=== PATIENT | male | born 1980 | race Caucasian/White ===

== ENCOUNTER 2022-04-14 08:30 | Outpatient (RCR) | payer OTHER, SELFPAY ==
[2022-03-24 08:09] VITALS: BP 143/85; PULSE 95; RESP 16; TEMP 36.3; BMI 21.9
--- NOTE | 2022-03-24 09:02 | HP.PCM_ITS ---
History of Present Illness Date of Service: 03/24/22 Progress of Wound: 41-year-old male with history of chronic right foot wound in setting of type 2 diabetes with peripheral neuropathy and end-stage renal disease. Patient has peritoneal dialysis dialysis at home lives with his parents. Patient denies any constitutional symptoms. Patient was seen by parachute folder at [facility] who put him in a surgical shoe with an offloading pad. Patient denies any improvement with this. Patient recently evaluated by vascular surgeon, no intervention recommended at this time. Patient's A1c was 6.2. Patient denies any other treatments at this time. [facility] Home Medications amlodipine 5 mg tablet 5 mg PO DAILY 01/08/22 [History Last Taken Unknown] lisinopril 40 mg tablet 40 mg PO DAILY 01/08/22 [History Last Taken Unknown] omeprazole 40 mg capsule,delayed release 40 mg PO DAILY 01/08/22 [History Last Taken Unknown] sevelamer carbonate 800 mg tablet (Renvela) 800 mg PO TID 01/08/22 [History Last Taken Unknown] sucroferric oxyhydroxide 500 mg chewable tablet (Velphoro) 500 mg PO TID 01/08/22 [History Last Taken Unknown] vitamin B complex-vitamin C-folic acid 0.8 mg tablet (Ifrah-Al) 1 tab PO DAILY 01/08/22 [History Last Taken Unknown] calcium 100 mg capsule 200 mg PO BID 03/24/22 [History Last Taken Unknown] insulin glargine 100 unit/mL (3 mL) subcutaneous pen (Basaglar KwikPen U-100 Insulin) 15 unit subcut QHS 03/24/22 [History Last Taken Unknown] Allergy/AdvReac Type Severity Reaction Status Date / Time tramodol AdvReac Intermediate Vomiting Uncoded 03/03/22 14:34 Family History Mother Diabetes Hypertension Brother Diabetes Social History housing: house Smoking Status: Never smoker alcohol intake: never substance use type: does not use well-balanced diet: daily or most days caffeine: No eating out: 4 or more times/week during the past year weight has: remained stable what type of physical activity do you participate in: none ROS Constitutional Constitutional: Denies daytime sleepiness, increased appetite or weakness Eyes Eyes: Denies acute decrease in peripheral vision, change in vision or double vision ENT HEENT: Denies change in voice, facial pain or loss taste/smell Cardiovascular Cardiovascular: Denies abdominal pain, chest pain with activity or dyspnea at rest Respiratory/Chest Respiratory/Chest: Denies change in phlegm color, chest congestion or dyspnea on exertion Gastrointestinal Gastrointestinal: Denies belching, bloating or constipation Genitourinary Genitourinary: Denies anuria, burning urination or difficulty with ejaculations Musculoskeletal Musculoskeletal: Denies atrophy, back pain or limited range of motion Vital Signs Vital Signs Vital Signs: 03/24/22 08:09 Temperature 97.3 F L Temperature Source Temporal Pulse Rate 95 Respiratory Rate 16 Blood Pressure 143/85 H Blood Pressure Mean 104 Blood Pressure Source Monitor Blood Pressure Position Sitting Blood Pressure Location Left Arm Oxygen Delivery Method Room Air Weight Weight: 69.4 kg Body Mass Index (BMI) 21.9 Physical Exam Narrative Patient alert oriented to person place and time. Patient ambulating assisted with a cane in a surgical shoe with an offloading pad. Vascular: Dorsalis pedis posterior tibial pulse palpable 2 out of 4 capillary fill time brisk absent digital hair growth noted atrophic skin changes noted. Neurologic: Light touch protective sensation absent to bilateral feet. Dermatologic: Full-thickness wound noted to the plantar lateral right foot fifth metatarsal head this did probe into the dorsal foot as an extension of a singular wound upon debridement yielded a larger wound that had some focal increase in warmth edema and scant purulent drainage. No other signs of infection deep probing or undermining at this time. Musculoskeletal: Forefoot varus deformity noted to the right lower extremity. Muscular strength full. No other issues. Debridement Note Debridement Note Post-Debridement Measurements and Additional Note: Post-Debridement Measurements/Treatment - Nurse 1 - General Ulcer Assessment Start: 03/24/22 08:09 Freq: Status: Active Protocol: SISSY Activity Type Activity Date Activity User E-sign Co-sign Detail Recorded Client Recorded Date Recorded By Document 03/24/22 08:09 [id number] 03/24/22 08:31 03/24/22 08:09 - Today's Visit Information Type of service Initial Visit Arrival Mode Ambulatory Transfer Assistance None Accompanied by self Patient Identification Verified (Name & Yes ) Safety Precautions NA Finger Stick Blood Sugar(mg/dl) (if 168 indicated): Blood Sugar Stated by Patient Height and Weight Height 5 ft 10 in Weight 69.4 kg Weight in Pounds 153.0 lbs Weight Measurement Method Stated by Patient Body Mass Index (BMI) 21.9 BMI Classification Normal BSA - Charli 1.86 Vital Signs Temperature (97.8 F-99.1 F) 97.3 F L Temperature Source Temporal Pulse Rate (60-100) 95 Pulse Location Monitor Respiratory Rate (12-18) 16 Respiratory rate source Observation Oxygen Delivery Method Room Air Blood Pressure (90/60-120/80) 143/85 H Blood Pressure Mean 104 Source Monitor Position Sitting Blood Pressure Location Left Arm History Since Last Visit- (Skip if this is Patient's initial visit) Left Footwear Regular Shoe Right Footwear Surgical Shoe with pressure relief insole Pain Scale: 0-10 Numeric Is Patient Pain Free? Yes Neuropathy Assessment Feet - Top Side and Bottom <Entered> (a) Communication Assessment Preferred language Qatari Tentering Machine Off Bearer Required No Able to Read Yes Able to Write Yes Communication Tools None Caregiver Communication Skills No Impairment Impairment Right Hearing Abillity Normal Left Hearing Abillity Normal Visual Assistive Devices Glasses Teaching Assessment Preferences Verbal,Written, Audio/Visual, Demonstration Barriers to Learning None Readiness To Learn Excellent Willingness to Engage in Self Management High Activies Anxiety Level Calm Cooperation Cooperative Perception Coherent Interest in Health Problem Asks Questions Education Importance Acknowledges Need Does Patient Smoke tobacco or other No substances Smoking Status Never smoker Is Patient Diabetic Yes Functional Assessment Recent Decline in Ability to Perform Denies Any Declines Assistive Device With Patient Yes List Device(s) with Patient cane Culture/Worship/Oil Deliverer Cultural/Worship Needs that may affect No Treatment Plan Would you allow our hospital plastics sheet finishing press operator to No meet you for the purpose of spiritual/ emotional support? Oil Deliverer to contact place of restorationist No Teaching: Wound Center *Welcome to the Wound Center -Person Taught Patient -Teaching Method Discussion -Response to teaching Verbalize understanding (a) 1 - - WC - Nurse 1 - General Ulcer Measurement Start: 03/24/22 08:09 Freq: Status: Active Protocol: Activity Type Activity Date Activity User E-sign Co-sign Detail Recorded Client Recorded Date Recorded By Document 03/24/22 08:09 [id number] 03/24/22 08:31 MW 03/24/22 08:09 Wound Center Nurse 1 #2 right lateral plantar -Combined with other wound No -Current Size (cm) - Length 0.5 -Current Size (cm) - Width 0.3 -Current Size (cm) - Depth 0.1 -Total Square Cm 0.15 -Date of Last Picture (Recall this 03/24/22 field) -Photo Taken Yes -Epithelialization None Present -Tunneling No -Undermining/Tunneling No -Circular Undermining No -Exudate Amt Medium -Exudate Type Serosanguineous -Wound Margin Flat & Intact -Granulation Amt None Present (0 %) -Granulation Quality N/A -Slough/Fibrin Yes -Necrosis Amt Medium (34-66%) -Necrotic Tissue Type Adherent Slough -Structure Exposed N/A -Texture (Breanne-wound Skin Appearance) No Abnormality, Assessed -Color (Breanne-wound Skin Appearance) Assessed, Erythema -Temperature (Breanne-wound Skin No Abnormality Appearance) (Pt Warm) -Tenderness on Palpation (Breanne-wound No Skin Appearance) -Ulcer Cleansing Soap and Water -Foul Odor after Cleansing No -Anesthetic Used 4% Lidocaine Solution #1 right lateral foot -Combined with other wound No -Current Size (cm) - Length 1.4 -Current Size (cm) - Width 0.8 -Current Size (cm) - Depth 0.1 -Total Square Cm 1.12 -Date of Last Picture (Recall this 03/24/22 field) -Photo Taken Yes -Epithelialization None Present -Tunneling No -Undermining/Tunneling No -Circular Undermining No -Exudate Amt Medium -Exudate Type Serosanguineous -Wound Margin Flat & Intact -Granulation Amt None Present (0 %) -Granulation Quality N/A -Slough/Fibrin Yes -Necrosis Amt Large (67-100%) -Necrotic Tissue Type Adherent Slough -Structure Exposed N/A -Texture (Breanne-wound Skin Appearance) No Abnormality, Assessed -Moisture (Breanne-wound Skin Appearance) No Abnormality, Assessed -Color (Breanne-wound Skin Appearance) Assessed, Erythema -Temperature (Breanne-wound Skin No Abnormality Appearance) (Pt Warm) -Tenderness on Palpation (Breanne-wound No Skin Appearance) -Ulcer Cleansing Soap and Water -Foul Odor after Cleansing No -Anesthetic Used 4% Lidocaine Solution Lower Limb Edema Present No Right Calf (cm) 28.6 Right Ankle (cm) 19.8 Left Calf (cm) 29.0 Left Ankle (cm) 20.0 WC - Nurse 2 - General Ulcer CM Notes Start: 03/24/22 08:09 Freq: Status: Active Protocol: Activity Type Activity Date Activity User E-sign Co-sign Detail Recorded Client Recorded Date Recorded By Document 03/24/22 08:50 CURT [id number] 03/24/22 08:58 CURT 03/24/22 08:50 Wound Center Nurse 2 #2 right lateral plantar -Time 08:54 -Correct Patient Yes -Correct Side, Site, Position Yes -Correct Procedure Yes -Procedure Performed Yes -Type of Procedure Debridement -Clinical Debridement Subcutaneous -Tissue Removed Subcutaneous -Post Debridement (cm) - Length 2.2 -Post Debridement (cm) - Width 1.0 -Post Debridement (cm) - Depth 0.2 -Total Square (Post) (cm) 2.20 -Area of Debridement (cm) - Length 2.2 -Area of Debridement (cm) - Width 1.0 -Total Square (Area) (cm) 2.20 -Tunneling No -Undermining/Tunneling No -Circular Undermining No -Wound/Ulcer Outcome Not Healed -Ulcer Cleansing Rinsed/ Irrigated with Saline -Foul Odor after Cleansing No -Bioengineered Tissue No -Bleeding Controlled with Pressure -Treatment Response Procedure Tolerated Well -Offloading Yes -Type of Offloading Surgical Shoe -Debridement - Subq, 1st 20sq cm Yes #1 right lateral foot -Time 08:57 -Correct Patient Yes -Correct Side, Site, Position Yes -Correct Procedure Yes -Procedure Performed Yes -Type of Procedure Debridement -Clinical Debridement Subcutaneous -Tissue Removed Subcutaneous -Post Debridement (cm) - Length 2.2 -Post Debridement (cm) - Width 1.0 -Post Debridement (cm) - Depth 0.2 -Total Square (Post) (cm) 2.20 -Area of Debridement (cm) - Length 2.2 -Area of Debridement (cm) - Width 1.0 -Total Square (Area) (cm) 2.20 -Tunneling No -Undermining/Tunneling No -Circular Undermining No -Wound/Ulcer Outcome Not Healed -Ulcer Cleansing Rinsed/ Irrigated with Saline -Foul Odor after Cleansing No -Bioengineered Tissue No -Bleeding Controlled with Pressure -Treatment Response Procedure Tolerated Well -Offloading Yes -Type of Offloading Knee Walker -Debridement - Subq, 1st 20sq cm Yes Pain Scale: 0-10 Numeric Is Patient Pain Free? Yes Assessment/Plan Assessment/Plan (1) Diabetic foot ulcer: CODE(S): E11.621 - Type 2 diabetes mellitus with foot ulcer; L97.509 - Non-pressure chronic ulcer of other part of unspecified foot with unspecified severity PLAN: Exam performed. Wound demonstrates some malodor warmth and edema with scant purulent drainage. Wound was flushed and swabbed cultured. Rx for doxycycline and ciprofloxacin ordered. Right foot wound was excisionally debrided down to including level of subcutaneous tissue of all nonviable tissue using combination of tissue nippers and #15 blade without incident. Oral consent was obtained. Patient tolerated procedure well. Hemostasis obtained with light compression. No anesthesia due to neuropathy. Pre and postdebridement measurements document nursing notes. Patient's blood sugar is well controlled at this time with recent A1c of 6.2. Patient's offloading status has been inadequate as he has significant callus buildup to the periwound area with worsening of his wound. I have recommended complete nonweightbearing. Patient will get a knee scooter to completely offload the site. I have recommended patient takes baby aspirin daily for DVT prophylaxis. He will contact us if he notices any calf pain or swelling. Due to wound size we will consider advanced wound care grafting such as epi fix graft upon 4 weeks of failed conservative treatment. Patient was eval by vascular surgery no intervention indicated at this time. If there are continued delays in wound healing as mentioned previously we will consider advanced wound care products, nutritional supplementation, surgical intervention to float the fifth metatarsal head and offload the foot. 30 minutes spent with [id number] and [id number] encounters reviewing patient's chart. (2) Non-pressure chronic ulcer of other part of right foot with fat layer exposed: CODE(S): L97.512 - Non-pressure chronic ulcer of other part of right foot with fat layer exposed (3) Type 2 diabetes mellitus with diabetic polyneuropathy: CODE(S): E11.42 - Type 2 diabetes mellitus with diabetic polyneuropathy
--- NOTE | 2022-03-24 09:45 | RAD_ITS ---
STUDY: X-RAY - RIGHT FOOT CLINICAL: Male, 41 years old. Pain, swelling TECHNIQUE: 3 view(s) of the foot. COMPARISON: None. FINDINGS: Normal talus, calcaneus, and tarsal bones. Normal visualized subtalar, talonavicular, calcaneocuboid, tarsal and tarsometatarsal articulations. Normal metatarsi. Normal metatarsophalangeal joint of the great toe. Normal tibial and fibular sesamoid bones. Normal interphalangeal joint of the great toe. Normal phalanges of the great toe. Normal second through fifth metatarsophalangeal joints. Normal interphalangeal joints and phalanges of the lesser toes. Nonspecific soft tissue swelling noted. There is no plain film evidence of subcutaneous emphysema. There are extensive vascular calcifications suggesting underlying diabetes. RAD/Foot min 3 Views IMPRESSION: No demonstrated fracture or suspicious erosive lesion. Nonspecific soft tissue swelling but no evidence of foreign body or subcutaneous emphysema Diffuse vascular calcification suggests underlying diabetes Electronically Signed: Twin Umana MD at 11:13 EDT ,
[2022-03-24 10:16] LABS: Absolute Lymphocyte Count 1.27 X10^3/uL (0.83-4.51); Absolute Neutrophil Count 12.8 X10^3/uL (2.0-7.7); Basophil# 0.08 X10^3/uL; Basophil% 0.5 % (0-1); Eosinophil# 0.16 X10^3/uL; Hematocrit 33.8 % (40-54); Hemoglobin 11.2 g/dL (13.0-16.5); Lymphocyte # 1.27 X10^3/ul (0.83-4.51); Mean Corp Hgb Conc 33.1 g/dL (32-36); Mean Corpuscular Hgb 32.3 pg (27.0-32.0); Mean Corpuscular Volume 97.4 fL (80-94); Mean Platelet Vol. 10.8 fl (6.2-12.0); Monocyte# 1.47 X10^3/uL; Monocyte% 9.3 % (0-10); NRBC Flagged by Analyzer 0 % (0-5); Neutrophil # 12.84 X10^3/uL (2.7-7.7); Neutrophil % 80.9 % (47-70); Platelet Count 307 K/mm3 (150-450); RBC Distribution Width CV 13.4 % (11.6-14.6); RBC Distribution Width SD 48.2 fl (35.1-43.9); Red Blood Count 3.47 M/mm3 (4.6-6.2); White Blood Count 15.9 K/mm3 (4.4-11.0)
[2022-03-24 11:09] LABS: CRP 5.04 mg/L (0.0-3.0)
[2022-03-31 08:18] VITALS: RESP 16; TEMP 36.3; BMI 21.9
--- NOTE | 2022-03-31 08:42 | PCM.WC.PN ---
History of Present Illness Date of Service: 03/31/22 Progress of Wound: 41-year-old male with history of chronic right foot wound in setting of type 2 diabetes with peripheral neuropathy and end-stage renal disease. Patient has peritoneal dialysis dialysis at home lives with his parents. Patient denies any constitutional symptoms. Patient was seen by fresh work wrapper layer at [facility] who put him in a surgical shoe with an offloading pad. Patient denies any improvement with this. Patient recently evaluated by vascular surgeon, no intervention recommended at this time. Patient's A1c was 6.2. Patient denies any other treatments at this time. No changes today. Objective Data Objective Data Vital Signs: Vital Signs Temp Pulse Resp BP O2 Del Method 97.4 F L 95 16 143/85 H Room Air 03/31/22 08:18 03/24/22 08:09 03/31/22 08:18 03/24/22 08:09 03/31/22 08:18 Oxygen Delivery Method Room Air Weight: 69.4 kg Body Mass Index (BMI) 21.9 Lab / Micro Data Result Diagrams: 03/24/22 09:33 Micro: Microbiology 03/24/22 09:00 Wound Abcess - Right Foot Gram Stain - Final 03/24/22 09:00 Wound Abcess - Right Foot Wound Culture - Final Staphylococcus aureus Meth. resistant Staph. aureus Corynebacterium glutamicum 03/24/22 09:00 Wound Abcess - Right Foot Anaerobic Culture - Final Anaerobic cocci Physical Exam Narrative Patient alert oriented to person place and time. Patient ambulating assisted with a cane in a surgical shoe with an offloading pad. Vascular: Dorsalis pedis posterior tibial pulse palpable 2 out of 4 capillary fill time brisk absent digital hair growth noted atrophic skin changes noted. Neurologic: Light touch protective sensation absent to bilateral feet. Dermatologic: Full-thickness wound to plantar fifth metatarsal head on the right foot. No signs of infection, edema erythema warmth and purulent drainage has resolved. No deep probing or undermining. Leg mild hyperkeratosis to periwound area no other signs of infection deep probing or undermining at this time. Musculoskeletal: Forefoot varus deformity noted to the right lower extremity. Muscular strength full. No other issues. Debridement Note Debridement Note Post-Debridement Measurements and Additional Note: Post-Debridement Measurements/Treatment WC - Nurse 1 - General Ulcer Assessment Start: 03/24/22 08:09 Freq: Status: Active Protocol: WC.LOWEXT Activity Type Activity Date Activity User E-sign Co-sign Detail Recorded Client Recorded Date Recorded By Document 03/24/22 08:09 MW [id number] 03/24/22 08:31 MW Document 03/31/22 08:18 [facility] [id number] 03/31/22 08:21 BM 03/24/22 03/31/22 08:09 08:18 - Today's Visit Information Type of service Initial Visit Follow-up Visit (Physician/TRANSFER COORDINATOR ) Arrival Mode Ambulatory Ambulatory, Walker Arrival Mode (Other) knee walker Transfer Assistance None None Accompanied by self Patient Identification Verified (Name & Yes Yes ) Patient Requires Transmission-Based No Precautions Safety Precautions NA Finger Stick Blood Sugar(mg/dl) (if 168 159 indicated): Blood Sugar Stated by Stated by Patient Patient Height and Weight Height 5 ft 10 in Weight 69.4 kg Weight in Pounds 153.0 lbs Weight Measurement Method Stated by Patient Body Mass Index (BMI) 21.9 21.9 BMI Classification Normal Normal BSA - Charli 1.86 Vital Signs Temperature (97.8 F-99.1 F) 97.3 F L 97.4 F L Temperature Source Temporal Temporal Pulse Rate (60-100) 95 Pulse Location Monitor Monitor Respiratory Rate (12-18) 16 16 Respiratory rate source Observation Observation Oxygen Delivery Method Room Air Room Air Blood Pressure (90/60-120/80) 143/85 H Blood Pressure Mean (mm Hg) 104 Source Monitor Monitor Position Sitting Sitting Blood Pressure Location Left Arm Left Arm History Since Last Visit- (Skip if this is Patient's initial visit) Have you changed medications since your No last visit? Any new allergies or adverse reactions No Had a fall/change in ADL's that may No increase risk of falls Signs or symptoms of abuse and/or No neglect since last visit Have you been in the hospital since your No last visit? Has dressing in place as prescribed Yes Has compression in place as prescribed N/A Has offloadiing in place as prescribed Yes Experienced any changes in pain level or No management Left Footwear Regular Shoe Regular Shoe Right Footwear Surgical Shoe Surgical Shoe with pressure with pressure relief insole relief insole Pain Scale: 0-10 Numeric Is Patient Pain Free? Yes Yes Neuropathy Assessment Feet - Top Side and Bottom <Entered> (a) Communication Assessment Preferred language Kinyarwanda C[employer] Finisher Required No Able to Read Yes Able to Write Yes Communication Tools None Caregiver Communication Skills No Impairment Impairment Right Hearing Abillity Normal Left Hearing Abillity Normal Visual Assistive Devices Glasses Teaching Assessment Preferences Verbal,Written, Audio/Visual, Demonstration Barriers to Learning None Readiness To Learn Excellent Willingness to Engage in Self Management High Activies Anxiety Level Calm Cooperation Cooperative Perception Coherent Interest in Health Problem Asks Questions Education Importance Acknowledges Need Does Patient Smoke tobacco or other No substances Smoking Status Never smoker Is Patient Diabetic Yes Functional Assessment Recent Decline in Ability to Perform Denies Any Declines Assistive Device With Patient Yes List Device(s) with Patient cane Culture/Baptism/Director Engineering Cultural/Baptism Needs that may affect No Treatment Plan Would you allow our hospital electric power line examiner to No meet you for the purpose of spiritual/ emotional support? Director Engineering to contact place of hindu No Teaching: Wound Center *Welcome to the Wound Center -Person Taught Patient -Teaching Method Discussion -Response to teaching Verbalize understanding (a) 1 - - - Nurse 1 - General Ulcer Measurement Start: 03/24/22 08:09 Freq: Status: Active Protocol: Activity Type Activity Date Activity User E-sign Co-sign Detail Recorded Client Recorded Date Recorded By Document 03/24/22 08:09 [id number] 03/24/22 08:31 Document 03/31/22 08:18 [facility] [id number] 03/31/22 08:21 [facility] 03/24/22 03/31/22 08:09 08:18 Wound Center Nurse 1 #2 right lateral plantar -Combined with other wound No -Current Size (cm) - Length 0.5 -Current Size (cm) - Width 0.3 -Current Size (cm) - Depth 0.1 -Total Square Cm 0.15 -Date of Last Picture (Recall this 03/24/22 field) -Photo Taken Yes -Epithelialization None Present -Tunneling No -Undermining/Tunneling No -Circular Undermining No -Exudate Amt Medium -Exudate Type Serosanguineous -Wound Margin Flat & Intact -Granulation Amt None Present (0 %) -Granulation Quality N/A -Slough/Fibrin Yes -Necrosis Amt Medium (34-66%) -Necrotic Tissue Type Adherent Slough -Structure Exposed N/A -Texture (Breanne-wound Skin Appearance) No Abnormality, Assessed -Color (Breanne-wound Skin Appearance) Assessed, Erythema -Temperature (Breanne-wound Skin No Abnormality Appearance) (Pt Warm) -Tenderness on Palpation (Breanne-wound No Skin Appearance) -Ulcer Cleansing Soap and Water -Foul Odor after Cleansing No -Anesthetic Used 4% Lidocaine Solution #1 right lateral foot -Combined with other wound No No -Current Size (cm) - Length 1.4 0.4 -Current Size (cm) - Width 0.8 0.6 -Current Size (cm) - Depth 0.1 0.1 -Total Square Cm 1.12 0.24 -Date of Last Picture (Recall this 03/24/22 03/31/22 field) -Photo Taken Yes Yes -Epithelialization None Present None Present -Tunneling No No -Undermining/Tunneling No No -Circular Undermining No No -Exudate Amt Medium Small -Exudate Type Serosanguineous Serous -Wound Margin Flat & Intact Distinct, Outline Attached -Granulation Amt None Present (0 Small (1-33%) %) -Granulation Quality N/A Red -Slough/Fibrin Yes Yes -Necrosis Amt Large (67-100%) Large (67-100%) -Necrotic Tissue Type Adherent Slough Adherent Slough -Structure Exposed N/A -Texture (Breanne-wound Skin Appearance) No Abnormality, Assessed,Callus Assessed ,Scarring -Moisture (Breanne-wound Skin Appearance) No Abnormality, Assessed,Dry/ Assessed Scaly -Color (Breanne-wound Skin Appearance) Assessed, Assessed Erythema -Temperature (Breanne-wound Skin No Abnormality No Abnormality Appearance) (Pt Warm) (Pt Warm) -Tenderness on Palpation (Breanne-wound No No Skin Appearance) -Ulcer Cleansing Soap and Water Rinsed/ Irrigated with Saline -Foul Odor after Cleansing No No -Anesthetic Used 4% Lidocaine 5% Lidocaine Solution Gel Lower Limb Edema Present No Right Calf (cm) 28.6 Right Ankle (cm) 19.8 Left Calf (cm) 29.0 Left Ankle (cm) 20.0 WC - Nurse 2 - General Ulcer CM Notes Start: 03/24/22 08:09 Freq: Status: Active Protocol: Activity Type Activity Date Activity User E-sign Co-sign Detail Recorded Client Recorded Date Recorded By Document 03/24/22 08:50 [id number] 03/24/22 08:58 JF Edit Result 03/24/22 08:50 JF (1) [id number] 03/25/22 08:33 PL Document 03/31/22 08:36 JF [id number] 03/31/22 08:39 JF (1) #2 right lateral plantar - Debridement - Subq, 1st 20sq cm Yes => No 03/24/22 03/31/22 08:50 08:36 Wound Center Nurse 2 #2 right lateral plantar -Time 08:54 -Correct Patient Yes -Correct Side, Site, Position Yes -Correct Procedure Yes -Procedure Performed Yes -Type of Procedure Debridement -Clinical Debridement Subcutaneous -Tissue Removed Subcutaneous -Post Debridement (cm) - Length 2.2 -Post Debridement (cm) - Width 1.0 -Post Debridement (cm) - Depth 0.2 -Total Square (Post) (cm) 2.20 -Area of Debridement (cm) - Length 2.2 -Area of Debridement (cm) - Width 1.0 -Total Square (Area) (cm) 2.20 -Tunneling No -Undermining/Tunneling No -Circular Undermining No -Wound/Ulcer Outcome Not Healed -Ulcer Cleansing Rinsed/ Irrigated with Saline -Foul Odor after Cleansing No -Bioengineered Tissue No -Bleeding Controlled with Pressure -Treatment Response Procedure Tolerated Well -Offloading Yes -Type of Offloading Surgical Shoe -Debridement - Subq, 1st 20sq cm No #1 right lateral foot -Time 08:57 08:38 -Correct Patient Yes Yes -Correct Side, Site, Position Yes Yes -Correct Procedure Yes Yes -Procedure Performed Yes Yes -Type of Procedure Debridement Debridement -Clinical Debridement Subcutaneous Subcutaneous -Tissue Removed Subcutaneous Subcutaneous -Post Debridement (cm) - Length 2.2 2.7 -Post Debridement (cm) - Width 1.0 0.6 -Post Debridement (cm) - Depth 0.2 0.2 -Total Square (Post) (cm) 2.20 1.62 -Area of Debridement (cm) - Length 2.2 2.7 -Area of Debridement (cm) - Width 1.0 0.6 -Total Square (Area) (cm) 2.20 1.62 -Tunneling No No -Undermining/Tunneling No No -Circular Undermining No No -Wound/Ulcer Outcome Not Healed Not Healed -Ulcer Cleansing Rinsed/ Rinsed/ Irrigated with Irrigated with Saline Saline -Foul Odor after Cleansing No No -Bioengineered Tissue No No -Bleeding Controlled with Pressure Pressure -Treatment Response Procedure Procedure Tolerated Well Tolerated Well -Offloading Yes Yes -Type of Offloading Knee Walker Knee Walker -Debridement - Subq, 1st 20sq cm Yes Yes Pain Scale: 0-10 Numeric Is Patient Pain Free? Yes Yes - Nurse 3 - General Ulcer D/C NN Start: 03/24/22 08:09 Freq: Status: Active Protocol: Activity Type Activity Date Activity User E-sign Co-sign Detail Recorded Client Recorded Date Recorded By Document 03/24/22 09:06 MW [id number] 03/24/22 09:08 MW 03/24/22 09:06 Wound Care Nurse 3 #1 right lateral foot -Ulcer Cleansing Rinsed/ Irrigated with Saline -Foul Odor after Cleansing No -Negative Pressure Wound Therapy N/A -Primary Dressing Applied Promogran Debby Matter -Primary Dressing Covered/Secured with Dry Gauze, Secured with Tape -Promogran Debby Matter 1 Treatment Response Procedure Tolerated Well Pain Scale: 0-10 Numeric Is Patient Pain Free? Yes Teaching: Wound Center Dressing Your Wound -Person Taught Patient -Teaching Method Discussion, Demonstration -Response to teaching Verbalize understanding WC - Visit Discharge Discharge Condition Stable Ambulatory Status Ambulatory,Cane Transportation Private Auto Accompanied by self Medication Reconcilliation completed & No provided to patient/care provider Clinical Summary of Care Provided Yes Notes: dressing applied per Harris Alejandre RN. Assessment/Plan Assessment/Plan (1) Diabetic foot ulcer: CODE(S): E11.621 - Type 2 diabetes mellitus with foot ulcer; L97.509 - Non-pressure chronic ulcer of other part of unspecified foot with unspecified severity PLAN: Exam performed. Resolved signs of infection. Wound cultures grew MRSA. MRSA was sensitive to doxycycline we will continue doxycycline for additional week. Right foot wound was excisionally debrided down to including level of subcutaneous tissue of all nonviable tissue using combination of tissue nippers and #15 blade without incident. Oral consent was obtained. Patient tolerated procedure well. Hemostasis obtained with light compression. No anesthesia due to neuropathy. Pre and postdebridement measurements document nursing notes. Patient's blood sugar is well controlled at this time with recent A1c of 6.2. Patient maintaining nonweightbearing status using a knee scooter. Patient has been evaluated by vascular surgery, no intervention at this time. Due to wound size we will consider advanced wound care grafting such as epi fix graft upon 4 weeks of failed conservative treatment. We will consider total contact casting once infection is confirmed to be resolved. If there are continued delays in wound healing as mentioned previously we will consider advanced wound care products, nutritional supplementation, surgical intervention to float the fifth metatarsal head and offload the foot. (2) Non-pressure chronic ulcer of other part of right foot with fat layer exposed: CODE(S): L97.512 - Non-pressure chronic ulcer of other part of right foot with fat layer exposed (3) Type 2 diabetes mellitus with diabetic polyneuropathy: CODE(S): E11.42 - Type 2 diabetes mellitus with diabetic polyneuropathy
[2022-04-07 08:30] VITALS: BP 142/69; PULSE 66; TEMP 36.2; BMI 21.9
--- NOTE | 2022-04-07 08:59 | PN.PCM_ITS ---
History of Present Illness Date of Service: 04/07/22 Progress of Wound: 41-year-old male with history of chronic right foot wound in setting of type 2 diabetes with peripheral neuropathy and end-stage renal disease. Patient has peritoneal dialysis dialysis at home lives with his parents. Patient denies any constitutional symptoms. Patient was seen by lower school music teacher at [facility] who put him in a surgical shoe with an offloading pad. Patient denies any improvement with this. Patient recently evaluated by vascular surgeon, no intervention recommended at this time. Patient's A1c was 6.2. Patient denies any other treatments at this time. No changes today. Objective Data Objective Data Vital Signs: Vital Signs Temp Pulse Resp BP O2 Del Method 97.2 F L 66 16 142/69 H Room Air 04/07/22 08:30 04/07/22 08:30 03/31/22 08:18 04/07/22 08:30 03/31/22 08:18 Oxygen Delivery Method Room Air Weight: 69.4 kg Body Mass Index (BMI) 21.9 Lab / Micro Data Result Diagrams: 03/24/22 09:33 Micro: Microbiology 03/24/22 09:00 Wound Abcess - Right Foot Gram Stain - Final 03/24/22 09:00 Wound Abcess - Right Foot Wound Culture - Final Staphylococcus aureus Meth. resistant Staph. aureus Corynebacterium glutamicum 03/24/22 09:00 Wound Abcess - Right Foot Anaerobic Culture - Final Anaerobic cocci Physical Exam Narrative Patient alert oriented to person place and time. Patient ambulating assisted with a cane in a surgical shoe with an offloading pad. Vascular: Dorsalis pedis posterior tibial pulse palpable 2 out of 4 capillary fill time brisk absent digital hair growth noted atrophic skin changes noted. Neurologic: Light touch protective sensation absent to bilateral feet. Dermatologic: Full-thickness wound to plantar fifth metatarsal head on the right foot. No signs of infection, edema erythema warmth and purulent drainage has resolved. No deep probing or undermining. Leg mild hyperkeratosis to periwound area no other signs of infection deep probing or undermining at this time. Musculoskeletal: Forefoot varus deformity noted to the right lower extremity. Muscular strength full. No other issues. Debridement Note Debridement Note Post-Debridement Measurements and Additional Note: Post-Debridement Measurements/Treatment WC - Nurse 1 - General Ulcer Assessment Start: 03/24/22 08:09 Freq: Status: Active Protocol: WC.LOWEXT Activity Type Activity Date Activity User E-sign Co-sign Detail Recorded Client Recorded Date Recorded By Document 03/24/22 08:09 MW [id number] 03/24/22 08:31 MW Document 03/31/22 08:18 [facility] [id number] 03/31/22 08:21 BM Document 04/07/22 08:30 AK [id number] 04/07/22 08:33 AK 03/24/22 03/31/22 04/07/22 08:09 08:18 08:30 WC - Today's Visit Information Type of service Initial Visit Follow-up Visit Follow-up Visit (Physician/RESIDENCE LIFE DIRECTOR (Physician/RESIDENCE LIFE DIRECTOR ) ) Arrival Mode Ambulatory Ambulatory, Ambulatory Walker Arrival Mode (Other) knee walker Transfer Assistance None None Accompanied by self Patient Identification Verified (Name & Yes Yes Yes ) Patient Requires Transmission-Based No No Precautions Safety Precautions NA NA Finger Stick Blood Sugar(mg/dl) (if 168 159 indicated): Blood Sugar Stated by Stated by Patient Patient Height and Weight Height 5 ft 10 in Weight 69.4 kg Weight in Pounds 153.0 lbs Weight Measurement Method Stated by Patient Body Mass Index (BMI) 21.9 21.9 21.9 BMI Classification Normal Normal Normal BSA - Charli 1.86 Vital Signs Temperature (97.8 F-99.1 F) 97.3 F L 97.4 F L 97.2 F L Temperature Source Temporal Temporal Temporal Pulse Rate (60-100) 95 66 Pulse Location Monitor Monitor Monitor Respiratory Rate (12-18) 16 16 Respiratory rate source Observation Observation Oxygen Delivery Method Room Air Room Air Blood Pressure (90/60-120/80) 143/85 H 142/69 H Blood Pressure Mean (mm Hg) 104 93 Source Monitor Monitor Monitor Position Sitting Sitting Blood Pressure Location Left Arm Left Arm History Since Last Visit- (Skip if this is Patient's initial visit) Have you changed medications since your No No last visit? Any new allergies or adverse reactions No No Had a fall/change in ADL's that may No No increase risk of falls Signs or symptoms of abuse and/or No No neglect since last visit Have you been in the hospital since your No No last visit? Has dressing in place as prescribed Yes Yes Has compression in place as prescribed N/A N/A Has offloadiing in place as prescribed Yes N/A Experienced any changes in pain level or No No management Left Footwear Regular Shoe Regular Shoe Regular Shoe Right Footwear Surgical Shoe Surgical Shoe Surgical Shoe with pressure with pressure with pressure relief insole relief insole relief insole Pain Scale: 0-10 Numeric Is Patient Pain Free? Yes Yes Yes Neuropathy Assessment Feet - Top Side and Bottom <Entered> (a) Communication Assessment Preferred language Mal[place]ian Condenser Winder Required No Able to Read Yes Able to Write Yes Communication Tools None Caregiver Communication Skills No Impairment Impairment Right Hearing Abillity Normal Left Hearing Abillity Normal Visual Assistive Devices Glasses Teaching Assessment Preferences Verbal,Written, Audio/Visual, Demonstration Barriers to Learning None Readiness To Learn Excellent Willingness to Engage in Self Management High Activies Anxiety Level Calm Cooperation Cooperative Perception Coherent Interest in Health Problem Asks Questions Education Importance Acknowledges Need Does Patient Smoke tobacco or other No substances Smoking Status Never smoker Is Patient Diabetic Yes Functional Assessment Recent Decline in Ability to Perform Denies Any Declines Assistive Device With Patient Yes List Device(s) with Patient cane Culture/Cheondoism/Certified Caregiver Cultural/Cheondoism Needs that may affect No Treatment Plan Would you allow our hospital usability engineer to No meet you for the purpose of spiritual/ emotional support? Certified Caregiver to contact place of quaker No Teaching: Wound Center *Welcome to the Wound Center -Person Taught Patient -Teaching Method Discussion -Response to teaching Verbalize understanding (a) 1 - - WC - Nurse 1 - General Ulcer Measurement Start: 03/24/22 08:09 Freq: Status: Active Protocol: Activity Type Activity Date Activity User E-sign Co-sign Detail Recorded Client Recorded Date Recorded By Document 03/24/22 08:09 [id number] 03/24/22 08:31 Document 03/31/22 08:18 [facility] [id number] 03/31/22 08:21 [facility] Document 04/07/22 08:30 AK [id number] 04/07/22 08:33 AK 03/24/22 03/31/22 04/07/22 08:09 08:18 08:30 Wound Center Nurse 1 #2 right lateral plantar -Combined with other wound No -Current Size (cm) - Length 0.5 -Current Size (cm) - Width 0.3 -Current Size (cm) - Depth 0.1 -Total Square Cm 0.15 -Date of Last Picture (Recall this 03/24/22 field) -Photo Taken Yes -Epithelialization None Present -Tunneling No -Undermining/Tunneling No -Circular Undermining No -Exudate Amt Medium -Exudate Type Serosanguineous -Wound Margin Flat & Intact -Granulation Amt None Present (0 %) -Granulation Quality N/A -Slough/Fibrin Yes -Necrosis Amt Medium (34-66%) -Necrotic Tissue Type Adherent Slough -Structure Exposed N/A -Texture (Breanne-wound Skin Appearance) No Abnormality, Assessed -Color (Breanne-wound Skin Appearance) Assessed, Erythema -Temperature (Breanne-wound Skin No Abnormality Appearance) (Pt Warm) -Tenderness on Palpation (Breanne-wound No Skin Appearance) -Ulcer Cleansing Soap and Water -Foul Odor after Cleansing No -Anesthetic Used 4% Lidocaine Solution #1 right lateral foot -Combined with other wound No No No -Current Size (cm) - Length 1.4 0.4 0.1 -Current Size (cm) - Width 0.8 0.6 0.1 -Current Size (cm) - Depth 0.1 0.1 0.1 -Total Square Cm 1.12 0.24 0.01 -Date of Last Picture (Recall this 03/24/22 03/31/22 04/07/22 field) -Photo Taken Yes Yes Yes -Epithelialization None Present None Present -Tunneling No No No -Undermining/Tunneling No No No -Circular Undermining No No No -Change in Wound Grade/Stage No -Exudate Amt Medium Small None Present -Exudate Type Serosanguineous Serous -Wound Margin Flat & Intact Distinct, Distinct, Outline Outline Attached Attached -Granulation Amt None Present (0 Small (1-33%) None Present (0 %) %) -Granulation Quality N/A Red N/A -Slough/Fibrin Yes Yes No -Necrosis Amt Large (67-100%) Large (67-100%) None Present (0 %) -Necrotic Tissue Type Adherent Slough Adherent Slough -Structure Exposed N/A N/A -Texture (Breanne-wound Skin Appearance) No Abnormality, Assessed,Callus No Abnormality, Assessed ,Scarring Assessed -Moisture (Breanne-wound Skin Appearance) No Abnormality, Assessed,Dry/ No Abnormality, Assessed Scaly Assessed -Color (Breanne-wound Skin Appearance) Assessed, Assessed No Abnormality, Erythema Assessed -Temperature (Breanne-wound Skin No Abnormality No Abnormality No Abnormality Appearance) (Pt Warm) (Pt Warm) (Pt Warm) -Tenderness on Palpation (Breanne-wound No No No Skin Appearance) -Ulcer Cleansing Soap and Water Rinsed/ Rinsed/ Irrigated with Irrigated with Saline Saline -Foul Odor after Cleansing No No No -Anesthetic Used 4% Lidocaine 5% Lidocaine 5% Lidocaine Solution Gel Gel -Wound Comment(s) wound and dressing completely dried up.. I can't accurately measure. I soaked in lidocaine. Pt also reported flipping his knee scooter in the parking lot. He denies hitting his head and he denies any pain . Lower Limb Edema Present No Right Calf (cm) 28.6 Right Ankle (cm) 19.8 Left Calf (cm) 29.0 Left Ankle (cm) 20.0 WC - Nurse 2 - General Ulcer CM Notes Start: 03/24/22 08:09 Freq: Status: Active Protocol: Activity Type Activity Date Activity User E-sign Co-sign Detail Recorded Client Recorded Date Recorded By Document 03/24/22 08:50 [id number] 03/24/22 08:58 JF Edit Result 03/24/22 08:50 JF (1) [id number] 03/25/22 08:33 PL Document 03/31/22 08:36 [id number] 03/31/22 08:39 JF Document 04/07/22 08:51 [id number] 04/07/22 08:58 JF (1) #2 right lateral plantar - Debridement - Subq, 1st 20sq cm Yes => No 03/24/22 03/31/22 04/07/22 08:50 08:36 08:51 Wound Center Nurse 2 #2 right lateral plantar -Time 08:54 -Correct Patient Yes -Correct Side, Site, Position Yes -Correct Procedure Yes -Procedure Performed Yes -Type of Procedure Debridement -Clinical Debridement Subcutaneous -Tissue Removed Subcutaneous -Post Debridement (cm) - Length 2.2 -Post Debridement (cm) - Width 1.0 -Post Debridement (cm) - Depth 0.2 -Total Square (Post) (cm) 2.20 -Area of Debridement (cm) - Length 2.2 -Area of Debridement (cm) - Width 1.0 -Total Square (Area) (cm) 2.20 -Tunneling No -Undermining/Tunneling No -Circular Undermining No -Wound/Ulcer Outcome Not Healed -Ulcer Cleansing Rinsed/ Irrigated with Saline -Foul Odor after Cleansing No -Bioengineered Tissue No -Bleeding Controlled with Pressure -Treatment Response Procedure Tolerated Well -Offloading Yes -Type of Offloading Surgical Shoe -Debridement - Subq, 1st 20sq cm No #1 right lateral foot -Time 08:57 08:38 08:51 -Correct Patient Yes Yes Yes -Correct Side, Site, Position Yes Yes Yes -Correct Procedure Yes Yes Yes -Procedure Performed Yes Yes Yes -Type of Procedure Debridement Debridement Debridement -Clinical Debridement Subcutaneous Subcutaneous Subcutaneous -Tissue Removed Subcutaneous Subcutaneous Subcutaneous -Post Debridement (cm) - Length 2.2 2.7 0.5 -Post Debridement (cm) - Width 1.0 0.6 2 -Post Debridement (cm) - Depth 0.2 0.2 0.2 -Total Square (Post) (cm) 2.20 1.62 1.0 -Area of Debridement (cm) - Length 2.2 2.7 0.5 -Area of Debridement (cm) - Width 1.0 0.6 2.0 -Total Square (Area) (cm) 2.20 1.62 1.00 -Tunneling No No No -Undermining/Tunneling No No No -Circular Undermining No No No -Wound/Ulcer Outcome Not Healed Not Healed Not Healed -Ulcer Cleansing Rinsed/ Rinsed/ Rinsed/ Irrigated with Irrigated with Irrigated with Saline Saline Saline -Foul Odor after Cleansing No No No -Bioengineered Tissue No No Yes -Type of Bioengineered Tissue Epifix 18mm Disc -Expiration Date 12/19/26 -Product Lot Number [id number] -Percent Used 100 -Lot number of Saline Used [id number] -Bleeding Controlled with Pressure Pressure Pressure -Treatment Response Procedure Procedure Procedure Tolerated Well Tolerated Well Tolerated Well -Offloading Yes Yes Yes -Type of Offloading Knee Walker Knee Walker Knee Walker -Debridement - Subq, 1st 20sq cm Yes Yes No -Apply Skin Sub - 1st 25 sq cm - Feet 1 -Epifix 18mm Disc 3 Pain Scale: 0-10 Numeric Is Patient Pain Free? Yes Yes Yes WC - Nurse 3 - General Ulcer D/C NN Start: 03/24/22 08:09 Freq: Status: Active Protocol: Activity Type Activity Date Activity User E-sign Co-sign Detail Recorded Client Recorded Date Recorded By Document 03/24/22 09:06 [id number] 03/24/22 09:08 MW Document 03/31/22 08:47 [facility] [id number] 03/31/22 08:47 [facility] 03/24/22 03/31/22 09:06 08:47 Wound Care Nurse 3 #1 right lateral foot -Ulcer Cleansing Rinsed/ Rinsed/ Irrigated with Irrigated with Saline Saline -Foul Odor after Cleansing No No -Negative Pressure Wound Therapy N/A -Primary Dressing Applied Promogran Promogran Debby Matter Debby Matter -Primary Dressing Covered/Secured with Dry Gauze, Dry Gauze, Secured with Secured with Tape Tape -Promogran Debby Matter 1 1 Treatment Response Procedure Procedure Tolerated Well Tolerated Well Pain Scale: 0-10 Numeric Is Patient Pain Free? Yes Yes Teaching: Wound Center Dressing Your Wound -Person Taught Patient -Teaching Method Discussion, Demonstration -Response to teaching Verbalize understanding WC - Visit Discharge Discharge Condition Stable Stable Ambulatory Status Ambulatory,Cane Ambulatory, Walker Transportation Private Auto Private Auto Accompanied by self knee walker Medication Reconcilliation completed & No provided to patient/care provider Clinical Summary of Care Provided Yes Notes: dressing applied per Harris Alejandre RN. Assessment/Plan Assessment/Plan (1) Diabetic foot ulcer: CODE(S): E11.621 - Type 2 diabetes mellitus with foot ulcer; L97.509 - Non-pressure chronic ulcer of other part of unspecified foot with unspecified severity PLAN: Exam performed. Resolved signs of infection. Wound cultures grew MRSA. MRSA was sensitive to doxycycline we will continue doxycycline for additional week. Right foot wound was excisionally debrided down to including level of subcutaneous tissue of all nonviable tissue using combination of tissue nippers and #15 blade without incident. Oral consent was obtained. Patient tolerated procedure well. Hemostasis obtained with light compression. No anesthesia due to neuropathy. Pre and postdebridement measurements document nursing notes. Patient's blood sugar is well controlled at this time with recent A1c of 6.2. Today we applied a 18 mm epi fix graft for billing units. This was applied directly to the wound site the entire graft was used no waste. This was secured with overlying nonadherent dressing and Steri-Strips. An overlying dressing of 4 x 4's Kerlix and Primitivo bandage were applied. Patient will change his bandage every day or other day until follow-up in 1 week. Patient maintaining nonweightbearing status using a knee scooter. Patient has been evaluated by vascular surgery, no intervention at this time. If there are continued delays in wound healing as mentioned previously we will consider advanced wound care products, nutritional supplementation, surgical intervention to float the fifth metatarsal head and offload the foot. (2) Non-pressure chronic ulcer of other part of right foot with fat layer exposed: CODE(S): L97.512 - Non-pressure chronic ulcer of other part of right foot with fat layer exposed (3) Type 2 diabetes mellitus with diabetic polyneuropathy: CODE(S): E11.42 - Type 2 diabetes mellitus with diabetic polyneuropathy
[2022-04-14 08:20] VITALS: BP 130/75; PULSE 102; RESP 16; BMI 21.9
--- NOTE | 2022-04-14 09:08 | PCM.WC.PN ---
History of Present Illness Date of Service: 04/14/22 Progress of Wound: 41-year-old male with history of chronic right foot wound in setting of type 2 diabetes with peripheral neuropathy and end-stage renal disease. Patient has peritoneal dialysis dialysis at home lives with his parents. Patient denies any constitutional symptoms. Patient was seen by fitness floor attendant at [facility] who put him in a surgical shoe with an offloading pad. Patient denies any improvement with this. Patient recently evaluated by vascular surgeon, no intervention recommended at this time. Patient's A1c was 6.2. Patient denies any other treatments at this time. No changes today. Objective Data Objective Data Vital Signs: Vital Signs Temp Pulse Resp BP O2 Del Method 97.2 F L 102 H 16 130/75 H Room Air 04/07/22 08:30 04/14/22 08:20 04/14/22 08:20 04/14/22 08:20 04/14/22 08:20 Oxygen Delivery Method Room Air Weight: 69.4 kg Body Mass Index (BMI) 21.9 Lab / Micro Data Result Diagrams: 03/24/22 09:33 Micro: Microbiology 03/24/22 09:00 Wound Abcess - Right Foot Gram Stain - Final 03/24/22 09:00 Wound Abcess - Right Foot Wound Culture - Final Staphylococcus aureus Meth. resistant Staph. aureus Corynebacterium glutamicum 03/24/22 09:00 Wound Abcess - Right Foot Anaerobic Culture - Final Anaerobic cocci Physical Exam Narrative Patient alert oriented to person place and time. Patient ambulating assisted with a cane in a surgical shoe with an offloading pad. Vascular: Dorsalis pedis posterior tibial pulse palpable 2 out of 4 capillary fill time brisk absent digital hair growth noted atrophic skin changes noted. Neurologic: Light touch protective sensation absent to bilateral feet. Dermatologic: Full-thickness wound to plantar fifth metatarsal head on the right foot. No signs of infection, edema erythema warmth and purulent drainage has resolved. No deep probing or undermining. Leg mild hyperkeratosis to periwound area no other signs of infection deep probing or undermining at this time. Musculoskeletal: Forefoot varus deformity noted to the right lower extremity. Muscular strength full. No other issues. Debridement Note Debridement Note Post-Debridement Measurements and Additional Note: Post-Debridement Measurements/Treatment WC - Nurse 1 - General Ulcer Assessment Start: 03/24/22 08:09 Freq: Status: Active Protocol: WC.LOWEXT Activity Type Activity Date Activity User E-sign Co-sign Detail Recorded Client Recorded Date Recorded By Document 03/24/22 08:09 MW [id number] 03/24/22 08:31 MW Document 03/31/22 08:18 [facility] [id number] 03/31/22 08:21 BMF Document 04/07/22 08:30 AK [id number] 04/07/22 08:33 AK Document 04/14/22 08:20 [facility] [id number] 04/14/22 08:26 BMF 03/24/22 03/31/22 04/07/22 08:09 08:18 08:30 WC - Today's Visit Information Type of service Initial Visit Follow-up Visit Follow-up Visit (Physician/COPY CENTER SPECIALIST (Physician/COPY CENTER SPECIALIST ) ) Arrival Mode Ambulatory Ambulatory, Ambulatory Walker Arrival Mode (Other) knee walker Transfer Assistance None None Accompanied by self Patient Identification Verified (Name & Yes Yes Yes ) Patient Requires Transmission-Based No No Precautions Safety Precautions NA NA Finger Stick Blood Sugar(mg/dl) (if 168 159 indicated): Blood Sugar Stated by Stated by Patient Patient Height and Weight Height 5 ft 10 in Weight 69.4 kg Weight in Pounds 153.0 lbs Weight Measurement Method Stated by Patient Body Mass Index (BMI) 21.9 21.9 21.9 BMI Classification Normal Normal Normal BSA - Charli 1.86 Vital Signs Temperature (97.8 F-99.1 F) 97.3 F L 97.4 F L 97.2 F L Temperature Source Temporal Temporal Temporal Pulse Rate (60-100) 95 66 Pulse Location Monitor Monitor Monitor Respiratory Rate (12-18) 16 16 Respiratory rate source Observation Observation Oxygen Delivery Method Room Air Room Air Blood Pressure (90/60-120/80) 143/85 H 142/69 H Blood Pressure Mean (mm Hg) 104 93 Source Monitor Monitor Monitor Position Sitting Sitting Blood Pressure Location Left Arm Left Arm History Since Last Visit- (Skip if this is Patient's initial visit) Have you changed medications since your No No last visit? Any new allergies or adverse reactions No No Had a fall/change in ADL's that may No No increase risk of falls Signs or symptoms of abuse and/or No No neglect since last visit Have you been in the hospital since your No No last visit? Has dressing in place as prescribed Yes Yes Has compression in place as prescribed N/A N/A Has offloadiing in place as prescribed Yes N/A Experienced any changes in pain level or No No management Left Footwear Regular Shoe Regular Shoe Regular Shoe Right Footwear Surgical Shoe Surgical Shoe Surgical Shoe with pressure with pressure with pressure relief insole relief insole relief insole Pain Scale: 0-10 Numeric Is Patient Pain Free? Yes Yes Yes Neuropathy Assessment Feet - Top Side and Bottom <Entered> (a) Communication Assessment Preferred language Bel[place]ian Brigadier Required No Able to Read Yes Able to Write Yes Communication Tools None Caregiver Communication Skills No Impairment Impairment Right Hearing Abillity Normal Left Hearing Abillity Normal Visual Assistive Devices Glasses Teaching Assessment Preferences Verbal,Written, Audio/Visual, Demonstration Barriers to Learning None Readiness To Learn Excellent Willingness to Engage in Self Management High Activies Anxiety Level Calm Cooperation Cooperative Perception Coherent Interest in Health Problem Asks Questions Education Importance Acknowledges Need Does Patient Smoke tobacco or other No substances Smoking Status Never smoker Is Patient Diabetic Yes Functional Assessment Recent Decline in Ability to Perform Denies Any Declines Assistive Device With Patient Yes List Device(s) with Patient cane Culture/Roman Catholic/Support Dba Cultural/Roman Catholic Needs that may affect No Treatment Plan Would you allow our hospital first aid trainer to No meet you for the purpose of spiritual/ emotional support? Support Dba to contact place of yazidism No Teaching: Wound Center *Welcome to the Wound Center -Person Taught Patient -Teaching Method Discussion -Response to teaching Verbalize understanding 04/14/22 08:20 WC - Today's Visit Information Type of service Follow-up Visit (Physician/COPY CENTER SPECIALIST ) Arrival Mode Ambulatory Arrival Mode (Other) Transfer Assistance None Accompanied by Patient Identification Verified (Name & Yes ) Patient Requires Transmission-Based No Precautions Safety Precautions Finger Stick Blood Sugar(mg/dl) (if indicated): Blood Sugar Height and Weight Height Weight Weight in Pounds Weight Measurement Method Body Mass Index (BMI) 21.9 BMI Classification Normal BSA - Charli Vital Signs Temperature (97.8 F-99.1 F) Temperature Source Pulse Rate (60-100) 102 H Pulse Location Monitor Respiratory Rate (12-18) 16 Respiratory rate source Observation Oxygen Delivery Method Room Air Blood Pressure (90/60-120/80) 130/75 H Blood Pressure Mean (mm Hg) 93 Source Monitor Position Sitting Blood Pressure Location Right Arm History Since Last Visit- (Skip if this is Patient's initial visit) Have you changed medications since your No last visit? Any new allergies or adverse reactions No Had a fall/change in ADL's that may Yes increase risk of falls Signs or symptoms of abuse and/or No neglect since last visit Have you been in the hospital since your No last visit? Has dressing in place as prescribed Yes Has compression in place as prescribed N/A Has offloadiing in place as prescribed Yes Experienced any changes in pain level or No management Left Footwear Regular Shoe Right Footwear Surgical Shoe with pressure relief insole Pain Scale: 0-10 Numeric Is Patient Pain Free? Yes Neuropathy Assessment Feet - Top Side and Bottom Communication Assessment Preferred erp project manager Required Able to Read Able to Write Communication Tools Caregiver Communication Skills Impairment Right Hearing Abillity Left Hearing Abillity Visual Assistive Devices Teaching Assessment Preferences Barriers to Learning Readiness To Learn Willingness to Engage in Self Management Activies Anxiety Level Cooperation Perception Interest in Health Problem Education Importance Does Patient Smoke tobacco or other substances Smoking Status Is Patient Diabetic Functional Assessment Recent Decline in Ability to Perform Assistive Device With Patient List Device(s) with Patient Culture/Roman Catholic/Support Dba Cultural/Roman Catholic Needs that may affect Treatment Plan Would you allow our hospital first aid trainer to meet you for the purpose of spiritual/ emotional support? Support Dba to contact place of yazidism Teaching: Wound Center *Welcome to the Wound Center -Person Taught -Teaching Method -Response to teaching (a) 1 - - WC - Nurse 1 - General Ulcer Measurement Start: 03/24/22 08:09 Freq: Status: Active Protocol: Activity Type Activity Date Activity User E-sign Co-sign Detail Recorded Client Recorded Date Recorded By Document 03/24/22 08:09 [id number] 03/24/22 08:31 MW Document 03/31/22 08:18 [facility] [id number] 03/31/22 08:21 BM Document 04/07/22 08:30 AK [id number] 04/07/22 08:33 AK Document 04/14/22 08:20 [facility] [id number] 04/14/22 08:26 BMF 03/24/22 03/31/22 04/07/22 08:09 08:18 08:30 Wound Center Nurse 1 #2 right lateral plantar -Combined with other wound No -Current Size (cm) - Length 0.5 -Current Size (cm) - Width 0.3 -Current Size (cm) - Depth 0.1 -Total Square Cm 0.15 -Date of Last Picture (Recall this 03/24/22 field) -Photo Taken Yes -Epithelialization None Present -Tunneling No -Undermining/Tunneling No -Circular Undermining No -Exudate Amt Medium -Exudate Type Serosanguineous -Wound Margin Flat & Intact -Granulation Amt None Present (0 %) -Granulation Quality N/A -Slough/Fibrin Yes -Necrosis Amt Medium (34-66%) -Necrotic Tissue Type Adherent Slough -Structure Exposed N/A -Texture (Breanne-wound Skin Appearance) No Abnormality, Assessed -Color (Breanne-wound Skin Appearance) Assessed, Erythema -Temperature (Breanne-wound Skin No Abnormality Appearance) (Pt Warm) -Tenderness on Palpation (Breanne-wound No Skin Appearance) -Ulcer Cleansing Soap and Water -Foul Odor after Cleansing No -Anesthetic Used 4% Lidocaine Solution #1 right lateral foot -Combined with other wound No No No -Current Size (cm) - Length 1.4 0.4 0.1 -Current Size (cm) - Width 0.8 0.6 0.1 -Current Size (cm) - Depth 0.1 0.1 0.1 -Total Square Cm 1.12 0.24 0.01 -Date of Last Picture (Recall this 03/24/22 03/31/22 04/07/22 field) -Photo Taken Yes Yes Yes -Epithelialization None Present None Present -Tunneling No No No -Undermining/Tunneling No No No -Circular Undermining No No No -Change in Wound Grade/Stage No -Exudate Amt Medium Small None Present -Exudate Type Serosanguineous Serous -Wound Margin Flat & Intact Distinct, Distinct, Outline Outline Attached Attached -Granulation Amt None Present (0 Small (1-33%) None Present (0 %) %) -Granulation Quality N/A Red N/A -Slough/Fibrin Yes Yes No -Necrosis Amt Large (67-100%) Large (67-100%) None Present (0 %) -Necrotic Tissue Type Adherent Slough Adherent Slough -Structure Exposed N/A N/A -Texture (Breanne-wound Skin Appearance) No Abnormality, Assessed,Callus No Abnormality, Assessed ,Scarring Assessed -Moisture (Breanne-wound Skin Appearance) No Abnormality, Assessed,Dry/ No Abnormality, Assessed Scaly Assessed -Color (Breanne-wound Skin Appearance) Assessed, Assessed No Abnormality, Erythema Assessed -Temperature (Breanne-wound Skin No Abnormality No Abnormality No Abnormality Appearance) (Pt Warm) (Pt Warm) (Pt Warm) -Tenderness on Palpation (Breanne-wound No No No Skin Appearance) -Ulcer Cleansing Soap and Water Rinsed/ Rinsed/ Irrigated with Irrigated with Saline Saline -Foul Odor after Cleansing No No No -Anesthetic Used 4% Lidocaine 5% Lidocaine 5% Lidocaine Solution Gel Gel -Wound Comment(s) wound and dressing completely dried up.. I can't accurately measure. I soaked in lidocaine. Pt also reported flipping his knee scooter in the parking lot. He denies hitting his head and he denies any pain . Lower Limb Edema Present No Right Calf (cm) 28.6 Right Ankle (cm) 19.8 Left Calf (cm) 29.0 Left Ankle (cm) 20.0 04/14/22 08:20 Wound Center Nurse 1 #2 right lateral plantar -Combined with other wound -Current Size (cm) - Length -Current Size (cm) - Width -Current Size (cm) - Depth -Total Square Cm -Date of Last Picture (Recall this field) -Photo Taken -Epithelialization -Tunneling -Undermining/Tunneling -Circular Undermining -Exudate Amt -Exudate Type -Wound Margin -Granulation Amt -Granulation Quality -Slough/Fibrin -Necrosis Amt -Necrotic Tissue Type -Structure Exposed -Texture (Breanne-wound Skin Appearance) -Color (Breanne-wound Skin Appearance) -Temperature (Breanne-wound Skin Appearance) -Tenderness on Palpation (Breanne-wound Skin Appearance) -Ulcer Cleansing -Foul Odor after Cleansing -Anesthetic Used #1 right lateral foot -Combined with other wound No -Current Size (cm) - Length 0.1 -Current Size (cm) - Width 0.1 -Current Size (cm) - Depth 0.1 -Total Square Cm 0.01 -Date of Last Picture (Recall this 04/14/22 field) -Photo Taken Yes -Epithelialization None Present -Tunneling No -Undermining/Tunneling No -Circular Undermining No -Change in Wound Grade/Stage -Exudate Amt Medium -Exudate Type Serosanguineous -Wound Margin Flat & Intact -Granulation Amt None Present (0 %) -Granulation Quality -Slough/Fibrin Yes -Necrosis Amt Large (67-100%) -Necrotic Tissue Type Adherent Slough -Structure Exposed -Texture (Breanne-wound Skin Appearance) Assessed, Scarring -Moisture (Breanne-wound Skin Appearance) Assessed,Dry/ Scaly -Color (Breanne-wound Skin Appearance) Assessed -Temperature (Breanne-wound Skin No Abnormality Appearance) (Pt Warm) -Tenderness on Palpation (Breanne-wound No Skin Appearance) -Ulcer Cleansing Soap and Water -Foul Odor after Cleansing No -Anesthetic Used 5% Lidocaine Gel -Wound Comment(s) Lower Limb Edema Present Right Calf (cm) Right Ankle (cm) Left Calf (cm) Left Ankle (cm) WC - Nurse 2 - General Ulcer CM Notes Start: 03/24/22 08:09 Freq: Status: Active Protocol: Activity Type Activity Date Activity User E-sign Co-sign Detail Recorded Client Recorded Date Recorded By Document 03/24/22 08:50 [id number] 03/24/22 08:58 JF Edit Result 03/24/22 08:50 JF (1) [id number] 03/25/22 08:33 PL Document 03/31/22 08:36 [id number] 03/31/22 08:39 JF Document 04/07/22 08:51 [id number] 04/07/22 08:58 JF Document 04/14/22 08:47 [id number] 04/14/22 08:56 JF (1) #2 right lateral plantar - Debridement - Subq, 1st 20sq cm Yes => No 03/24/22 03/31/22 04/07/22 08:50 08:36 08:51 Wound Center Nurse 2 #2 right lateral plantar -Time 08:54 -Correct Patient Yes -Correct Side, Site, Position Yes -Correct Procedure Yes -Procedure Performed Yes -Type of Procedure Debridement -Clinical Debridement Subcutaneous -Tissue Removed Subcutaneous -Post Debridement (cm) - Length 2.2 -Post Debridement (cm) - Width 1.0 -Post Debridement (cm) - Depth 0.2 -Total Square (Post) (cm) 2.20 -Area of Debridement (cm) - Length 2.2 -Area of Debridement (cm) - Width 1.0 -Total Square (Area) (cm) 2.20 -Tunneling No -Undermining/Tunneling No -Circular Undermining No -Wound/Ulcer Outcome Not Healed -Ulcer Cleansing Rinsed/ Irrigated with Saline -Foul Odor after Cleansing No -Bioengineered Tissue No -Bleeding Controlled with Pressure -Treatment Response Procedure Tolerated Well -Offloading Yes -Type of Offloading Surgical Shoe -Debridement - Subq, 1st 20sq cm No #1 right lateral foot -Time 08:57 08:38 08:51 -Correct Patient Yes Yes Yes -Correct Side, Site, Position Yes Yes Yes -Correct Procedure Yes Yes Yes -Procedure Performed Yes Yes Yes -Type of Procedure Debridement Debridement Debridement -Clinical Debridement Subcutaneous Subcutaneous Subcutaneous -Tissue Removed Subcutaneous Subcutaneous Subcutaneous -Post Debridement (cm) - Length 2.2 2.7 0.5 -Post Debridement (cm) - Width 1.0 0.6 2 -Post Debridement (cm) - Depth 0.2 0.2 0.2 -Total Square (Post) (cm) 2.20 1.62 1.0 -Area of Debridement (cm) - Length 2.2 2.7 0.5 -Area of Debridement (cm) - Width 1.0 0.6 2.0 -Total Square (Area) (cm) 2.20 1.62 1.00 -Tunneling No No No -Undermining/Tunneling No No No -Circular Undermining No No No -Wound/Ulcer Outcome Not Healed Not Healed Not Healed -Ulcer Cleansing Rinsed/ Rinsed/ Rinsed/ Irrigated with Irrigated with Irrigated with Saline Saline Saline -Foul Odor after Cleansing No No No -Bioengineered Tissue No No Yes -Type of Bioengineered Tissue Epifix 18mm Disc -Expiration Date 12/19/26 -Product Lot Number [id number] -Percent Used 100 -Lot number of Saline Used [id number] -Bleeding Controlled with Pressure Pressure Pressure -Treatment Response Procedure Procedure Procedure Tolerated Well Tolerated Well Tolerated Well -Offloading Yes Yes Yes -Type of Offloading Knee Walker Knee Walker Knee Walker -Assistive Device(s) -Debridement - Subq, 1st 20sq cm Yes Yes No -Apply Skin Sub - 1st 25 sq cm - Feet 1 -Epifix 18mm Disc 3 Pain Scale: 0-10 Numeric Is Patient Pain Free? Yes Yes Yes 04/14/22 08:47 Wound Center Nurse 2 #2 right lateral plantar -Time -Correct Patient -Correct Side, Site, Position -Correct Procedure -Procedure Performed -Type of Procedure -Clinical Debridement -Tissue Removed -Post Debridement (cm) - Length -Post Debridement (cm) - Width -Post Debridement (cm) - Depth -Total Square (Post) (cm) -Area of Debridement (cm) - Length -Area of Debridement (cm) - Width -Total Square (Area) (cm) -Tunneling -Undermining/Tunneling -Circular Undermining -Wound/Ulcer Outcome -Ulcer Cleansing -Foul Odor after Cleansing -Bioengineered Tissue -Bleeding Controlled with -Treatment Response -Offloading -Type of Offloading -Debridement - Subq, 1st 20sq cm #1 right lateral foot -Time 08:47 -Correct Patient Yes -Correct Side, Site, Position Yes -Correct Procedure Yes -Procedure Performed Yes -Type of Procedure Debridement -Clinical Debridement Subcutaneous -Tissue Removed Subcutaneous -Post Debridement (cm) - Length 1.0 -Post Debridement (cm) - Width 2.5 -Post Debridement (cm) - Depth 0.1 -Total Square (Post) (cm) 2.50 -Area of Debridement (cm) - Length 1 -Area of Debridement (cm) - Width 2.5 -Total Square (Area) (cm) 2.5 -Tunneling No -Undermining/Tunneling No -Circular Undermining No -Wound/Ulcer Outcome Not Healed -Ulcer Cleansing Rinsed/ Irrigated with Saline -Foul Odor after Cleansing No -Bioengineered Tissue Yes -Type of Bioengineered Tissue Epifix 18mm Disc -Expiration Date 12/19/26 -Product Lot Number [id number] -Percent Used 100 -Lot number of Saline Used [id number] -Bleeding Controlled with Pressure -Treatment Response Procedure Tolerated Well -Offloading Yes -Type of Offloading Surgical Shoe -Assistive Device(s) Cane -Debridement - Subq, 1st 20sq cm No -Apply Skin Sub - 1st 25 sq cm - Feet 1 -Epifix 18mm Disc 3 Pain Scale: 0-10 Numeric Is Patient Pain Free? Yes WC - Nurse 3 - General Ulcer D/C NN Start: 03/24/22 08:09 Freq: Status: Active Protocol: Activity Type Activity Date Activity User E-sign Co-sign Detail Recorded Client Recorded Date Recorded By Document 03/24/22 09:06 [id number] 03/24/22 09:08 MW Document 03/31/22 08:47 [facility] [id number] 03/31/22 08:47 [facility] Document 04/07/22 09:06 [facility] [id number] 04/07/22 09:06 [facility] 03/24/22 03/31/22 04/07/22 09:06 08:47 09:06 Wound Care Nurse 3 #1 right lateral foot -Ulcer Cleansing Rinsed/ Rinsed/ Irrigated with Irrigated with Saline Saline -Foul Odor after Cleansing No No -Negative Pressure Wound Therapy N/A -Primary Dressing Applied Promogran Promogran Debby Matter Debby Matter -Other Dressing epifix -Primary Dressing Covered/Secured with Dry Gauze, Dry Gauze, Dry Gauze & Secured with Secured with Roll Gauze, Tape Tape Secured with Tape -Promogran Debby Matter 1 1 Right -Compression Wrap Primitivo Wrap Treatment Response Procedure Procedure Procedure Tolerated Well Tolerated Well Tolerated Well Pain Scale: 0-10 Numeric Is Patient Pain Free? Yes Yes Yes Teaching: Wound Center Dressing Your Wound -Person Taught Patient -Teaching Method Discussion, Demonstration -Response to teaching Verbalize understanding WC - Visit Discharge Discharge Condition Stable Stable Stable Ambulatory Status Ambulatory,Cane Ambulatory, Ambulatory,Cane Walker Transportation Private Auto Private Auto Private Auto Accompanied by self knee walker Medication Reconcilliation completed & No provided to patient/care provider Clinical Summary of Care Provided Yes Notes: dressing applied per Harris Alejandre RN. Assessment/Plan Assessment/Plan (1) Diabetic foot ulcer: CODE(S): E11.621 - Type 2 diabetes mellitus with foot ulcer; L97.509 - Non-pressure chronic ulcer of other part of unspecified foot with unspecified severity PLAN: Exam performed. Resolved signs of infection. No additional antibiotics at this time. Right foot wound was excisionally debrided down to including level of subcutaneous tissue of all nonviable tissue using combination of tissue nippers and #15 blade without incident. Oral consent was obtained. Patient tolerated procedure well. Hemostasis obtained with light compression. No anesthesia due to neuropathy. Pre and postdebridement measurements document nursing notes. Patient's blood sugar is well controlled at this time with recent A1c of 6.2. Today we applied a 18 mm epi fix graft for billing units. This was applied directly to the wound site the entire graft was used no waste. This was secured with overlying nonadherent dressing and Steri-Strips. An overlying dressing of 4 x 4's Kerlix and Primitivo bandage were applied. Patient will change his bandage every day or other day until follow-up in 1 week. Patient maintaining nonweightbearing status using a knee scooter. Patient has been evaluated by vascular surgery, no intervention at this time. If there are continued delays in wound healing as mentioned previously we will consider advanced wound care products, nutritional supplementation, surgical intervention to float the fifth metatarsal head and offload the foot. Modified surgical shoe to better offload fifth metatarsal head. Discussed sleeping positions to better offload metatarsal head as he sleeps on his right foot. (2) Non-pressure chronic ulcer of other part of right foot with fat layer exposed: CODE(S): L97.512 - Non-pressure chronic ulcer of other part of right foot with fat layer exposed (3) Type 2 diabetes mellitus with diabetic polyneuropathy: CODE(S): E11.42 - Type 2 diabetes mellitus with diabetic polyneuropathy
--- NOTE | 2022-04-17 12:04 | WC ---
Pt called in stating that Epifix came off with dressing change today, instructed to use his tate from previous dressings until he is seen on Wednesday by Dr. Pt voiced understanding. Checked with Epifix rep regarding use of silver product, stated tate will be ok to use.
== END 2022-04-20 23:59 | disposition home or self-care (01) ==
LOC: WC 08:30
PROVIDERS: Referring Provider Podiatrist; Visit Provider Podiatrist
DX: E11.621 Type 2 diabetes mellitus with foot ulcer (principal); L97.512 Non-pressure chronic ulcer of other part of right foot with fat layer exposed; Z99.2 Dependence on renal dialysis; E11.22 Type 2 diabetes mellitus with diabetic chronic kidney disease; E11.42 Type 2 diabetes mellitus with diabetic polyneuropathy; N18.6 End stage renal disease; Z79.4 Long term (current) use of insulin; Z79.899 Other long term (current) drug therapy; M21.10 Varus deformity, not elsewhere classified, unspecified site
CPT/HCPCS: 11042; 15275; 36415; 73630; 85025; 86140; 87070; 87075; 87077; 87186; 87205; 99213; Q4186; G0463

== ENCOUNTER 2022-04-15 08:18 | Emergency (ER) | payer OTHER, SELFPAY ==
[2022-04-15 08:19] VITALS: BP 156/80; PULSE 92; RESP 16; TEMP 36.4; O2SAT 100; BMI 21.9
[2022-04-15 08:20] VITALS: BP 156/80; PULSE 92; RESP 16; TEMP 36.4; O2SAT 100
--- NOTE | 2022-04-15 08:50 | EX.ED.DYSGE1 ---
HPI History of Present Illness Chief Complaint: Abd Pain Detail of Chief Complaint: Right side pain that started 2 days ago Informant: patient Narrative Narrative: Patient presents the emergency department complaint of pain in his right side that started 2 days ago. Patient denies nausea or vomiting. Patient denies fevers. Food does not seem to affect the pain. Sometimes taking a deep breath seems to make it worse. Patient is a peritoneal dialysis patient and did do dialysis last evening. He has not noticed any change in the color of the fluid. Patient denies shortness of breath or chest pain. Patient currently rates the pain a 4 out of 10. Prior similar symptoms: No PFSH PFS Medical History (Updated 04/15/22 @ 11:[address] Franco Pinto, ) Chronic kidney disease (CKD) Diabetes mellitus End stage renal disease Home Medications amlodipine 5 mg tablet 5 mg PO DAILY 01/08/22 [History Last Taken Unknown] lisinopril 40 mg tablet 40 mg PO DAILY 01/08/22 [History Last Taken Unknown] omeprazole 40 mg capsule,delayed release 40 mg PO DAILY 01/08/22 [History Last Taken Unknown] sevelamer carbonate 800 mg tablet (Renvela) 800 mg PO TID 01/08/22 [History Last Taken Unknown] sucroferric oxyhydroxide 500 mg chewable tablet (Velphoro) 500 mg PO TID 01/08/22 [History Last Taken Unknown] vitamin B complex-vitamin C-folic acid 0.8 mg tablet (Ifrah-Al) 1 tab PO DAILY 01/08/22 [History Last Taken Unknown] calcium 100 mg capsule 200 mg PO BID 03/24/22 [History Last Taken Unknown] ciprofloxacin HCl 750 mg tablet 750 mg PO BID #14 tabs 03/24/22 [Rx Last Taken Unknown] doxycycline hyclate 100 mg capsule 100 mg PO BID #14 caps 03/24/22 [Rx Last Taken Unknown] insulin glargine 100 unit/mL (3 mL) subcutaneous pen (Basaglar KwikPen U-100 Insulin) 15 unit subcut QHS 03/24/22 [History Last Taken Unknown] Allergy/AdvReac Type Severity Reaction Status Date / Time tramadol AdvReac Intermediate Vomiting Verified 04/15/22 08:53 Family History Mother Diabetes Hypertension Brother Diabetes Social History housing: house Smoking Status: Never smoker alcohol intake: never substance use type: does not use well-balanced diet: daily or most days caffeine: No eating out: 4 or more times/week during the past year weight has: remained stable what type of physical activity do you participate in: none ROS ROS ED Review of Systems ROS Unobtainable: other Constitutional Constitutional ED: Reports lethargy; Denies chills, fever(s), sweats or weight loss Eyes Eyes: Denies blurry vision, change in vision or diplopia ENT ENT ED: Denies rhinorrhea or sore throat Cardiovascular Cardiovascular: Denies chest pain, orthopnea or racing heartbeat Respiratory/Chest Respiratory/Chest: Denies cough, dyspnea, dyspnea on exertion, orthopnea or sputum Gastrointestinal Gastrointestinal: Reports abdominal pain; Denies diarrhea, nausea or vomiting Genitourinary Genitourinary ED: Denies dysuria, hematuria or urinary frequency Musculoskeletal Musculoskeletal: Denies arthralgias, back pain, myalgias or neck pain Integumentary Denies abscess, Abrasions or rash Neurologic Neurologic: Denies headache(s) or weakness Psychiatric Psychiatric: Denies anxiety, depression or suicidal thoughts Endocrine Endocrinology: Denies polydipsia, polyphagia or polyuria Hematologic/Lymphatic Hematologic/Lymphatic: Denies easy bleeding, easy bruising or lymphadenopathy Allergic/Immunologic Allergic/Immunologic ED: Denies mouth swelling, tongue swelling or urticaria EXAM Physical Exam Const Vital Signs: 04/15/22 08:19 04/15/22 08:20 Temperature 97.6 F L 97.6 F L Temperature Source Temporal Temporal Pulse Rate 92 92 Respiratory Rate 16 16 Blood Pressure 156/80 H 156/80 H Blood Pressure Mean 105 105 Pulse Ox 100 100 Oxygen Delivery Method Room Air Room Air Positive well nourished and well developed General Appearance ED: well developed and NAD HEENT Reports TM's clear and moist mucous membranes normocephalic and atraumatic; Negative for trauma or tenderness Tympanic Membrane ED: Yes TM's clear Eyes PERRL and EOMs intact bilaterally General Eye ED: Negative for pale conjunctiva or scleral icterus Neck no lymphadenopathy, supple and no JVD General: Negative for tenderness Chest Wall inspection of chest normal and palpation of chest normal Chest: Negative for tenderness Resp normal respiratory effort and clear to auscultation bilaterally Effort and Inspection: Negative for respiratory distress or pain with movement Auscultation: Negative for rhonchi, wheezes or diminished lung sounds Cardio regular rate, regular rhythm, S1 normal heart sound, S2 normal heart sound and no murmurs Peripheral Pulses: pulses 2+ throughout GI normal to inspection, nondistended, normoactive bowel sounds, soft to palpation, non-distended and no masses GI Narrative: Tenderness palpation to the right upper quadrant. There is no rebound, rigidity, or peritoneal signs. Negative Polk sign. Back/Spine no CVA tenderness and no thoracic nor lumbar tenderness Extremity normal to inspection General Extremety ED: Negative for edema General Extremity: Negative for edema Neuro oriented x3, CN's II-XII intact bilaterally, no sensory deficits noted and gait normal Sensorium / Orientation: awake, alert, oriented to person, oriented to place and oriented to time Motor Exam: strength 5/5 throughout and strength abnormal Psych mental status grossly normal Skin no rashes or lesions noted and no wounds MDM MDM MDM Narrative Medical decision making narrative: IV line established on arrival. Patient did not want a thing for pain. White count showed a slightly elevated white count of 11.7 which has been elevated in the past. BUN and creatinine were elevated which is consistent with his renal failure for which she does do dialysis. CTA of the chest was negative for PE. CT scan of the abdomen pelvis showed inflammatory changes around the kidneys and there was concern raised about possible pyelonephritis although his urine is normal. At this point I do not suspect spontaneous bacterial peritonitis as his exam is relatively benign. Discussed case with patient's detail supervisor and she did advise that he should follow-up with their office if the dialysis fluid should become cloudy or if he should run a fever. Patient also advised to return if worsening pain, fever, vomiting, or condition worsen anyway. Lab Data Attestation: I reviewed the patient's lab results. Labs: Laboratory Results - last 24 hr 04/15/22 04/15/22 04/15/22 08:54 08:54 08:54 WBC 11.7 H RBC 3.40 L Hgb 10.7 L Hct 33.5 L MCV 98.5 H MCH 31.5 MCHC 31.9 L RDW Std Deviation 47.6 H RDW Coeff of Rhys 13.1 Plt Count 343 MPV 10.7 Immature Gran % (Auto) 0.500 Neut % (Auto) 70.0 Lymph % (Auto) 11.3 L [place] % (Auto) 10.9 H Eos % (Auto) 6.3 H Baso % (Auto) 1.0 Absolute Neuts (auto) 8.2 H Absolute Lymphs (auto) 1.32 Nucleated RBC % 0 D-Dimer Quant (PE/DVT) 0.95 H* Sodium 139 Potassium 4.7 Chloride 102 Carbon Dioxide 29.0 Anion Gap 8 BUN 107 H* Creatinine 16.20 H* Estim Creat Clear Calc 5.77 Est GFR (MDRD) Af Amer 4 L Est GFR (MDRD) Non-Af 4 L BUN/Creatinine Ratio 6.6 L Glucose 115 H Lactic Acid Calcium 8.9 Total Bilirubin 0.40 AST 14 L ALT 27 Alkaline Phosphatase 57 Total Protein 7.1 Albumin 2.8 L Globulin 4.3 H Albumin/Globulin Ratio 0.7 L Urine Color Urine Clarity Urine pH Ur Specific [place] Urine Protein Urine Glucose (UA) Urine Ketones Urine Occult Blood Urine Nitrite Urine Bilirubin Urine Urobilinogen Ur Leukocyte Esterase Urine RBC Urine WBC Ur Squamous Epith Cells Urine Bacteria Urine Mucus 04/15/22 04/15/22 08:54 10:25 WBC RBC Hgb Hct MCV MCH MCHC RDW Std Deviation RDW Coeff of Rhys Plt Count MPV Immature Gran % (Auto) Neut % (Auto) Lymph % (Auto) [place] % (Auto) Eos % (Auto) Baso % (Auto) Absolute Neuts (auto) Absolute Lymphs (auto) Nucleated RBC % D-Dimer Quant (PE/DVT) Sodium Potassium Chloride Carbon Dioxide Anion Gap BUN Creatinine Estim Creat Clear Calc Est GFR (MDRD) Af Amer Est GFR (MDRD) Non-Af BUN/Creatinine Ratio Glucose Lactic Acid 0.6 Calcium Total Bilirubin AST ALT Alkaline Phosphatase Total Protein Albumin Globulin Albumin/Globulin Ratio Urine Color Yellow Urine Clarity Clear Urine pH 6.0 Ur Specific [place] 1.010 Urine Protein 100 H Urine Glucose (UA) 100 H Urine Ketones Negative Urine Occult Blood 25 H Urine Nitrite Negative Urine Bilirubin Negative Urine Urobilinogen Normal Ur Leukocyte Esterase 25 H Urine RBC 0-5 SEEN Urine WBC 0-5 SEEN Ur Squamous Epith Cells 0 SEEN Urine Bacteria 0 SEEN Urine Mucus 0 SEEN Radiography Diagnostic Testing: Clinical Impression(s) from Imaging Studies Abdomen/Pelvis CT 04/15/22 09:50 IMPRESSION: Moderate bilateral perinephric inflammatory change question pyonephrosis/pyelonephritis. O AND M SUPERVISOR shunt. Fecal stasis. Appendicolith within the tail of the appendix but no evidence of appendicitis. Electronically Signed: Blue Westfall MD, JD at 10:34 EDT , Chest CTA 04/15/22 09:50 IMPRESSION: Normal CTA chest examination, without a demonstrated pulmonary embolism or arterial dissection. Minimal biapical fibrosis. Electronically Signed: Blue Westfall MD, JD at 10:39 EDT , Discharge Plan Triage Chief Complaint: Abd Pain ED Provider: Franco Pinto Dx/Rx/DC Orders Clinical Impression: Abdominal pain Instructions: ED Abdominal Pain Unkn Cause Male... Prescriptions: No Action Velphoro 500 mg tablet,chewable 500 mg PO TID amlodipine 5 mg tablet 5 mg PO DAILY Ifrah-Al 0.8 mg tablet 1 tab PO DAILY sevelamer carbonate [Renvela] 800 mg tablet 800 mg PO TID Rx Instructions: must administer with a meal/food 3 times a day with meals omeprazole 40 mg capsule,delayed release(DR/EC) 40 mg PO DAILY lisinopril 40 mg tablet 40 mg PO DAILY calcium 100 mg Capsule 200 mg PO BID insulin glargine [Basaglar KwikPen U-100 Insulin] 100 unit/mL (3 mL) Insulin Pen 15 unit SUBCUT QHS doxycycline hyclate 100 mg capsule 100 mg PO BID Qty: 14 0RF ciprofloxacin HCl 750 mg tablet 750 mg PO BID Qty: 14 0RF Primary Care Provider: Liseth Perdue Referrals: Liseth Perdue [Other] Activity Restrictions/Additional Instructions: Follow-up with your primary care physician 3 to 5 days. Follow-up with nephrology office if dialysis fluid should become cloudy. Return to ER if worsening pain, fever, vomiting, or condition worsen anyway. Disposition Disposition: Home, Self Care
[2022-04-15 09:09] LABS: Absolute Lymphocyte Count 1.32 X10^3/uL (0.83-4.51); Absolute Neutrophil Count 8.2 X10^3/uL (2.0-7.7); Basophil# 0.12 X10^3/uL; Eosinophil# 0.74 X10^3/uL; Eosinophils% 6.3 % (0-5); Hematocrit 33.5 % (40-54); Hemoglobin 10.7 g/dL (13.0-16.5); Lymphocyte # 1.32 X10^3/ul (0.83-4.51); Lymphocyte % 11.3 % (19-41); Mean Corp Hgb Conc 31.9 g/dL (32-36); Mean Corpuscular Hgb 31.5 pg (27.0-32.0); Mean Corpuscular Volume 98.5 fL (80-94); Mean Platelet Vol. 10.7 fl (6.2-12.0); Monocyte# 1.27 X10^3/uL; Monocyte% 10.9 % (0-10); NRBC Flagged by Analyzer 0 % (0-5); Neutrophil # 8.17 X10^3/uL (2.7-7.7); Platelet Count 343 K/mm3 (150-450); RBC Distribution Width CV 13.1 % (11.6-14.6); RBC Distribution Width SD 47.6 fl (35.1-43.9); White Blood Count 11.7 K/mm3 (4.4-11.0)
[2022-04-15 09:36] LABS: Lactic Acid 0.6 mmol/L (0.4-1.9)
[2022-04-15 09:38] LABS: ALB/GLOB Ratio 0.7 RATIO (0.9-2.4); AST(SGOT) 14 U/L (15-37); Alanine Aminotransfer ALT/SGPT 27 U/L (16-61); Albumin, Serum 2.8 g/dL (3.2-5.0); Alkaline Phosphatase 57 U/L (45-117); Anion Gap 8 (5-15); BUN 107 mg/dL (7-18); BUN/Creat Ratio 6.6 RATIO (10-20); Calcium,Total 8.9 mg/dL (8.5-10.1); Chloride 102 mmol/L (98-107); EST Glomerular Filtration Rate 4 mL/min (>60); Est Glom Filt Rate - Afr Amer 4 mL/min (>60); Estimated Creatinine Clearance 5.77 ml/min; Globulin 4.3 g/dL (2.2-4.2); Glucose 115 mg/dL (74-106); Potassium 4.7 mmol/L (3.5-5.1); Protein, Total 7.1 g/dL (6.4-8.2); Sodium Level 139 mmol/L (136-145)
[2022-04-15 09:44] LABS: D-Dimer Quantitative (DVT/PE) 0.95 FEU/ug/m (0.27-0.49)
--- NOTE | 2022-04-15 09:50 | CT_ITS ---
STUDY: CTA CHEST REASON FOR EXAM: Male, 41 years old. pleuritic pain, elevated d-dimer RADIATION DOSAGE (If Supplied By Facility): CTDIvol = ( 8.41 ) mGy, DLP = ( 914.66 ) mGycm TECHNIQUE: The examination was performed with the intravenous administration of IV 75mL Isovue-370. Post-processing of the angiographic images was performed, with multiplanar reformation and 3D reconstruction. Individualized dose optimization techniques were used for this CT. COMPARISON: None. FINDINGS: Normal enhancement of the main pulmonary artery and right and left pulmonary arteries. Normal enhancement of the bilateral peripheral pulmonary arteries. There is no demonstrated pulmonary embolism. Normal thoracic aorta and visualized great vessels. There is no demonstrated aortic dissection. Normal heart and pericardium. Normal mediastinum. Normal hilar regions. Normal visualized trachea and bronchi. The lungs are well expanded. Minimal biapical fibrosis. Normal pleura. Normal chest wall structures. Normal osseous structures. Normal visualized upper abdomen. CT/CTA Chest W/WO Contrast IMPRESSION: Normal CTA chest examination, without a demonstrated pulmonary embolism or arterial dissection. Minimal biapical fibrosis. Electronically Signed: Blue Westfall MD, CLARISSA at 10:39 EDT ,
--- NOTE | 2022-04-15 09:50 | CT_ITS ---
STUDY: CT ABDOMEN AND PELVIS WITH CONTRAST REASON FOR EXAM: Male, 41 years old. abdominal pain RADIATION DOSAGE (If Supplied By Facility): CTDIvol = ( 8.41 ) mGy, DLP = ( 914.66 ) mGycm TECHNIQUE: Transaxial images were obtained from the dome of the diaphragm to the symphysis pubis without oral contrast. IV 75mL Isovue-370 was administered. Sagittal and coronal images were reconstructed. Individualized dose optimization techniques were used for this CT. COMPARISON: None. FINDINGS: The visualized lung bases are unremarkable. The visualized portions of the heart are within normal limits. Normal liver. Normal gallbladder and extrahepatic biliary system. Normal spleen. Normal pancreas. Normal bilateral adrenal glands. Bilateral perinephric inflammatory change. This could represent pyonephrosis/pyelonephritis. Prompt bilateral renal function. Normal visualized stomach. Normal small intestine. There is moderate stool throughout the colon consistent with fecal stasis. This is more pronounced in the cecum and ascending colon. The appendix is visualized. There is an appendicolith seen within the tail of the appendix but no evidence of periappendiceal inflammatory change. Normal abdominal aorta. Normal inferior vena cava. Normal retroperitoneum. Normal urinary bladder. Normal abdominal wall. Normal osseous structures. There is a ROLL MACHINE OPERATOR shunt entering the abdomen in the left paramedian location towards the upper pelvis. This ROLL MACHINE OPERATOR shunt is looped deep within the pelvis. CT/Abdomen/Pelvis W IV Cont ONLY IMPRESSION: Moderate bilateral perinephric inflammatory change question pyonephrosis/pyelonephritis. ROLL MACHINE OPERATOR shunt. Fecal stasis. Appendicolith within the tail of the appendix but no evidence of appendicitis. Electronically Signed: Blue Westfall MD, CLARISSA at 10:34 EDT ,
[2022-04-15 10:31] LABS: Bacteria 0 SEEN /hpf (None Seen); Mucous, Urine 0 SEEN /hpf (<or=2+); Squamous Epithelial Cells - UA 0 SEEN /hpf (0-5)
[2022-04-15 10:36] LABS: Color, Urine Yellow (Yellow); Glucose, Dipstick 100 mg/dl (Normal); Ketone-Dipstick Negative (Negative); Leukocyte Esterase-Dipstick 25 /ul (Negative); Nitrite-Dipstick Negative (Negative); Occult Blood-Urine 25 /ul (Negative); Protein-Dipstick 100 mg/dl (Negative); Urine Bilirubin Dipstick Negative (Negative); Urine Clarity Clear (Clear); Urine Urobilinogen Normal (Normal)
[2022-04-15 10:50] LABS: Red Blood Cells-Urine 0-5 SEEN /hpf (0-5); White Blood Cells 0-5 SEEN /hpf (0-5)
== END 2022-04-15 11:52 | disposition home or self-care (01) ==
PROVIDERS: Emergency Provider Emergency Medicine; Visit Provider Emergency Medicine
DX: R10.11 Right upper quadrant pain (principal); Z99.2 Dependence on renal dialysis; E11.22 Type 2 diabetes mellitus with diabetic chronic kidney disease; N18.6 End stage renal disease; Z79.4 Long term (current) use of insulin
CPT/HCPCS: 71275; 74177; 80053; 81001; 83605; 85025; 85379; 99283; J7030; Q9967; A4216

== ENCOUNTER 2022-05-19 08:30 | Outpatient (RCR) | payer OTHER, SELFPAY ==
[2022-04-21 00:09] VITALS: BP 130/75; PULSE 102; RESP 16; TEMP 36.2; BMI 21.9
[2022-04-21 08:21] VITALS: BP 147/92; PULSE 109; TEMP 36.2; BMI 21.9
--- NOTE | 2022-04-21 08:58 | PN.PCM_ITS ---
History of Present Illness Date of Service: 04/21/22 Progress of Wound: 41-year-old male with history of chronic right foot wound in setting of type 2 diabetes with peripheral neuropathy and end-stage renal disease. Patient has peritoneal dialysis dialysis at home lives with his parents. Patient denies any constitutional symptoms. Patient was seen by motor tune up specialist at [facility] who put him in a surgical shoe with an offloading pad. Patient denies any improvement with this. Patient recently evaluated by vascular surgeon, no intervention recommended at this time. Patient's A1c was 6.2. Patient denies any other treatments at this time. No changes today. Objective Data Objective Data Vital Signs: Vital Signs Temp Pulse Resp BP O2 Del Method 97.2 F L 109 H 16 147/92 H Room Air 04/21/22 08:21 04/21/22 08:21 04/21/22 00:09 04/21/22 08:21 04/21/22 08:21 Oxygen Delivery Method Room Air Weight: 69.4 kg Body Mass Index (BMI) 21.9 Physical Exam Narrative Patient alert oriented to person place and time. Patient ambulating assisted with a cane in a surgical shoe with an offloading pad. Vascular: Dorsalis pedis posterior tibial pulse palpable 2 out of 4 capillary fill time brisk absent digital hair growth noted atrophic skin changes noted. Neurologic: Light touch protective sensation absent to bilateral feet. Dermatologic: Full-thickness wound to plantar fifth metatarsal head on the right foot. No signs of infection, edema erythema warmth and purulent drainage has resolved. No deep probing or undermining. Leg mild hyperkeratosis to periwound area no other signs of infection deep probing or undermining at this time. Musculoskeletal: Forefoot varus deformity noted to the right lower extremity. Muscular strength full. No other issues. Debridement Note Debridement Note Post-Debridement Measurements and Additional Note: Post-Debridement Measurements/Treatment - Nurse 1 - General Ulcer Assessment Start: 04/21/22 08:21 Freq: Status: Active Protocol: LOWEXT Activity Type Activity Date Activity User E-sign Co-sign Detail Recorded Client Recorded Date Recorded By Document 04/21/22 08:21 [facility] [id number] 04/21/22 08:29 [facility] 04/21/22 08:21 - Today's Visit Information Type of service Follow-up Visit (Physician/WEB PRESS OPERATOR ASSISTANT ) Arrival Mode Ambulatory,Cane Transfer Assistance None Patient Identification Verified (Name & Yes ) Patient Requires Transmission-Based No Precautions Height and Weight Body Mass Index (BMI) 21.9 BMI Classification Normal Vital Signs Temperature (97.8 F-99.1 F) 97.2 F L Temperature Source Temporal Pulse Rate (60-100) 109 H Pulse Location Monitor Respiratory rate source Observation Oxygen Delivery Method Room Air Blood Pressure (90/60-120/80) 147/92 H Blood Pressure Mean (mm Hg) 110 Source Monitor Position Sitting Blood Pressure Location Right Arm History Since Last Visit- (Skip if this is Patient's initial visit) Have you changed medications since your Yes last visit? Any new allergies or adverse reactions No Had a fall/change in ADL's that may No increase risk of falls Signs or symptoms of abuse and/or No neglect since last visit Have you been in the hospital since your Yes last visit? Has dressing in place as prescribed No Has compression in place as prescribed N/A Has offloadiing in place as prescribed Yes Experienced any changes in pain level or No management Left Footwear Custom Shoe Right Footwear Surgical Shoe with pressure relief insole Pain Scale: 0-10 Numeric Is Patient Pain Free? Yes WC - Nurse 1 - General Ulcer Measurement Start: 04/21/22 08:21 Freq: Status: Active Protocol: Activity Type Activity Date Activity User E-sign Co-sign Detail Recorded Client Recorded Date Recorded By Document 04/21/22 08:21 [facility] [id number] 04/21/22 08:29 [facility] 04/21/22 08:21 Wound Center Nurse 1 #1 right lateral foot -Combined with other wound No -Current Size (cm) - Length 0.1 -Current Size (cm) - Width 0.1 -Current Size (cm) - Depth 0.1 -Total Square Cm 0.01 -Date of Last Picture (Recall this 04/21/22 field) -Photo Taken Yes -Epithelialization Large 67-100% -Tunneling No -Undermining/Tunneling No -Circular Undermining No -Exudate Amt Medium -Exudate Type Sanguineous -Wound Margin Distinct, Outline Attached -Granulation Amt None Present (0 %) -Slough/Fibrin Yes -Necrosis Amt Large (67-100%) -Necrotic Tissue Type Eschar -Texture (Breanne-wound Skin Appearance) Assessed, Scarring -Moisture (Breanne-wound Skin Appearance) Assessed,Dry/ Scaly -Color (Breanne-wound Skin Appearance) Assessed -Temperature (Breanne-wound Skin No Abnormality Appearance) (Pt Warm) -Tenderness on Palpation (Breanne-wound No Skin Appearance) -Ulcer Cleansing Soap and Water -Foul Odor after Cleansing No -Anesthetic Used 5% Lidocaine Gel WC - Nurse 2 - General Ulcer CM Notes Start: 04/21/22 08:21 Freq: Status: Active Protocol: Activity Type Activity Date Activity User E-sign Co-sign Detail Recorded Client Recorded Date Recorded By Document 04/21/22 08:38 [id number] 04/21/22 08:44 04/21/22 08:38 Wound Center Nurse 2 -Time 08:38 -Correct Patient Yes -Correct Side, Site, Position Yes -Correct Procedure Yes -Procedure Performed Yes -Type of Procedure Debridement -Clinical Debridement Subcutaneous -Tissue Removed Subcutaneous -Post Debridement (cm) - Length 0.3 -Post Debridement (cm) - Width 0.2 -Post Debridement (cm) - Depth 0.1 -Total Square (Post) (cm) 0.06 -Area of Debridement (cm) - Length 0.3 -Area of Debridement (cm) - Width 0.2 -Total Square (Area) (cm) 0.06 -Tunneling No -Undermining/Tunneling No -Circular Undermining No -Wound/Ulcer Outcome Not Healed -Ulcer Cleansing Rinsed/ Irrigated with Saline -Foul Odor after Cleansing No -Bioengineered Tissue Yes -Type of Bioengineered Tissue Epifix 18mm Disc -Expiration Date 12/19/26 -Product Lot Number [id number] -Percent Used 100 -Lot number of Saline Used [id number] -Bleeding Controlled with Pressure -Treatment Response Procedure Tolerated Well -Offloading Yes -Type of Offloading Surgical Shoe -Debridement - Subq, 1st 20sq cm No -Apply Skin Sub - 1st 25 sq cm - Feet 1 -Epifix 18mm Disc 3 Pain Scale: 0-10 Numeric Is Patient Pain Free? Yes Assessment/Plan Assessment/Plan (1) Diabetic foot ulcer: CODE(S): E11.621 - Type 2 diabetes mellitus with foot ulcer; L97.509 - Non-pressure chronic ulcer of other part of unspecified foot with unspecified severity PLAN: Exam performed. Resolved signs of infection. No additional antibiotics at this time. Right foot wound was excisionally debrided down to including level of subcutaneous tissue of all nonviable tissue using combination of tissue nippers and #15 blade without incident. Oral consent was obtained. Patient tolerated procedure well. Hemostasis obtained with light compression. No anesthesia due to neuropathy. Pre and postdebridement measurements document nursing notes. Patient's blood sugar is well controlled at this time with recent A1c of 6.2. Today we applied a 18 mm epi fix graft for billing units. This was applied directly to the wound site the entire graft was used no waste. This was secured with overlying nonadherent dressing and Steri-Strips. An overlying dressing of 4 x 4's Kerlix and Primitivo bandage were applied. Patient will change his bandage every day or other day until follow-up in 1 week. Patient maintaining nonweightbearing status using a knee scooter. Patient has been evaluated by vascular surgery, no intervention at this time. If there are continued delays in wound healing as mentioned previously we will consider advanced wound care products, nutritional supplementation, surgical intervention to float the fifth metatarsal head and offload the foot. Modified surgical shoe to better offload fifth metatarsal head. Discussed sleeping positions to better offload metatarsal head as he sleeps on his right foot. (2) Non-pressure chronic ulcer of other part of right foot with fat layer exposed: CODE(S): L97.512 - Non-pressure chronic ulcer of other part of right foot with fat layer exposed (3) Type 2 diabetes mellitus with diabetic polyneuropathy: CODE(S): E11.42 - Type 2 diabetes mellitus with diabetic polyneuropathy
[2022-04-28 08:25] VITALS: BP 136/80; PULSE 106; RESP 20; TEMP 36.4; BMI 21.9
--- NOTE | 2022-04-28 09:02 | PN.PCM_ITS ---
History of Present Illness Date of Service: 04/28/22 Progress of Wound: 41-year-old male with history of chronic right foot wound in setting of type 2 diabetes with peripheral neuropathy and end-stage renal disease. Patient has peritoneal dialysis dialysis at home lives with his parents. Patient denies any constitutional symptoms. Patient was seen by helper chicken farm at [facility] who put him in a surgical shoe with an offloading pad. Patient denies any improvement with this. Patient recently evaluated by vascular surgeon, no intervention recommended at this time. Patient's A1c was 6.2. Patient denies any other treatments at this time. No changes today. Objective Data Objective Data Vital Signs: Vital Signs Temp Pulse Resp BP O2 Del Method 97.5 F L 106 H 20 H 136/80 H Room Air 04/28/22 08:25 04/28/22 08:25 04/28/22 08:25 04/28/22 08:25 04/21/22 08:21 Oxygen Delivery Method Room Air Weight: 69.4 kg Body Mass Index (BMI) 21.9 Physical Exam Narrative Patient alert oriented to person place and time. Patient ambulating assisted with a cane in a surgical shoe with an offloading pad. Vascular: Dorsalis pedis posterior tibial pulse palpable 2 out of 4 capillary fill time brisk absent digital hair growth noted atrophic skin changes noted. Neurologic: Light touch protective sensation absent to bilateral feet. Dermatologic: Full-thickness wound to plantar fifth metatarsal head on the right foot. No signs of infection, edema erythema warmth and purulent drainage has resolved. No deep probing or undermining. Leg mild hyperkeratosis to periwound area no other signs of infection deep probing or undermining at this time. Musculoskeletal: Forefoot varus deformity noted to the right lower extremity. Muscular strength full. No other issues. Debridement Note Debridement Note Post-Debridement Measurements and Additional Note: Post-Debridement Measurements/Treatment WC - Nurse 1 - General Ulcer Assessment Start: 04/21/22 08:21 Freq: Status: Active Protocol: LOWEXT Activity Type Activity Date Activity User E-sign Co-sign Detail Recorded Client Recorded Date Recorded By Document 04/21/22 08:21 BMF [id number] 04/21/22 08:29 BMF Document 04/28/22 08:25 DL [id number] 04/28/22 08:33 DL 04/21/22 04/28/22 08:21 08:25 - Today's Visit Information Type of service Follow-up Visit Follow-up Visit (Physician/DONOR RECRUITMENT MANAGER (Physician/DONOR RECRUITMENT MANAGER ) ) Arrival Mode Ambulatory,Cane Ambulatory,Cane Transfer Assistance None None Patient Identification Verified (Name & Yes Yes ) Patient Requires Transmission-Based No No Precautions Height and Weight Body Mass Index (BMI) 21.9 21.9 BMI Classification Normal Normal Vital Signs Temperature (97.8 F-99.1 F) 97.2 F L 97.5 F L Temperature Source Temporal Temporal Pulse Rate (60-100) 109 H 106 H Pulse Location Monitor Monitor Respiratory Rate (12-18) 20 H Respiratory rate source Observation Observation Oxygen Delivery Method Room Air Blood Pressure (90/60-120/80) 147/92 H 136/80 H Blood Pressure Mean (mm Hg) 110 98 Source Monitor Monitor Position Sitting Blood Pressure Location Right Arm History Since Last Visit- (Skip if this is Patient's initial visit) Have you changed medications since your Yes No last visit? Any new allergies or adverse reactions No No Had a fall/change in ADL's that may No No increase risk of falls Signs or symptoms of abuse and/or No No neglect since last visit Have you been in the hospital since your Yes No last visit? Has dressing in place as prescribed No Yes Has compression in place as prescribed N/A N/A Has offloadiing in place as prescribed Yes Yes Experienced any changes in pain level or No No management Left Footwear Custom Shoe Right Footwear Surgical Shoe Surgical Shoe with pressure with pressure relief insole relief insole Pain Scale: 0-10 Numeric Is Patient Pain Free? Yes Yes - Nurse 1 - General Ulcer Measurement Start: 04/21/22 08:21 Freq: Status: Active Protocol: Activity Type Activity Date Activity User E-sign Co-sign Detail Recorded Client Recorded Date Recorded By Document 04/21/22 08:21 [facility] [id number] 04/21/22 08:29 [facility] Document 04/28/22 08:25 DL [id number] 04/28/22 08:33 DL 04/21/22 04/28/22 08:21 08:25 Wound Center Nurse 1 #1 right lateral foot -Combined with other wound No -Current Size (cm) - Length 0.1 0.1 -Current Size (cm) - Width 0.1 0.1 -Current Size (cm) - Depth 0.1 0.1 -Total Square Cm 0.01 0.01 -Date of Last Picture (Recall this 04/21/22 field) -Photo Taken Yes Yes -Epithelialization Large 67-100% -Tunneling No -Undermining/Tunneling No -Circular Undermining No -Exudate Amt Medium None Present -Exudate Type Sanguineous -Wound Margin Distinct, Thickened Outline Attached -Granulation Amt None Present (0 Small (1-33%) %) -Granulation Quality Pale -Slough/Fibrin Yes -Necrosis Amt Large (67-100%) Small (1-33%) -Necrotic Tissue Type Eschar Adherent Slough -Structure Exposed N/A -Texture (Breanne-wound Skin Appearance) Assessed, Scarring Scarring -Moisture (Breanne-wound Skin Appearance) Assessed,Dry/ Dry/Scaly Scaly -Color (Breanne-wound Skin Appearance) Assessed No Abnormality -Temperature (Breanne-wound Skin No Abnormality No Abnormality Appearance) (Pt Warm) (Pt Warm) -Tenderness on Palpation (Breanne-wound No No Skin Appearance) -Ulcer Cleansing Soap and Water Soap and Water -Foul Odor after Cleansing No No -Anesthetic Used 5% Lidocaine 5% Lidocaine Gel Gel Right Calf (cm) 27.5 Right Ankle (cm) 18.2 - Nurse 2 - General Ulcer CM Notes Start: 04/21/22 08:21 Freq: Status: Active Protocol: Activity Type Activity Date Activity User E-sign Co-sign Detail Recorded Client Recorded Date Recorded By Document 04/21/22 08:38 [id number] 04/21/22 08:44 Document 04/28/22 08:55 [id number] 04/28/22 08:57 04/21/22 04/28/22 08:38 08:55 Wound Center Nurse 2 #1 right lateral foot -Time 08:38 08:57 -Correct Patient Yes Yes -Correct Side, Site, Position Yes Yes -Correct Procedure Yes Yes -Procedure Performed Yes Yes -Type of Procedure Debridement Debridement -Clinical Debridement Subcutaneous Subcutaneous -Tissue Removed Subcutaneous Subcutaneous -Post Debridement (cm) - Length 0.3 0.1 -Post Debridement (cm) - Width 0.2 0.1 -Post Debridement (cm) - Depth 0.1 0.1 -Total Square (Post) (cm) 0.06 0.01 -Area of Debridement (cm) - Length 0.3 0.1 -Area of Debridement (cm) - Width 0.2 0.1 -Total Square (Area) (cm) 0.06 0.01 -Tunneling No No -Undermining/Tunneling No No -Circular Undermining No No -Wound/Ulcer Outcome Not Healed Not Healed -Ulcer Cleansing Rinsed/ Rinsed/ Irrigated with Irrigated with Saline Saline -Foul Odor after Cleansing No No -Bioengineered Tissue Yes No -Type of Bioengineered Tissue Epifix 18mm Disc -Expiration Date 12/19/26 -Product Lot Number [id number] -Percent Used 100 -Lot number of Saline Used [id number] -Bleeding Controlled with Pressure Pressure,Silver Nitrate -Treatment Response Procedure Procedure Tolerated Well Tolerated Well -Offloading Yes Yes -Type of Offloading Surgical Shoe Surgical Shoe -Debridement - Subq, 1st 20sq cm No Yes -Apply Skin Sub - 1st 25 sq cm - Feet 1 -Epifix 18mm Disc 3 Pain Scale: 0-10 Numeric Is Patient Pain Free? Yes Yes - Nurse 3 - General Ulcer D/C NN Start: 04/21/22 08:21 Freq: Status: Active Protocol: Activity Type Activity Date Activity User E-sign Co-sign Detail Recorded Client Recorded Date Recorded By Document 04/21/22 09:02 MARELY [id number] 04/21/22 09:02 IA 04/21/22 09:02 Wound Care Nurse 3 #1 right lateral foot -Ulcer Cleansing Not Cleansed -Foul Odor after Cleansing No -Negative Pressure Wound Therapy N/A -Primary Dressing Covered/Secured with Dry Gauze & Roll Gauze, Secured with Tape Right -Tubular Bandage Single Layer -Size of Tubigrip Used Size D -Size D ($) 1 Pain Scale: 0-10 Numeric Is Patient Pain Free? Yes - Visit Discharge Discharge Condition Stable Ambulatory Status Ambulatory,Cane Transportation Private Auto Medication Reconcilliation completed & Yes provided to patient/care provider Clinical Summary of Care Provided Yes Assessment/Plan Assessment/Plan (1) Diabetic foot ulcer: CODE(S): E11.621 - Type 2 diabetes mellitus with foot ulcer; L97.509 - Non-pressure chronic ulcer of other part of unspecified foot with unspecified severity PLAN: Exam performed. Resolved signs of infection. No additional antibiotics at this time. Right foot wound was excisionally debrided down to including level of subcutaneous tissue of all nonviable tissue using combination of tissue nippers and #15 blade without incident. Oral consent was obtained. Patient tolerated procedure well. Hemostasis obtained with light compression. No anesthesia due to neuropathy. Pre and postdebridement measurements document nursing notes. Patient's blood sugar is well controlled at this time with recent A1c of 6.2. Hydrogel, DSD applied to foot. Patient maintaining nonweightbearing status using a knee scooter. Patient has been evaluated by vascular surgery, no intervention at this time. If there are continued delays in wound healing as mentioned previously we will consider advanced wound care products, nutritional supplementation, surgical intervention to float the fifth metatarsal head and offload the foot. Patient is to be foot fitted for custom diabetic shoes today to offload the fifth metatarsal and prevent future wound ulceration. If this continues to ulcerate at the site will consider elective floating metatarsal osteotomy. Modified surgical shoe to better offload fifth metatarsal head. Discussed sleeping positions to better offload metatarsal head as he sleeps on his right foot. (2) Non-pressure chronic ulcer of other part of right foot with fat layer exposed: CODE(S): L97.512 - Non-pressure chronic ulcer of other part of right foot with fat layer exposed (3) Type 2 diabetes mellitus with diabetic polyneuropathy: CODE(S): E11.42 - Type 2 diabetes mellitus with diabetic polyneuropathy
[2022-05-05 08:14] VITALS: BP 166/79; PULSE 101; RESP 16; TEMP 36.4; BMI 21.9
--- NOTE | 2022-05-05 09:00 | PCM.PROGNOTE ---
Subjective Subjective 41-year-old type 2 diabetes end-stage renal disease presents for follow-up on right plantar foot ulceration offloaded with a surgical shoe and offloading pad. Patient denies any pain or constitutional symptoms has been compliant with treatment thus far. Objective Data Objective Data Vital Signs: Vital Signs Temp Pulse Resp BP O2 Del Method 97.5 F L 101 H 16 166/79 H Room Air 05/05/22 08:14 05/05/22 08:14 05/05/22 08:14 05/05/22 08:14 05/05/22 08:14 Oxygen Delivery Method Room Air Weight: 69.4 kg Body Mass Index (BMI) 21.9 Physical Exam Narrative Patient alert oriented to person place and time. Patient ambulating assisted with a cane in a surgical shoe with an offloading pad. Vascular: Dorsalis pedis posterior tibial pulse palpable 2 out of 4 capillary fill time brisk absent digital hair growth noted atrophic skin changes noted. Neurologic: Light touch protective sensation absent to bilateral feet. Dermatologic: Full-thickness wound to plantar fifth metatarsal head on the right foot. No signs of infection, edema erythema warmth and purulent drainage has resolved. No deep probing or undermining. Leg mild hyperkeratosis to periwound area no other signs of infection deep probing or undermining at this time. Musculoskeletal: Forefoot varus deformity noted to the right lower extremity. Muscular strength full. No other issues. Assessment & Plan Assessment/Plan (1) Diabetic foot ulcer: PLAN: Exam performed. Resolved signs of infection. No additional antibiotics at this time. Right foot wound was excisionally debrided down to including level of subcutaneous tissue of all nonviable tissue using combination of tissue nippers and #15 blade without incident. Oral consent was obtained. Patient tolerated procedure well. Hemostasis obtained with light compression. No anesthesia due to neuropathy. Pre and postdebridement measurements document nursing notes. Patient's blood sugar is well controlled at this time with recent A1c of 6.2. Hydrogel, DSD applied to foot. Patient maintaining nonweightbearing status using a knee scooter. Patient has been evaluated by vascular surgery, no intervention at this time. If there are continued delays in wound healing as mentioned previously we will consider advanced wound care products, nutritional supplementation, surgical intervention to float the fifth metatarsal head and offload the foot. Patient is to be foot fitted for custom diabetic shoes today to offload the fifth metatarsal and prevent future wound ulceration. If this continues to ulcerate at the site will consider elective floating metatarsal osteotomy. Modified surgical shoe to better offload fifth metatarsal head. Discussed sleeping positions to better offload metatarsal head as he sleeps on his right foot. (2) Non-pressure chronic ulcer of other part of right foot with fat layer exposed: (3) Type 2 diabetes mellitus with diabetic polyneuropathy:
[2022-05-12 08:53] VITALS: BP 130/75; PULSE 98; RESP 16; TEMP 36.3; BMI 21.9
--- NOTE | 2022-05-12 09:19 | PN.PCM_ITS ---
History of Present Illness Date of Service: 05/12/22 Progress of Wound: 41-year-old male with history of chronic right foot wound in setting of type 2 diabetes with peripheral neuropathy and end-stage renal disease. Patient has peritoneal dialysis dialysis at home lives with his parents. Patient denies any constitutional symptoms. Patient was seen by counter server at [facility] who put him in a surgical shoe with an offloading pad. Patient denies any improvement with this. Patient recently evaluated by vascular surgeon, no intervention recommended at this time. Patient's A1c was 6.2. Patient denies any other treatments at this time. No changes today. Objective Data Objective Data Vital Signs: Vital Signs Temp Pulse Resp BP O2 Del Method 97.4 F L 98 16 130/75 H Room Air 05/12/22 08:53 05/12/22 08:53 05/12/22 08:53 05/12/22 08:53 05/12/22 08:53 Oxygen Delivery Method Room Air Weight: 69.4 kg Body Mass Index (BMI) 21.9 Debridement Note Debridement Note Post-Debridement Measurements and Additional Note: Post-Debridement Measurements/Treatment - Nurse 1 - General Ulcer Assessment Start: 04/21/22 08:21 Freq: Status: Active Protocol: SISSY Activity Type Activity Date Activity User E-sign Co-sign Detail Recorded Client Recorded Date Recorded By Document 04/21/22 08:21 [facility] [id number] 04/21/22 08:29 [facility] Document 04/28/22 08:25 DL [id number] 04/28/22 08:33 DL Document 05/05/22 08:14 [facility] [id number] 05/05/22 08:20 [facility] Document 05/12/22 08:53 [facility] [id number] 05/12/22 08:55 [facility] 04/21/22 04/28/22 05/05/22 08:21 08:25 08:14 - Today's Visit Information Type of service Follow-up Visit Follow-up Visit Follow-up Visit (Physician/KNUCKLE BENDER (Physician/KNUCKLE BENDER (Physician/KNUCKLE BENDER ) ) ) Arrival Mode Ambulatory,Cane Ambulatory,Cane Ambulatory Transfer Assistance None None None Patient Identification Verified (Name & Yes Yes Yes ) Patient Requires Transmission-Based No No No Precautions Finger Stick Blood Sugar(mg/dl) (if indicated): Blood Sugar Height and Weight Body Mass Index (BMI) 21.9 21.9 21.9 BMI Classification Normal Normal Normal Vital Signs Temperature (97.8 F-99.1 F) 97.2 F L 97.5 F L 97.5 F L Temperature Source Temporal Temporal Temporal Pulse Rate (60-100) 109 H 106 H 101 H Pulse Location Monitor Monitor Monitor Respiratory Rate (12-18) 20 H 16 Respiratory rate source Observation Observation Observation Oxygen Delivery Method Room Air Room Air Blood Pressure (90/60-120/80) 147/92 H 136/80 H 166/79 H Blood Pressure Mean (mm Hg) 110 98 108 Source Monitor Monitor Monitor Position Sitting Sitting Blood Pressure Location Right Arm Right Arm History Since Last Visit- (Skip if this is Patient's initial visit) Have you changed medications since your Yes No No last visit? Any new allergies or adverse reactions No No No Had a fall/change in ADL's that may No No No increase risk of falls Signs or symptoms of abuse and/or No No No neglect since last visit Have you been in the hospital since your Yes No No last visit? Has dressing in place as prescribed No Yes Yes Has compression in place as prescribed N/A N/A N/A Has offloadiing in place as prescribed Yes Yes Yes Experienced any changes in pain level or No No No management Left Footwear Custom Shoe Diabetic Shoe Right Footwear Surgical Shoe Surgical Shoe Surgical Shoe with pressure with pressure with pressure relief insole relief insole relief insole Pain Scale: 0-10 Numeric Is Patient Pain Free? Yes Yes Yes 05/12/22 08:53 WC - Today's Visit Information Type of service Follow-up Visit (Physician/KNUCKLE BENDER ) Arrival Mode Ambulatory,Cane Transfer Assistance None Patient Identification Verified (Name & Yes ) Patient Requires Transmission-Based No Precautions Finger Stick Blood Sugar(mg/dl) (if 177 indicated): Blood Sugar Stated by Patient Height and Weight Body Mass Index (BMI) 21.9 BMI Classification Normal Vital Signs Temperature (97.8 F-99.1 F) 97.4 F L Temperature Source Temporal Pulse Rate (60-100) 98 Pulse Location Monitor Respiratory Rate (12-18) 16 Respiratory rate source Observation Oxygen Delivery Method Room Air Blood Pressure (90/60-120/80) 130/75 H Blood Pressure Mean (mm Hg) 93 Source Monitor Position Sitting Blood Pressure Location Left Arm History Since Last Visit- (Skip if this is Patient's initial visit) Have you changed medications since your No last visit? Any new allergies or adverse reactions No Had a fall/change in ADL's that may No increase risk of falls Signs or symptoms of abuse and/or No neglect since last visit Have you been in the hospital since your No last visit? Has dressing in place as prescribed Yes Has compression in place as prescribed N/A Has offloadiing in place as prescribed Yes Experienced any changes in pain level or No management Left Footwear Diabetic Shoe Right Footwear Surgical Shoe with pressure relief insole Pain Scale: 0-10 Numeric Is Patient Pain Free? Yes WC - Nurse 1 - General Ulcer Measurement Start: 04/21/22 08:21 Freq: Status: Active Protocol: Activity Type Activity Date Activity User E-sign Co-sign Detail Recorded Client Recorded Date Recorded By Document 04/21/22 08:21 [facility] [id number] 04/21/22 08:29 [facility] Document 04/28/22 08:25 DL [id number] 04/28/22 08:33 DL Document 05/05/22 08:14 [facility] [id number] 05/05/22 08:20 BM Document 05/12/22 08:53 [facility] [id number] 05/12/22 08:55 [facility] 04/21/22 04/28/22 05/05/22 08:21 08:25 08:14 Wound Center Nurse 1 #1 right lateral foot -Combined with other wound No No -Current Size (cm) - Length 0.1 0.1 0.1 -Current Size (cm) - Width 0.1 0.1 0.1 -Current Size (cm) - Depth 0.1 0.1 0.1 -Total Square Cm 0.01 0.01 0.01 -Date of Last Picture (Recall this 04/21/22 05/05/22 field) -Photo Taken Yes Yes Yes -Epithelialization Large 67-100% Large 67-100% -Tunneling No No -Undermining/Tunneling No No -Circular Undermining No No -Exudate Amt Medium None Present Small -Exudate Type Sanguineous Sanguineous -Wound Margin Distinct, Thickened Distinct, Outline Outline Attached Attached -Granulation Amt None Present (0 Small (1-33%) None Present (0 %) %) -Granulation Quality Pale -Slough/Fibrin Yes Yes -Necrosis Amt Large (67-100%) Small (1-33%) Large (67-100%) -Necrotic Tissue Type Eschar Adherent Slough Eschar -Structure Exposed N/A -Texture (Breanne-wound Skin Appearance) Assessed, Scarring Assessed, Scarring Scarring -Moisture (Breanne-wound Skin Appearance) Assessed,Dry/ Dry/Scaly Assessed,Dry/ Scaly Scaly -Color (Breanne-wound Skin Appearance) Assessed No Abnormality Assessed -Temperature (Breanne-wound Skin No Abnormality No Abnormality No Abnormality Appearance) (Pt Warm) (Pt Warm) (Pt Warm) -Tenderness on Palpation (Breanne-wound No No No Skin Appearance) -Ulcer Cleansing Soap and Water Soap and Water Rinsed/ Irrigated with Saline -Foul Odor after Cleansing No No No -Anesthetic Used 5% Lidocaine 5% Lidocaine 5% Lidocaine Gel Gel Gel Right Calf (cm) 27.5 Right Ankle (cm) 18.2 05/12/22 08:53 Wound Center Nurse 1 #1 right lateral foot -Combined with other wound No -Current Size (cm) - Length 0.1 -Current Size (cm) - Width 0.1 -Current Size (cm) - Depth 0.1 -Total Square Cm 0.01 -Date of Last Picture (Recall this 05/12/22 field) -Photo Taken Yes -Epithelialization Large 67-100% -Tunneling No -Undermining/Tunneling No -Circular Undermining No -Exudate Amt None Present -Exudate Type -Wound Margin Distinct, Outline Attached -Granulation Amt -Granulation Quality -Slough/Fibrin -Necrosis Amt -Necrotic Tissue Type -Structure Exposed -Texture (Breanne-wound Skin Appearance) Assessed,Callus ,Scarring -Moisture (Breanne-wound Skin Appearance) Assessed -Color (Breanne-wound Skin Appearance) Assessed -Temperature (Breanne-wound Skin No Abnormality Appearance) (Pt Warm) -Tenderness on Palpation (Breanne-wound No Skin Appearance) -Ulcer Cleansing Soap and Water -Foul Odor after Cleansing No -Anesthetic Used 5% Lidocaine Gel Right Calf (cm) Right Ankle (cm) WC - Nurse 2 - General Ulcer CM Notes Start: 04/21/22 08:21 Freq: Status: Active Protocol: Activity Type Activity Date Activity User E-sign Co-sign Detail Recorded Client Recorded Date Recorded By Document 04/21/22 08:38 [id number] 04/21/22 08:44 Document 04/28/22 08:55 [id number] 04/28/22 08:57 Document 05/05/22 08:39 [id number] 05/05/22 08:45 Document 05/12/22 09:11 [id number] 05/12/22 09:11 04/21/22 04/28/22 05/05/22 08:38 08:55 08:39 Wound Center Nurse 2 #1 right lateral foot -Time 08:38 08:57 08:39 -Correct Patient Yes Yes Yes -Correct Side, Site, Position Yes Yes Yes -Correct Procedure Yes Yes Yes -Procedure Performed Yes Yes Yes -Type of Procedure Debridement Debridement Debridement -Clinical Debridement Subcutaneous Subcutaneous Subcutaneous -Tissue Removed Subcutaneous Subcutaneous Subcutaneous -Post Debridement (cm) - Length 0.3 0.1 0.3 -Post Debridement (cm) - Width 0.2 0.1 0.3 -Post Debridement (cm) - Depth 0.1 0.1 0.1 -Total Square (Post) (cm) 0.06 0.01 0.09 -Area of Debridement (cm) - Length 0.3 0.1 0.3 -Area of Debridement (cm) - Width 0.2 0.1 0.3 -Total Square (Area) (cm) 0.06 0.01 0.09 -Tunneling No No No -Undermining/Tunneling No No No -Circular Undermining No No No -Wound/Ulcer Outcome Not Healed Not Healed Not Healed -Ulcer Cleansing Rinsed/ Rinsed/ Rinsed/ Irrigated with Irrigated with Irrigated with Saline Saline Saline -Foul Odor after Cleansing No No No -Bioengineered Tissue Yes No No -Type of Bioengineered Tissue Epifix 18mm Disc -Expiration Date 12/19/26 -Product Lot Number [id number] -Percent Used 100 -Lot number of Saline Used [id number] -Bleeding Controlled with Pressure Pressure,Silver Pressure Nitrate -Treatment Response Procedure Procedure Procedure Tolerated Well Tolerated Well Tolerated Well -Offloading Yes Yes Yes -Type of Offloading Surgical Shoe Surgical Shoe Surgical Shoe -Debridement - Subq, 1st 20sq cm No Yes Yes -Apply Skin Sub - 1st 25 sq cm - Feet 1 -Epifix 18mm Disc 3 Pain Scale: 0-10 Numeric Is Patient Pain Free? Yes Yes Yes 05/12/22 09:11 Wound Center Nurse 2 #1 right lateral foot -Time -Correct Patient No -Correct Side, Site, Position No -Correct Procedure No -Procedure Performed No -Type of Procedure -Clinical Debridement -Tissue Removed -Post Debridement (cm) - Length 0.1 -Post Debridement (cm) - Width 0.1 -Post Debridement (cm) - Depth 0.1 -Total Square (Post) (cm) 0.01 -Area of Debridement (cm) - Length 0.1 -Area of Debridement (cm) - Width 0.1 -Total Square (Area) (cm) 0.01 -Tunneling -Undermining/Tunneling -Circular Undermining -Wound/Ulcer Outcome Not Healed -Ulcer Cleansing -Foul Odor after Cleansing -Bioengineered Tissue -Type of Bioengineered Tissue -Expiration Date -Product Lot Number -Percent Used -Lot number of Saline Used -Bleeding Controlled with -Treatment Response -Offloading -Type of Offloading -Debridement - Subq, 1st 20sq cm -Apply Skin Sub - 1st 25 sq cm - Feet -Epifix 18mm Disc Pain Scale: 0-10 Numeric Is Patient Pain Free? Yes WC - Nurse 3 - General Ulcer D/C NN Start: 04/21/22 08:21 Freq: Status: Active Protocol: Activity Type Activity Date Activity User E-sign Co-sign Detail Recorded Client Recorded Date Recorded By Document 04/21/22 09:02 AK [id number] 04/21/22 09:02 [place] Document 04/28/22 09:02 MT [id number] 04/28/22 09:03 MT Document 05/05/22 08:50 BMF [id number] 05/05/22 08:50 BMF 04/21/22 04/28/22 05/05/22 09:02 09:02 08:50 Wound Care Nurse 3 #1 right lateral foot -Ulcer Cleansing Not Cleansed Rinsed/ Rinsed/ Irrigated with Irrigated with Saline Saline -Foul Odor after Cleansing No No -Negative Pressure Wound Therapy N/A -Primary Dressing Applied C Hydrogel ($) -Other Dressing hydrogel -Primary Dressing Covered/Secured with Dry Gauze & Dry Gauze, Dry Gauze, Roll Gauze, Secured with Secured with Secured with Tape Tape Tape -Other Covering drsg per dl detail maker and fitter Right -Tubular Bandage Single Layer -Size of Tubigrip Used Size D -Size D ($) 1 Treatment Response Procedure Tolerated Well Pain Scale: 0-10 Numeric Is Patient Pain Free? Yes Yes Yes WC - Visit Discharge Discharge Condition Stable Stable Stable Ambulatory Status Ambulatory,Cane Ambulatory Ambulatory,Cane Transportation Private Auto Private Auto Private Auto Medication Reconcilliation completed & Yes No provided to patient/care provider Clinical Summary of Care Provided Yes Yes Assessment/Plan Assessment/Plan (1) Diabetic foot ulcer: CODE(S): E11.621 - Type 2 diabetes mellitus with foot ulcer; L97.509 - Non-pressure chronic ulcer of other part of unspecified foot with unspecified severity PLAN: Exam performed. wound signiicantly improved, nearly healed patient will hydrate site daily with topical emollient patient will offload with surgical shoe patient will follow up in 1 week no graft. (2) Non-pressure chronic ulcer of other part of right foot with fat layer exposed: CODE(S): L97.512 - Non-pressure chronic ulcer of other part of right foot with fat layer exposed (3) Type 2 diabetes mellitus with diabetic polyneuropathy: CODE(S): E11.42 - Type 2 diabetes mellitus with diabetic polyneuropathy
[2022-05-19 08:28] VITALS: BP 138/87; PULSE 98; RESP 16; TEMP 36; BMI 21.9
--- NOTE | 2022-05-19 09:30 | PN.PCM_ITS ---
History of Present Illness Date of Service: 05/19/22 Progress of Wound: 41-year-old male with history of chronic right foot wound in setting of type 2 diabetes with peripheral neuropathy and end-stage renal disease. Patient has peritoneal dialysis dialysis at home lives with his parents. Patient denies any constitutional symptoms. Patient was seen by capability lead at [facility] who put him in a surgical shoe with an offloading pad. Patient denies any improvement with this. Patient recently evaluated by vascular surgeon, no intervention recommended at this time. Patient's A1c was 6.2. Patient denies any other treatments at this time. No changes today. Objective Data Objective Data Vital Signs: Vital Signs Temp Pulse Resp BP O2 Del Method 96.8 F L 98 16 138/87 H Room Air 05/19/22 08:28 05/19/22 08:28 05/19/22 08:28 05/19/22 08:28 05/19/22 08:28 Oxygen Delivery Method Room Air Weight: 69.4 kg Body Mass Index (BMI) 21.9 Physical Exam Narrative Patient alert oriented to person place and time. Patient ambulating assisted with a cane in a surgical shoe with an offloading pad. Vascular: Dorsalis pedis posterior tibial pulse palpable 2 out of 4 capillary fill time brisk absent digital hair growth noted atrophic skin changes noted. Neurologic: Light touch protective sensation absent to bilateral feet. Dermatologic: Full-thickness wound to plantar fifth metatarsal head on the right foot - healed.No signs of infection, edema erythema warmth and purulent drainage has resolved. No deep probing or undermining. Leg mild hyperkeratosis to periwound area no other signs of infection deep probing or undermining at this time. Musculoskeletal: Forefoot varus deformity noted to the right lower extremity. Muscular strength full. No other issues. Debridement Note Debridement Note Post-Debridement Measurements and Additional Note: Post-Debridement Measurements/Treatment WC - Nurse 1 - General Ulcer Assessment Start: 04/21/22 08:21 Freq: Status: Active Protocol: LOWEXT Activity Type Activity Date Activity User E-sign Co-sign Detail Recorded Client Recorded Date Recorded By Document 04/21/22 08:21 BMF [id number] 04/21/22 08:29 BMF Document 04/28/22 08:25 DL [id number] 04/28/22 08:33 DL Document 05/05/22 08:[address] [facility] [id number] 05/05/22 08:20 BMF Document 05/12/22 08:[address] [facility] [id number] 05/12/22 08:55 BMF Document 05/19/22 08:[address] [facility] [id number] 05/19/22 08:31 BM 04/21/22 04/28/22 05/05/22 08:21 08:25 08:14 WC - Today's Visit Information Type of service Follow-up Visit Follow-up Visit Follow-up Visit (Physician/LOW HEEL BUILDER (Physician/LOW HEEL BUILDER (Physician/LOW HEEL BUILDER ) ) ) Arrival Mode Ambulatory,Cane Ambulatory,Cane Ambulatory Transfer Assistance None None None Patient Identification Verified (Name & Yes Yes Yes ) Patient Requires Transmission-Based No No No Precautions Finger Stick Blood Sugar(mg/dl) (if indicated): Blood Sugar Height and Weight Body Mass Index (BMI) 21.9 21.9 21.9 BMI Classification Normal Normal Normal Vital Signs Temperature (97.8 F-99.1 F) 97.2 F L 97.5 F L 97.5 F L Temperature Source Temporal Temporal Temporal Pulse Rate (60-100) 109 H 106 H 101 H Pulse Location Monitor Monitor Monitor Respiratory Rate (12-18) 20 H 16 Respiratory rate source Observation Observation Observation Oxygen Delivery Method Room Air Room Air Blood Pressure (90/60-120/80) 147/92 H 136/80 H 166/79 H Blood Pressure Mean (mm Hg) 110 98 108 Source Monitor Monitor Monitor Position Sitting Sitting Blood Pressure Location Right Arm Right Arm History Since Last Visit- (Skip if this is Patient's initial visit) Have you changed medications since your Yes No No last visit? Any new allergies or adverse reactions No No No Had a fall/change in ADL's that may No No No increase risk of falls Signs or symptoms of abuse and/or No No No neglect since last visit Have you been in the hospital since your Yes No No last visit? Has dressing in place as prescribed No Yes Yes Has compression in place as prescribed N/A N/A N/A Has offloadiing in place as prescribed Yes Yes Yes Experienced any changes in pain level or No No No management Left Footwear Custom Shoe Diabetic Shoe Right Footwear Surgical Shoe Surgical Shoe Surgical Shoe with pressure with pressure with pressure relief insole relief insole relief insole Pain Scale: 0-10 Numeric Is Patient Pain Free? Yes Yes Yes 05/12/22 05/19/22 08:53 08:28 - Today's Visit Information Type of service Follow-up Visit Follow-up Visit (Physician/LOW HEEL BUILDER (Physician/LOW HEEL BUILDER ) ) Arrival Mode Ambulatory,Cane Ambulatory,Cane Transfer Assistance None None Patient Identification Verified (Name & Yes No ) Patient Requires Transmission-Based No No Precautions Finger Stick Blood Sugar(mg/dl) (if 177 indicated): Blood Sugar Stated by Patient Height and Weight Body Mass Index (BMI) 21.9 21.9 BMI Classification Normal Normal Vital Signs Temperature (97.8 F-99.1 F) 97.4 F L 96.8 F L Temperature Source Temporal Temporal Pulse Rate (60-100) 98 98 Pulse Location Monitor Monitor Respiratory Rate (12-18) 16 16 Respiratory rate source Observation Observation Oxygen Delivery Method Room Air Room Air Blood Pressure (90/60-120/80) 130/75 H 138/87 H Blood Pressure Mean (mm Hg) 93 104 Source Monitor Monitor Position Sitting Sitting Blood Pressure Location Left Arm Right Arm History Since Last Visit- (Skip if this is Patient's initial visit) Have you changed medications since your No No last visit? Any new allergies or adverse reactions No No Had a fall/change in ADL's that may No increase risk of falls Signs or symptoms of abuse and/or No No neglect since last visit Have you been in the hospital since your No No last visit? Has dressing in place as prescribed Yes Has compression in place as prescribed N/A N/A Has offloadiing in place as prescribed Yes No Experienced any changes in pain level or No No management Left Footwear Diabetic Shoe Regular Shoe Right Footwear Surgical Shoe Regular Shoe with pressure relief insole Pain Scale: 0-10 Numeric Is Patient Pain Free? Yes Yes - Nurse 1 - General Ulcer Measurement Start: 04/21/22 08:21 Freq: Status: Active Protocol: Activity Type Activity Date Activity User E-sign Co-sign Detail Recorded Client Recorded Date Recorded By Document 04/21/22 08:[address] [facility] [id number] 04/21/22 08:[address] [facility] Document 04/28/22 08:25 DL [id number] 04/28/22 08:33 DL Document 05/05/22 08:[address] [facility] [id number] 05/05/22 08:20 BMF Document 05/12/22 08:[address] [facility] [id number] 05/12/22 08:[address] [facility] 04/21/22 04/28/22 05/05/22 08:21 08:25 08:14 Wound Center Nurse 1 #1 right lateral foot -Combined with other wound No No -Current Size (cm) - Length 0.1 0.1 0.1 -Current Size (cm) - Width 0.1 0.1 0.1 -Current Size (cm) - Depth 0.1 0.1 0.1 -Total Square Cm 0.01 0.01 0.01 -Date of Last Picture (Recall this 04/21/22 05/05/22 field) -Photo Taken Yes Yes Yes -Epithelialization Large 67-100% Large 67-100% -Tunneling No No -Undermining/Tunneling No No -Circular Undermining No No -Exudate Amt Medium None Present Small -Exudate Type Sanguineous Sanguineous -Wound Margin Distinct, Thickened Distinct, Outline Outline Attached Attached -Granulation Amt None Present (0 Small (1-33%) None Present (0 %) %) -Granulation Quality Pale -Slough/Fibrin Yes Yes -Necrosis Amt Large (67-100%) Small (1-33%) Large (67-100%) -Necrotic Tissue Type Eschar Adherent Slough Eschar -Structure Exposed N/A -Texture (Breanne-wound Skin Appearance) Assessed, Scarring Assessed, Scarring Scarring -Moisture (Breanne-wound Skin Appearance) Assessed,Dry/ Dry/Scaly Assessed,Dry/ Scaly Scaly -Color (Breanne-wound Skin Appearance) Assessed No Abnormality Assessed -Temperature (Breanne-wound Skin No Abnormality No Abnormality No Abnormality Appearance) (Pt Warm) (Pt Warm) (Pt Warm) -Tenderness on Palpation (Breanne-wound No No No Skin Appearance) -Ulcer Cleansing Soap and Water Soap and Water Rinsed/ Irrigated with Saline -Foul Odor after Cleansing No No No -Anesthetic Used 5% Lidocaine 5% Lidocaine 5% Lidocaine Gel Gel Gel Right Calf (cm) 27.5 Right Ankle (cm) 18.2 05/12/22 08:53 Wound Center Nurse 1 #1 right lateral foot -Combined with other wound No -Current Size (cm) - Length 0.1 -Current Size (cm) - Width 0.1 -Current Size (cm) - Depth 0.1 -Total Square Cm 0.01 -Date of Last Picture (Recall this 05/12/22 field) -Photo Taken Yes -Epithelialization Large 67-100% -Tunneling No -Undermining/Tunneling No -Circular Undermining No -Exudate Amt None Present -Exudate Type -Wound Margin Distinct, Outline Attached -Granulation Amt -Granulation Quality -Slough/Fibrin -Necrosis Amt -Necrotic Tissue Type -Structure Exposed -Texture (Breanne-wound Skin Appearance) Assessed,Callus ,Scarring -Moisture (Breanne-wound Skin Appearance) Assessed -Color (Breanne-wound Skin Appearance) Assessed -Temperature (Breanne-wound Skin No Abnormality Appearance) (Pt Warm) -Tenderness on Palpation (Breanne-wound No Skin Appearance) -Ulcer Cleansing Soap and Water -Foul Odor after Cleansing No -Anesthetic Used 5% Lidocaine Gel Right Calf (cm) Right Ankle (cm) WC - Nurse 2 - General Ulcer CM Notes Start: 04/21/22 08:21 Freq: Status: Active Protocol: Activity Type Activity Date Activity User E-sign Co-sign Detail Recorded Client Recorded Date Recorded By Document 04/21/22 08:38 [id number] 04/21/22 08:44 Document 04/28/22 08:55 [id number] 04/28/22 08:57 Document 05/05/22 08:39 [id number] 05/05/22 08:45 Document 05/12/22 09:11 [id number] 05/12/22 09:11 Document 05/19/22 08:55 [id number] 05/19/22 08:55 04/21/22 04/28/22 05/05/22 08:38 08:55 08:39 Wound Center Nurse 2 #1 right lateral foot -Time 08:38 08:57 08:39 -Correct Patient Yes Yes Yes -Correct Side, Site, Position Yes Yes Yes -Correct Procedure Yes Yes Yes -Procedure Performed Yes Yes Yes -Type of Procedure Debridement Debridement Debridement -Clinical Debridement Subcutaneous Subcutaneous Subcutaneous -Tissue Removed Subcutaneous Subcutaneous Subcutaneous -Post Debridement (cm) - Length 0.3 0.1 0.3 -Post Debridement (cm) - Width 0.2 0.1 0.3 -Post Debridement (cm) - Depth 0.1 0.1 0.1 -Total Square (Post) (cm) 0.06 0.01 0.09 -Area of Debridement (cm) - Length 0.3 0.1 0.3 -Area of Debridement (cm) - Width 0.2 0.1 0.3 -Total Square (Area) (cm) 0.06 0.01 0.09 -Tunneling No No No -Undermining/Tunneling No No No -Circular Undermining No No No -Wound/Ulcer Outcome Not Healed Not Healed Not Healed -Ulcer Cleansing Rinsed/ Rinsed/ Rinsed/ Irrigated with Irrigated with Irrigated with Saline Saline Saline -Foul Odor after Cleansing No No No -Bioengineered Tissue Yes No No -Type of Bioengineered Tissue Epifix 18mm Disc -Expiration Date 12/19/26 -Product Lot Number [id number] -Percent Used 100 -Lot number of Saline Used [id number] -Bleeding Controlled with Pressure Pressure,Silver Pressure Nitrate -Treatment Response Procedure Procedure Procedure Tolerated Well Tolerated Well Tolerated Well -Offloading Yes Yes Yes -Type of Offloading Surgical Shoe Surgical Shoe Surgical Shoe -Debridement - Subq, 1st 20sq cm No Yes Yes -Apply Skin Sub - 1st 25 sq cm - Feet 1 -Epifix 18mm Disc 3 Pain Scale: 0-10 Numeric Is Patient Pain Free? Yes Yes Yes 05/12/22 05/19/22 09:11 08:55 Wound Center Nurse 2 #1 right lateral foot -Time -Correct Patient No -Correct Side, Site, Position No -Correct Procedure No -Procedure Performed No -Type of Procedure -Clinical Debridement -Tissue Removed -Post Debridement (cm) - Length 0.1 -Post Debridement (cm) - Width 0.1 -Post Debridement (cm) - Depth 0.1 -Total Square (Post) (cm) 0.01 -Area of Debridement (cm) - Length 0.1 -Area of Debridement (cm) - Width 0.1 -Total Square (Area) (cm) 0.01 -Tunneling -Undermining/Tunneling -Circular Undermining -Wound/Ulcer Outcome Not Healed -Ulcer Cleansing -Foul Odor after Cleansing -Bioengineered Tissue -Type of Bioengineered Tissue -Expiration Date -Product Lot Number -Percent Used -Lot number of Saline Used -Bleeding Controlled with -Treatment Response -Offloading -Type of Offloading -Debridement - Subq, 1st 20sq cm -Apply Skin Sub - 1st 25 sq cm - Feet -Epifix 18mm Disc Pain Scale: 0-10 Numeric Is Patient Pain Free? Yes Yes - Nurse 3 - General Ulcer D/C NN Start: 04/21/22 08:21 Freq: Status: Active Protocol: Activity Type Activity Date Activity User E-sign Co-sign Detail Recorded Client Recorded Date Recorded By Document 04/21/22 09:02 AK [id number] 04/21/22 09:02 AK Document 04/28/22 09:02 MS [id number] 04/28/22 09:03 MS Document 05/05/22 08:[address] [facility] [id number] 05/05/22 08:[address] [facility] Document 05/12/22 09:[address] [facility] [id number] 05/12/22 09:[address] [facility] Document 05/19/22 08:55 [id number] 05/19/22 08:56 04/21/22 04/28/22 05/05/22 09:02 09:02 08:50 Wound Care Nurse 3 #1 right lateral foot -Ulcer Cleansing Not Cleansed Rinsed/ Rinsed/ Irrigated with Irrigated with Saline Saline -Foul Odor after Cleansing No No -Negative Pressure Wound Therapy N/A -Primary Dressing Applied C Hydrogel ($) -Other Dressing hydrogel -Primary Dressing Covered/Secured with Dry Gauze & Dry Gauze, Dry Gauze, Roll Gauze, Secured with Secured with Secured with Tape Tape Tape -Other Covering drsg per dl grants director Right -Tubular Bandage Single Layer -Size of Tubigrip Used Size D -Size D ($) 1 Treatment Response Procedure Tolerated Well Pain Scale: 0-10 Numeric Is Patient Pain Free? Yes Yes Yes - Visit Discharge Discharge Condition Stable Stable Stable Ambulatory Status Ambulatory,Cane Ambulatory Ambulatory,Cane Transportation Private Auto Private Auto Private Auto Medication Reconcilliation completed & Yes No provided to patient/care provider Clinical Summary of Care Provided Yes Yes Notes: 05/12/22 05/19/22 09:20 08:55 Wound Care Nurse 3 #1 right lateral foot -Ulcer Cleansing -Foul Odor after Cleansing -Negative Pressure Wound Therapy -Primary Dressing Applied -Other Dressing -Primary Dressing Covered/Secured with -Other Covering Right -Tubular Bandage -Size of Tubigrip Used -Size D ($) Treatment Response Pain Scale: 0-10 Numeric Is Patient Pain Free? Yes Yes WC - Visit Discharge Discharge Condition Stable Stable Ambulatory Status Ambulatory,Cane Ambulatory,Cane Transportation Private Auto Medication Reconcilliation completed & Yes provided to patient/care provider Clinical Summary of Care Provided Yes Notes: healed. anamaria Patient healed shoe applied and discharged! Assessment/Plan Assessment/Plan (1) Diabetic foot ulcer: CODE(S): E11.621 - Type 2 diabetes mellitus with foot ulcer; L97.509 - Non-pressure chronic ulcer of other part of unspecified foot with unspecified severity PLAN: Exam performed. wound healed today patient will hydrate site daily with topical emollient patient will offload with surgical shoe patient will follow up in 1 week no graft. (2) Non-pressure chronic ulcer of other part of right foot with fat layer exposed: CODE(S): L97.512 - Non-pressure chronic ulcer of other part of right foot with fat layer exposed (3) Type 2 diabetes mellitus with diabetic polyneuropathy: CODE(S): E11.42 - Type 2 diabetes mellitus with diabetic polyneuropathy
== END 2022-05-20 14:40 | disposition home or self-care (01) ==
LOC: WC 08:30
PROVIDERS: Referring Provider Podiatrist; Visit Provider Podiatrist
DX: E11.621 Type 2 diabetes mellitus with foot ulcer (principal); L97.512 Non-pressure chronic ulcer of other part of right foot with fat layer exposed; E11.42 Type 2 diabetes mellitus with diabetic polyneuropathy; E11.22 Type 2 diabetes mellitus with diabetic chronic kidney disease; N18.6 End stage renal disease; Z79.4 Long term (current) use of insulin; Z79.899 Other long term (current) drug therapy
CPT/HCPCS: 11042; 15275; 99213; Q4186; G0463

== ENCOUNTER → 2022-07-21 | Outpatient (CLI) | payer OTHER, SELFPAY | END | disposition home or self-care (01) | PROVIDERS: Referring Provider Podiatrist; Visit Provider Podiatrist | DX: L97.512 Non-pressure chronic ulcer of other part of right foot with fat layer exposed (principal) | CPT/HCPCS: 87070; 87075; 87077; 87186; 87205 ==

== ENCOUNTER 2022-10-04 16:44 | Emergency (ER) | payer OTHER, SELFPAY ==
[2022-10-04 16:45] VITALS: BP 170/97; PULSE 92; RESP 22; TEMP 37.2; O2SAT 99
[2022-10-04 16:55] VITALS: BMI 22.8
--- NOTE | 2022-10-04 17:01 | EDS_ITS ---
HPI HPI - GI History of Present Illness Chief Complaint: Abd Pain Informant: patient Abdominal Pain/Flank Pain Onset: Weeks (1) Context: Gradual Onset Timing: Continuous Quality: Aching Location: Diffuse Current Severity: Severe Maximum Severity: Severe Worsened by: - (Vomiting) Relieved by: Nothing Nausea/Vomiting/Emesis GI Symptom: Positive for Nausea and Vomiting Quality: Negative for Blood streaks, Coffee ground or Hematemesis Diarrhea/Melena/Hematochezia GI Symptom: Negative for Diarrhea, Melena or Hematochezia Associated Symptoms Associated Symptoms: Negative for Dysuria, Frequency or Hematuria Narrative Narrative: Patient presents with abdominal pain that has been getting worse over the last week. Patient states it is gradually getting worse. Patient states it has been constant. Patient states she has been unable to keep anything down for the last week. Patient denies any hematemesis or coffee-ground emesis. Patient states his emesis is water and bile. Patient admits to some decreased urine output but is on peritoneal dialysis. Patient states he does peritoneal dialysis daily at home. Patient admits to some subjective chills but denies any fevers. Patient denies any diarrhea, melena, or hematochezia. [facility] Medical History Chronic kidney disease (CKD) Diabetes mellitus End stage renal disease Home Medications amlodipine 5 mg tablet 5 mg PO DAILY 01/08/22 [History Last Taken Unknown] lisinopril 40 mg tablet 40 mg PO DAILY 01/08/22 [History Last Taken Unknown] omeprazole 40 mg capsule,delayed release 40 mg PO DAILY 01/08/22 [History Last Taken Unknown] sevelamer carbonate 800 mg tablet (Renvela) 800 mg PO TID 01/08/22 [History Last Taken Unknown] sucroferric oxyhydroxide 500 mg chewable tablet (Velphoro) 500 mg PO TID 01/08/22 [History Last Taken Unknown] vitamin B complex-vitamin C-folic acid 0.8 mg tablet (Ifrah-Al) 1 tab PO DAILY 01/08/22 [History Last Taken Unknown] calcium 100 mg capsule 200 mg PO BID 03/24/22 [History Last Taken Unknown] insulin glargine 100 unit/mL (3 mL) subcutaneous pen (Basaglar KwikPen U-100 Insulin) 15 unit subcut QHS 03/24/22 [History Last Taken Unknown] ondansetron 4 mg disintegrating tablet 4 mg PO Q8H PRN PRN Nausea #10 tabs 10/04/22 [Rx Last Taken Unknown] Allergy/AdvReac Type Severity Reaction Status Date / Time tramadol AdvReac Intermediate Vomiting Verified 10/04/22 16:45 Family History Mother Diabetes Hypertension Brother Diabetes Surgical History no surgical history no surgical history Social History housing: house Smoking Status: Never smoker alcohol intake: never substance use type: does not use well-balanced diet: daily or most days caffeine: No eating out: 4 or more times/week during the past year weight has: remained stable what type of physical activity do you participate in: none ROS ROS ED Constitutional Constitutional ED: Reports chills and subjective; Denies fever(s) Eyes Eyes: Denies blurry vision or change in vision ENT ENT ED: Reports rhinorrhea; Denies sore throat Cardiovascular Cardiovascular: Denies chest pain or palpitations Respiratory/Chest Respiratory/Chest: Denies cough or dyspnea Gastrointestinal Gastrointestinal: Reports abdominal pain, nausea and vomiting Genitourinary Genitourinary ED: Denies dysuria or hematuria Musculoskeletal Musculoskeletal: Reports back pain; Denies neck pain Integumentary Denies abscess or rash Neurologic Neurologic: Denies headache(s) or weakness Allergic/Immunologic Allergic/Immunologic ED: Denies mouth swelling or urticaria EXAM Physical Exam Const Vital Signs: 10/04/22 16:45 Temperature 99 F Temperature Source Temporal Pulse Rate 92 Respiratory Rate 22 H Blood Pressure 170/97 H Blood Pressure Mean 121 Pulse Ox 99 Oxygen Delivery Method Room Air Positive well nourished and well developed General Appearance ED: well developed and NAD HEENT Reports dry mucous membranes Mouth ED: Yes dry mucous membranes Mouth: dry mucous membranes Neck supple and no JVD Resp normal respiratory effort and clear to auscultation bilaterally Cardio regular rate and regular rhythm GI normal to inspection, nondistended, normoactive bowel sounds Palpation: soft and tender epigastric, LLQ, RLQ, LUQ, RUQ, periumbilical and suprapubic; Negative for guarding or rebound tenderness present Extremity normal to inspection General Extremety ED: Negative for edema or tenderness General Extremity: Negative for edema Neuro oriented x3, CN's II-XII intact bilaterally and no sensory deficits noted Sensorium / Orientation: alert Motor Exam: strength 5/5 throughout Psych mental status grossly normal Skin no rashes or lesions noted MDM MDM MDM Narrative Medical decision making narrative: Differential diagnosis includes bowel obstruction, perforation, bacterial peritonitis, gastroenteritis, gastritis, and pancreatitis. CBC will be obtained to assess for leukocytosis and anemia. Comprehensive metabolic profile will be obtained to assess for hepatic function, renal function, and electrolyte abnormality. Lipase will be obtained to assess for pancreatitis. CT scan of the abdomen pelvis will be obtained to assess for bowel obstruction and perforation. Lab Data Attestation: I reviewed the patient's lab results. Lab results narrative: CBC was reviewed. There is a mild leukocytosis of 17.5. This is only slightly increased from previous results. Hemoglobin was stable at 12.0 hematocrit was 36.3. Comprehensive metabolic profile was reviewed. BUN was 73 and creatinine was 16.7. These are consistent with prior results. Glucose was 230. The remainder was within normal limits. Lipase was reviewed and was normal at 33. Labs: Laboratory Results - last 24 hr 10/04/22 10/04/22 17:25 17:25 WBC 17.5 H RBC 3.80 L Hgb 12.0 L Hct 36.3 L MCV 95.5 H MCH 31.6 MCHC 33.1 RDW Std Deviation 44.9 H RDW Coeff of Rhys 12.9 Plt Count 274 MPV 11.4 Immature Gran % (Auto) 0.700 Neut % (Auto) 79.8 H Lymph % (Auto) 11.2 L [place] % (Auto) 7.1 Eos % (Auto) 0.9 Baso % (Auto) 0.3 Absolute Neuts (auto) 14.0 H Absolute Lymphs (auto) 1.96 Nucleated RBC % 0 Sodium 138 Potassium 3.7 Chloride 99 Carbon Dioxide 29.0 Anion Gap 10 BUN 73 H Creatinine 16.70 H* Estim Creat Clear Calc 5.76 Est GFR (MDRD) Af Amer 4 L Est GFR (MDRD) Non-Af 3 L BUN/Creatinine Ratio 4.4 L Glucose 230 H Calcium 13.0 H* Total Bilirubin 0.60 AST 8 L ALT 18 Alkaline Phosphatase 80 Total Protein 7.3 Albumin 3.3 Globulin 4.0 Albumin/Globulin Ratio 0.8 L Lipase 33 Radiography Diagnostic Testing: Clinical Impression(s) from Imaging Studies Abdomen/Pelvis CT 10/04/22 17:12 IMPRESSION: No acute abnormality. Peritoneal dialysis catheter with a small amount of pneumoperitoneum. Electronically Signed: Odilon Weiss MD at 18:31 EDT Reading Location ID and State: [facility] / [place] Tel , Service support , CT scan of the abdomen pelvis was obtained. There is no free air or free fluid noted. There is no evidence of obstruction or perforation. There is peritoneal dialysis catheter in place with a small amount of pneumoperitoneum. This was interpreted by the radiologist and was also independently reviewed by myself. Treatment and Re-Evaluation :: Patient was given IV fluids and Zofran here. Patient is resting comfortably on reevaluation. Patient feels better. Patient was given a prescription for Zofran. Patient was instructed to start with a bland diet and advance as tolerated. Patient was instructed to follow-up with his primary care physician in 5 to 7 days. Patient understood and was agreeable with the plan. All questions were answered. Discharge Plan Triage Chief Complaint: Abd Pain ED Provider: Wayne Guillen Dx/Rx/DC Orders Clinical Impression: Nausea and vomiting, CKD (chronic kidney disease) stage 5, GFR less than 15 ml/min Instructions: ED Vomiting (Adult) Prescriptions: New ondansetron [ondansetron] 4 mg tablet,disintegrating 4 mg PO Q8H PRN PRN (Reason: Nausea) Qty: 10 0RF No Action Velphoro 500 mg tablet,chewable 500 mg PO TID amlodipine 5 mg tablet 5 mg PO DAILY Ifrah-Al 0.8 mg tablet 1 tab PO DAILY sevelamer carbonate [Renvela] 800 mg tablet 800 mg PO TID Rx Instructions: must administer with a meal/food 3 times a day with meals omeprazole 40 mg capsule,delayed release(DR/EC) 40 mg PO DAILY lisinopril 40 mg tablet 40 mg PO DAILY calcium 100 mg Capsule 200 mg PO BID insulin glargine [Basaglar KwikPen U-100 Insulin] 100 unit/mL (3 mL) Insulin Pen 15 unit SUBCUT QHS Primary Care Provider: Liseth Perdue Referrals: Liseth Perdue [Other] - 3-5 Days Disposition Disposition: Home, Self Care
--- NOTE | 2022-10-04 17:12 | CT_ITS ---
STUDY: CT ABDOMEN AND PELVIS WITHOUT CONTRAST REASON FOR EXAM: Male, 42 years old. Pain, nausea/vomiting x 6 days RADIATION DOSAGE (If Supplied By Facility): CTDIvol = ( 6.44 ) mGy, DLP = ( 348.90 ) mGycm TECHNIQUE: Transaxial images were obtained from the dome of the diaphragm to the symphysis pubis without oral contrast, and without intravenous contrast. Sagittal and coronal images were reconstructed. Individualized dose optimization techniques were used for this CT. COMPARISON: 04/15/2022 FINDINGS: The visualized lung bases are unremarkable. The visualized portions of the heart are within normal limits. Left lower quadrant peritoneal dialysis catheter coiled in the pelvis with a small amount of pneumoperitoneum but no loculated fluid collection to suggest pseudocyst. Normal liver. Normal gallbladder and extrahepatic biliary system. Normal spleen. Normal pancreas. Normal bilateral adrenal glands. Normal right kidney. Normal left kidney. Normal visualized stomach. Normal small intestine. Normal colon. The appendix is visualized and appears normal. Normal abdominal aorta. Normal inferior vena cava. Normal retroperitoneum. Normal urinary bladder. There are prostatic calcifications. Normal abdominal wall. Normal osseous structures. CT/Abdomen/Pelvis without Cont IMPRESSION: No acute abnormality. Peritoneal dialysis catheter with a small amount of pneumoperitoneum. Electronically Signed: Odilon Weiss MD at 18:31 EDT ,
[2022-10-04] MEDS: Ondansetron 4 MG/2 ML Vial IV (17:29)
[2022-10-04 17:30] LABS: Absolute Lymphocyte Count 1.96 X10^3/uL (0.83-4.51); Basophil# 0.05 X10^3/uL; Basophil% 0.3 % (0-1); Eosinophil# 0.16 X10^3/uL; Eosinophils% 0.9 % (0-5); Hematocrit 36.3 % (40-54); Lymphocyte # 1.96 X10^3/ul (0.83-4.51); Lymphocyte % 11.2 % (19-41); Mean Corp Hgb Conc 33.1 g/dL (32-36); Mean Corpuscular Hgb 31.6 pg (27.0-32.0); Mean Corpuscular Volume 95.5 fL (80-94); Mean Platelet Vol. 11.4 fl (6.2-12.0); Monocyte# 1.25 X10^3/uL; Monocyte% 7.1 % (0-10); NRBC Flagged by Analyzer 0 % (0-5); Neutrophil # 13.98 X10^3/uL (2.7-7.7); Neutrophil % 79.8 % (47-70); Platelet Count 274 K/mm3 (150-450); RBC Distribution Width CV 12.9 % (11.6-14.6); RBC Distribution Width SD 44.9 fl (35.1-43.9); White Blood Count 17.5 K/mm3 (4.4-11.0)
[2022-10-04 17:49] LABS: ALB/GLOB Ratio 0.8 RATIO (0.9-2.4); AST(SGOT) 8 U/L (15-37); Alanine Aminotransfer ALT/SGPT 18 U/L (16-61); Albumin, Serum 3.3 g/dL (3.2-5.0); Alkaline Phosphatase 80 U/L (45-117); Anion Gap 10 (5-15); BUN 73 mg/dL (7-18); BUN/Creat Ratio 4.4 RATIO (10-20); Chloride 99 mmol/L (98-107); EST Glomerular Filtration Rate 3 mL/min (>60); Est Glom Filt Rate - Afr Amer 4 mL/min (>60); Estimated Creatinine Clearance 5.76 ml/min; Glucose 230 mg/dL (74-106); Lipase 33 U/L (13-75); Potassium 3.7 mmol/L (3.5-5.1); Protein, Total 7.3 g/dL (6.4-8.2); Sodium Level 138 mmol/L (136-145)
[2022-10-04 20:19] VITALS: BP 156/60; PULSE 92; RESP 16
== END 2022-10-04 20:19 | disposition home or self-care (01) ==
PROVIDERS: Emergency Provider Emergency Medicine; Visit Provider Emergency Medicine
DX: R10.9 Unspecified abdominal pain (principal); Z99.2 Dependence on renal dialysis; E11.22 Type 2 diabetes mellitus with diabetic chronic kidney disease; N18.5 Chronic kidney disease, stage 5; R11.2 Nausea with vomiting, unspecified; Z79.899 Other long term (current) drug therapy
CPT/HCPCS: 74176; 80053; 83690; 85025; 96361; 96374; 99282; J7030; J2405

== ENCOUNTER 2022-10-05 17:09 | Inpatient (IN) | payer OTHER, SELFPAY ==
[2022-10-05 17:10] VITALS: BP 182/111; PULSE 99; RESP 17; TEMP 35.5; O2SAT 92
[2022-10-05 17:21] VITALS: BMI 22.7
--- NOTE | 2022-10-05 17:37 | EX.ED.DYSGE1 ---
HPI History of Present Illness Chief Complaint: Nausea/Vomiting Informant: patient Narrative Narrative: Presenting 1 week history worsening abdominal pain nausea and vomiting. Nonbloody. History of diabetes on peritoneal dialysis for the past year followed by Dr. Patel. He was seen yesterday for symptoms with a work-up. He sent home. He states symptoms went home started vomiting again and having hiccups now. Still has abdominal pain. Denies fevers. Denies any history of other abdominal surgeries. Patient is oligoanuric urinates once a day. Return for reevaluation. Patient reports to the vomiting only removed 58 mL of fluid yesterday. Patient reporting hiccups. Work-up from yesterday noted white [address] scan stable small area of pneumoperitoneum with no abscess, peritoneal dialysis cath noted. Prior similar symptoms: Yes PFSH [facility] Medical History End stage renal disease ESRD on peritoneal dialysis Glaucoma Hypertension IBS (irritable bowel syndrome) Type 2 diabetes mellitus with diabetic polyneuropathy Home Medications amlodipine 5 mg tablet 5 mg PO DAILY 01/08/22 [History Last Taken Unknown] lisinopril 40 mg tablet 40 mg PO DAILY 01/08/22 [History Last Taken Unknown] omeprazole 40 mg capsule,delayed release 40 mg PO DAILY 01/08/22 [History Last Taken Unknown] sevelamer carbonate 800 mg tablet (Renvela) 800 mg PO TID 01/08/22 [History Last Taken Unknown] sucroferric oxyhydroxide 500 mg chewable tablet (Velphoro) 500 mg PO TID 01/08/22 [History Last Taken Unknown] vitamin B complex-vitamin C-folic acid 0.8 mg tablet (Ifrah-Al) 1 tab PO DAILY 01/08/22 [History Last Taken Unknown] calcium 100 mg capsule 200 mg PO BID 03/24/22 [History Last Taken Unknown] insulin glargine 100 unit/mL (3 mL) subcutaneous pen (Basaglar KwikPen U-100 Insulin) 15 unit subcut QHS 03/24/22 [History Last Taken Unknown] ondansetron 4 mg disintegrating tablet 4 mg PO Q8H PRN PRN Nausea #10 tabs 10/04/22 [Rx Last Taken Unknown] Allergy/AdvReac Type Severity Reaction Status Date / Time tramadol AdvReac Intermediate Vomiting Verified 10/04/22 16:45 Family History Mother Diabetes Hypertension Brother Diabetes Social History housing: house Smoking Status: Never smoker alcohol intake: never substance use type: does not use well-balanced diet: daily or most days caffeine: No eating out: 4 or more times/week during the past year weight has: remained stable what type of physical activity do you participate in: none ROS ROS ED Constitutional Constitutional ED: Denies chills, fever(s) or sweats Eyes Eyes: Denies change in vision ENT ENT ED: Denies dysphagia or sore throat Cardiovascular Cardiovascular: Denies chest pain, leg edema, palpitations or racing heartbeat Respiratory/Chest Respiratory/Chest: Denies cough, dyspnea or dyspnea on exertion Gastrointestinal Gastrointestinal: Reports abdominal pain, nausea and vomiting; Denies diarrhea Genitourinary Genitourinary ED: Denies dysuria, hematuria or urinary frequency Musculoskeletal Musculoskeletal: Denies back pain, extremity pain or neck pain Integumentary Denies rash or wounds Neurologic Neurologic: Denies headache(s), paresthesias or weakness EXAM Physical Exam Const Vital Signs: 10/05/22 17:10 10/05/22 19:09 Temperature 95.9 F L Temperature Source Temporal Pulse Rate 99 84 Respiratory Rate 17 16 Blood Pressure 182/111 H 165/84 H Blood Pressure Mean 134 111 Pulse Ox 92 97 Oxygen Delivery Method Room Air Room Air Positive well nourished and well developed General Appearance ED: well developed and NAD HEENT Reports moist mucous membranes normocephalic and atraumatic Eyes PERRL, EOMs intact bilaterally and conjunctivae normal General Eye ED: Yes normal appearance of both eyes Neck no lymphadenopathy and supple General: Negative for tenderness Chest Wall Chest: Negative for tenderness Resp normal respiratory effort and normal air movement Effort and Inspection: symmetric chest movement; Negative for respiratory distress Cardio regular rate, regular rhythm and no murmurs Peripheral Pulses: pulses 2+ throughout GI normal to inspection, nondistended, normoactive bowel sounds GI Narrative: soft mild generalized tenderness there is no guarding or rebound. Left lower quadrant peritoneal dialysis tubing. Palpation: Negative for guarding or rebound tenderness present Back/Spine no CVA tenderness and no thoracic nor lumbar tenderness Extremity normal to inspection General Extremety ED: Negative for edema or tenderness General Extremity: Negative for edema Neuro oriented x3 and no sensory deficits noted Sensorium / Orientation: awake and alert Skin no rashes or lesions noted and no wounds MDM MDM MDM Narrative Medical decision making narrative: Interventions / MDM: Differential diagnosis: Spontaneous bacterial peritonitis, abdominal pain, nausea and vomiting Diagnosis considered but do not suspect: N/A My EKG interpretation: N/A Imaging independently reviewed and interpreted by myself: N/A External documents reviewed: N/A Test considered but not ordered:N/A ED course: Patient leukocytosis 17 yesterday return for continued abdominal pain nausea and. Heart rate 99, sepsis labs were ordered. White count worsening at 19.4. Sterile collection of peritoneal fluid was obtained. Lactic acid normal. UA creatinine normal passing with his hemodialysis.. Peritoneal fluid negative for any infection. History of morphine, Zofran, Thorazine was added due to his hiccups with improvement of symptoms. Review of his images yesterday reported small amount of pneumoperitoneum, he had CT scan back in March did not report this however review had similar findings. I spoke with on-call surgeon Dr. Sanchez due to the read yesterday, he states this can be normal with the peritoneal dialysis. With patient's leukocytosis, persistent symptoms, will speak with hospitalist service for admission. I spoke with Dr. Stone updated patient's findings and laboratory work-up and recent evaluation. Patient be started on Zosyn and vancomycin for broad coverage pending culture results. Patient admitted to the medical floor for further management. Procedure note: Verbal consent. Removal of peritoneal fluid for analysis from peritoneal dialysis port. Sterile conditions. Port was uncapped, ChloraPrep swabs were used to clean the port, sterile gloves were used, clamp was released, 20 cc syringe used to pull 10 cc slight yellow fluid. Reclamped and recapped. Patient tolerated well. Re-evaluation: stable Disposition discussed with patient/family/significant other: Patient and family Case discussed with consulting clinician: N/A Lab Data Attestation: I reviewed the patient's lab results. Labs: Laboratory Results - last 24 hr 10/05/22 10/05/22 10/05/22 17:30 17:40 17:40 WBC 19.4 H RBC 4.14 L Hgb 13.2 Hct 39.3 L MCV 94.9 H MCH 31.9 MCHC 33.6 RDW Std Deviation 43.7 RDW Coeff of Rhys 12.7 Plt Count 273 MPV 11.8 Immature Gran % (Auto) 0.900 Neut % (Auto) 88.0 H Lymph % (Auto) 5.6 L [place] % (Auto) 5.2 Eos % (Auto) 0.1 Baso % (Auto) 0.2 Absolute Neuts (auto) 17.1 H Absolute Lymphs (auto) 1.08 Nucleated RBC % 0 ESR Sodium Cancelled Potassium Cancelled Chloride Cancelled Carbon Dioxide Cancelled Anion Gap Cancelled BUN Cancelled Creatinine Cancelled Estim Creat Clear Calc Cancelled Est GFR (MDRD) Af Amer Cancelled Est GFR (MDRD) Non-Af Cancelled BUN/Creatinine Ratio Cancelled Glucose Cancelled Lactic Acid Calcium Cancelled Total Bilirubin Cancelled AST Cancelled ALT Cancelled Alkaline Phosphatase Cancelled C-React Prot Ext Range Total Protein Cancelled Albumin Cancelled Globulin Cancelled Albumin/Globulin Ratio Cancelled Lipase Cancelled Fluid Source PERITONEAL FLUID Fluid Color LT YEL Fluid Appearance CLEAR Fluid WBC 0.067 Fluid RBC 7 Fluid Tot Cell Count 0.072 Fld Polynuclear WBCs # 0.012 Fld Polynuclear WBCs % 18.0 Fluid Mononuclear WBCs 0.055 Fld Mononuclear WBCs % 82.0 Fluid Neutrophils 8 Fluid Lymphocytes 16 Fluid Monocytes 76 Fl Pathologist Comment May follow Fluid Comment 2 SEE COMMENT 10/05/22 10/05/22 10/05/22 17:40 17:40 18:10 WBC RBC Hgb Hct MCV MCH MCHC RDW Std Deviation RDW Coeff of Rhys Plt Count MPV Immature Gran % (Auto) Neut % (Auto) Lymph % (Auto) [place] % (Auto) Eos % (Auto) Baso % (Auto) Absolute Neuts (auto) Absolute Lymphs (auto) Nucleated RBC % ESR 50 H Sodium 137 Potassium 3.5 Chloride 98 Carbon Dioxide 31.0 Anion Gap 8 BUN 74 H Creatinine 16.10 H* Estim Creat Clear Calc 5.95 Est GFR (MDRD) Af Amer 4 L Est GFR (MDRD) Non-Af 4 L BUN/Creatinine Ratio 4.6 L Glucose 319 H Lactic Acid 0.9 Calcium 12.6 H* Total Bilirubin 0.60 AST 7 L ALT 19 Alkaline Phosphatase 80 C-React Prot Ext Range Total Protein 7.2 Albumin 3.3 Globulin 3.9 Albumin/Globulin Ratio 0.8 L Lipase 30 Fluid Source Fluid Color Fluid Appearance Fluid WBC Fluid RBC Fluid Tot Cell Count Fld Polynuclear WBCs # Fld Polynuclear WBCs % Fluid Mononuclear WBCs Fld Mononuclear WBCs % Fluid Neutrophils Fluid Lymphocytes Fluid Monocytes Fl Pathologist Comment Fluid Comment 2 10/05/22 18:10 WBC RBC Hgb Hct MCV MCH MCHC RDW Std Deviation RDW Coeff of Rhys Plt Count MPV Immature Gran % (Auto) Neut % (Auto) Lymph % (Auto) [place] % (Auto) Eos % (Auto) Baso % (Auto) Absolute Neuts (auto) Absolute Lymphs (auto) Nucleated RBC % ESR Sodium Potassium Chloride Carbon Dioxide Anion Gap BUN Creatinine Estim Creat Clear Calc Est GFR (MDRD) Af Amer Est GFR (MDRD) Non-Af BUN/Creatinine Ratio Glucose Lactic Acid Calcium Total Bilirubin AST ALT Alkaline Phosphatase C-React Prot Ext Range < 2.90 Total Protein Albumin Globulin Albumin/Globulin Ratio Lipase Fluid Source Fluid Color Fluid Appearance Fluid WBC Fluid RBC Fluid Tot Cell Count Fld Polynuclear WBCs # Fld Polynuclear WBCs % Fluid Mononuclear WBCs Fld Mononuclear WBCs % Fluid Neutrophils Fluid Lymphocytes Fluid Monocytes Fl Pathologist Comment Fluid Comment 2 Discharge Plan Triage Chief Complaint: Nausea/Vomiting ED Provider: Raphael Schneider Dx/Rx/DC Orders Clinical Impression: Abdominal pain, Nausea & vomiting, Leukocytosis, ESRD on peritoneal dialysis, Diabetes Primary Care Provider: Care Physician,No Primary Disposition Disposition: Acute Care Hospital [facility]
[2022-10-05] MEDS: 0.9% Normal Saline 1,000 ML 125 ML IV (17:45)
[2022-10-05] MEDS: Ondansetron 4 MG/2 ML Vial IV (17:46)
[2022-10-05] MEDS: Morphine 4 MG/ML Syringe IV ×2 (17:46→21:09)
[2022-10-05 17:57] LABS: Absolute Lymphocyte Count 1.08 X10^3/uL (0.83-4.51); Absolute Neutrophil Count 17.1 X10^3/uL (2.0-7.7); Basophil# 0.04 X10^3/uL; Basophil% 0.2 % (0-1); Eosinophil# 0.02 X10^3/uL; Eosinophils% 0.1 % (0-5); Hematocrit 39.3 % (40-54); Hemoglobin 13.2 g/dL (13.0-16.5); Lymphocyte # 1.08 X10^3/ul (0.83-4.51); Lymphocyte % 5.6 % (19-41); Mean Corp Hgb Conc 33.6 g/dL (32-36); Mean Corpuscular Hgb 31.9 pg (27.0-32.0); Mean Corpuscular Volume 94.9 fL (80-94); Mean Platelet Vol. 11.8 fl (6.2-12.0); Monocyte% 5.2 % (0-10); NRBC Flagged by Analyzer 0 % (0-5); Neutrophil # 17.05 X10^3/uL (2.7-7.7); Platelet Count 273 K/mm3 (150-450); RBC Distribution Width CV 12.7 % (11.6-14.6); RBC Distribution Width SD 43.7 fl (35.1-43.9); Red Blood Count 4.14 M/mm3 (4.6-6.2); White Blood Count 19.4 K/mm3 (4.4-11.0)
--- NOTE | 2022-10-05 18:07 | NURSING ---
PER HUMBERTO ADEN, NEEDS A NEW GREEN TOP. THEY WILL PRINT A LABEL
[2022-10-05 18:24] LABS: Lactic Acid 0.9 mmol/L (0.4-1.9)
[2022-10-05 18:35] LABS: ALB/GLOB Ratio 0.8 RATIO (0.9-2.4); AST(SGOT) 7 U/L (15-37); Alanine Aminotransfer ALT/SGPT 19 U/L (16-61); Albumin, Serum 3.3 g/dL (3.2-5.0); Alkaline Phosphatase 80 U/L (45-117); Anion Gap 8 (5-15); BUN 74 mg/dL (7-18); BUN/Creat Ratio 4.6 RATIO (10-20); Calcium,Total 12.6 mg/dL (8.5-10.1); Chloride 98 mmol/L (98-107); EST Glomerular Filtration Rate 4 mL/min (>60); Est Glom Filt Rate - Afr Amer 4 mL/min (>60); Estimated Creatinine Clearance 5.95 ml/min; Globulin 3.9 g/dL (2.2-4.2); Glucose 319 mg/dL (74-106); Lipase 30 U/L (13-75); Potassium 3.5 mmol/L (3.5-5.1); Protein, Total 7.2 g/dL (6.4-8.2); Sodium Level 137 mmol/L (136-145)
[2022-10-05 18:53] LABS: Appearance/Body Fluid CLEAR; Auto B Fluid Analyzer BKGD Ct COUNTS W/IN LIMITS (W/IN LIMITS); Body Fluid Total Cells Counted 0.072 10^3/ul; Color/Body Fluid LT YEL; Source- Body Fluid PERITONEAL FLUID
[2022-10-05 18:54] LABS: Body Fluid Mononuclear WBC # 0.055 10^3/uL; White Blood Count/Body Fluid 0.067 10^3/uL
[2022-10-05 18:55] LABS: Body Fluid Polynuclear WBC # 0.012 10^3/uL
[2022-10-05] MEDS: ChlorproMAZINE 50 MG/2 ML Ampul 25 MG IM ×2 (19:05→21:19)
[2022-10-05 19:09] VITALS: BP 165/84; PULSE 84; RESP 16; O2SAT 97
[2022-10-05 19:22] LABS: Red Cell Count/Body Fluid 7 /mm3
[2022-10-05 19:36] LABS: Lymphocytes 16 %; Monocytes 76 %; Neutrophil (Segs) 8 %
[2022-10-05 19:37] LABS: Body Fluid QC Type(s) BF4Q
--- NOTE | 2022-10-05 20:18 | HP.PCM_ITS ---
HPI - General General Date of Admission: 10/05/22 Date of Service: 10/05/22 Chief Complaint: Abdominal pain, N/V, hiccups. HPI Narrative The patient is a 42 y/o M w/ PMHx: ESRD on daily peritoneal dialysis following with Dr. Patel (04/2022 HD initially transitioned to daily peritoneal dialysis 08/2022), HTN, HLD, Diabetes mellitus type II, IBS, Hx diabetic foot following prior at [facility] w/ Dr. Saleem, presentation initially to the [facility] on 10/04/22 with history of diffuse aching continuous abdominal discomfort with associated nausea and emesis worsening times approximately 1 week with inability to keep anything down with emesis reported as bile and potentially water with decreased urine output although on chronic peritoneal dialysis which is daily with subjective chills but no fevers with CT of the abdomen with a peritoneal dialysis catheter in place coiled in the pelvis with a small amount of pneumoperitoneum with no loculated fluid collection to suggest pseudocyst with WBC at that time 17.5 with left shift discharged with antiemetic regimen who now represents to the [facility] ED on 10/05/22 with persistent ongoing symptoms with persistent nausea, emesis and now onset of hiccups with continued abdominal pain with no fever now oliguric over the last 24 hours since ED previous evaluation with reported removal of only 58 mL of peritoneal fluid the day prior secondary to his current status prompting ED reevaluation. Work-up in the ED included T95.9 Temporally, heart rate 99 initially with most recent repeat 84, BP initially 182/111 with most recent repeat 165/84, respiratory rate 17, 97% oxygenation, CBC with WBC 19.4, hemoglobin 13.2, platelet 273 with left shift, CMP with BUN/creatinine 74/16.10, glucose 319, lactic acid 0.9, calcium 12.6, hepatic profile not marked appearing, lipase 30, peritoneal fluid pending upon evaluation including culture, blood culture x2 pending per ED. In the ED patient administered IV vancomycin and Zosyn following discussion with hospitalist team. Patient also administered Thorazine 25 mg IM x1 given intractable hiccups which improved. Patient also administered morphine 4 mg IV x1 and Zofran 4 mg IV x1. ED did review imaging with general surgery Dr. Sanchez given concerns about pneumop eritoneum around the catheter site and he did review these images and noted this was a normal finding. [facility] Medical History End stage renal disease ESRD on peritoneal dialysis Glaucoma Hypertension IBS (irritable bowel syndrome) Type 2 diabetes mellitus with diabetic polyneuropathy Home Medications amlodipine 5 mg tablet 5 mg PO DAILY 01/08/22 [History Last Taken Unknown] lisinopril 40 mg tablet 40 mg PO DAILY 01/08/22 [History Last Taken Unknown] omeprazole 40 mg capsule,delayed release 40 mg PO DAILY 01/08/22 [History Last Taken Unknown] sevelamer carbonate 800 mg tablet (Renvela) 800 mg PO TID 01/08/22 [History Last Taken Unknown] sucroferric oxyhydroxide 500 mg chewable tablet (Velphoro) 500 mg PO TID 01/08/22 [History Last Taken Unknown] vitamin B complex-vitamin C-folic acid 0.8 mg tablet (Ifrah-Al) 1 tab PO DAILY 01/08/22 [History Last Taken Unknown] calcium 100 mg capsule 200 mg PO BID 03/24/22 [History Last Taken Unknown] insulin glargine 100 unit/mL (3 mL) subcutaneous pen (Basaglar KwikPen U-100 Insulin) 15 unit subcut QHS 03/24/22 [History Last Taken Unknown] ondansetron 4 mg disintegrating tablet 4 mg PO Q8H PRN PRN Nausea #10 tabs 10/04/22 [Rx Last Taken Unknown] Allergy/AdvReac Type Severity Reaction Status Date / Time tramadol AdvReac Intermediate Vomiting Verified 10/04/22 16:45 Family History Mother Diabetes Hypertension Brother Diabetes other (Patient reports his father is healthy on no medications, no DM, HTN, HD, CA.) Surgical History (Updated 10/05/22 @ 21:[address] Skye Stone MD) H/O vascular surgery Social History housing: house Smoking Status: Never smoker alcohol intake: never substance use type: does not use well-balanced diet: daily or most days caffeine: No eating out: 4 or more times/week during the past year weight has: remained stable what type of physical activity do you participate in: none ROS ROS Narrative Admission Review of Systems: CONSTITUTIONAL: No weight loss, fever, chills, + weakness or fatigue. HEENT: + Intractable hiccups. Eyes: No visual loss, blurred vision, double vision or yellow sclerae. Ears, Nose, Throat: No hearing loss, sneezing, congestion, runny nose or sore throat. SKIN: No rash or itching, lesions, wounds. CARDIOVASCULAR: No chest pain, chest pressure or chest discomfort, palpitations, edema, orthopnea, syncopal events. RESPIRATORY: No shortness of breath, cough or sputum, wheezing, hemoptysis. GASTROINTESTINAL: + anorexia, nausea, vomiting, abdominal pain, No diarrhea, melena, BRBPR. GENITOURINARY: No dysuria, frequency, urgency or retention. NEUROLOGICAL: No headache, dizziness, syncope, paralysis, ataxia, numbness or tingling in the extremities, focal weakness, change in bowel or bladder control, seizure. MUSCULOSKELETAL: + muscle, back pain, joint pain or stiffness. HEMATOLOGIC: + anemia, bleeding or bruising. LYMPHATICS: No enlarged nodes. No history of splenectomy. PSYCHIATRIC: No history of depression or anxiety. ENDOCRINOLOGIC: No reports of sweating, cold or heat intolerance. No polyuria or polydipsia. ALLERGIES: No history of asthma, hives, eczema or rhinitis. Vital Signs Vital Signs Vital Signs: 10/05/22 17:10 10/05/22 19:09 Temperature 95.9 F L Temperature Source Temporal Pulse Rate 99 84 Respiratory Rate 17 16 Blood Pressure 182/111 H 165/84 H Blood Pressure Mean 134 111 Pulse Ox 92 97 Oxygen Delivery Method Room Air Room Air Weight Weight: 158 lb 4.67 oz Body Mass Index (BMI) 22.7 Physical Exam Narrative Physical Examination: General: Awake, alert, oriented x 3 and cooperative, seated upright in the ED bed, fatigued and ill-appearing, hiccups recurrent and holding emesis bag. Skin: Normal color, normal turgor, no icterus, no cyanosis including no obvious or concerning findings around peritoneal catheter insertion. HEENT: AT/NC, EOMI, PERRLA, dry MM, no carotid bruits or JVD noted. Lungs: Mildly diminished, greater bases, proper effort, no rales, ronchi or wheezing. Heart: Mildly tachycardic with regular rhythm; no gallop, rub audible. Abdomen: Soft, with some distraction able to palpate abdomen with no rebound or guarding, notes generalized discomfort but no concerning exam findings, no obvious distention, mildly hyperactive bowel sounds, no obvious HSM, PD access in place. Extremities: No cyanosis, clubbing, or edema. Neurological: Patient awake, alert, oriented as noted, cognitive function intact; pupils equally reactive to light and accommodation, cranial nerves II- XII grossly normal, moving all 4 extremities, no focal deficits, strength moderately to severely global decrease secondary to acute presentation. Psychiatric: Affect appears fatigued, ill-appearing, no acute evidence of depressive or anxiety feelings. Results Lab / Micro Data Result Diagrams: 10/05/22 17:40 10/05/22 18:10 Labs: Laboratory Results - last 24 hr 10/05/22 17:30: Fluid Source PERITONEAL FLUID, Fluid Color LT YEL, Fluid Appearance CLEAR, Fluid WBC 0.067, Fluid RBC 7, Fluid Tot Cell Count 0.072, Fld Polynuclear WBCs # 0.012, Fld Polynuclear WBCs % 18.0, Fluid Mononuclear WBCs 0.055, Fld Mononuclear WBCs % 82.0, Fluid Neutrophils 8, Fluid Lymphocytes 16, Fluid Monocytes 76, Fl Pathologist Comment May follow, Fluid Comment 2 SEE COMMENT 10/05/22 17:40: WBC 19.4 H, RBC 4.14 L, Hgb 13.2, Hct 39.3 L, MCV 94.9 H, MCH 31.9, MCHC 33.6, RDW Std Deviation 43.7, RDW Coeff of Rhys 12.7, Plt Count 273, MPV 11.8, Immature Gran % (Auto) 0.900, Neut % (Auto) 88.0 H, Lymph % (Auto) 5.6 L, [place] % (Auto) 5.2, Eos % (Auto) 0.1, Baso % (Auto) 0.2, Absolute Neuts (auto) 17.1 H, Absolute Lymphs (auto) 1.08, Nucleated RBC % 0 10/05/22 17:40: Sodium Cancelled, Potassium Cancelled, Chloride Cancelled, Carbon Dioxide Cancelled, Anion Gap Cancelled, BUN Cancelled, Creatinine Cancelled, Estim Creat Clear Calc Cancelled, Est GFR (MDRD) Af Amer Cancelled, Est GFR (MDRD) Non-Af Cancelled, BUN/Creatinine Ratio Cancelled, Glucose Cancelled, Calcium Cancelled, Total Bilirubin Cancelled, AST Cancelled, ALT Cancelled, Alkaline Phosphatase Cancelled, Total Protein Cancelled, Albumin Cancelled, Globulin Cancelled, Albumin/Globulin Ratio Cancelled, Lipase Cancelled 10/05/22 17:40: Lactic Acid 0.9 10/05/22 18:10: Sodium 137, Potassium 3.5, Chloride 98, Carbon Dioxide 31.0, Anion Gap 8, BUN 74 H, Creatinine 16.10 H*, Estim Creat Clear Calc 5.95, Est GFR (MDRD) Af Amer 4 L, Est GFR (MDRD) Non-Af 4 L, BUN/Creatinine Ratio 4.6 L, Glucose 319 H, Calcium 12.6 H*, Total Bilirubin 0.60, AST 7 L, ALT 19, Alkaline Phosphatase 80, Total Protein 7.2, Albumin 3.3, Globulin 3.9, Albumin/Globulin Ratio 0.8 L, Lipase 30 Assessment & Plan Assessment/Plan (1) Abdominal pain: PLAN: Plan The patient is a 42 y/o M w/ PMHx: ESRD on daily peritoneal dialysis following with Dr. Patel (04/2022 HD initially transitioned to daily peritoneal dialysis 08/2022), HTN, HLD, Diabetes mellitus type II, IBS, Hx diabetic foot wound, initially to the [facility] on 10/04/22 with history of diffuse aching continuous abdominal discomfort with associated nausea and emesis worsening times approximately [address] at that time with leukocytosis discharged home with nausea meds however he returns now 10/05/2022 with continued symptoms. #1. Persistent abdominal pain with nausea and emesis and concurrent intractable hiccups concerning for possible SBP with peritoneal dialysis access in place: We will admit to medical surgical floor, will await peritoneal fluid cultures although currently prelim not marked, will continue with IV vancomycin and Zosyn IV although certainly if cultures result with more definitive SBP etiology with PD could certainly transition to PD catheter administration, requested Infectious disease and Nephrology consultation, will maintain n.p.o. status until patient's symptoms clinically improving with transition at that time to clears, will maintain on IV PPI, as needed oral and IV pain regimen, as needed antiemetic regimen. Low threshold to repeat imaging and involve general surgery if necessary but at this time will not place formal consult. Procalcitonin, ESR, CRP requested also. We will continue low-dose scheduled Thorazine and can alter as needed given intractable hiccups. #2. ESRD: Patient on chronic daily peritoneal dialysis, we will continue patient home Renvela and Velphoro home regimen, mag and Phos levels requested, nephrology consulted, pending. #3. Diabetes mellitus type II: Hold oral home regimen, continue home insulin regimen, n.p.o. given presentation until clinically improved, will maintain on every 6 hour accu checks w/ ISS. #4. Hypertension: Continue home regimen including amlodipine, lisinopril, PRN hydralazine. #5. GERD: Given N/V will transition to IV PPI in the interim. #6. DVT prophylaxis: Heparin. #7. CODE STATUS: Full code. Patient does not have healthcare power of electronic publisher nor living will in place but is interested in setting these items up thus encouraged him to review these items with case management/social work for recommendations and assistance. Admission Evaluation Time spent evaluating chart, patient history, patient hank luation, care planning and discussion with specialists: 75 minutes. Charges/Coding Visit Charges Inpatient E&M: 46343 Init Hosp L3
[2022-10-05 21:12] LABS: CRP < 2.90 mg/L (0.0-3.0)
[2022-10-05 21:14] LABS: Erythrocyte Sedimentation Rate 50 mm/hr (0-20)
[2022-10-05 21:15] VITALS: BP 146/79; PULSE 89; RESP 16; TEMP 36.7; O2SAT 99
[2022-10-05 21:30] VITALS: BP 167/85; PULSE 98; RESP 18; O2SAT 92
[2022-10-05 22:16] LABS: Procalcitonin 0.48 ng/mL (0.00-0.09)
[2022-10-05 22:57] VITALS: BP 158/94; PULSE 103; RESP 18; TEMP 36.9; O2SAT 96
[2022-10-05 22:58] VITALS: BMI 22.7
--- NOTE | 2022-10-05 23:02 | ED.RN ---
THIS RN TOOK PT TO THE FLOOR. IV PUMP CHECKED WITH KRYSTYNA BEJARANO. VANCOMYCIN RUNNING AT 250 ML/HR TO LEFT HAND. IV SITE P/W/D. PATENT. NO S/S OF INFILTRATION AT 2300.
[2022-10-05] MEDS: Insulin Glargine-YFGN 100 UNIT/ML Pen 15 UNIT SC (23:34)
[2022-10-05] MEDS: 0.9% Normal Saline 1,000 ML 100 ML IV (23:34)
[2022-10-05] MEDS: ChlorproMAZINE 25 MG Tablet PO (23:36)
[2022-10-05] MEDS: Calcium Carbonate 500 MG Tablet PO (23:36)
[2022-10-06 00:01] LABS: Bedside Glucose 258 mg/dL (74-106)
--- NOTE | 2022-10-06 00:07 | PCM.RX.CS ---
Consult Pharmacy has been consulted to manage selected antiobiotic: Vancomycin Type of Consult: New start Prior Doses of Antibiotics Received/Current Regimen: Medications Discontinued Medications Vancomycin HCl 1,750 mg/ (Sodium Chloride) 535 mls @ 250 mls/hr IV X1 ONE Stop: 10/05/22 22:24 Last Admin: 10/05/22 23:20 Dose: Infused Labs: Sodium 137 mmol/L (136-145) 10/05/22 18:10 Potassium 3.5 mmol/L (3.5-5.1) 10/05/22 18:10 Chloride 98 mmol/L (98-107) 10/05/22 18:10 Carbon Dioxide 31.0 mmol/L (21.0-32.0) 10/05/22 18:10 Anion Gap 8 (5-15) 10/05/22 18:10 BUN 74 mg/dL (7-18) H 10/05/22 18:10 Creatinine 16.10 mg/dL (0.70-1.30) H* 10/05/22 18:10 Est GFR (MDRD) Af Amer 4 mL/min (>60) L 10/05/22 18:10 Est GFR (MDRD) Non-Af 4 mL/min (>60) L 10/05/22 18:10 BUN/Creatinine Ratio 4.6 RATIO (10-20) L 10/05/22 18:10 Glucose 319 mg/dL (74-106) H 10/05/22 18:10 Weight used for dosin.8 kg Estimated Creatinine Clearance: 5.95 Goal Trough: 15-20 mcg/mL Pharmacy Plan for Drug Dosing: Initial vancomycin dose of 1750mg was given in ED 10/05/22. A second dose will be scheduled for after the next dialysis session. Pharmacy will coordinate with nursing for timing. Pharmacy Service will continue to monitor and adjust dosing as required.
[2022-10-06 06:00] VITALS: BMI 23.0
[2022-10-06 06:20] LABS: Absolute Lymphocyte Count 1.85 X10^3/uL (0.83-4.51); Absolute Neutrophil Count 15.8 X10^3/uL (2.0-7.7); Basophil# 0.04 X10^3/uL; Basophil% 0.2 % (0-1); Eosinophil# 0.12 X10^3/uL; Eosinophils% 0.6 % (0-5); Hematocrit 32.2 % (40-54); Hemoglobin 10.3 g/dL (13.0-16.5); Lymphocyte # 1.85 X10^3/ul (0.83-4.51); Lymphocyte % 9.5 % (19-41); Mean Corpuscular Hgb 31.7 pg (27.0-32.0); Mean Corpuscular Volume 99.1 fL (80-94); Monocyte# 1.48 X10^3/uL; Monocyte% 7.6 % (0-10); NRBC Flagged by Analyzer 0 % (0-5); Neutrophil # 15.75 X10^3/uL (2.7-7.7); Neutrophil % 81.2 % (47-70); Platelet Count 223 K/mm3 (150-450); RBC Distribution Width SD 46.4 fl (35.1-43.9); Red Blood Count 3.25 M/mm3 (4.6-6.2); White Blood Count 19.4 K/mm3 (4.4-11.0)
[2022-10-06 07:08] LABS: ALB/GLOB Ratio 0.8 RATIO (0.9-2.4); AST(SGOT) 10 U/L (15-37); Alanine Aminotransfer ALT/SGPT 16 U/L (16-61); Albumin, Serum 2.6 g/dL (3.2-5.0); Alkaline Phosphatase 65 U/L (45-117); Anion Gap 5 (5-15); BUN 74 mg/dL (7-18); BUN/Creat Ratio 4.6 RATIO (10-20); Calcium,Total 10.3 mg/dL (8.5-10.1); Chloride 107 mmol/L (98-107); EST Glomerular Filtration Rate 4 mL/min (>60); Est Glom Filt Rate - Afr Amer 4 mL/min (>60); Globulin 3.3 g/dL (2.2-4.2); Glucose 153 mg/dL (74-106); Potassium 3.7 mmol/L (3.5-5.1); Protein, Total 5.9 g/dL (6.4-8.2); Sodium Level 142 mmol/L (136-145)
[2022-10-06 07:10] LABS: Bedside Glucose 138 mg/dL (74-106)
--- NOTE | 2022-10-06 07:27 | PN.HOSP_ITS ---
Reason for Visit Reason for Visit: Diagnoses Unspecified abdominal pain (10/05/22) Subjective Subjective Has been experiencing abdominal pain for the past week. Associated with N/V. Abdomen was distended. Currently feeling better. Objective Data Objective Data Vital Signs: Vital Signs Temp Pulse Resp BP Pulse Ox O2 Del Method 36.9 C 103 H 18 158/94 H 96 Room Air 10/05/22 22:57 10/05/22 22:57 10/05/22 22:57 10/05/22 22:57 10/05/22 22:57 10/05/22 22:57 Oxygen Delivery Method Room Air Weight: 72.9 kg Body Mass Index (BMI) 23.0 Intake & Output: Intake and Output for Last 24 Hours 10/04/22 10/05/22 10/06/22 23:59 23:59 23:59 Intake Total 745 / 745 1025 / 1025 Balance 745 / 745 1025 / 1025 Lab / Micro Data Result Diagrams: 10/06/22 05:44 10/06/22 05:44 Labs: Laboratory Results - last 24 hr 10/05/22 17:30: Fluid Source PERITONEAL FLUID, Fluid Color LT YEL, Fluid Appearance CLEAR, Fluid WBC 0.067, Fluid RBC 7, Fluid Tot Cell Count 0.072, Fld Polynuclear WBCs # 0.012, Fld Polynuclear WBCs % 18.0, Fluid Mononuclear WBCs 0.055, Fld Mononuclear WBCs % 82.0, Fluid Neutrophils 8, Fluid Lymphocytes 16, Fluid Monocytes 76, Fl Pathologist Comment May follow, Fluid Comment 2 SEE COMMENT 10/05/22 17:40: WBC 19.4 H, RBC 4.14 L, Hgb 13.2, Hct 39.3 L, MCV 94.9 H, MCH 31.9, MCHC 33.6, RDW Std Deviation 43.7, RDW Coeff of Rhys 12.7, Plt Count 273, MPV 11.8, Immature Gran % (Auto) 0.900, Neut % (Auto) 88.0 H, Lymph % (Auto) 5.6 L, [place] % (Auto) 5.2, Eos % (Auto) 0.1, Baso % (Auto) 0.2, Absolute Neuts (auto) 17.1 H, Absolute Lymphs (auto) 1.08, Nucleated RBC % 0 10/05/22 17:40: Sodium Cancelled, Potassium Cancelled, Chloride Cancelled, Carbon Dioxide Cancelled, Anion Gap Cancelled, BUN Cancelled, Creatinine Cancelled, Estim Creat Clear Calc Cancelled, Est GFR (MDRD) Af Amer Cancelled, Est GFR (MDRD) Non-Af Cancelled, BUN/Creatinine Ratio Cancelled, Glucose Cancelled, Calcium Cancelled, Total Bilirubin Cancelled, AST Cancelled, ALT Cancelled, Alkaline Phosphatase Cancelled, Total Protein Cancelled, Albumin Cancelled, Globulin Cancelled, Albumin/Globulin Ratio Cancelled, Lipase Cancelled 10/05/22 17:40: Lactic Acid 0.9 10/05/22 17:40: ESR 50 H 10/05/22 18:10: Sodium 137, Potassium 3.5, Chloride 98, Carbon Dioxide 31.0, Anion Gap 8, BUN 74 H, Creatinine 16.10 H*, Estim Creat Clear Calc 5.95, Est GFR (MDRD) Af Amer 4 L, Est GFR (MDRD) Non-Af 4 L, BUN/Creatinine Ratio 4.6 L, Glucose 319 H, Calcium 12.6 H*, Total Bilirubin 0.60, AST 7 L, ALT 19, Alkaline Phosphatase 80, Total Protein 7.2, Albumin 3.3, Globulin 3.9, Albumin/Globulin Ratio 0.8 L, Lipase 30 10/05/22 18:10: C-React Prot Ext Range < 2.90 10/05/22 20:45: Procalcitonin 0.48 H 10/05/22 23:29: POC Glucose 258 H 10/05/22 23:32: COVID-19 (JOSR) Not Detected 10/06/22 05:38: POC Glucose 138 H 10/06/22 05:44: WBC 19.4 H, RBC 3.25 L, Hgb 10.3 L, Hct 32.2 L, MCV 99.1 H, MCH 31.7, MCHC 32.0, RDW Std Deviation 46.4 H, RDW Coeff of Rhys 13.0, Plt Count 223, MPV 12.0, Immature Gran % (Auto) 0.900, Neut % (Auto) 81.2 H, Lymph % (Auto) 9.5 L, [place] % (Auto) 7.6, Eos % (Auto) 0.6, Baso % (Auto) 0.2, Absolute Neuts (auto) 15.8 H, Absolute Lymphs (auto) 1.85, Nucleated RBC % 0 10/06/22 05:44: Sodium 142, Potassium 3.7, Chloride 107, Carbon Dioxide 30.0, Anion Gap 5, BUN 74 H, Creatinine 16.20 H*, Estim Creat Clear Calc 6.00, Est GFR (MDRD) Af Amer 4 L, Est GFR (MDRD) Non-Af 4 L, BUN/Creatinine Ratio 4.6 L, Glucose 153 H, Calcium 10.3 H, Total Bilirubin 0.60, AST 10 L, ALT 16, Alkaline Phosphatase 65, Total Protein 5.9 L, Albumin 2.6 L, Globulin 3.3, Albumin/Globulin Ratio 0.8 L Physical Exam Const alert and no apparent distress Resp normal respiratory effort, no retractions, no use of accessory muscles and clear to auscultation bilaterally Cardio regular rate, regular rhythm, S1 normal heart sound and S2 normal heart sound GI normal to inspection, nondistended, normoactive bowel sounds, soft to palpation, non-tender and non-distended Extremity normal to inspection and full ROM Assessment & Plan Assessment/Plan (1) Abdominal pain: PLAN: WBC in ascites was 67/mm3 await peritoneal fluid cultures although currently prelim not marked, Abd CT unremarkable continue with IV vancomycin and Zosyn IV although certainly if cultures result with more definitive SBP etiology with PD could certainly transition to PD catheter administration, Infectious disease and Nephrology consultation, Improved, advance diet to clears. SBP v diabetic gastroparesis, complicated by PD PLAN: Plan The patient is a 42 y/o M w/ PMHx: ESRD on daily peritoneal dialysis following with Dr. Patel (04/2022 HD initially transitioned to daily peritoneal dialysis 08/2022), HTN, HLD, Diabetes mellitus type II, IBS, Hx diabetic foot wound, initially to the [facility] on 10/04/22 with history of diffuse aching continuous abdom inal discomfort with associated nausea and emesis worsening times approximately [address] at that time with leukocytosis discharged home with nausea meds however he returns now 10/05/2022 with continued symptoms. Chronic conditions: * ESRD: Patient on chronic daily peritoneal dialysis, we will continue patient home Renvela and Velphoro home regimen, mag and Phos levels requested, nephrology consulted, pending. * Diabetes mellitus type II: Hold oral home regimen, continue home insulin regimen, n.p.o. given presentation until clinically improved, will maintain on every 6 hour accu checks w/ ISS. * Hypertension: Continue home regimen including amlodipine, lisinopril, PRN hydralazine. * GERD: Given N/V will transition to IV PPI in the interim. DVT prophylaxis: Heparin. CODE STATUS: Full code. Charges/Coding Visit Charges Inpatient E&M: 61996 Subs Hosp L2
[2022-10-06 07:50] VITALS: O2SAT 95
[2022-10-06 07:54] VITALS: BP 155/88; PULSE 89; RESP 16; TEMP 36.6; O2SAT 97
[2022-10-06] MEDS: 0.9% Normal Saline 1,000 ML 100 ML IV ×2 (08:57→22:01)
--- NOTE | 2022-10-06 09:17 | CON.PCM.RE_ITS ---
Assessment & Plan Assessment/Plan (1) ESRD on peritoneal dialysis: PLAN: Arrange CCPD tonight with all 1.5% solution 2 L fill volume 5 exchanges over 10 hours. Patient on transplant list at [facility] [place]. (2) Nausea & vomiting: PLAN: Continue with IV hydration. Avoid magnesium based products due to ESRD, hypermagnesemia. (3) Abdominal pain: PLAN: CT abdomen unremarkable except for pneumoperitoneum due to PD catheter (4) Leukocytosis: PLAN: Cultures pending. Send PD effluent in a.m. for cell count culture and sensitivity. Denied cloudy fluid at home (5) Diabetes mellitus type 2 with complications: (6) Diabetic foot ulcer: PLAN: On right foot. Managed by podiatry as outpatient that had healed (7) Hypercalcemia: PLAN: Likely due to dehydration. Stop calcitriol and calcium supplement (8) Dehydration: (9) Hypertension: PLAN: Patient on blood pressure medications (10) Anemia: PLAN: stop iron due to elevated iron levels at outpt dialysis clinic HPI Consult Data Date of Consult: 10/06/22 HPI Narrative Reason for Consultation: ESRD on CCPD HPI Narrative: ABDIEL SY, is a 42 M with ESRD due to diabetes on CCPD admitted for intractable nausea vomiting for the past 8 days. Patient was unable to keep fluids down. He was seen in the emergency room over the weekend and was discharged home. He returned back to the ER for persistent nausea and vomiting. He had abdominal pain without diarrhea. Complaint of constipation. He denied any cloudy fluid with his last dialysis 2 days ago. He was lightheaded and dizzy near syncopal. He has not been taking his medications due to insurance issues, not able to refill his medications that were running low. His calcium was elevated at 13 improved to 10.3 with IV hydration. He has been on calcitriol at home but was advised to discontinue this. Patient ran out of his calcitriol anyway. His white count remains elevated at 19.4 K. Denies any fever or chills. He admits to a nonproductive cough. [facility] Medical History (Updated 10/06/22 @ 09:[address] Fabby Patel DO) End stage renal disease ESRD on peritoneal dialysis Glaucoma Hypertension IBS (irritable bowel syndrome) Type 2 diabetes mellitus with diabetic polyneuropathy Home Medications amlodipine 5 mg tablet 5 mg PO DAILY blood pressure 01/08/22 [History Last Taken Unknown] lisinopril 40 mg tablet 40 mg PO DAILY blood pressure 01/08/22 [History Last Taken Unknown] omeprazole 40 mg capsule,delayed release 40 mg PO DAILY GERD 01/08/22 [History Last Taken Unknown] sucroferric oxyhydroxide 500 mg chewable tablet (Velphoro) 500 mg PO TIDCM renal disease 01/08/22 [History Last Taken Unknown] vitamin B complex-vitamin C-folic acid 0.8 mg tablet (Ifrah-Al) 1 tab PO DAILY supplement 01/08/22 [History Last Taken Unknown] calcium 100 mg capsule 200 mg PO BID supplement 03/24/22 [History Last Taken Unknown] insulin glargine 100 unit/mL (3 mL) subcutaneous pen (Basaglar KwikPen U-100 Insulin) 15 unit subcut QHS diabetes 03/24/22 [History Last Taken Unknown] ondansetron 4 mg disintegrating tablet 4 mg PO Q8H PRN PRN Nausea #10 tabs 10/04/22 [Rx Last Taken Unknown] Allergy/AdvReac Type Severity Reaction Status Date / Time tramadol AdvReac Intermediate Vomiting Verified 10/04/22 16:45 Family History Mother Diabetes Hypertension Brother Diabetes Surgical History H/O vascular surgery Social History housing: house Smoking Status: Never smoker alcohol intake: never substance use type: does not use well-balanced diet: daily or most days caffeine: No eating out: 4 or more times/week during the past year weight has: remained stable what type of physical activity do you participate in: none ROS Constitutional Constitutional: Reports weakness; Denies chills or fever(s) Eyes Eyes: Denies loss of vision ENT HEENT: Denies nasal congestion Cardiovascular Cardiovascular: Denies chest pain or edema Respiratory/Chest Respiratory/Chest: Reports dry cough Gastrointestinal Gastrointestinal: Reports abdominal pain, anorexia, nausea and vomiting; Denies diarrhea Genitourinary Genitourinary: Reports other Details: Oligoanuric Musculoskeletal Musculoskeletal: Reports other Details: Generalized weakness Integumentary Integumentary: Reports dry skin Psychiatric Psychiatric: Denies anxiety, confusion or depression Endocrine Endocrinology: Reports fatigue Hematologic/Lymphatic Hematologic/Lymphatic: Reports anemia Physical Exam Const alert and oriented x3 Constitutional Narrative: Generalized weakness HEENT normocephalic HEENT Narrative: Dry mucous membrane Eyes no scleral icterus Neck no JVD Resp clear to auscultation bilaterally Cardio regular rate GI non-tender and non-distended Auscultation: normoactive bowel sounds Extremity no clubbing, cyanosis or edema Neuro CN's II-XII intact bilaterally Sensorium / Orientation: awake and alert Psych cooperative Lab / Micro Data Result Diagrams: 10/06/22 05:44 10/06/22 05:44 Labs: Laboratory Results - last 24 hr 10/05/22 17:30: Fluid Source PERITONEAL FLUID, Fluid Color LT YEL, Fluid Appearance CLEAR, Fluid WBC 0.067, Fluid RBC 7, Fluid Tot Cell Count 0.072, Fld Polynuclear WBCs # 0.012, Fld Polynuclear WBCs % 18.0, Fluid Mononuclear WBCs 0.055, Fld Mononuclear WBCs % 82.0, Fluid Neutrophils 8, Fluid Lymphocytes 16, Fluid Monocytes 76, Fl Pathologist Comment May follow, Fluid Comment 2 SEE COMMENT 10/05/22 17:40: WBC 19.4 H, RBC 4.14 L, Hgb 13.2, Hct 39.3 L, MCV 94.9 H, MCH 31.9, MCHC 33.6, RDW Std Deviation 43.7, RDW Coeff of Rhys 12.7, Plt Count 273, MPV 11.8, Immature Gran % (Auto) 0.900, Neut % (Auto) 88.0 H, Lymph % (Auto) 5.6 L, [place] % (Auto) 5.2, Eos % (Auto) 0.1, Baso % (Auto) 0.2, Absolute Neuts (auto) 17.1 H, Absolute Lymphs (auto) 1.08, Nucleated RBC % 0 10/05/22 17:40: Sodium Cancelled, Potassium Cancelled, Chloride Cancelled, Carbon Dioxide Cancelled, Anion Gap Cancelled, BUN Cancelled, Creatinine Cancelled, Estim Creat Clear Calc Cancelled, Est GFR (MDRD) Af Amer Cancelled, Est GFR (MDRD) Non-Af Cancelled, BUN/Creatinine Ratio Cancelled, Glucose Cancelled, Calcium Cancelled, Total Bilirubin Cancelled, AST Cancelled, ALT Cancelled, Alkaline Phosphatase Cancelled, Total Protein Cancelled, Albumin Cancelled, Globulin Cancelled, Albumin/Globulin Ratio Cancelled, Lipase Cancel led 10/05/22 17:40: Lactic Acid 0.9 10/05/22 17:40: ESR 50 H 10/05/22 18:10: Sodium 137, Potassium 3.5, Chloride 98, Carbon Dioxide 31.0, Anion Gap 8, BUN 74 H, Creatinine 16.10 H*, Estim Creat Clear Calc 5.95, Est GFR (MDRD) Af Amer 4 L, Est GFR (MDRD) Non-Af 4 L, BUN/Creatinine Ratio 4.6 L, Glucose 319 H, Calcium 12.6 H*, Total Bilirubin 0.60, AST 7 L, ALT 19, Alkaline Phosphatase 80, Total Protein 7.2, Albumin 3.3, Globulin 3.9, Albumin/Globulin Ratio 0.8 L, Lipase 30 10/05/22 18:10: C-React Prot Ext Range < 2.90 10/05/22 20:45: Procalcitonin 0.48 H 10/05/22 23:29: POC Glucose 258 H 10/05/22 23:32: COVID-19 (JOSR) Not Detected 10/06/22 05:38: POC Glucose 138 H 10/06/22 05:44: WBC 19.4 H, RBC 3.25 L, Hgb 10.3 L, Hct 32.2 L, MCV 99.1 H, MCH 31.7, MCHC 32.0, RDW Std Deviation 46.4 H, RDW Coeff of Rhys 13.0, Plt Count 223, MPV 12.0, Immature Gran % (Auto) 0.900, Neut % (Auto) 81.2 H, Lymph % (Auto) 9.5 L, [place] % (Auto) 7.6, Eos % (Auto) 0.6, Baso % (Auto) 0.2, Absolute Neuts (auto) 15.8 H, Absolute Lymphs (auto) 1.85, Nucleated RBC % 0 10/06/22 05:44: Sodium 142, Potassium 3.7, Chloride 107, Carbon Dioxide 30.0, Anion Gap 5, BUN 74 H, Creatinine 16.20 H*, Estim Creat Clear Calc 6.00, Est GFR (MDRD) Af Amer 4 L, Est GFR (MDRD) Non-Af 4 L, BUN/Creatinine Ratio 4.6 L, Glucose 153 H, Calcium 10.3 H, Total Bilirubin 0.60, AST 10 L, ALT 16, Alkaline Phosphatase 65, Total Protein 5.9 L, Albumin 2.6 L, Globulin 3.3, Albumin/Globulin Ratio 0.8 L
--- NOTE | 2022-10-06 10:28 | CASEMGMT ---
KRYSTYNA RODRIGUEZ Assessment: Face to Face with pt for initial transition planning/care coordination assessment. KRYSTYNA RODRIGUEZ introduced self and role at [facility], pt voices understanding and consents to assessment. Pt is A/O x4 and answers all questions appropriately at this time. Pt lying in bed with eyes closed throughout assessment. Care providers, pharmacy, and demographics verified/updated. Admitting Dx: ?SBP PCP:Nette Specialists:rosio Patel; reena Saleem Preferred Pharmacy: [facility] Insurance: [employer] Prescription Benefit: yes LNOK: Swapnil Snyder, father; Natalie Snyder, Living Arrangements: Pt lives with parents in a two story home with no steps to enter. Pt reports he is I in ADL's and denies concerns at home. Transportation: Pt drives self and denies concerns with transportation. DME/HHC/SNF: Pt has a PD machine. States he does dialysis 10 hours nightly. Pt has a BGM with sufficient supplies and has insulin and supplies. Pt has had HHC in the past but does not know which agency provided it. Pt denies SNF stays. Pt states no concerns with going home at time of dc. Pt reports a wound to his foot and states he is I in dressing changes. He sees the [facility] once a month. Pt states he is having issues with some of his medications because they were billed improperly. Pt states it will be corrected and did not want to state which meds it is for. Pt states no further concerns/needs. CM to follow. Advised pt to ask CM if any further question/concerns/needs arise, voices understanding. Pt Goal: Home Plan: Home
[2022-10-06] MEDS: Ondansetron 4 MG/2 ML Vial IV (10:36)
[2022-10-06] MEDS: ChlorproMAZINE 25 MG Tablet PO ×3 (10:38→22:02)
[2022-10-06] MEDS: Folic Acid/Vitamin B Comp W-C 1 Capsule 1 CAP PO (10:39)
[2022-10-06] MEDS: amLODIPine 5 MG Tablet PO (10:39)
[2022-10-06] MEDS: Lisinopril 40 MG Tablet PO (10:39)
[2022-10-06] MEDS: Heparin Injection (Vial) 5,000 UNIT/ML VIAL 5000 UNIT SC ×2 (10:39→22:01)
--- NOTE | 2022-10-06 11:20 | CASEMGMT ---
Social Work SW notified by RN MICHAEL that pt requesting to complete Advanced Directives. SW in to pt room and pt confirmed would like to complete. SW assisted pt with completing these documents. Made copies and placed on pt chart. ANDRZEJ Zuñiga
[2022-10-06 14:12] VITALS: BP 126/78; PULSE 92; RESP 18; TEMP 36.8; O2SAT 94
--- NOTE | 2022-10-06 15:38 | PCM.CONS.GEN ---
Assessment & Plan Assessment/Plan (1) Abdominal pain: (2) Nausea & vomiting: (3) ESRD on peritoneal dialysis: (4) Leukocytosis: PLAN: Unclear cause. Feeling better this AM. PD fluid with normal wbc, cx pending. Not clear if infection is present. Cont vanc/zosyn for now. Will follow, thank you HPI Consult Data Date of Consult: 10/06/22 HPI Narrative Reason for Consultation: leukocytosis HPI Narrative: ABDIEL SY, is a 42 M with ESRD on PD for past year, presented with one week intractable n/v, diffuse intermittent abd pain. No unusual foods, no travel. Lives with parents who are asymptomatic. No fever. Some mild chills. Limited po intake for past week. No issues with PD cath. Abd pain rated at 8/10. Came to ED, admitted on vanc/zosyn, feeling better this AM. Full ROS performed and neg except as noted above. [facility] Medical History End stage renal disease ESRD on peritoneal dialysis Glaucoma Hypertension IBS (irritable bowel syndrome) Type 2 diabetes mellitus with diabetic polyneuropathy Home Medications amlodipine 5 mg tablet 5 mg PO DAILY blood pressure 01/08/22 [History Last Taken Unknown] lisinopril 40 mg tablet 40 mg PO DAILY blood pressure 01/08/22 [History Last Taken Unknown] omeprazole 40 mg capsule,delayed release 40 mg PO DAILY GERD 01/08/22 [History Last Taken Unknown] sucroferric oxyhydroxide 500 mg chewable tablet (Velphoro) 500 mg PO TIDCM renal disease 01/08/22 [History Last Taken Unknown] vitamin B complex-vitamin C-folic acid 0.8 mg tablet (Ifrah-Al) 1 tab PO DAILY supplement 01/08/22 [History Last Taken Unknown] calcium 100 mg capsule 200 mg PO BID supplement 03/24/22 [History Last Taken Unknown] insulin glargine 100 unit/mL (3 mL) subcutaneous pen (Basaglar KwikPen U-100 Insulin) 15 unit subcut QHS diabetes 03/24/22 [History Last Taken Unknown] ondansetron 4 mg disintegrating tablet 4 mg PO Q8H PRN PRN Nausea #10 tabs 10/04/22 [Rx Last Taken Unknown] Allergy/AdvReac Type Severity Reaction Status Date / Time tramadol AdvReac Intermediate Vomiting Verified 10/04/22 16:45 Family History Mother Diabetes Hypertension Brother Diabetes Surgical History H/O vascular surgery Social History housing: house Smoking Status: Never smoker alcohol intake: never substance use type: does not use well-balanced diet: daily or most days caffeine: No eating out: 4 or more times/week during the past year weight has: remained stable what type of physical activity do you participate in: none Physical Exam Const alert, oriented x3 and no apparent distress General Appearance: cooperative HEENT normocephalic and head/scalp atraumatic Eyes PERRL and EOMs intact bilaterally Neck supple and No nodes Resp normal air movement and clear to auscultation bilaterally Cardio regular rate and regular rhythm GI soft to palpation and non-distended GI Narrative: mild soreness, PD cath in place, no redness Extremity General Extremity: Negative for edema Skin no rashes or lesions noted Neuro CN's II-XII intact bilaterally Lab / Micro Data Attestation: I reviewed the patient's lab results. Result Diagrams: 10/06/22 05:44 10/06/22 05:44 Labs: Laboratory Results - last 24 hr 10/05/22 17:30: Fluid Source PERITONEAL FLUID, Fluid Color LT YEL, Fluid Appearance CLEAR, Fluid WBC 0.067, Fluid RBC 7, Fluid Tot Cell Count 0.072, Fld Polynuclear WBCs # 0.012, Fld Polynuclear WBCs % 18.0, Fluid Mononuclear WBCs 0.055, Fld Mononuclear WBCs % 82.0, Fluid Neutrophils 8, Fluid Lymphocytes 16, Fluid Monocytes 76, Fl Pathologist Comment May follow, Fluid Comment 2 SEE COMMENT 10/05/22 17:40: WBC 19.4 H, RBC 4.14 L, Hgb 13.2, Hct 39.3 L, MCV 94.9 H, MCH 31.9, MCHC 33.6, RDW Std Deviation 43.7, RDW Coeff of Rhys 12.7, Plt Count 273, MPV 11.8, Immature Gran % (Auto) 0.900, Neut % (Auto) 88.0 H, Lymph % (Auto) 5.6 L, [place] % (Auto) 5.2, Eos % (Auto) 0.1, Baso % (Auto) 0.2, Absolute Neuts (auto) 17.1 H, Absolute Lymphs (auto) 1.08, Nucleated RBC % 0 10/05/22 17:40: Sodium Cancelled, Potassium Cancelled, Chloride Cancelled, Carbon Dioxide Cancelled, Anion Gap Cancelled, BUN Cancelled, Creatinine Cancelled, Estim Creat Clear Calc Cancelled, Est GFR (MDRD) Af Amer Cancelled, Est GFR (MDRD) Non-Af Cancelled, BUN/Creatinine Ratio Cancelled, Glucose Cancelled, Calcium Cancelled, Total Bilirubin Cancelled, AST Cancelled, ALT Cancelled, Alkaline Phosphatase Cancelled, Total Protein Cancelled, Albumin Cancelled, Globulin Cancelled, Albumin/Globulin Ratio Cancelled, Lipase Cancelled 10/05/22 17:40: Lactic Acid 0.9 10/05/22 17:40: ESR 50 H 10/05/22 18:10: Sodium 137, Potassium 3.5, Chloride 98, Carbon Dioxide 31.0, Anion Gap 8, BUN 74 H, Creatinine 16.10 H*, Estim Creat Clear Calc 5.95, Est GFR (MDRD) Af Amer 4 L, Est GFR (MDRD) Non-Af 4 L, BUN/Creatinine Ratio 4.6 L, Glucose 319 H, Calcium 12.6 H*, Total Bilirubin 0.60, AST 7 L, ALT 19, Alkaline Phosphatase 80, Total Protein 7.2, Albumin 3.3, Globulin 3.9, Albumin/Globulin Ratio 0.8 L, Lipase 30 10/05/22 18:10: C-React Prot Ext Range < 2.90 10/05/22 20:45: Procalcitonin 0.48 H 10/05/22 23:29: POC Glucose 258 H 10/05/22 23:32: COVID-19 (JOSR) Not Detected 10/06/22 05:38: POC Glucose 138 H 10/06/22 05:44: WBC 19.4 H, RBC 3.25 L, Hgb 10.3 L, Hct 32.2 L, MCV 99.1 H, MCH 31.7, MCHC 32.0, RDW Std Deviation 46.4 H, RDW Coeff of Rhys 13.0, Plt Count 223, MPV 12.0, Immature Gran % (Auto) 0.900, Neut % (Auto) 81.2 H, Lymph % (Auto) 9.5 L, [place] % (Auto) 7.6, Eos % (Auto) 0.6, Baso % (Auto) 0.2, Absolute Neuts (auto) 15.8 H, Absolute Lymphs (auto) 1.85, Nucleated RBC % 0 10/06/22 05:44: Sodium 142, Potassium 3.7, Chloride 107, Carbon Dioxide 30.0, Anion Gap 5, BUN 74 H, Creatinine 16.20 H*, Estim Creat Clear Calc 6.00, Est GFR (MDRD) Af Amer 4 L, Est GFR (MDRD) Non-Af 4 L, BUN/Creatinine Ratio 4.6 L, Glucose 153 H, Calcium 10.3 H, Total Bilirubin 0.60, AST 10 L, ALT 16, Alkaline Phosphatase 65, Total Protein 5.9 L, Albumin 2.6 L, Globulin 3.3, Albumin/Globulin Ratio 0.8 L Micro: Microbiology 10/05/22 17:30 Fluid - Peritoneal Gram Stain - Final 10/05/22 17:30 Fluid - Peritoneal Body Fluid Culture - Preliminary No growth-Final to follow
[2022-10-06 16:31] LABS: Bedside Glucose 94 mg/dL (74-106)
[2022-10-06 16:56] LABS: Bedside Glucose 153 mg/dL (74-106)
[2022-10-06 18:20] VITALS: BP 116/73; PULSE 90; RESP 18; TEMP 36.7; O2SAT 97
[2022-10-06 20:20] VITALS: BP 113/66; PULSE 88; RESP 18; TEMP 36.6; O2SAT 95
[2022-10-06] MEDS: Insulin Lispro 100 UNIT/ML INSULN.PEN SC (22:02)
[2022-10-06] MEDS: Insulin Glargine-YFGN 100 UNIT/ML Pen 15 UNIT SC (22:03)
[2022-10-06 22:31] LABS: Bedside Glucose 161 mg/dL (74-106)
[2022-10-07 02:40] VITALS: BMI 23.0
[2022-10-07 02:58] VITALS: BP 138/72; PULSE 94; RESP 18; TEMP 36.8; O2SAT 94
[2022-10-07] MEDS: 0.9% Normal Saline 1,000 ML 100 ML IV ×2 (06:29→17:15)
[2022-10-07 06:36] LABS: Absolute Lymphocyte Count 3.21 X10^3/uL (0.83-4.51); Absolute Neutrophil Count 10.4 X10^3/uL (2.0-7.7); Basophil# 0.08 X10^3/uL; Basophil% 0.5 % (0-1); Eosinophil# 0.26 X10^3/uL; Eosinophils% 1.7 % (0-5); Hemoglobin 9.4 g/dL (13.0-16.5); Lymphocyte # 3.21 X10^3/ul (0.83-4.51); Lymphocyte % 21.2 % (19-41); Mean Corp Hgb Conc 31.3 g/dL (32-36); Mean Corpuscular Hgb 31.2 pg (27.0-32.0); Mean Corpuscular Volume 99.7 fL (80-94); Mean Platelet Vol. 11.7 fl (6.2-12.0); Monocyte# 1.07 X10^3/uL; Monocyte% 7.1 % (0-10); NRBC Flagged by Analyzer 0 % (0-5); Neutrophil # 10.38 X10^3/uL (2.7-7.7); Neutrophil % 68.5 % (47-70); Platelet Count 193 K/mm3 (150-450); RBC Distribution Width CV 13.1 % (11.6-14.6); RBC Distribution Width SD 47.3 fl (35.1-43.9); Red Blood Count 3.01 M/mm3 (4.6-6.2); White Blood Count 15.2 K/mm3 (4.4-11.0)
[2022-10-07 07:05] LABS: Bedside Glucose 52 mg/dL (74-106)
[2022-10-07 07:07] LABS: Vancomycin, Random Level 27.5 ug/mL (0.0-15.0)
[2022-10-07 07:20] VITALS: BP 150/66; PULSE 86; RESP 16; TEMP 37; O2SAT 96
[2022-10-07 07:33] LABS: Anion Gap 8 (5-15); BUN 64 mg/dL (7-18); BUN/Creat Ratio 4.2 RATIO (10-20); Chloride 107 mmol/L (98-107); EST Glomerular Filtration Rate 4 mL/min (>60); Est Glom Filt Rate - Afr Amer 5 mL/min (>60); Estimated Creatinine Clearance 6.44 ml/min; Glucose 56 mg/dL (74-106); Potassium 3.2 mmol/L (3.5-5.1); Sodium Level 142 mmol/L (136-145)
[2022-10-07 07:40] LABS: Bedside Glucose 99 mg/dL (74-106)
--- NOTE | 2022-10-07 07:45 | PN.HOSP_ITS ---
Reason for Visit Reason for Visit: Diagnoses Elevated white blood cell count, unspecified (10/05/22) End stage renal disease (10/05/22) Unspecified abdominal pain (10/05/22) Nausea with vomiting, unspecified (10/05/22) Dependence on renal dialysis (10/05/22) Subjective Subjective Feels better. Tolerating clears. Objective Data Objective Data Vital Signs: Vital Signs Temp Pulse Resp BP Pulse Ox O2 Del Method 36.8 C 94 18 138/72 H 94 Room Air 10/07/22 02:58 10/07/22 02:58 10/07/22 02:58 10/07/22 02:58 10/07/22 02:58 10/07/22 03:09 Oxygen Delivery Method Room Air Weight: 72.9 kg Body Mass Index (BMI) 23.0 Intake & Output: Intake and Output for Last 24 Hours 10/05/22 10/06/22 10/07/22 23:59 23:59 23:59 Intake Total 745 / 745 4033.33 / 4033.33 1296.67 / 1296.67 Output Total 0 / 0 Balance 745 / 745 4033.33 / 4033.33 1296.67 / 1296.67 Lab / Micro Data Result Diagrams: 10/07/22 05:50 10/07/22 05:50 Labs: Laboratory Results - last 24 hr 10/06/22 11:33: POC Glucose 94 10/06/22 16:20: POC Glucose 153 H 10/06/22 22:00: POC Glucose 161 H 10/07/22 05:50: WBC 15.2 H, RBC 3.01 L, Hgb 9.4 L, Hct 30.0 L, MCV 99.7 H, MCH 31.2, MCHC 31.3 L, RDW Std Deviation 47.3 H, RDW Coeff of Rhys 13.1, Plt Count 193, MPV 11.7, Immature Gran % (Auto) 1.000 H, Neut % (Auto) 68.5, Lymph % (Auto) 21.2, [place] % (Auto) 7.1, Eos % (Auto) 1.7, Baso % (Auto) 0.5, Absolute Neuts (auto) 10.4 H, Absolute Lymphs (auto) 3.21, Nucleated RBC % 0 10/07/22 05:50: Sodium 142, Potassium 3.2 L, Chloride 107, Carbon Dioxide 27.0, Anion Gap 8, BUN 64 H, Creatinine 15.10 H*, Estim Creat Clear Calc 6.44, Est GFR (MDRD) Af Amer 5 L, Est GFR (MDRD) Non-Af 4 L, BUN/Creatinine Ratio 4.2 L, Glucose 56 L, Calcium 9.0 10/07/22 05:50: Random Vancomycin 27.5 H 10/07/22 06:28: POC Glucose 52 L 10/07/22 07:18: POC Glucose 99 Micro: Microbiology 10/05/22 17:30 Fluid - Peritoneal Gram Stain - Final 10/05/22 17:30 Fluid - Peritoneal Body Fluid Culture - Preliminary No growth-Final to follow Physical Exam Const alert and no apparent distress HEENT head/scalp atraumatic and moist oral mucous membranes Neck no lymphadenopathy Resp normal respiratory effort, no retractions, no use of accessory muscles and clear to auscultation bilaterally Cardio regular rate, regular rhythm, S1 normal heart sound and S2 normal heart sound GI normal to inspection, nondistended, normoactive bowel sounds, soft to palpation, non-tender and non-distended Extremity normal to inspection Assessment & Plan Assessment/Plan (1) Abdominal pain: PLAN: WBC in ascites was 67/mm3 await peritoneal fluid cultures although currently prelim not marked, Abd CT unremarkable continue with IV vancomycin and Zosyn IV although certainly if cultures result with more definitive SBP etiology with PD could certainly transition to PD catheter administration, Infectious disease and Nephrology consultation, Improved, advance diet to clears. SBP v diabetic gastroparesis, complicated by PD PLAN: Plan The patient is a 42 y/o M w/ PMHx: ESRD on daily peritoneal dialysis following with Dr. Patel (04/2022 HD initially transitioned to daily peritoneal dialysis ), HTN, HLD, Diabetes mellitus type II, IBS, Hx diabetic foot wound, initially to the [facility] on 10/04/22 with history of diffuse aching continuous abdominal discomfort with associated nausea and emesis worsening times approximately [address] at that time with leukocytosis discharged home with nausea meds however he returns now 10/05/2022 with continued symptoms. Chronic conditions: * ESRD: Patient on chronic daily peritoneal dialysis, we will continue patient home Renvela and Velphoro home regimen, mag and Phos levels requested, nephrology consulted, pending. * Diabetes mellitus type II: Hold oral home regimen, continue home insulin regimen, n.p.o. given presentation until clinically improved, will maintain on every 6 hour accu checks w/ ISS. * Hypertension: Continue home regimen including amlodipine, lisinopril, PRN hydralazine. * GERD: Given N/V will transition to IV PPI in the interim. DVT prophylaxis: Heparin. CODE STATUS: Full code.
--- NOTE | 2022-10-07 08:01 | PCM.RX.CS ---
Consult Pharmacy has been consulted to manage selected antiobiotic: Vancomycin Type of Consult: Follow-up Prior Doses of Antibiotics Received/Current Regimen: last received vanc 1750mg IV x1 on 10/05/22 at 21:09 Labs: Sodium 142 mmol/L (136-145) 10/07/22 05:50 Potassium 3.2 mmol/L (3.5-5.1) L 10/07/22 05:50 Chloride 107 mmol/L (98-107) 10/07/22 05:50 Carbon Dioxide 27.0 mmol/L (21.0-32.0) 10/07/22 05:50 Anion Gap 8 (5-15) 10/07/22 05:50 BUN 64 mg/dL (7-18) H 10/07/22 05:50 Creatinine 15.10 mg/dL (0.70-1.30) H* 10/07/22 05:50 Est GFR (MDRD) Af Amer 5 mL/min (>60) L 10/07/22 05:50 Est GFR (MDRD) Non-Af 4 mL/min (>60) L 10/07/22 05:50 BUN/Creatinine Ratio 4.2 RATIO (10-20) L 10/07/22 05:50 Glucose 56 mg/dL (74-106) L 10/07/22 05:50 Random Vancomycin 27.5 ug/mL (0.0-15.0) H 10/07/22 05:50 Microbiology: Microbiology 10/05/22 17:30 Fluid - Peritoneal Gram Stain - Final 10/05/22 17:30 Fluid - Peritoneal Body Fluid Culture - Preliminary No growth-Final to follow Weight used for dosin.9 kg Estimated Creatinine Clearance: on PD Goal Trough: 15-20 mcg/mL Pharmacy Plan for Drug Dosing: The vanc random level drawn at 05:50 today was 27.5. This is above goal range so will not dose today. Repeat a random level tomorrow morning. The patient is on peritoneal dialysis daily so will continue to check random levels. Pharmacy Service will continue to monitor and adjust dosing as required. Follow-Up Labs: Trough Vancomycin - random Labs to be done on [date and time ordered]: 10/08/22 06:00
--- NOTE | 2022-10-07 08:24 | DIALYSIS ---
CCPD completed using 2 bags of 1.5% solution. Only 161 ml removed with dialysis. Effluent was clear and yellow in color, no fibrin, no cloudiness. Patient denies pain this am. States he hasn't eaten in 8 days so he hasn't had any recent BM's. He stated that overall he is feeling much better.
[2022-10-07] MEDS: ChlorproMAZINE 25 MG Tablet PO ×3 (08:54→22:19)
[2022-10-07] MEDS: amLODIPine 5 MG Tablet PO (08:54)
[2022-10-07] MEDS: Lisinopril 40 MG Tablet PO (08:54)
[2022-10-07] MEDS: Folic Acid/Vitamin B Comp W-C 1 Capsule 1 CAP PO (08:55)
[2022-10-07] MEDS: Heparin Injection (Vial) 5,000 UNIT/ML VIAL 5000 UNIT SC ×2 (08:55→22:18)
[2022-10-07 09:00] VITALS: BP 171/73; PULSE 88; RESP 18; TEMP 36.6; O2SAT 97
--- NOTE | 2022-10-07 09:07 | PN.RENAL_ITS ---
Subjective Subjective tolerating clear liquid diet. Still weak, tired. Abdominal pain better. Sugar low this monring. Effluent from PD clear this morning. UF 161. Objective Data Objective Data Vital Signs: Vital Signs Temp Pulse Resp BP Pulse Ox O2 Del Method 98.6 F 86 16 150/66 H 96 Room Air 10/07/22 07:20 10/07/22 07:20 10/07/22 07:20 10/07/22 07:20 10/07/22 07:20 10/07/22 09:04 Oxygen Delivery Method Room Air Weight: 72.9 kg Body Mass Index (BMI) 23.0 Intake & Output: Intake and Output for Last 24 Hours 10/05/22 10/06/22 10/07/22 23:59 23:59 23:59 Intake Total 745 / 745 4033.33 / 4033.33 1296.67 / 1296.67 Output Total 161 / 161 Balance 745 / 745 4033.33 / 4033.33 1135.67 / 1135.67 Lab / Micro Data Result Diagrams: 10/07/22 05:50 10/07/22 05:50 Labs: Laboratory Results - last 24 hr 10/06/22 11:33: POC Glucose 94 10/06/22 16:20: POC Glucose 153 H 10/06/22 22:00: POC Glucose 161 H 10/07/22 05:50: WBC 15.2 H, RBC 3.01 L, Hgb 9.4 L, Hct 30.0 L, MCV 99.7 H, MCH 31.2, MCHC 31.3 L, RDW Std Deviation 47.3 H, RDW Coeff of Rhys 13.1, Plt Count 193, MPV 11.7, Immature Gran % (Auto) 1.000 H, Neut % (Auto) 68.5, Lymph % (Auto ) 21.2, [place] % (Auto) 7.1, Eos % (Auto) 1.7, Baso % (Auto) 0.5, Absolute Neuts (auto) 10.4 H, Absolute Lymphs (auto) 3.21, Nucleated RBC % 0 10/07/22 05:50: Sodium 142, Potassium 3.2 L, Chloride 107, Carbon Dioxide 27.0, Anion Gap 8, BUN 64 H, Creatinine 15.10 H*, Estim Creat Clear Calc 6.44, Est GFR (MDRD) Af Amer 5 L, Est GFR (MDRD) Non-Af 4 L, BUN/Creatinine Ratio 4.2 L, Glucose 56 L, Calcium 9.0 10/07/22 05:50: Random Vancomycin 27.5 H 10/07/22 06:28: POC Glucose 52 L 10/07/22 07:18: POC Glucose 99 Micro: Microbiology 10/05/22 17:30 Fluid - Peritoneal Gram Stain - Final 10/05/22 17:30 Fluid - Peritoneal Body Fluid Culture - Final Culture exhibits no growth. Physical Exam Const alert and oriented x3 Resp clear to auscultation bilaterally Cardio regular rate GI non-tender and non-distended Auscultation: normoactive bowel sounds Palpation: soft Extremity no clubbing, cyanosis or edema Neuro Motor Exam: no tremor Psych cooperative Assessment & Plan Assessment/Plan (1) ESRD on peritoneal dialysis: PLAN: CCPD tonight with all 1.5% solution 2 L fill volume 5 exchanges over 10 hours. (2) Nausea & vomiting: PLAN: Continue with IV hydration. Avoid magnesium based products due to ESRD, hypermagnesemia. (3) Abdominal pain: PLAN: CT abdomen unremarkable except for pneumoperitoneum due to PD catheter. PD fluid clear. Check amylase, lipase (4) Leukocytosis: PLAN: Cultures pending. WBC down on iv antibx. Source unclear. ID consulted. Send PD effluent for cell count culture and sensitivity. Clear fluid on visual exam. (5) Diabetes mellitus type 2 with complications: PLAN: low sugar this am, advance diet as tolerated (6) Diabetic foot ulcer: PLAN: On right foot. Managed by podiatry as outpatient that had healed (7) Hypercalcemia: PLAN: resolved. Likely due to dehydration calcium supplement, calcitriol. Stop calcitriol and calcium supplement (8) Dehydration: PLAN: tolerating clear liquid (9) Hypertension: PLAN: Patient on blood pressure medications (10) Anemia: PLAN: stop iron due to elevated iron levels at outpt dialysis clinic
[2022-10-07 09:21] LABS: Amylase 34 U/L (25-115); Lipase 32 U/L (13-75)
[2022-10-07] MEDS: Potassium Chloride Oral Tablet 20 MEQ PO (09:47)
[2022-10-07 10:49] LABS: Phosphorus 4.5 mg/dL (2.5-4.9)
[2022-10-07 11:56] LABS: Bedside Glucose 101 mg/dL (74-106)
[2022-10-07 15:00] VITALS: BP 136/61; PULSE 85; RESP 18; TEMP 36.6; O2SAT 98
--- NOTE | 2022-10-07 15:13 | PCM.PN.ID ---
Physical Exam Narrative N/v a little better, ate small amount solid food at lunch. No fever, no abd pain Const alert and no apparent distress Resp normal air movement and clear to auscultation bilaterally Cardio regular rate and regular rhythm GI soft to palpation, non-tender and non-distended Skin no rashes or lesions noted ID ID: Route of nutrition/ use of supplements: [] Nutritional Intake: [] IV Site: [] Hay Catheter: [] Assessment & Plan Assessment/Plan (1) Abdominal pain: (2) Nausea & vomiting: (3) ESRD on peritoneal dialysis: (4) Leukocytosis: PLAN: Unclear cause. Feeling better today. PD fluid with normal wbc, cx neg so far. Not clear if infection is present. Cont zosyn for now. Will stop vanc. Will follow
[2022-10-07 17:15] LABS: Bedside Glucose 79 mg/dL (74-106)
--- NOTE | 2022-10-07 18:34 | DIALYSIS ---
CCPD initiated in usual aseptic fashion. 31 ml initial draiin. Effluent is clear, no fibrin noted. Exit site is negative, dressing changed.
[2022-10-07 22:24] VITALS: BP 178/85; PULSE 96; RESP 18; TEMP 36.6; O2SAT 96
[2022-10-07 22:32] VITALS: BP 178/85; PULSE 96
[2022-10-07] MEDS: hydrALAZINE 20 MG/ML Vial 10 MG IV (22:32)
[2022-10-08 00:55] LABS: Bedside Glucose 159 mg/dL (74-106)
[2022-10-08 02:18] VITALS: BP 172/77; PULSE 100; RESP 18; TEMP 36.6; O2SAT 96
[2022-10-08] MEDS: 0.9% Normal Saline 1,000 ML 100 ML IV (02:23)
[2022-10-08] MEDS: 0.9% Saline Lock 10 ML Syringe IV ×2 (02:26→02:32)
[2022-10-08 04:26] VITALS: BP 159/81; PULSE 102; RESP 18; TEMP 36.8; O2SAT 97
[2022-10-08 05:25] VITALS: BMI 23.1
[2022-10-08 06:21] LABS: Absolute Lymphocyte Count 1.75 X10^3/uL (0.83-4.51); Absolute Neutrophil Count 8.8 X10^3/uL (2.0-7.7); Basophil# 0.06 X10^3/uL; Basophil% 0.5 % (0-1); Eosinophil# 0.36 X10^3/uL; Hemoglobin 9.6 g/dL (13.0-16.5); Lymphocyte # 1.75 X10^3/ul (0.83-4.51); Lymphocyte % 14.6 % (19-41); Mean Corp Hgb Conc 33.1 g/dL (32-36); Mean Corpuscular Hgb 31.9 pg (27.0-32.0); Mean Corpuscular Volume 96.3 fL (80-94); Mean Platelet Vol. 11.8 fl (6.2-12.0); Monocyte# 0.87 X10^3/uL; Monocyte% 7.3 % (0-10); NRBC Flagged by Analyzer 0 % (0-5); Neutrophil # 8.83 X10^3/uL (2.7-7.7); Neutrophil % 73.8 % (47-70); Platelet Count 189 K/mm3 (150-450); RBC Distribution Width CV 12.8 % (11.6-14.6); RBC Distribution Width SD 44.8 fl (35.1-43.9); Red Blood Count 3.01 M/mm3 (4.6-6.2)
[2022-10-08 07:10] LABS: Anion Gap 7 (5-15); BUN 60 mg/dL (7-18); BUN/Creat Ratio 4.2 RATIO (10-20); Calcium,Total 8.5 mg/dL (8.5-10.1); Chloride 107 mmol/L (98-107); EST Glomerular Filtration Rate 4 mL/min (>60); Est Glom Filt Rate - Afr Amer 5 mL/min (>60); Estimated Creatinine Clearance 6.85 ml/min; Glucose 130 mg/dL (74-106); Potassium 3.1 mmol/L (3.5-5.1); Sodium Level 139 mmol/L (136-145)
[2022-10-08 07:10] LABS: Bedside Glucose 106 mg/dL (74-106)
--- NOTE | 2022-10-08 07:16 | DIALYSIS ---
CCPD complete, patient disconnected self at end of treatment. UF 550 ml. Effluent drainage clear pale yellow. catheter secured to abdomen, patient states no problems with treatment. report to Rn, see dialysis record
--- NOTE | 2022-10-08 07:21 | PN.HOSP_ITS ---
Reason for Visit Reason for Visit: Diagnoses Anemia, unspecified (10/05/22) Elevated white blood cell count, unspecified (10/05/22) Type 2 diabetes mellitus with foot ulcer (10/05/22) Type 2 diabetes mellitus with unspecified complications (10/05/22) Hypercalcemia (10/05/22) Dehydration (10/05/22) Essential (primary) hypertension (10/05/22) Non-pressure chronic ulcer of other part of unspecified foot with unspecified severity (10/05/22) End stage renal disease (10/05/22) Unspecified abdominal pain (10/05/22) Nausea with vomiting, unspecified (10/05/22) Dependence on renal dialysis (10/05/22) Subjective Subjective Feels better. Tolerating diet. No further abdominal pain. Objective Data Objective Data Vital Signs: Vital Signs Temp Pulse Resp BP Pulse Ox O2 Del Method 36.8 C 102 H 18 159/81 H 97 Room Air 10/08/22 04:26 10/08/22 04:26 10/08/22 04:26 10/08/22 04:26 10/08/22 04:26 10/08/22 04:26 Oxygen Delivery Method Room Air Weight: 73.2 kg Body Mass Index (BMI) 23.1 Intake & Output: Intake and Output for Last 24 Hours 10/06/22 10/07/22 10/08/22 23:59 23:59 23:59 Intake Total 4033.33 / 4033.33 3496.67 / 3496.67 1013.33 / 1013.33 Output Total 161 / 161 0 / 0 Balance 4033.33 / 4033.33 3335.67 / 3335.67 1013.33 / 1013.33 Lab / Micro Data Result Diagrams: 10/08/22 05:25 10/08/22 05:25 Labs: Laboratory Results - last 24 hr 10/07/22 05:50: Sodium 142, Potassium 3.2 L, Chloride 107, Carbon Dioxide 27.0, Anion Gap 8, BUN 64 H, Creatinine 15.10 H*, Estim Creat Clear Calc 6.44, Est GFR (MDRD) Af Amer 5 L, Est GFR (MDRD) Non-Af 4 L, BUN/Creatinine Ratio 4.2 L, Glucose 56 L, Calcium 9.0 10/07/22 05:50: Amylase 34, Lipase 32 10/07/22 05:50: Phosphorus 4.5 10/07/22 07:18: POC Glucose 99 10/07/22 11:31: POC Glucose 101 10/07/22 16:54: POC Glucose 79 10/07/22 22:12: POC Glucose 159 H 10/08/22 05:25: WBC 12.0 H, RBC 3.01 L, Hgb 9.6 L, Hct 29.0 L, MCV 96.3 H, MCH 31.9, MCHC 33.1 D, RDW Std Deviation 44.8 H, RDW Coeff of Rhys 12.8, Plt Count 189, MPV 11.8, Immature Gran % (Auto) 0.800, Neut % (Auto) 73.8 H, Lymph % (Auto) 14.6 L, [place] % (Auto) 7.3, Eos % (Auto) 3.0, Baso % (Auto) 0.5, Absolute Neuts (auto) 8.8 H, Absolute Lymphs (auto) 1.75, Nucleated RBC % 0 10/08/22 05:25: Sodium 139, Potassium 3.1 L, Chloride 107, Carbon Dioxide 25.0, Anion Gap 7, BUN 60 H, Creatinine 14.20 H*, Estim Creat Clear Calc 6.85, Est GFR (MDRD) Af Amer 5 L, Est GFR (MDRD) Non-Af 4 L, BUN/Creatinine Ratio 4.2 L, Glucose 130 H, Calcium 8.5 10/08/22 06:40: POC Glucose 106 Micro: Microbiology 10/05/22 17:30 Fluid - Peritoneal Gram Stain - Final 10/05/22 17:30 Fluid - Peritoneal Body Fluid Culture - Final Culture exhibits no growth. Physical Exam Const alert and no apparent distress HEENT head/scalp atraumatic and moist oral mucous membranes Neck no lymphadenopathy Cardio regular rate, regular rhythm, S1 normal heart sound and S2 normal heart sound GI normal to inspection, nondistended, normoactive bowel sounds, soft to palpation, non-tender and non-distended Assessment & Plan Assessment/Plan (1) Abdominal pain: PLAN: WBC in ascites was 67/mm3 await peritoneal fluid cultures although currently prelim not marked, Abd CT unremarkable pip/tazo discontinued. Ascites culture negative. tolerating advanced diet diabetic gastroparesis, complicated by PD Will discharge with PRN metoclopramide PLAN: Plan The patient is a 42 y/o M w/ PMHx: ESRD on daily peritoneal dialysis following with Dr. Patel (04/2022 HD initially transitioned to daily peritoneal dialysis 08/2022), HTN, HLD, Diabetes mellitus type II, IBS, Hx diabetic foot wound, initially to the [facility] on 10/04/22 with history of diffuse aching continuous abdominal discomfort with associated nausea and emesis worsening times approximately [address] at that time with leukocytosis discharged home with nausea meds however he returns now 10/05/2022 with continued symptoms. Chronic conditions: * ESRD: Patient on chronic daily peritoneal dialysis, we will continue patient home Renvela and Velphoro home regimen, mag and Phos levels requested, nephrology consulted, pending. * Diabetes mellitus type II: Hold oral home regimen, continue home insulin regimen, n.p.o. given presentation until clinically improved, will maintain on every 6 hour accu checks w/ ISS. * Hypertension: Continue home regimen including amlodipine, lisinopril, PRN hydralazine. * GERD: Given N/V will transition to IV PPI in the interim. DVT prophylaxis: Heparin. CODE STATUS: Full code. DC home.
[2022-10-08] MEDS: ChlorproMAZINE 25 MG Tablet PO (09:07)
[2022-10-08] MEDS: amLODIPine 5 MG Tablet PO (09:07)
[2022-10-08] MEDS: Lisinopril 40 MG Tablet PO (09:07)
[2022-10-08] MEDS: Heparin Injection (Vial) 5,000 UNIT/ML VIAL 5000 UNIT SC (09:07)
[2022-10-08] MEDS: Folic Acid/Vitamin B Comp W-C 1 Capsule 1 CAP PO (09:07)
[2022-10-08 09:36] LABS: Pathologist Comment/Body Fluid Reviewed
[2022-10-08 09:50] LABS: Vancomycin, Random Level 22.6 ug/mL (0.0-15.0)
--- NOTE | 2022-10-08 09:59 | PCM.PN.ID ---
Physical Exam Narrative Feeling better, no abd pain, nausea much improved Const alert and no apparent distress Resp normal air movement and clear to auscultation bilaterally Cardio regular rate and regular rhythm GI soft to palpation, non-tender and non-distended Skin no rashes or lesions noted ID ID: Route of nutrition/ use of supplements: [] Nutritional Intake: [] IV Site: [] Hay Catheter: [] Assessment & Plan Assessment/Plan (1) Abdominal pain: (2) Nausea & vomiting: (3) ESRD on peritoneal dialysis: (4) Leukocytosis: PLAN: Unclear cause. Feeling better today. PD fluid with normal wbc, cx neg so far. Wbc improved. Will stop zosyn. Will follow as needed
--- NOTE | 2022-10-08 10:16 | DCINST_ITS ---
Discharge Instructions Diet Discharge Diet: 2000 Calorie Control Diet Dressing / Incision Call your doctor if you observe: - (worsening abdominal pain. intractable nausea and vomiting. ) Follow Up Care Test Results: Test results from this visit will be discussed in further detail at your follow- up appointment, if applicable. Discharge Plan Admission Admit Date/Time: 10/05/22 20:22 Primary Reason for Your Visit: gastroparesis Attending Provider: Wayne España Primary Care Provider: Care Physician,No Primary Consulting Providers: Jonathan Herring ; Skye Stone ; Samuel Grant Instructions Additional Instructions / Restrictions: Continue peritoneal dialysis per your normal routine. Discharge Orders/Prescriptions Prescriptions: New metoclopramide HCl [Reglan] 5 mg tablet 5 mg PO Q6H PRN (Reason: nausea and vomiting) Qty: 16 0RF Continued Velphoro 500 mg tablet,chewable 500 mg PO TIDCM amlodipine 5 mg tablet 5 mg PO DAILY Ifrah-Al 0.8 mg tablet 1 tab PO DAILY omeprazole 40 mg capsule,delayed release(DR/EC) 40 mg PO DAILY lisinopril 40 mg tablet 40 mg PO DAILY calcium 100 mg Capsule 200 mg PO BID insulin glargine [Basaglar KwikPen U-100 Insulin] 100 unit/mL (3 mL) Insulin Pen 15 unit SUBCUT QHS ondansetron 4 mg tablet,disintegrating 4 mg PO Q8H PRN PRN (Reason: Nausea) Qty: 10 0RF Referrals / Follow Up: Care Physician,No Primary [Primary Care Provider] - [facility] Doctor,Out of [Non-Staff] - Disposition Disposition (needs filled in before D/C Order can be placed): Home, Self Care
--- NOTE | 2022-10-08 10:21 | DS.PCM_ITS ---
Providers Date of Admission: 10/05/22 Primary Care Physician: Manuela Primary Care Phys Consultations 10/05/22 22:50 Consult: Infectious Disease Routine Consulting Provider: Jonathan Herring Reason for Consult: Leukocytosis, ? SBP with PD access, initial fluid not marked appearing. EMERGENT Consult: No Notified: Yes Date Notified: 10/06/22 Time Notified: 04:41 Method of Notification: Answering Service Consult: Nephrology Routine Consulting Provider: Samuel Grant Reason for Consult: ESRD on PD, ? SBP admission EMERGENT Consult: No Notified: Yes Date Notified: 10/05/22 Time Notified: 20:23 Method of Notification: Text Comments:: (covering for Dr. Patel at this time) Reason For Visit: ? SBP Diagnosis Discharge Diagnosis (1) Abdominal pain: Status: Acute Code(s): R10.9 - Unspecified abdominal pain Plan: WBC in ascites was 67/mm3 await peritoneal fluid cultures although currently prelim not marked, Abd CT unremarkable pip/tazo discontinued. Ascites culture negative. tolerating advanced diet diabetic gastroparesis, complicated by PD Will discharge with PRN metoclopramide Plan The patient is a 42 y/o M w/ PMHx: ESRD on daily peritoneal dialysis following with Dr. Patel (04/2022 HD initially transitioned to daily peritoneal dialysis 08/2022), HTN, HLD, Diabetes mellitus type II, IBS, Hx diabetic foot wound, initially to the [facility] on 10/04/22 with history of diffuse aching continuous ab dominal discomfort with associated nausea and emesis worsening times approximately [address] at that time with leukocytosis discharged home with nausea meds however he returns now 10/05/2022 with continued symptoms. Chronic conditions: * ESRD: Patient on chronic daily peritoneal dialysis, we will continue patient home Renvela and Velphoro home regimen, mag and Phos levels requested, nephrology consulted, pending. * Diabetes mellitus type II: Hold oral home regimen, continue home insulin regimen, n.p.o. given presentation until clinically improved, will maintain on every 6 hour accu checks w/ ISS. * Hypertension: Continue home regimen including amlodipine, lisinopril, PRN hyd ralazine. * GERD: Given N/V will transition to IV PPI in the interim. DVT prophylaxis: Heparin. CODE STATUS: Full code. DC home. Medications at Discharge Home Medications amlodipine 5 mg tablet 5 mg PO DAILY blood pressure 01/08/22 lisinopril 40 mg tablet 40 mg PO DAILY blood pressure 01/08/22 omeprazole 40 mg capsule,delayed release 40 mg PO DAILY GERD 01/08/22 sucroferric oxyhydroxide 500 mg chewable tablet (Velphoro) 500 mg PO TIDCM renal disease 01/08/22 vitamin B complex-vitamin C-folic acid 0.8 mg tablet (Ifrah-Al) 1 tab PO DAILY supplement 01/08/22 calcium 100 mg capsule 200 mg PO BID supplement 03/24/22 insulin glargine 100 unit/mL (3 mL) subcutaneous pen (Basaglar KwikPen U-100 Insulin) 15 unit subcut QHS diabetes 03/24/22 ondansetron 4 mg disintegrating tablet 4 mg PO Q8H PRN PRN Nausea #10 tabs 09/19 12/11 metoclopramide HCl 5 mg tablet (Reglan) 5 mg PO Q6H PRN nausea and vomiting #16 tabs 10/08/22 Hospital Course Operations None Procedures Dialysis (peritoneal) Summary of Care Provided Minutes Spent on Discharge: 32 Hospital Course: This is a 42-year-old male presents with abdominal pain and nausea and vomiting. Concern initially was for spontaneous bacterial peritonitis, however, the patient's white cells are not aspiration of his ascitic fluid was unremarkable. Cultures came back negative and his white count steadily improved. Patient improved rather quickly. It is my suspicion the patient had diabetic gastroparesis. Clear the patient that this could be recurrence. Patient will be prescribed as needed Reglan upon discharge. Weight / BMI Weight Weight: 73.2 kg Body Mass Index (BMI) 23.1 ABG / Lab / Microbiology Data Result Diagrams: 10/08/22 05:25 10/08/22 05:25 Laboratory: Laboratory Results - last 24 hr 10/05/22 17:30: Fl Pathologist Comment Reviewed 10/07/22 05:50: Phosphorus 4.5 10/07/22 11:31: POC Glucose 101 10/07/22 16:54: POC Glucose 79 10/07/22 22:12: POC Glucose 159 H 10/08/22 05:25: WBC 12.0 H, RBC 3.01 L, Hgb 9.6 L, Hct 29.0 L, MCV 96.3 H, MCH 31.9, MCHC 33.1 D, RDW Std Deviation 44.8 H, RDW Coeff of Rhys 12.8, Plt Count 189, MPV 11.8, Immature Gran % (Auto) 0.800, Neut % (Auto) 73.8 H, Lymph % (Auto) 14.6 L, [place] % (Auto) 7.3, Eos % (Auto) 3.0, Baso % (Auto) 0.5, Absolute Neuts (auto) 8.8 H, Absolute Lymphs (auto) 1.75, Nucleated RBC % 0 10/08/22 05:25: Sodium 139, Potassium 3.1 L, Chloride 107, Carbon Dioxide 25.0, Anion Gap 7, BUN 60 H, Creatinine 14.20 H*, Estim Creat Clear Calc 6.85, Est GFR (MDRD) Af Amer 5 L, Est GFR (MDRD) Non-Af 4 L, BUN/Creatinine Ratio 4.2 L, Glucose 130 H, Calcium 8.5 10/08/22 06:40: POC Glucose 106 10/08/22 08:55: Random Vancomycin 22.6 H Microbiology: Microbiology 10/05/22 17:30 Fluid - Peritoneal Gram Stain - Final 10/05/22 17:30 Fluid - Peritoneal Body Fluid Culture - Final Culture exhibits no growth. 10/05/22 17:30 Fluid - Peritoneal Anaerobic Culture - Preliminary No growth in 48 hours. 10/05/22 17:40 Blood Culture (Wb) - Left Wrist Blood Culture - Preliminary No growth in 48 hours. D/C Instructions Discharge Diet: 2000 Calorie Control Diet Call your doctor if you observe: - (worsening abdominal pain. intractable nausea and vomiting. ) Meaningful Use Info Meaningful Use Diagnoses (Choose all that apply): None applicable Discharge Plan Admission Admit Date/Time: 10/05/22 20:22 Primary Reason for Your Visit: gastroparesis Attending Provider: Wayne España Primary Care Provider: Care Physician,No Primary Consulting Providers: Jonathan Herring ; Skye Stone ; Samuel Grant Instructions Additional Instructions / Restrictions: Continue peritoneal dialysis per your normal routine. Discharge Orders/Prescriptions Prescriptions: New metoclopramide HCl [Reglan] 5 mg tablet 5 mg PO Q6H PRN (Reason: nausea and vomiting) Qty: 16 0RF Continued Velphoro 500 mg tablet,chewable 500 mg PO TIDCM amlodipine 5 mg tablet 5 mg PO DAILY Ifrah-Al 0.8 mg tablet 1 tab PO DAILY omeprazole 40 mg capsule,delayed release(DR/EC) 40 mg PO DAILY lisinopril 40 mg tablet 40 mg PO DAILY calcium 100 mg Capsule 200 mg PO BID insulin glargine [Basaglar KwikPen U-100 Insulin] 100 unit/mL (3 mL) Insulin Pen 15 unit SUBCUT QHS ondansetron 4 mg tablet,disintegrating 4 mg PO Q8H PRN PRN (Reason: Nausea) Qty: 10 0RF Referrals / Follow Up: Care Physician,No Primary [Primary Care Provider] - [facility] Doctor,Out of [Non-Staff] - Disposition Disposition (needs filled in before D/C Order can be placed): Home, Self Care Charges/Coding Visit Charges Inpatient E&M: 84184 Disch Hosp >30min
[2022-10-08 10:26] VITALS: BP 170/90; PULSE 101; RESP 18; TEMP 36.9; O2SAT 97
--- NOTE | 2022-10-08 10:35 | CASEMGMT ---
KRYSTYNA CM into pt room, pt denies any homegoing needs. When asked further regarding his wound, he states he just uses a dry gauze pad on it. He states it isn't very big. No further needs at this time.
--- NOTE | 2022-10-09 11:23 | NURSING ---
KRYSTYNA CM Discharge follow-up phone call LACE:13 Strata:3 Date of call:10/09/22 Time of Call:1120 Admitting diagnosis: Spontaneous Bacterial Peritonitis Summary of call: Spoke with patient regarding recent hospitalization. Pt denies questions or concerns regarding recent care. Pt instructed to contact PCP with any questions or concerns should they arise.
== END 2022-10-08 11:22 | disposition home or self-care (01) | DRG 73 ==
LOC: ED 17:57 → MS3 20:57
PROVIDERS: Internal Medicine Nephrology; Admitting Provider Family Medicine; Emergency Provider Emergency Medicine
DX: E11.43 Type 2 diabetes mellitus with diabetic autonomic (poly)neuropathy (principal); N18.6 End stage renal disease; I12.0 Hypertensive chronic kidney disease with stage 5 chronic kidney disease or end stage renal disease; R18.8 Other ascites; L97.509 Non-pressure chronic ulcer of other part of unspecified foot with unspecified severity; E11.22 Type 2 diabetes mellitus with diabetic chronic kidney disease; D72.829 Elevated white blood cell count, unspecified; E11.42 Type 2 diabetes mellitus with diabetic polyneuropathy; Z99.2 Dependence on renal dialysis; E11.621 Type 2 diabetes mellitus with foot ulcer; K31.84 Gastroparesis; K21.9 Gastro-esophageal reflux disease without esophagitis; E78.5 Hyperlipidemia, unspecified; E83.52 Hypercalcemia; K58.9 Irritable bowel syndrome, unspecified
CPT/HCPCS: 36415; 80048; 80053; 80202; 82150; 82962; 83605; 83690; 84100; 84145; 85025; 85652; 86140; 87040; 87070; 87075; 87205; 87635; 89050; 90937; 90947; 94668; 99252; 99284; J7030; J7040; J7050; A4216; G0257; G0463; J2405; U0003; U0005

== ENCOUNTER 2022-11-10 21:50 | Inpatient (IN) | payer OTHER, SELFPAY ==
[2022-11-10 21:51] VITALS: BP 164/107; PULSE 103; RESP 15; TEMP 36.2; O2SAT 94
[2022-11-10 23:03] VITALS: BMI 23.4
--- NOTE | 2022-11-10 23:03 | CT_ITS ---
EXAM: CT ABDOMEN AND PELVIS WITH INTRAVENOUS CONTRAST CLINICAL INDICATION: abd pain TECHNIQUE: Helically acquired images were obtained of the abdomen and pelvis with intravenous contrast. This CT exam was performed using one or more of the following dose reduction techniques: automated exposure control, adjustment of the mA and/or kV according to patient size, and/or use of iterative reconstruction technique. CONTRAST: IV 100mL Isovue-300 RADIATION DOSE: Total DLP: 938.17 mGy-cm. COMPARISON: Previous CT of 10/04/2022. FINDINGS: LOWER THORAX: Mild circumferential thickening of the distal esophageal wall due to hiatal hernia and/or mild reflux esophagitis. Visualized lung bases are clear. Moderate coronary artery calcification is present. There is a trace of pericardial fluid. ABDOMEN: LIVER: Unremarkable. Homogeneous. No focal mass. GALLBLADDER AND BILE DUCTS: Gallbladder is normal in size. A phrygian cap is noted, with a punctate calcified stone within the phrygian cap. No findings of acute cholecystitis or biliary ductal dilatation. PANCREAS: Unremarkable. No focal cystic or solid mass. SPLEEN: Unremarkable. Normal size without focal cystic or solid mass. ADRENALS: Unremarkable. No nodules. KIDNEYS AND URETERS: Both kidneys demonstrate stable nonspecific perirenal stranding. Extensive renal vascular calcification. No hydronephrosis or obstructing ureteral stone. Symmetric nephrograms. STOMACH AND BOWEL: No gastric mural thickening, periduodenal inflammatory changes or distended small bowel loops. Minimal colonic diverticulosis is noted without evidence for acute diverticulitis. PELVIS: APPENDIX: Normal. No evidence of acute appendicitis. BLADDER: Unremarkable. REPRODUCTIVE: Normal sized prostate gland. Vas deferens calcifications can be seen with diabetes. ABDOMEN and PELVIS: INTRAPERITONEAL SPACE: See below. BONES/JOINTS: Unremarkable. No suspicious lytic or blastic abnormality. SOFT TISSUES: Unremarkable. No discrete abdominal or pelvic wall hernia. VASCULATURE: Calcific abdominal aorta and its branches. Extensive atherosclerotic vascular calcification again demonstrated. LYMPH NODES: Unremarkable. No enlarged lymph nodes. TUBES, LINES AND DEVICES: Peritoneal dialysis catheter in place. The previously noted pneumoperitoneum has resolved. No free fluid is noted. No intra-abdominal abscess. CT/Abdomen/Pelvis W IV Cont ONLY IMPRESSION: 1. Cholelithiasis. No findings of acute cholecystitis. 2. Mild circumferential thickening of the distal esophageal wall due to hiatal hernia and/or mild reflux esophagitis. 3. Minimal colonic diverticulosis without evidence for acute diverticulitis. 4. Peritoneal dialysis catheter in place within the pelvis. Electronically Signed: Olivier Rooney MD at 1:11 EDT ,
--- NOTE | 2022-11-10 23:04 | ED.VIS.GI ---
HPI HPI - GI History of Present Illness Chief Complaint: Abd Pain Detail of Chief Complaint: Nausea and vomiting. Informant: patient Abdominal Pain/Flank Pain Onset: Today, Yesterday and Days Context: Gradual Onset Timing: Continuous Quality: Cramping Location: Diffuse Current Severity: Mild Maximum Severity: Mild Worsened by: Nothing Relieved by: Nothing Nausea/Vomiting/Emesis GI Symptom: Positive for Nausea and Vomiting Onset: Today and Yesterday Severity: Moderate Diarrhea/Melena/Hematochezia GI Symptom: Negative for Diarrhea, Melena or Hematochezia Associated Symptoms Associated Symptoms: Negative for Dysuria, Frequency, Hematuria or Urgency Narrative Narrative: 42-year-old male history of end-stage renal disease gets peritoneal dialysis, diabetes, anemia, hypertension, irritable bowel. States that he started with nausea and vomiting on Wednesday night is progressively worsened. Decreased p.o. intake. No diarrhea. No dysuria still makes urine. Had similar episode in September for which he had to be admitted. He states it was not from spontaneous bacterial peritonitis. Today started having diffuse abdominal cramping. No fever. No prior abdominal surgeries Prior similar symptoms: Yes Recent Illness/Hospitalization: Yes PFSH PFS Medical History Anemia Diabetes Diabetes mellitus type 2 with complications End stage renal disease ESRD on peritoneal dialysis ESRD on peritoneal dialysis Glaucoma Hypertension Hypertension IBS (irritable bowel syndrome) Type 2 diabetes mellitus with diabetic polyneuropathy Home Medications amlodipine 5 mg tablet 5 mg PO DAILY blood pressure 01/08/22 [History Last Taken Unknown] lisinopril 40 mg tablet 40 mg PO DAILY blood pressure 01/08/22 [History Last Taken Unknown] omeprazole 40 mg capsule,delayed release 40 mg PO DAILY GERD 01/08/22 [History Last Taken Unknown] sucroferric oxyhydroxide 500 mg chewable tablet (Velphoro) 500 mg PO TIDCM renal disease 01/08/22 [History Last Taken Unknown] vitamin B complex-vitamin C-folic acid 0.8 mg tablet (Ifrah-Al) 1 tab PO DAILY supplement 01/08/22 [History Last Taken Unknown] calcium 100 mg capsule 200 mg PO BID supplement 03/24/22 [History Last Taken Unknown] insulin glargine 100 unit/mL (3 mL) subcutaneous pen (Basaglar KwikPen U-100 Insulin) 15 unit subcut QHS diabetes 10/04/22 [History Last Taken Unknown] ondansetron 4 mg disintegrating tablet 4 mg PO Q8H PRN PRN Nausea #10 tabs 10/04/22 [Rx Last Taken Unknown] metoclopramide HCl 5 mg tablet (Reglan) 5 mg PO Q6H PRN nausea and vomiting #16 tabs 10/08/22 [Rx Last Taken Unknown] Allergy/AdvReac Type Severity Reaction Status Date / Time tramadol AdvReac Intermediate Vomiting Verified 11/10/22 21:56 Family History Mother Diabetes Hypertension Brother Diabetes Surgical History H/O vascular surgery Social History housing: house Smoking Status: Never smoker alcohol intake: never substance use type: does not use well-balanced diet: daily or most days caffeine: No eating out: 4 or more times/week during the past year weight has: remained stable what type of physical activity do you participate in: none ROS ROS ED ROS Narrative Nausea, vomiting and abdominal cramping. Review of Systems ROS Unobtainable: Denies due to encephalopathy Constitutional Constitutional ED: Denies chills or fever(s) ENT ENT ED: Denies ear pain Cardiovascular Cardiovascular: Denies chest pain Respiratory/Chest Respiratory/Chest: Denies cough or dyspnea Gastrointestinal Gastrointestinal: Reports abdominal pain, nausea and vomiting; Denies constipation, diarrhea or melena Genitourinary Genitourinary ED: Denies dysuria or hematuria Musculoskeletal Musculoskeletal: Denies arthralgias Integumentary Denies abscess Neurologic Neurologic: Denies headache(s) Psychiatric Psychiatric: Denies anxiety Endocrine Endocrinology: Denies polydipsia Hematologic/Lymphatic Hematologic/Lymphatic: Denies easy bleeding Allergic/Immunologic Allergic/Immunologic ED: Denies mouth swelling EXAM Physical Exam Narrative Exam Narrative: 42-year-old male actively vomiting room in the room. Vital signs are stable. He is afebrile. He does not look septic or toxic. He does look dehydrated. H EENT exam dry mucous membranes. No trauma. No facial droop. Neck nontender. Lungs clear to auscultation. Heart tachycardic rate about 102 no murmur. Chest were nontender. Abdomen soft, nondistended normal bowel sounds. Diffusely but only mildly tender. No peritoneal signs. He is a left-sided peritoneal dialysis site. Moving all 4 extremities. Nontender no edema. Back nontender. Neurologically is awake and alert. Const Vital Signs: 11/10/22 21:51 11/10/22 23:34 11/11/22 00:36 Temperature 97.1 F L 98.4 F Temperature Source Temporal Oral Pulse Rate 103 H 78 Respiratory Rate 15 16 Blood Pressure 164/107 H 171/83 H Blood Pressure Mean 126 112 Pulse Ox 94 97 Oxygen Delivery Method Room Air Nasal Cannula Positive well nourished and well developed; Negative for obese, cachectic, contractures or unkempt General Appearance ED: well developed and NAD; Negative for unkempt, cachectic or contractures Nutritional Appearance: Negative for cachectic or obese HEENT Reports dry mucous membranes; Denies moist mucous membranes normocephalic and atraumatic; Negative for trauma or tenderness Mouth ED: Yes dry mucous membranes Mouth: dry mucous membranes Eyes EOMs intact bilaterally General Eye ED: Negative for pale conjunctiva or scleral icterus Neck no lymphadenopathy, supple and no JVD General: Negative for tenderness Carotids: Negative for other Lymph Lymphatic: Negative for other Resp normal respiratory effort and clear to auscultation bilaterally Effort and Inspection: Negative for respiratory distress Auscultation: Negative for rales, rhonchi or wheezes Cardio regular rhythm, S1 normal heart sound, S2 normal heart sound and no murmurs; Negative for regular rate Rate: tachycardic GI non-distended and no masses; Negative for non-tender Inspection: Negative for abdominal distention Auscultation: normoactive bowel sounds Palpation: soft and tender; Negative for guarding, rigid, hepatomegaly, splenomegaly, hernia, mass, pulsatile mass or rebound tenderness present Back/Spine no CVA tenderness General Back: Negative for CVA tenderness Cervical Spine: Negative for cervical spine tenderness Thoracic Spine / Upper Back: Negative for thoracic spinal tenderness Lumbar Spine / Lower Back: Negative for lumbar spinal tenderness Coccyx: Negative for other Extremity General Extremety ED: Negative for edema or tenderness General Extremity: Negative for edema Neuro CN's II-XII intact bilaterally and moves all extremities Sensorium / Orientation: alert, oriented to person, oriented to place and oriented to time; Negative for orientation impaired, confused, lethargic or stuporous Motor Exam: strength 5/5 throughout Psych Appearance: Negative for unkempt Attitude: No agitated Mood & Affect: Negative for depressed, anxious or tearful Skin no wounds General Skin Exam: Negative for jaundice Lesions: no lesions Rashes: no rashes Trauma: Negative for abrasion Nails: Negative for discolored MDM MDM MDM Narrative Medical decision making narrative: 42-year-old male actively nausea and vomiting. Clinically looks dehydrated. This could be a viral illness. Possibly spontaneous bacterial peritonitis but I do not think so. He does not have an acute abdomen. I do not think it is an obstruction. I am getting imaging due to his abdominal pain. To be treated with a liter normal saline due to nausea vomiting and dehydration. Zofran for nausea. Morphine for pain. Labs and CAT scan. Repeat exam at 1:30 AM patient doing better. Feels much better after his liter normal saline. Will be given a second liter. Patient does not anything else for pain. This is nausea currently is doing much better. We discussed treatment options. He requested admission. I will speak to the hospitalist about that. Abdomen is benign. History & Record Review Discussion w/independent historian: Patient Lab Data Attestation: I reviewed the patient's lab results. Lab results narrative: CBC shows a white count of 15.4. H&H 12.3 and 38. Platelets 350. Electrolytes show a gap of 12. BUN is 65 creatinine 14.5. He has a history of end-stage renal disease. He gets peritoneal dialysis. Glucose 215. Liver enzymes unremarkable. Lipase 65. Compared to prior labs these are the patient's baseline. CAT scan shows incidental finding of cholelithiasis but no signs of acute Cholecystitis. Normal appendix. Chronic changes no acute abnormality. Read by the radiologist and reviewed by me. Labs: Laboratory Results - last 24 hr 11/10/22 11/10/22 23:23 23:23 WBC 15.4 H RBC 3.85 L Hgb 12.3 L Hct 38.4 L MCV 99.7 H MCH 31.9 MCHC 32.0 RDW Std Deviation 46.3 H RDW Coeff of Rhys 12.6 Plt Count 350 MPV 10.8 Immature Gran % (Auto) 0.500 Neut % (Auto) 82.8 H Lymph % (Auto) 9.2 L [place] % (Auto) 6.6 Eos % (Auto) 0.4 Baso % (Auto) 0.5 Absolute Neuts (auto) 12.7 H Absolute Lymphs (auto) 1.42 Nucleated RBC % 0 Sodium 145 Potassium 4.2 Chloride 103 Carbon Dioxide 30.0 Anion Gap 12 BUN 65 H Creatinine 14.50 H* Estim Creat Clear Calc 6.71 Est GFR (MDRD) Af Amer 5 L Est GFR (MDRD) Non-Af 4 L BUN/Creatinine Ratio 4.5 L Glucose 215 H Calcium 10.6 H Total Bilirubin 0.50 AST 10 L ALT 21 Alkaline Phosphatase 75 Total Protein 7.6 Albumin 3.4 Globulin 4.2 Albumin/Globulin Ratio 0.8 L Lipase 65 Radiography Diagnostic Testing: Clinical Impression(s) from Imaging Studies Abdomen/Pelvis CT 11/10/22 23:03 IMPRESSION: 1. Cholelithiasis. No findings of acute cholecystitis. 2. Mild circumferential thickening of the distal esophageal wall due to hiatal hernia and/or mild reflux esophagitis. 3. Minimal colonic diverticulosis without evidence for acute diverticulitis. 4. Peritoneal dialysis catheter in place within the pelvis. Electronically Signed: Olivier Rooney MD at 1:11 EDT , Discharge Plan Dx/Rx/DC Orders Clinical Impression: Intractable vomiting, End stage chronic kidney disease, History of diabetes mellitus, Acute dehydration Disposition Disposition: Acute Care [facility]
[2022-11-10] MEDS: 0.9% Normal Saline 1,000 ML 999 ML IV (23:29)
[2022-11-10] MEDS: Morphine 4 MG/ML Syringe IV (23:29)
[2022-11-10] MEDS: Ondansetron 4 MG/2 ML Vial IV (23:29)
[2022-11-10 23:34] VITALS: TEMP 36.9
[2022-11-10 23:39] LABS: Absolute Lymphocyte Count 1.42 X10^3/uL (0.83-4.51); Absolute Neutrophil Count 12.7 X10^3/uL (2.0-7.7); Basophil# 0.07 X10^3/uL; Basophil% 0.5 % (0-1); Eosinophil# 0.06 X10^3/uL; Eosinophils% 0.4 % (0-5); Hematocrit 38.4 % (40-54); Hemoglobin 12.3 g/dL (13.0-16.5); Lymphocyte # 1.42 X10^3/ul (0.83-4.51); Lymphocyte % 9.2 % (19-41); Mean Corpuscular Hgb 31.9 pg (27.0-32.0); Mean Corpuscular Volume 99.7 fL (80-94); Mean Platelet Vol. 10.8 fl (6.2-12.0); Monocyte# 1.01 X10^3/uL; Monocyte% 6.6 % (0-10); NRBC Flagged by Analyzer 0 % (0-5); Neutrophil # 12.74 X10^3/uL (2.7-7.7); Neutrophil % 82.8 % (47-70); Platelet Count 350 K/mm3 (150-450); RBC Distribution Width CV 12.6 % (11.6-14.6); RBC Distribution Width SD 46.3 fl (35.1-43.9); Red Blood Count 3.85 M/mm3 (4.6-6.2); White Blood Count 15.4 K/mm3 (4.4-11.0)
[2022-11-10 23:54] LABS: ALB/GLOB Ratio 0.8 RATIO (0.9-2.4); AST(SGOT) 10 U/L (15-37); Alanine Aminotransfer ALT/SGPT 21 U/L (16-61); Albumin, Serum 3.4 g/dL (3.2-5.0); Alkaline Phosphatase 75 U/L (45-117); Anion Gap 12 (5-15); BUN 65 mg/dL (7-18); BUN/Creat Ratio 4.5 RATIO (10-20); Calcium,Total 10.6 mg/dL (8.5-10.1); Chloride 103 mmol/L (98-107); EST Glomerular Filtration Rate 4 mL/min (>60); Est Glom Filt Rate - Afr Amer 5 mL/min (>60); Estimated Creatinine Clearance 6.71 ml/min; Globulin 4.2 g/dL (2.2-4.2); Glucose 215 mg/dL (74-106); Lipase 65 U/L (13-75); Potassium 4.2 mmol/L (3.5-5.1); Protein, Total 7.6 g/dL (6.4-8.2); Sodium Level 145 mmol/L (136-145)
[2022-11-11] VITALS (11 sets, daily range): BP systolic 134–199; BP diastolic 65–112; PULSE 78–87; RESP 16; TEMP 36.6–37.1; O2SAT 95–99; BMI 23.5
--- NOTE | 2022-11-11 00:30 | PCM.HP.STD ---
HPI - General General Date of Admission: 11/11/22 Date of Service: 11/11/22 Chief Complaint: nausea and vomiting HPI Narrative ABDIEL SY, is a 42 M with a significant history of ESRD on peritoneal dialysis who presents to the emergency department with 3-day history of persistent nausea and vomiting. Initially patient was not going to come to the hospital but later developed excruciating pain in his lower abdomen that prompted him to come to the emergency department. He denies any subjective fever. He reports chills and diaphoresis. He reports that the day before his symptoms started he went to eat at [place] [employer]. He denies any diarrhea. Of note patient was admitted of similar symptoms in September 2022. At that time work-up for peritonitis came back negative. [facility] Medical History (Updated 11/11/22 @ 04:[address] Antolin Monge MD) Anemia Anxiety CPAP (continuous positive airway pressure) dependence Depression Diabetes Diabetes mellitus type 2 with complications Dialysis patient End stage renal disease ESRD on peritoneal dialysis ESRD on peritoneal dialysis Glaucoma Hypertension Hypertension IBS (irritable bowel syndrome) Kidney disease Sleep apnea Type 2 diabetes mellitus with diabetic polyneuropathy Home Medications amlodipine 5 mg tablet 5 mg PO DAILY blood pressure 01/08/22 [History Last Taken Unknown] lisinopril 40 mg tablet 40 mg PO DAILY blood pressure 01/08/22 [History Last Taken Unknown] omeprazole 40 mg capsule,delayed release 40 mg PO DAILY GERD 01/08/22 [History Last Taken Unknown] sucroferric oxyhydroxide 500 mg chewable tablet (Velphoro) 500 mg PO TIDCM renal disease 01/08/22 [History Last Taken Unknown] vitamin B complex-vitamin C-folic acid 0.8 mg tablet (Ifrah-Al) 1 tab PO DAILY supplement 01/08/22 [History Last Taken Unknown] calcium 100 mg capsule 200 mg PO BID supplement 03/24/22 [History Last Taken Unknown] insulin glargine 100 unit/mL (3 mL) subcutaneous pen (Basaglar KwikPen U-100 Insulin) 15 unit subcut QHS diabetes 03/24/22 [History Last Taken Unknown] ondansetron 4 mg disintegrating tablet 4 mg PO Q8H PRN PRN Nausea #10 tabs 10/04/22 [Rx Last Taken Unknown] metoclopramide HCl 5 mg tablet (Reglan) 5 mg PO Q6H PRN nausea and vomiting #16 tabs 10/08/22 [Rx Last Taken Unknown] Allergy/AdvReac Type Severity Reaction Status Date / Time tramadol AdvReac Intermediate Vomiting Verified 11/10/22 21:56 Family History Mother Diabetes Hypertension Brother Diabetes Surgical History H/O vascular surgery Social History housing: house Smoking Status: Never smoker alcohol intake: never substance use type: does not use well-balanced diet: daily or most days caffeine: No eating out: 4 or more times/week during the past year weight has: remained stable what type of physical activity do you participate in: none ROS ROS Narrative Pertinent positives and pertinent negatives as noted in HPI. All other systems were reviewed and are negative Vital Signs Vital Signs Vital Signs: 11/10/22 21:51 11/10/22 23:34 Temperature 97.1 F L 98.4 F Temperature Source Temporal Oral Pulse Rate 103 H Respiratory Rate 15 Blood Pressure 164/107 H Blood Pressure Mean 126 Pulse Ox 94 Oxygen Delivery Method Room Air Weight Weight: 74.1 kg Body Mass Index (BMI) 23.4 Physical Exam Narrative Physical exam: General: Well-nourished, well-developed. Head: Normocephalic, atraumatic, no tenderness Eyes: Vision is grossly intact. EOMI ENT, no trauma, moist mucous membranes, no rhinorrhea Neck: Nontender, No thyromegaly. CVS: Regular rate and rhythm. S1-S2 present. No murmur, gallop or rub. Respiratory : clear to auscultation bilaterally, chest wall nontender Abdomen: Soft, nontender, nondistended, normal bowel sounds, no masses : Deferred Back: Nontender, no CVA tenderness, no midline spinal tenderness, deformities, step-offs Extremities: Nontender full range of motion, no trauma Skin: Normal color, no trauma, abrasions Neuro: Alert, oriented, cranial nerves II through XII grossly intact. Psychiatry: Normal mood. Normal affect. Not depressed. Not anxious. Results Lab / Micro Data Attestation: I reviewed the patient's lab results. Result Diagrams: 11/10/22 23:23 11/10/22 23:23 Labs: Laboratory Results - last 24 hr 11/10/22 23:23: WBC 15.4 H, RBC 3.85 L, Hgb 12.3 L, Hct 38.4 L, MCV 99.7 H, MCH 31.9, MCHC 32.0, RDW Std Deviation 46.3 H, RDW Coeff of Rhys 12.6, Plt Count 350, MPV 10.8, Immature Gran % (Auto) 0.500, Neut % (Auto) 82.8 H, Lymph % (Auto) 9.2 L, [place] % (Auto) 6.6, Eos % (Auto) 0.4, Baso % (Auto) 0.5, Absolute Neuts (auto) 12.7 H, Absolute Lymphs (auto) 1.42, Nucleated RBC % 0 11/10/22 23:23: Sodium 145, Potassium 4.2, Chloride 103, Carbon Dioxide 30.0, Anion Gap 12, BUN 65 H, Creatinine 14.50 H*, Estim Creat Clear Calc 6.71, Est GFR (MDRD) Af Amer 5 L, Est GFR (MDRD) Non-Af 4 L, BUN/Creatinine Ratio 4.5 L, Glucose 215 H, Calcium 10.6 H, Total Bilirubin 0.50, AST 10 L, ALT 21, Alkaline Phosphatase 75, Total Protein 7.6, Albumin 3.4, Globulin 4.2, Albumin/Globulin Ratio 0.8 L, Lipase 65 Assessment & Plan Assessment/Plan (1) CKD (chronic kidney disease) stage 5, GFR less than 15 ml/min: (2) Diabetic foot ulcer: (3) Intractable nausea and vomiting: (4) Hypertension: PLAN: Plan Intractable nausea and vomiting Likely secondary to gastritis from food poisoning. Impression of abdomen and pelvis CT by radiologist: 1.? Cholelithiasis. No findings of acute cholecystitis. ? 2.? Mild circumferential thickening of the distal esophageal wall due to hiatal hernia and/or mild reflux esophagitis. ? 3.? Minimal colonic diverticulosis without evidence for acute diverticulitis. ? 4.? Peritoneal dialysis catheter in place within the pelvis. Abdomen and pelvis CT was visualized and independently interpreted by hospitalist: Agrees with radiology interpretation Conservative treatment with lactated Ringer's, as needed IV morphine; and as needed IV Zofran. White count of 15,400, trend. The patient will be n.p.o. because of nausea and vomiting. If patient is not getting better consider a paracentesis with peritoneal fluid culture. Review of records show the patient was admitted on 10/05/2022 and discharged on 10/08/22 with a similar presentation. Initially the thought at that time was spontaneous bacterial peritonitis. However white counts was not impressive and peritoneal culture came back negative. The later suspicion was that patient had diabetic gastroparesis and was discharged home on Reglan. End-stage renal disease on peritoneal dialysis Creatinine of 14.5; and GFR of 4 consistent with HD renal disease. Trend BMP. ESRD secondary to diabetes type 2. Nephrology consult. Hypertension Blood pressure is not within goal Home blood pressure medication continued. As needed hydralazine ordered. Trend blood pressure and adjust blood pressure medications. Diabetes mellitus Patient with hyperglycemia on presentation Hold basal insulin. Monitor Accu-Cheks Correction scale insulin ordered. DVT prophylaxis: Subcutaneous heparin ordered Charges/Coding Visit Charges Inpatient E&M: 42927 Init Hosp L3
[2022-11-11] MEDS: Ondansetron 4 MG/2 ML Vial IV ×3 (02:04→21:19)
[2022-11-11] MEDS: Lactated Ringers 1,000 ML 60 ML IV (04:56)
[2022-11-11] MEDS: Morphine 2 MG/ML Syringe IV ×3 (04:56→21:19)
[2022-11-11] MEDS: hydrALAZINE 20 MG/ML Vial 5 MG IV (05:23)
[2022-11-11 06:18] LABS: Absolute Lymphocyte Count 1.65 X10^3/uL (0.83-4.51); Absolute Neutrophil Count 9.7 X10^3/uL (2.0-7.7); Basophil# 0.06 X10^3/uL; Basophil% 0.5 % (0-1); Eosinophil# 0.08 X10^3/uL; Eosinophils% 0.6 % (0-5); Hematocrit 31.2 % (40-54); Hemoglobin 9.7 g/dL (13.0-16.5); Lymphocyte # 1.65 X10^3/ul (0.83-4.51); Lymphocyte % 13.1 % (19-41); Mean Corp Hgb Conc 31.1 g/dL (32-36); Mean Corpuscular Hgb 31.5 pg (27.0-32.0); Mean Corpuscular Volume 101.3 fL (80-94); Mean Platelet Vol. 10.6 fl (6.2-12.0); Monocyte# 0.98 X10^3/uL; Monocyte% 7.8 % (0-10); NRBC Flagged by Analyzer 0 % (0-5); Neutrophil # 9.73 X10^3/uL (2.7-7.7); Neutrophil % 77.5 % (47-70); Platelet Count 286 K/mm3 (150-450); RBC Distribution Width CV 12.7 % (11.6-14.6); RBC Distribution Width SD 46.9 fl (35.1-43.9); Red Blood Count 3.08 M/mm3 (4.6-6.2); White Blood Count 12.6 K/mm3 (4.4-11.0)
[2022-11-11] MEDS: Heparin Injection (Vial) 5,000 UNIT/ML VIAL 5000 UNIT SC ×3 (06:45→23:07)
[2022-11-11 07:15] LABS: Anion Gap 9 (5-15); BUN 68 mg/dL (7-18); BUN/Creat Ratio 4.8 RATIO (10-20); Chloride 108 mmol/L (98-107); EST Glomerular Filtration Rate 4 mL/min (>60); Est Glom Filt Rate - Afr Amer 5 mL/min (>60); Glucose 130 mg/dL (74-106); Potassium 4.3 mmol/L (3.5-5.1); Sodium Level 146 mmol/L (136-145)
[2022-11-11 07:20] LABS: Bedside Glucose 119 mg/dL (74-106)
--- NOTE | 2022-11-11 09:38 | CON.PCM.RE_ITS ---
Assessment & Plan Assessment/Plan (1) ESRD (end stage renal disease) on dialysis: PLAN: arrange CCPD tonight all 1.5% 2.5L fill volume 5 exchanges over 10 hrs (2) Intractable nausea and vomiting: PLAN: improved. (3) Dehydration: PLAN: likely from using all 2.5% with PD due to supply issues. Instructed pt to use all 1.5% solution on discharge to home (4) Hypertension: PLAN: stable (5) Type 2 diabetes mellitus with unspecified complications: PLAN: stable (6) Hypercalcemia: PLAN: due to dehydration resolved HPI Consult Data Date of Consult: 11/11/22 HPI Narrative Reason for Consultation: ESRD on CCPD HPI Narrative: ABDIEL SY, is a 42 M with ESRD due to diabetes on CCPD. He presents with intractable nausea, vomiting since Wednesday night with abdominal pain. Chills no fever, no cloudy fluid wit PD. He has been using all 2.5% solution because he ran out of the 1.5% solution. He just received new shipment of dianeal solution. He was hypercalcemic from dehydration upon presentation. He is able to keep down water, less abdominal pain. [facility] Medical History (Updated 11/11/22 @ 09:[address] Fabby Patel, DO) Anemia Anxiety CPAP (continuous positive airway pressure) dependence Depression Diabetes Diabetes mellitus type 2 with complications Dialysis patient End stage renal disease ESRD on peritoneal dialysis ESRD on peritoneal dialysis Glaucoma Hypertension Hypertension IBS (irritable bowel syndrome) Kidney disease Sleep apnea Type 2 diabetes mellitus with diabetic polyneuropathy Home Medications amlodipine 5 mg tablet 5 mg PO DAILY blood pressure 01/08/22 [History Last Taken Unknown] lisinopril 40 mg tablet 40 mg PO DAILY blood pressure 01/08/22 [History Last Taken Unknown] omeprazole 40 mg capsule,delayed release 40 mg PO DAILY GERD 01/08/22 [History Last Taken Unknown] sucroferric oxyhydroxide 500 mg chewable tablet (Velphoro) 500 mg PO TIDCM renal disease 01/08/22 [History Last Taken Unknown] vitamin B complex-vitamin C-folic acid 0.8 mg tablet (Ifrah-Al) 1 tab PO DAILY supplement 01/08/22 [History Last Taken Unknown] insulin glargine 100 unit/mL (3 mL) subcutaneous pen (Basaglar KwikPen U-100 In sulin) 15 unit subcut QHS diabetes 03/24/22 [History Last Taken Unknown] ondansetron 4 mg disintegrating tablet 4 mg PO Q8H PRN PRN Nausea #10 tabs 10/04/22 [Rx Last Taken Unknown] metoclopramide HCl 5 mg tablet (Reglan) 5 mg PO Q6H PRN nausea and vomiting #16 tabs 10/08/22 [Rx Last Taken Unknown] Allergy/AdvReac Type Severity Reaction Status Date / Time tramadol AdvReac Intermediate Vomiting Verified 11/10/22 21:56 Family History Mother Diabetes Hypertension Brother Diabetes Surgical History H/O vascular surgery Social History housing: house Smoking Status: Never smoker alcohol intake: never substance use type: does not use well-balanced diet: daily or most days caffeine: No eating out: 4 or more times/week during the past year weight has: remained stable what type of physical activity do you participate in: none Physical Exam Const alert and oriented x3 General Appearance: well developed Resp clear to auscultation bilaterally Cardio regular rate GI non-tender and non-distended Auscultation: normoactive bowel sounds Palpation: soft Extremity no clubbing, cyanosis or edema Psych cooperative Lab / Micro Data Result Diagrams: 11/11/22 06:00 11/11/22 06:00 Labs: Laboratory Results - last 24 hr 11/10/22 23:23: WBC 15.4 H, RBC 3.85 L, Hgb 12.3 L, Hct 38.4 L, MCV 99.7 H, MCH 31.9, MCHC 32.0, RDW Std Deviation 46.3 H, RDW Coeff of Rhys 12.6, Plt Count 350, MPV 10.8, Immature Gran % (Auto) 0.500, Neut % (Auto) 82.8 H, Lymph % (Auto) 9.2 L, [place] % (Auto) 6.6, Eos % (Auto) 0.4, Baso % (Auto) 0.5, Absolute Neuts (auto) 12.7 H, Absolute Lymphs (auto) 1.42, Nucleated RBC % 0 11/10/22 23:23: Sodium 145, Potassium 4.2, Chloride 103, Carbon Dioxide 30.0, Anion Gap 12, BUN 65 H, Creatinine 14.50 H*, Estim Creat Clear Calc 6.71, Est GFR (MDRD) Af Amer 5 L, Est GFR (MDRD) Non-Af 4 L, BUN/Creatinine Ratio 4.5 L, Glucose 215 H, Calcium 10.6 H, Total Bilirubin 0.50, AST 10 L, ALT 21, Alkaline Phosphatase 75, Total Protein 7.6, Albumin 3.4, Globulin 4.2, Albumin/Globulin Ratio 0.8 L, Lipase 65 11/11/22 06:00: Sodium 146 H, Potassium 4.3, Chloride 108 H, Carbon Dioxide 29.0, Anion Gap 9, BUN 68 H, Creatinine 14.10 H*, Estim Creat Clear Calc 6.90, Est GFR (MDRD) Af Amer 5 L, Est GFR (MDRD) Non-Af 4 L, BUN/Creatinine Ratio 4.8 L, Glucose 130 H, Calcium 9.0 11/11/22 06:00: WBC 12.6 H, RBC 3.08 L, Hgb 9.7 L, Hct 31.2 L, MCV 101.3 H, MCH 31.5, MCHC 31.1 L, RDW Std Deviation 46.9 H, RDW Coeff of Rhys 12.7, Plt Count 286, MPV 10.6, Immature Gran % (Auto) 0.500, Neut % (Auto) 77.5 H, Lymph % (Auto) 13.1 L, [place] % (Auto) 7.8, Eos % (Auto) 0.6, Baso % (Auto) 0.5, Absolute Neuts (auto) 9.7 H, Absolute Lymphs (auto) 1.65, Nucleated RBC % 0 11/11/22 06:48: POC Glucose 119 H Radiology Impression Abdomen/Pelvis CT 11/10/22 23:03 IMPRESSION: 1. Cholelithiasis. No findings of acute cholecystitis. 2. Mild circumferential thickening of the distal esophageal wall due to hiatal hernia and/or mild reflux esophagitis. 3. Minimal colonic diverticulosis without evidence for acute diverticulitis. 4. Peritoneal dialysis catheter in place within the pelvis. Electronically Signed: Olivier Rooney MD at 1:11 EDT ,
--- NOTE | 2022-11-11 15:29 | PCM.HOSP.N ---
Hospitalist Note Patient admitted with abdominal pain, nausea, and vomiting. Its been intractable. He states he is feeling better since IV hydration however his belly pain is worse than it was the last time he was here. Work-up for SBP was unremarkable at that time. I will go ahead and start Zosyn obtain peritoneal fluid again now with his worsening abdominal pain and unremarkable CAT scan of his abdomen and pelvis. He has been trying to drink some fluids but oral intake has been poor because of his nausea vomiting. We will continue antiemetics and pain medication. Start Protonix IV push twice daily with thickening of esophagus noted on CT of the abdomen pelvis suggested of possible esophagitis. Start enalaprilat 1.25 every 6 hours for elevated blood pressure. PD as ordered. Labs are overall unremarkable. If no improvement next 24 hours we will have GI evaluate the patient.
--- NOTE | 2022-11-11 15:51 | DIALYSIS ---
Peritoneal dialysis initiated without issue. PD catheter site is negative. Patient is alert and sttable.
[2022-11-11] MEDS: Enalaprilat 1.25 MG/ML Vial IV ×2 (17:45→23:15)
[2022-11-11 20:49] LABS: Bacteria 0 SEEN /hpf (None Seen); Mucous, Urine 0 SEEN /hpf (<or=2+); Red Blood Cells-Urine 0 SEEN /hpf (0-5); Squamous Epithelial Cells - UA 0 SEEN /hpf (0-5); White Blood Cells 0 SEEN /hpf (0-5)
[2022-11-11 20:55] LABS: Color, Urine Yellow (Yellow); Glucose, Dipstick 250 mg/dl (Normal); Ketone-Dipstick Negative (Negative); Leukocyte Esterase-Dipstick Negative /ul (Negative); Nitrite-Dipstick Negative (Negative); Occult Blood-Urine 10 /ul (Negative); Protein-Dipstick 100 mg/dl (Negative); Specific Gravity, Urine 1.015 (1.002-1.030); Urine Bilirubin Dipstick Negative (Negative); Urine Clarity Clear (Clear); Urine Urobilinogen Normal (Normal)
--- NOTE | 2022-11-11 21:30 | NURSING ---
PT REPORTS ONGOING NAUSEA AND ABD PAIN. STILL UNABLE TO TAKE PILLS AT THIS TIME. ONLY TOLERATING SMALL AMOUNTS OF CRANBERRY JUICE AND WATER.
[2022-11-11] MEDS: Insulin Lispro 100 UNIT/ML INSULN.PEN SC (23:15)
[2022-11-11] MEDS: 0.9% Saline Lock 10 ML Syringe IV (23:18)
[2022-11-12] VITALS (7 sets, daily range): BP systolic 155–216; BP diastolic 76–100; PULSE 76–92; RESP 16–18; TEMP 36.7–36.9; O2SAT 93–100
[2022-11-12] LABS: Bedside Glucose 165 mg/dL (74-106)
[2022-11-12] MEDS: Enalaprilat 1.25 MG/ML Vial IV ×2 (06:24→13:37)
[2022-11-12] MEDS: Heparin Injection (Vial) 5,000 UNIT/ML VIAL 5000 UNIT SC ×3 (06:24→21:30)
[2022-11-12 06:55] LABS: Bedside Glucose 136 mg/dL (74-106)
[2022-11-12 07:15] LABS: Absolute Lymphocyte Count 2.37 X10^3/uL (0.83-4.51); Absolute Neutrophil Count 6.3 X10^3/uL (2.0-7.7); Basophil# 0.08 X10^3/uL; Basophil% 0.8 % (0-1); Eosinophil# 0.36 X10^3/uL; Eosinophils% 3.6 % (0-5); Hematocrit 31.1 % (40-54); Hemoglobin 9.9 g/dL (13.0-16.5); Lymphocyte # 2.37 X10^3/ul (0.83-4.51); Lymphocyte % 23.6 % (19-41); Mean Corp Hgb Conc 31.8 g/dL (32-36); Mean Corpuscular Hgb 32.1 pg (27.0-32.0); Mean Platelet Vol. 10.1 fl (6.2-12.0); Monocyte# 0.93 X10^3/uL; Monocyte% 9.3 % (0-10); NRBC Flagged by Analyzer 0 % (0-5); Neutrophil # 6.26 X10^3/uL (2.7-7.7); Neutrophil % 62.4 % (47-70); Platelet Count 255 K/mm3 (150-450); RBC Distribution Width CV 12.7 % (11.6-14.6); RBC Distribution Width SD 46.5 fl (35.1-43.9); Red Blood Count 3.08 M/mm3 (4.6-6.2)
[2022-11-12 07:52] LABS: ALB/GLOB Ratio 0.8 RATIO (0.9-2.4); AST(SGOT) 10 U/L (15-37); Alanine Aminotransfer ALT/SGPT 14 U/L (16-61); Albumin, Serum 2.6 g/dL (3.2-5.0); Alkaline Phosphatase 54 U/L (45-117); Anion Gap 6 (5-15); BUN 59 mg/dL (7-18); BUN/Creat Ratio 4.5 RATIO (10-20); Calcium,Total 8.9 mg/dL (8.5-10.1); Chloride 104 mmol/L (98-107); EST Glomerular Filtration Rate 5 mL/min (>60); Est Glom Filt Rate - Afr Amer 5 mL/min (>60); Estimated Creatinine Clearance 7.49 ml/min; Globulin 3.2 g/dL (2.2-4.2); Glucose 126 mg/dL (74-106); Potassium 3.9 mmol/L (3.5-5.1); Protein, Total 5.8 g/dL (6.4-8.2); Sodium Level 141 mmol/L (136-145)
[2022-11-12] MEDS: amLODIPine 5 MG Tablet PO (08:42)
[2022-11-12] MEDS: Ondansetron 4 MG/2 ML Vial IV (09:07)
[2022-11-12] MEDS: Morphine 2 MG/ML Syringe IV (09:07)
--- NOTE | 2022-11-12 09:22 | DIALYSIS ---
This RN arrived to unhook pt from PD cycler. Pt found sitting at edge of bed with active emesis and complains of severe abd pain that started shortly after taking a po pill and sip of water. Rates abd pain at 8. BSP x 4 with slightly firmer abd to palp, denies tenderness on palp. Pt was already unhooked from PD Cycler reporting he unhooked himself after tx was completed. VS elevated - requesting pain/nausea meds. Reported findings to hospital staff pharmacistKRYSTYNA Ma at 0905. hospital staff pharmacist reports she already collected PD solution and sent to lab. Spoke with lab before effluent emptied and levar from lab reports they have received the fluid needed to fulfill pd lab orders. Effluent clear with no fibrin noted.
--- NOTE | 2022-11-12 14:40 | CASEMGMT ---
RN CM Face to Face with patient for initial transition planning/care coordination assessment. RN CM introduced self and role at [facility]. Patient lying in bed, alert and oriented. Patient willing to participate in assessment and is able to answer all questions appropriately. Care providers, pharmacy, and demographics verified. Patient wishes to discharge home, denies need for home health at this time. Patient states he has no further needs or concerns at this time. CM to follow for discharge planning needs that may arise. PCP: [facility] Specialists: Jorge customer field representative Preferred Pharmacy: [facility] Insurance: [employer] Prescription Benefit: yes Living Will/HPOA: yes, father Swapnil Snyder LNOK: , parents Living Arrangements: Patient lives with father in a 2 story home. Patient is independent and able to ambulate stairs. Transportation: self, father DME/HHC: Patient PD equipment and supplies. No previous HHC or SNF Disposition Plan: Patient to discharge home with family support and follow-up plans in place. Rosalinda BLACKN, RN, CM
--- NOTE | 2022-11-12 16:17 | PN.HOSP_ITS ---
Reason for Visit Reason for Visit: Intractable abdominal pain, nausea, vomiting Subjective Subjective Mr. Snyder is a 42-year-old white male who presented to the emergency department with a 3-day history of persistent nausea, vomiting, and abdominal pain. He had a recent admission here in mid September with similar symptoms however he is indicating that his pain is worse at this time. He was initially not going to come to the hospital but when he developed excruciating pain in his lower abdomen he came to the ED. He denied any fevers but was having chills and intermittent diaphoresis. He reported that on the day prior to his admission he went to eat at the [place] festival. He denied any diarrhea. Since admission he has had persistent nausea and vomiting. He really does not feel much improved. CT of the abdomen and pelvis was unremarkable for any real acute findings. He did have some mild esophageal thickening suggestive of gastritis and I suspect this is related to his nausea and vomiting. I have asked GI to take a look at him at this time as he continues not to tolerate any p.o. Patient reports no stool and indicate he does not having much flatus that he remembers. Objective Data Objective Data Vital Signs: Vital Signs Temp Pulse Resp BP Pulse Ox O2 Del Method O2 Flow Rate 98.0 F 83 16 164/78 H 97 Room Air 2 11/12/22 13:34 11/12/22 13:34 11/12/22 13:34 11/12/22 13:34 11/12/22 13:34 11/12/22 13:34 11/11/22 21:42 Oxygen Flow Rate (L/min) 2 Oxygen Delivery Method Room Air Weight: 74.389 kg Body Mass Index (BMI) 23.5 Intake & Output: Intake and Output for Last 24 Hours 11/10/22 11/11/22 11/12/22 23:59 23:59 23:59 Intake Total 2390 / 2510 450 / 450 Output Total 456 / 456 Balance 2390 / 0 -6 / -6 Medical Nutrition Assessment Dietitian: Malnutrition Criteria Met Start: 11/12/22 15 :22 Freq: Status: Active Protocol: Document 11/12/22 15:22 AG (Rec: 11/12/22 15:22 AG [id number]) Nutrition Malnutrition Evidence of Malnutrition Exists Yes Malnutrition (severe): Acute Illness/Injury Evidenced By Suboptimal Energy Intake ( Severe),Weight Loss (Severe) Clinical Problem Acute Disease or Injury Related Malnutrition Etiology severe, acute malnutrition related to inadequate energy intake Signs/Symptoms as evidenced by unintentional wt loss of 6#/3.5% < 1 week; estimated PO intake meeting < 50% of estimated energy needs x 5 days Status Active Problem Recommendation Dietitian Recommendations/Changes recommend advance diet as tolerated to carbohydrate controlled, cardiac given evidence of acute malnutrition ; will await PO diet advancement as assess ONS need /acceptance Lab / Micro Data Result Diagrams: 11/12/22 07:07 11/12/22 07:07 Labs: Laboratory Results - last 24 hr 11/11/22 20:43: Urine Color Yellow, Urine Clarity Clear, Urine pH 8.0, Ur Specific [place] 1.015, Urine Protein 100 H, Urine Glucose (UA) 250 H, Urine Ketones Negative, Urine Occult Blood 10 H, Urine Nitrite Negative, Urine Bilirubin Negative, Urine Urobilinogen Normal, Ur Leukocyte Esterase Negative, Urine RBC 0 SEEN, Urine WBC 0 SEEN, Ur Squamous Epith Cells 0 SEEN, Urine Bacteria 0 SEEN, Urine Mucus 0 SEEN 11/11/22 23:11: POC Glucose 165 H 11/12/22 06:20: POC Glucose 136 H 11/12/22 07:07: WBC 10.0, RBC 3.08 L, Hgb 9.9 L, Hct 31.1 L, MCV 101.0 H, MCH 32.1 H, MCHC 31.8 L, RDW Std Deviation 46.5 H, RDW Coeff of Rhys 12.7, Plt Count 255, MPV 10.1, Immature Gran % (Auto) 0.300, Neut % (Auto) 62.4, Lymph % (Auto) 23.6, [place] % (Auto) 9.3, Eos % (Auto) 3.6, Baso % (Auto) 0.8, Absolute Neuts (auto) 6.3, Absolute Lymphs (auto) 2.37, Nucleated RBC % 0 11/12/22 07:07: Sodium 141, Potassium 3.9, Chloride 104, Carbon Dioxide 31.0, Anion Gap 6, BUN 59 H, Creatinine 13.00 H*, Estim Creat Clear Calc 7.49, Est GFR (MDRD) Af Amer 5 L, Est GFR (MDRD) Non-Af 5 L, BUN/Creatinine Ratio 4.5 L, Glucose 126 H, Calcium 8.9, Total Bilirubin 0.60, AST 10 L, ALT 14 L, Alkaline Phosphatase 54, Total Protein 5.8 L, Albumin 2.6 L, Globulin 3.2, Albumin/Globulin Ratio 0.8 L Physical Exam Const alert, oriented x3 and average body habitus; Negative for no apparent distress Constitutional Narrative: Middle-aged white male, appears older than stated age, lying in bed and appears uncomfortable but not toxic HEENT head/scalp atraumatic and moist oral mucous membranes Head and Scalp: normocephalic Resp normal respiratory effort, no retractions, no use of accessory muscles and clear to auscultation bilaterally Auscultation: Negative for rales, rhonchi or wheezes Cardio regular rate, regular rhythm, S1 normal heart sound, S2 normal heart sound, no murmurs, no rub, no gallops and no clicks GI GI Narrative: Diffuse abdominal tenderness, soft, no distention, bowel sounds are mildly hypoactive but present Extremity no clubbing, cyanosis or edema Extremity Narrative: 2+ pedal pulses Neuro oriented x3, moves all extremities and no focal motor deficits Sensorium / Orientation: awake, alert, oriented to person, oriented to place and oriented to time Speech: speech normal Psych Psych Narrative: Affect is flat and mood is depressed Mood & Affect: depressed Assessment & Plan Assessment/Plan (1) Intractable nausea and vomiting: (2) Abdominal pain: (3) Acute dehydration: (4) Severe malnutrition: PLAN: Plan Abdominal pain/nausea/vomiting -Was feeling a little bit better however when he tried to take his pills with water he had recurrent nausea and vomiting with worsening abdominal pain -Etiology is unclear -CT of the abdomen pelvis with IV contrast is unremarkable--> I would like to do 1 with oral contrast however he will not tolerate this by mouth -May need to consider NG tube with contrast given that way obtaining a CT of the abdomen pelvis -Continue antiemetics -IV fluids per nephrology -Continue as needed pain medication -Fluid obtained this morning from peritoneal fluid for SBP -Continue antibiotics for now -Lipase is normal -Continue Protonix IV 40 mg p.o. twice daily -We will check amylase to help rule in or out mesenteric ischemia -GI consultation Acute dehydration -Resolved Hypertension -Pressure remains elevated -Unable to tolerate amlodipine -Continue enalaprilat but increase to 2.5 mg every 6 -Continue to trend Severe malnutrition -Patient currently n.p.o. given abdominal issues -We will start supplements and diabetic carb controlled diet once able End-stage renal disease -Did have HD previously but was transition to PD in August 2022 -PD dependent -Continue oral iron supplementation once p.o. intake can be established -Dialysate changed by a client business manager to help avoid dehydration -Nephrology following-appreciate input DM-2 -Continue insulin with sliding scale alone now -Patient on 15 units of Basaglar at baseline -Check hemoglobin A1c Peripheral vascular disease -Small vessel disease documented on previous notes from vascular surgery -Would consider addition of aspirin once p.o. is able to be tolerated Diabetic foot wound -Wound care following DVT prophylaxis -Continue subcu heparin CODE STATUS -DNR CCA with no intubation Charges/Coding Visit Charges Inpatient E&M: 05502 Subs Hosp L2
--- NOTE | 2022-11-12 17:27 | CON.PCM.GI_ITS ---
HPI Consult Data Date of Consult: 11/12/22 HPI Narrative Reason for Consultation: Intractable nausea vomiting HPI Narrative: ABDIEL SY, is a 42 M who presents intractable nausea vomiting. He has a past medical history of ESRD secondary to hypertension and diabetes on peritoneal? dialysis. He? presents to the emergency department with 3-day history of persistent nausea and vomiting.? Initially patient was not going to come to the hospital but later developed excruciating pain in his lower abdomen that prompted him to come to the emergency department.? He denies any subjective fever.? He reports chills and diaphoresis.? He reports that the day before his symptoms started he went to eat at [employer]. ? He denies any diarrhea. Of note patient was admitted of similar symptoms in September 2022.? At that time work-up for peritonitis came back negative. After talking to the hospitalist Dr. Patel it was determined that he does have a history of gastroparesis. He denies any marijuana usage and I am assuming that it was diagnosed secondary to diabetes. He cannot recall having a gastric emptying study. [facility] Medical History (Updated 11/12/22 @ 16:[address] Katelyn Patel, DO) Anemia Anxiety CPAP (continuous positive airway pressure) dependence Depression Diabetes Diabetes mellitus type 2 with complications Dialysis patient End stage renal disease ESRD on peritoneal dialysis ESRD on peritoneal dialysis Glaucoma Hypertension Hypertension IBS (irritable bowel syndrome) Kidney disease Sleep apnea Type 2 diabetes mellitus with diabetic polyneuropathy Home Medications amlodipine 5 mg tablet 5 mg PO DAILY blood pressure 01/08/22 [History Last Taken Unknown] lisinopril 40 mg tablet 40 mg PO DAILY blood pressure 01/08/22 [History Last Taken Unknown] omeprazole 40 mg capsule,delayed release 40 mg PO DAILY GERD 01/08/22 [History Last Taken Unknown] sucroferric oxyhydroxide 500 mg chewable tablet (Velphoro) 500 mg PO TIDCM renal disease 01/08/22 [History Last Taken Unknown] vitamin B complex-vitamin C-folic acid 0.8 mg tablet (Ifrah-Al) 1 tab PO DAILY supplement 01/08/22 [History Last Taken Unknown] insulin glargine 100 unit/mL (3 mL) subcutaneous pen (Basaglar KwikPen U-100 Insulin) 15 unit subcut QHS diabetes 03/24/22 [History Last Taken Unknown] ondansetron 4 mg disintegrating tablet 4 mg PO Q8H PRN PRN Nausea #10 tabs 10/04/22 [Rx Last Taken Unknown] metoclopramide HCl 5 mg tablet (Reglan) 5 mg PO Q6H PRN nausea and vomiting #16 tabs 10/08/22 [Rx Last Taken Unknown] Allergy/AdvReac Type Severity Reaction Status Date / Time tramadol AdvReac Intermediate Vomiting Verified 11/10/22 21:56 Family History Mother Diabetes Hypertension Brother Diabetes Surgical History H/O vascular surgery Social History housing: house Smoking Status: Never smoker alcohol intake: never substance use type: does not use well-balanced diet: daily or most days caffeine: No eating out: 4 or more times/week during the past year weight has: remained stable what type of physical activity do you participate in: none ROS ROS Narrative Pertinent positives and pertinent negatives as noted in HPI. All other systems were reviewed and are negative Physical Exam Const alert, oriented x3 and average body habitus; Negative for no apparent distress HEENT head/scalp atraumatic and moist oral mucous membranes Head and Scalp: normocephalic Resp normal respiratory effort, no retractions, no use of accessory muscles and clear to auscultation bilaterally Auscultation: Negative for rales, rhonchi or wheezes Cardio regular rate, regular rhythm, S1 normal heart sound, S2 normal heart sound, no murmurs, no rub, no gallops and no clicks GI GI Narrative: Diffuse abdominal tenderness, soft, no distention, bowel sounds are mildly hy poactive but present Extremity no clubbing, cyanosis or edema Extremity Narrative: 2+ pedal pulses Neuro oriented x3, moves all extremities and no focal motor deficits Sensorium / Orientation: awake, alert, oriented to person, oriented to place and oriented to time Speech: speech normal Psych Psych Narrative: Affect is flat and mood is depressed Mood & Affect: depressed Medical Records Data Medical Nutrition Assessment Dietitian: Malnutrition Criteria Met Start: 11/12/22 15:22 Freq: Status: Active Protocol: Document 11/12/22 15:22 AG (Rec: 11/12/22 15:22 [id number]) Nutrition Malnutrition Evidence of Malnutrition Exists Yes Malnutrition (severe): Acute Illness/Injury Evidenced By Suboptimal Energy Intake ( Severe),Weight Loss (Severe) Clinical Problem Acute Disease or Injury Related Malnutrition Etiology severe, acute malnutrition related to inadequate energy intake Signs/Symptoms as evidenced by unintentional wt loss of 6#/3.5% < 1 week; estimated PO intake meeting < 50% of estimated energy needs x 5 days Status Active Problem Recommendation Dietitian Recommendations/Changes recommend advance diet as tolerated to carbohydrate controlled, cardiac given evidence of acute malnutrition ; will await PO diet advancement as assess ONS need /acceptance Lab / Micro Data Result Diagrams: 11/12/22 07:07 11/12/22 07:07 Labs: Laboratory Results - last 24 hr 11/11/22 20:43: Urine Color Yellow, Urine Clarity Clear, Urine pH 8.0, Ur Specific [place] 1.015, Urine Protein 100 H, Urine Glucose (UA) 250 H, Urine Ketones Negative, Urine Occult Blood 10 H, Urine Nitrite Negative, Urine Bilirubin Negative, Urine Urobilinogen Normal, Ur Leukocyte Esterase Negative, Urine RBC 0 SEEN, Urine WBC 0 SEEN, Ur Squamous Epith Cells 0 SEEN, Urine Bacteria 0 SEEN, Urine Mucus 0 SEEN 11/11/22 23:11: POC Glucose 165 H 11/12/22 06:20: POC Glucose 136 H 11/12/22 07:07: WBC 10.0, RBC 3.08 L, Hgb 9.9 L, Hct 31.1 L, MCV 101.0 H, MCH 32.1 H, MCHC 31.8 L, RDW Std Deviation 46.5 H, RDW Coeff of Rhys 12.7, Plt Count 255, MPV 10.1, Immature Gran % (Auto) 0.300, Neut % (Auto) 62.4, Lymph % (Auto) 23.6, [place] % (Auto) 9.3, Eos % (Auto) 3.6, Baso % (Auto) 0.8, Absolute Neuts (auto) 6.3, Absolute Lymphs (auto) 2.37, Nucleated RBC % 0 11/12/22 07:07: Sodium 141, Potassium 3.9, Chloride 104, Carbon Dioxide 31.0, Anion Gap 6, BUN 59 H, Creatinine 13.00 H*, Estim Creat Clear Calc 7.49, Est GFR (MDRD) Af Amer 5 L, Est GFR (MDRD) Non-Af 5 L, BUN/Creatinine Ratio 4.5 L, Glucose 126 H, Calcium 8.9, Total Bilirubin 0.60, AST 10 L, ALT 14 L, Alkaline Phosphatase 54, Total Protein 5.8 L, Albumin 2.6 L, Globulin 3.2, Albumin/Globulin Ratio 0.8 L Assessment & Plan Assessment/Plan (1) Abdominal pain: (2) Intractable nausea and vomiting: PLAN: Plan Gastrointestinal symptoms are common in patients with chronic renal failure .Especially, in patients having continuous ambulatory peritoneal dialysis . A variety of GI symptoms in CAPD patients have been reported, of which, gastroesophageal reflux symptoms, dyspepsia and eating dysfunction seem to be the most common one. Peritoneal dialysis (PD) patients frequently suffer from dyspeptic complaints such as nausea, vomiting, abdominal distension, early satiety, and anorexia. Gastroparesis might be, at least partially, a source of dyspeptic complaints in PD patients. Influence of dialysate on gastric emptying time in peritoneal dialysis patients Results:?Gastric emptying was impaired in PD patients, regardless of the composition of dialysate and even if tested with an empty peritoneal cavity. Gastric emptying was significantly slower when glucose-containing dialysate was compared to an empty peritoneal cavity, or when glucose-containing dialysate was compared to icodextrin dialysate. No difference in gastric emptying could be demonstrated between glucose-containing dialysate and dialysate containing a mixture of glycerol and amino acids as osmotic agent. Conclusions:?These findings suggest that the delay in gastric emptying demonstrated in the presence of peritoneal dialysate is not the consequence of a mere volume or pressure effect, but of the absorption of substrate substances with caloric and/or metabolic activity, such as glucose or glycerol and amino acids. Recommend gastric emptying study. He will need to be on scheduled erythromycin or azithromycin, PPI, metoclopramide at baseline. He will also likely need domperidone as he should not. Await gastric emptying study. Charges/Coding Visit Charges Inpatient E&M: 22478 Init Hosp L3
[2022-11-12] MEDS: Metoclopramide 10 MG/2 ML Vial 5 MG IV (18:16)
[2022-11-12] MEDS: Enalaprilat 1.25 MG/ML Vial 2.5 MG IV ×2 (18:23→23:55)
[2022-11-12 19:17] LABS: Amylase 32 U/L (25-115)
[2022-11-12 19:30] LABS: Bedside Glucose 149 mg/dL (74-106)
--- NOTE | 2022-11-12 19:37 | PCM.PN.BLA ---
Progress Note Labs reviewed. Cell count unremarkable for peritonitis. WBC improved. vitals reviewed. Afebrile. BP elevated at time of nausea, vomiting this morning. GI consulted for gastroparesis. Continue with [facility] all 1.5% 2.5L fill volume x5 exchanges.
--- NOTE | 2022-11-12 20:33 | NURSING ---
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
[2022-11-12] MEDS: 0.9% Saline Lock 10 ML Syringe IV ×2 (21:26→23:57)
--- NOTE | 2022-11-12 23:44 | DIALYSIS ---
[facility] tx initiated using aseptic technique at 2315, all 1.5% dextrose bags, 2.5L fills x5 exchanges, 10 hr tx time, initial effluent pre-drained 1060mL, clear and yellow, no fibrin noted, looking at machine records from this AM & after speaking with pt, appears pt ended tx & disconnected after the 5th fill & did not drain (accounting for large pre-drain this evening), LUQ PD catheter dressing changed, site clean dry intact except for very small reddened area at insertion site, now in dwell 1 of 5
[2022-11-13] VITALS (9 sets, daily range): BP systolic 143–189; BP diastolic 67–83; PULSE 77–90; RESP 16–18; TEMP 36.4–36.9; O2SAT 95–100; BMI 23.8
[2022-11-13 00:17] LABS: Bedside Glucose 138 mg/dL (74-106)
[2022-11-13] MEDS: Heparin Injection (Vial) 5,000 UNIT/ML VIAL 5000 UNIT SC ×3 (05:51→22:10)
[2022-11-13] MEDS: Enalaprilat 1.25 MG/ML Vial 2.5 MG IV (05:51)
[2022-11-13] MEDS: 0.9% Saline Lock 10 ML Syringe IV ×2 (05:55→07:31)
[2022-11-13 06:22] LABS: Bedside Glucose 131 mg/dL (74-106)
[2022-11-13 06:49] LABS: Cholesterol 160 mg/dL (200); High Density Lipoprotein 32 mg/dL; Triglycerides 195 mg/dL; Very Low Density Lipoprotein 39 mg/dL (5-40)
[2022-11-13 07:31] LABS: Absolute Lymphocyte Count 2.61 X10^3/uL (0.83-4.51); Absolute Neutrophil Count 4.9 X10^3/uL (2.0-7.7); Basophil# 0.12 X10^3/uL; Basophil% 1.3 % (0-1); Eosinophil# 0.38 X10^3/uL; Eosinophils% 4.3 % (0-5); Hematocrit 30.2 % (40-54); Hemoglobin 9.5 g/dL (13.0-16.5); Lymphocyte # 2.61 X10^3/ul (0.83-4.51); Lymphocyte % 29.2 % (19-41); Mean Corp Hgb Conc 31.5 g/dL (32-36); Mean Corpuscular Hgb 31.6 pg (27.0-32.0); Mean Corpuscular Volume 100.3 fL (80-94); Mean Platelet Vol. 11.4 fl (6.2-12.0); Monocyte# 0.91 X10^3/uL; Monocyte% 10.2 % (0-10); NRBC Flagged by Analyzer 0 % (0-5); Neutrophil # 4.86 X10^3/uL (2.7-7.7); Neutrophil % 54.3 % (47-70); Platelet Count 256 K/mm3 (150-450); RBC Distribution Width CV 12.5 % (11.6-14.6); RBC Distribution Width SD 45.2 fl (35.1-43.9); Red Blood Count 3.01 M/mm3 (4.6-6.2); White Blood Count 8.9 K/mm3 (4.4-11.0)
[2022-11-13 07:44] LABS: Anion Gap 9 (5-15); BUN 57 mg/dL (7-18); BUN/Creat Ratio 4.4 RATIO (10-20); Calcium,Total 8.4 mg/dL (8.5-10.1); Chloride 104 mmol/L (98-107); EST Glomerular Filtration Rate 4 mL/min (>60); Est Glom Filt Rate - Afr Amer 5 mL/min (>60); Estimated Creatinine Clearance 7.43 ml/min; Glucose 142 mg/dL (74-106); Potassium 3.7 mmol/L (3.5-5.1); Sodium Level 142 mmol/L (136-145)
--- NOTE | 2022-11-13 08:00 | NM_ITS ---
CLINICAL: 42-year-old female with history of chronic nausea. SEMI-SOLID PHASE 99m Tc SULFUR COLLOID GASTRIC EMPTYING STUDY COMPARISON: CT of the abdomen-pelvis report 11/10/2022 FINDINGS: The patient was administered 1.2 mCi of 99m Tc sulfur colloid mixed with oatmeal and consumed per os. Image acquisitions in the anterior-posterior projections were obtained for 60 minutes. There is prompt visualization of the stomach. There is no gastroesophageal reflux identified. The T ? raw data emptying was calculated to be 26.11 minutes, (Normal: 12-56 minutes). NM/Gastric Emptying Study IMPRESSION: 1. NORMAL 99m Tc sulfur colloid semi-solid phase (oatmeal) gastric emptying imaging examination. A. There is normal and preserved semi-solid phase gastric emptying compared to normal. (Adan et al, J Nucl Med Tech 38: 186, 2010). Electronically Signed: Odilon Cazares, at 11:10 EDT ,
--- NOTE | 2022-11-13 08:14 | DIALYSIS ---
patient taken off treatment for testing after 4 exchanges. UF 210ml. Effluent drainage clear yellow. catheter secured to abdomen. report to RN.
[2022-11-13] MEDS: amLODIPine 5 MG Tablet PO (10:48)
[2022-11-13] MEDS: Lisinopril 40 MG Tablet PO ×2 (10:48→18:14)
[2022-11-13 14:06] LABS: Bedside Glucose 146 mg/dL (74-106)
[2022-11-13] MEDS: Metoprolol(XL)Succ 100 MG Tablet PO (14:25)
--- NOTE | 2022-11-13 14:36 | NURSING ---
Taking over care of pt at this time.
--- NOTE | 2022-11-13 15:12 | PN.HOSP_ITS ---
Reason for Visit Reason for Visit: Abdominal pain/intractable nausea and vomiting Subjective Subjective Patient states he is feeling much better today would like to try regular diet if possible. I told him we will advance him to full liquids and if he does well with that we will try regular food with a cardiac/carb controlled diet. Gastric emptying study was performed and was unremarkable. I did tell him we would wait to see what further recommendations from gastroenterology were. If he tolerates this well we did discuss possible discharge tomorrow. Objective Data Objective Data Vital Signs: Vital Signs Temp Pulse Resp BP Pulse Ox O2 Del Method O2 Flow Rate 98.0 F 77 16 189/83 H 98 Room Air 2 11/13/22 11:19 11/13/22 14:25 11/13/22 11:19 11/13/22 12:58 11/13/22 11:19 11/13/22 11:19 11/11/22 21:42 Oxygen Flow Rate (L/min) 2 Oxygen Delivery Method Room Air Weight: 75.3 kg Body Mass Index (BMI) 23.8 Intake & Output: Intake and Output for Last 24 Hours 11/11/22 11/12/22 11/13/22 23:59 23:59 23:59 Intake Total 2390 / 2510 560 / 680 369.5 / 369.5 Output Total 456 / 456 250 / 250 Balance 2390 / 2510 104 / 224 119.5 / 119.5 Medical Nutrition Assessment Dietitian: Malnutrition Criteria Met Start: 11/12/22 15:22 Freq: Status: Active Protocol: Document 11/12/22 15:22 AG (Rec: 11/12/22 15:22 [id number]) Nutrition Malnutrition Evidence of Malnutrition Exists Yes Malnutrition (severe): Acute Illness/Injury Evidenced By Suboptimal Energy Intake ( Severe),Weight Loss (Severe) Clinical Problem Acute Disease or Injury Related Malnutrition Etiology severe, acute malnutrition related to inadequate energy intake Signs/Symptoms as evidenced by unintentional wt loss of 6#/3.5% < 1 week; estimated PO intake meeting < 50% of estimated energy needs x 5 days Status Active Problem Recommendation Dietitian Recommendations/Changes recommend advance diet as tolerated to carbohydrate controlled, cardiac given evidence of acute malnutrition ; will await PO diet advancement as assess ONS need /acceptance Lab / Micro Data Result Diagrams: 11/13/22 05:42 11/13/22 05:42 Labs: Laboratory Results - last 24 hr 11/12/22 07:07: Hemoglobin A1c 6.0 H 11/12/22 07:07: Amylase 32 11/12/22 18:14: POC Glucose 149 H 11/12/22 23:51: POC Glucose 138 H 11/13/22 05:42: Triglycerides 195, Cholesterol 160, LDL Cholesterol 89, VLDL Cholesterol 39, HDL Cholesterol 32 L 11/13/22 05:42: WBC 8.9, RBC 3.01 L, Hgb 9.5 L, Hct 30.2 L, MCV 100.3 H, MCH 31.6, MCHC 31.5 L, RDW Std Deviation 45.2 H, RDW Coeff of Rhys 12.5, Plt Count 256, MPV 11.4, Immature Gran % (Auto) 0.700, Neut % (Auto) 54.3, Lymph % (Auto) 29.2, [place] % (Auto) 10.2 H, Eos % (Auto) 4.3, Baso % (Auto) 1.3 H, Absolute Neuts (auto) 4.9, Absolute Lymphs (auto) 2.61, Nucleated RBC % 0 11/13/22 05:42: Sodium 142, Potassium 3.7, Chloride 104, Carbon Dioxide 29.0, Anion Gap 9, BUN 57 H, Creatinine 13.10 H*, Estim Creat Clear Calc 7.43, Est GFR (MDRD) Af Amer 5 L, Est GFR (MDRD) Non-Af 4 L, BUN/Creatinine Ratio 4.4 L, Glucose 142 H, Calcium 8.4 L 11/13/22 05:59: POC Glucose 131 H 11/13/22 11:14: POC Glucose 146 H Micro: Microbiology 11/12/22 08:48 Fluid - Peritoneal Gram Stain - Final 11/12/22 08:48 Fluid - Peritoneal Body Fluid Culture - Preliminary No growth-Final to follow Radiography Diagnostic Testing: Radiology Impression Gastric Emptying Nuclear Medicine 11/13/22 08:00 IMPRESSION: 1. NORMAL 99m Tc sulfur colloid semi-solid phase (oatmeal) gastric emptying imaging examination. A. There is normal and preserved semi-solid phase gastric emptying compared to normal. (Adan et al, J Nucl Med Tech 38: 186, 2010). Electronically Signed: Odilon Cazares, at 11:10 EDT , Physical Exam Const alert, oriented x3 and average body habitus; Negative for no apparent distress Constitutional Narrative: Middle-aged white male, appears older than stated age, sitting up in bed, watching a movie on his phone, appears comfortable and nontoxic HEENT head/scalp atraumatic and moist oral mucous membranes HEENT Narrative: Mallampati 2, no thrush Head and Scalp: normocephalic Resp normal respiratory effort, no retractions, no use of accessory muscles and clear to auscultation bilaterally Auscultation: Negative for rales, rhonchi or wheezes Cardio regular rate, regular rhythm, S1 normal heart sound, S2 normal heart sound, no murmurs, no rub, no gallops and no clicks GI normal to inspection, nondistended, normoactive bowel sounds, soft to palpation and non-tender Extremity no clubbing, cyanosis or edema Extremity Narrative: 2+ pedal pulses Neuro oriented x3, moves all extremities and no focal motor deficits Sensorium / Orientation: awake, alert, oriented to person, oriented to place and oriented to time Speech: speech normal Psych Psych Narrative: Much more jovial and interactive today now that he is feeling better Assessment & Plan Assessment/Plan (1) Intractable nausea and vomiting: (2) Abdominal pain: (3) Acute dehydration: (4) Severe malnutrition: PLAN: Plan Abdominal pain/nausea/vomiting -Feeling much better now -Did well with clear liquid diet will advance to full's and if tolerates that to a regular diet of cardiac/carb controlled -Etiology is unclear -CT of the abdomen pelvis with IV contrast is unremarkable--> I would like to do 1 with oral contrast however he will not tolerate this by mouth -May need to consider NG tube with contrast given that way obtaining a CT of the abdomen pelvis -Continue antibiotics for now--> the peritoneal fluid so far has no growth and Gram stain is negative -Amylase and lipase were normal -Continue Protonix IV 40 mg p.o. twice daily -GI --> following discussed negative gastric emptying study. Recommended a talk screen to rule out marijuana use and getting a CT of his abdomen pelvis with oral contrast to further clarify Acute dehydration -Resolved Hypertension -Pressure remains elevated -Restart home amlodipine but increase to 10 mg -Restart home lisinopril -Metoprolol 100 mg daily added -Continue to trend Severe malnutrition -Patient currently n.p.o. given abdominal issues -We will start supplements and diabetic carb controlled diet once able End-stage renal disease -Did have HD previously but was transition to PD in August 2022 -PD dependent -Continue oral iron supplementation once p.o. intake can be established -Dialysate changed by a sales marketing director to help avoid dehydration -Nephrology following-appreciate input DM-2 -Continue insulin with sliding scale alone now -Patient on 15 units of Basaglar at baseline--> will restart now that on p.o. diet -A1c 6.0 Peripheral vascular disease -Small vessel disease documented on previous notes from vascular surgery -Would consider addition of aspirin once p.o. is able to be tolerated Diabetic foot wound -Wound care following DVT prophylaxis -Continue subcu heparin CODE STATUS -DNR CCA with no intubation Disposition: -Probable discharge in the next 24 hours as long as he remains stable Charges/Coding Visit Charges Inpatient E&M: 66809 Subs Hosp L2
--- NOTE | 2022-11-13 15:19 | CT_ITS ---
INDICATION: Abdominal pain -- Oral contrast only EXAMINATION: CT ABDOMEN AND PELVIS WITHOUT CONTRAST - CT Abdomen And Pelvis W/O Contrast Injection TECHNIQUE: Helically acquired images were obtained of the abdomen and pelvis without oral or IV contrast. A radiation dose optimization technique was used for this scan. IV Contrast dosage and agent: None. Oral contrast: Given RADIATION DOSAGE (If Supplied By Facility): CTDIvol = ( 9.36 ) mGy, DLP = ( 486.66 ) mGycm COMPARISON: 11/10/2022 FINDINGS: LOWER CHEST: Lung bases are clear. No cardiomegaly or pericardial effusion. LIVER: Homogeneous. No focal mass. GALLBLADDER AND BILIARY TREE: Contrast throughout the gallbladder, probably vicarious excretion from 11/10/2022 CT. No gallbladder distension or wall edema. No intra- or extrahepatic biliary ductal dilation. PANCREAS: No focal cystic or solid mass. SPLEEN: Normal size without focal cystic or solid mass. ADRENAL GLANDS: No nodules. KIDNEYS AND URETERS: Normal renal size and position. No hydronephrosis. PERITONEUM: Small pneumoperitoneum. Peritoneal dialysis catheter with a small amount of associated fluid in the pelvis. BOWEL: No evidence of acute appendicitis. No stomach or bowel distension. Enteric contrast reaches the sigmoid colon. No contrast extravasation. No focal inflammatory change. LYMPH NODES: No enlarged mesenteric or retroperitoneal lymph nodes. VESSELS: Aorta is non-dilated. URINARY BLADDER: Unremarkable. REPRODUCTIVE ORGANS: No pelvic masses. ABDOMINAL WALL: No discrete abdominal or pelvic wall hernia. BONES: Normal thoracolumbar vertebral alignment. CT/Abdomen/Pel W ORAL Cont Only IMPRESSION: Small pneumoperitoneum may be related to peritoneal dialysis catheter. No other acute abnormal finding in the abdomen or pelvis. Electronically Signed: Stevie Obrien MD at 17:56 EDT ,
[2022-11-13] MEDS: amLODIPine 10 MG Tablet PO (18:16)
[2022-11-13 18:41] LABS: Bedside Glucose 146 mg/dL (74-106)
--- NOTE | 2022-11-13 19:43 | PCM.PROGNOTE ---
Subjective Subjective Patient is tolerating a diet today without any problems. He underwent a gastric emptying study and CT scan abdomen pelvis today. Objective Data Objective Data Vital Signs: Vital Signs Temp Pulse Resp BP Pulse Ox O2 Del Method O2 Flow Rate 97.8 F 82 16 175/82 H 100 Room Air 2 11/13/22 18:15 11/13/22 18:15 11/13/22 18:15 11/13/22 18:15 11/13/22 18:15 11/13/22 19:33 11/11/22 21:42 Oxygen Flow Rate (L/min) 2 Oxygen Delivery Method Room Air Weight: 166 lb 0.129 oz Body Mass Index (BMI) 23.8 Intake & Output: Intake and Output for Last 24 Hours 11/11/22 11/12/22 11/13/22 23:59 23:59 23:59 Intake Total 2390 / 2510 560 / 680 1219.5 / 1219.5 Output Total 456 / 456 250 / 250 Balance 2390 / 2510 104 / 224 969.5 / 969.5 Medical Nutrition Assessment Dietitian: Malnutrition Criteria Met Start: 11/12/22 15:22 Freq: Status: Active Protocol: Document 11/12/22 15:22 AG (Rec: 11/12/22 15:22 AG [id number]) Nutrition Malnutrition Evidence of Malnutrition Exists Yes Malnutrition (severe): Acute Illness/Injury Evidenced By Suboptimal Energy Intake ( Severe),Weight Loss (Severe) Clinical Problem Acute Disease or Injury Related Malnutrition Etiology severe, acute malnutrition related to inadequate energy intake Signs/Symptoms as evidenced by unintentional wt loss of 6#/3.5% < 1 week; estimated PO intake meeting < 50% of estimated energy needs x 5 days Status Active Problem Recommendation Dietitian Recommendations/Changes recommend advance diet as tolerated to carbohydrate controlled, cardiac given evidence of acute malnutrition ; will await PO diet advancement as assess ONS need /acceptance Lab / Micro Data Result Diagrams: 11/13/22 05:42 11/13/22 05:42 Labs: Laboratory Results - last 24 hr 11/12/22 23:51: POC Glucose 138 H 11/13/22 05:42: Triglycerides 195, Cholesterol 160, LDL Cholesterol 89, VLDL Cholesterol 39, HDL Cholesterol 32 L 11/13/22 05:42: WBC 8.9, RBC 3.01 L, Hgb 9.5 L, Hct 30.2 L, MCV 100.3 H, MCH 31.6, MCHC 31.5 L, RDW Std Deviation 45.2 H, RDW Coeff of Rhys 12.5, Plt Count 256, MPV 11.4, Immature Gran % (Auto) 0.700, Neut % (Auto) 54.3, Lymph % (Auto) 29.2, [place] % (Auto) 10.2 H, Eos % (Auto) 4.3, Baso % (Auto) 1.3 H, Absolute Neuts (auto) 4.9, Absolute Lymphs (auto) 2.61, Nucleated RBC % 0 11/13/22 05:42: Sodium 142, Potassium 3.7, Chloride 104, Carbon Dioxide 29.0, Anion Gap 9, BUN 57 H, Creatinine 13.10 H*, Estim Creat Clear Calc 7.43, Est GFR (MDRD) Af Amer 5 L, Est GFR (MDRD) Non-Af 4 L, BUN/Creatinine Ratio 4.4 L, Glucose 142 H, Calcium 8.4 L 11/13/22 05:59: POC Glucose 131 H 11/13/22 11:14: POC Glucose 146 H 11/13/22 18:11: POC Glucose 146 H Micro: Microbiology 11/12/22 08:48 Fluid - Peritoneal Gram Stain - Final 11/12/22 08:48 Fluid - Peritoneal Body Fluid Culture - Preliminary No growth-Final to follow Radiography Diagnostic Testing: Radiology Impression Gastric Emptying Nuclear Medicine 11/13/22 08:00 IMPRESSION: 1. NORMAL 99m Tc sulfur colloid semi-solid phase (oatmeal) gastric emptying imaging examination. A. There is normal and preserved semi-solid phase gastric emptying compared to normal. (Adan et al, J Nucl Med Tech 38: 186, 2010). Electronically Signed: Odilon Cazares, at 11:10 EDT , Abdomen CT 11/13/22 15:19 IMPRESSION: Small pneumoperitoneum may be related to peritoneal dialysis catheter. No other acute abnormal finding in the abdomen or pelvis. Electronically Signed: Stevie Obrien MD at 17:56 EDT , Physical Exam Const alert, oriented x3 and average body habitus; Negative for no apparent distress HEENT head/scalp atraumatic and moist oral mucous membranes Head and Scalp: normocephalic Resp normal respiratory effort, no retractions, no use of accessory muscles and clear to auscultation bilaterally Auscultation: Negative for rales, rhonchi or wheezes Cardio regular rate, regular rhythm, S1 normal heart sound, S2 normal heart sound, no murmurs, no rub, no gallops and no clicks GI GI Narrative: Diffuse abdominal tenderness, soft, no distention, bowel sounds are mildly hypoactive but present Extremity no clubbing, cyanosis or edema Extremity Narrative: 2+ pedal pulses Neuro oriented x3, moves all extremities and no focal motor deficits Sensorium / Orientation: awake, alert, oriented to person, oriented to place and oriented to time Speech: speech normal Psych Psych Narrative: Affect is flat and mood is depressed Mood & Affect: depressed Assessment & Plan Assessment/Plan (1) Abdominal pain: (2) Intractable nausea and vomiting: PLAN: Plan Gastrointestinal symptoms are common in patients with chronic renal failure .Especially, in patients having continuous ambulatory peritoneal dialysis . A variety of GI symptoms in CAPD patients have been reported, of which, gastroesophageal reflux symptoms, dyspepsia and eating dysfunction seem to be the most common one. Peritoneal dialysis (PD) patients frequently suffer from dyspeptic complaints such as nausea, vomiting, abdominal distension, early satiety, and anorexia. Gastroparesis might be, at least partially, a source of dyspeptic complaints in PD patients. Influence of dialysate on gastric emptying time in peritoneal dialysis patients Results:?Gastric emptying was impaired in PD patients, regardless of the composition of dialysate and even if tested with an empty peritoneal cavity. Gastric emptying was significantly slower when glucose-containing dialysate was compared to an empty peritoneal cavity, or when glucose-containing dialysate was compared to icodextrin dialysate. No difference in gastric emptying could be demonstrated between glucose-containing dialysate and dialysate containing a mixture of glycerol and amino acids as osmotic agent. Conclusions:?These findings suggest that the delay in gastric emptying demonstrated in the presence of peritoneal dialysate is not the consequence of a mere volume or pressure effect, but of the absorption of substrate substances with caloric and/or metabolic activity, such as glucose or glycerol and amino acids. Recommend gastric emptying study. He will need to be on scheduled erythromycin or azithromycin, PPI, metoclopramide at baseline. He will also likely need domperidone as he should not. Await gastric emptying study. 11/13/2022: Patient is not actually having any problems at this time and regarding his oral intake. His gastric emptying study did not show any signs of delayed gastric emptying with solid foods for a 1 hour gastric emptying study. His intermittent nausea and dry heaving with intermittent vomiting has unknown etiology at this time. I suspect he does have some motility disorder. I am not sure if it has to do with his diastole. He should be checked for autoimmune disease and other diseases that would cause his symptoms. I will send ANCA antibodies, JOHANNA, ESR, CRP, serum protein electrophoresis for analysis. Charges/Coding Visit Charges Inpatient E&M: 81697 Subs Hosp L3
--- NOTE | 2022-11-13 20:54 | NURSING ---
20:30 pm Patient self connected to peritoneal dialysis machine at this time no concerns at this time. call light within reach
[2022-11-13 21:00] LABS: Erythrocyte Sedimentation Rate 26 mm/hr (0-20)
[2022-11-13 21:16] LABS: CRP < 2.90 mg/L (0.0-3.0); LDH 262 U/L (87-241)
[2022-11-13] MEDS: Insulin Glargine-YFGN 100 UNIT/ML Pen 15 UNIT SC (22:10)
[2022-11-13] MEDS: Insulin Lispro 100 UNIT/ML INSULN.PEN SC (23:47)
[2022-11-13 23:58] LABS: Bedside Glucose 158 mg/dL (74-106)
[2022-11-14] VITALS (8 sets, daily range): BP systolic 131–166; BP diastolic 58–79; PULSE 75–80; RESP 16–18; TEMP 36.7–37.1; O2SAT 95–100; BMI 25.1
[2022-11-14 00:18] LABS: Bedside Glucose 183 mg/dL (74-106)
[2022-11-14] MEDS: hydrALAZINE 20 MG/ML Vial 10 MG IV (04:10)
[2022-11-14] MEDS: 0.9% Saline Lock 10 ML Syringe IV (04:11)
[2022-11-14] MEDS: Heparin Injection (Vial) 5,000 UNIT/ML VIAL 5000 UNIT SC (06:03)
[2022-11-14 06:34] LABS: Absolute Lymphocyte Count 1.65 X10^3/uL (0.83-4.51); Absolute Neutrophil Count 7.6 X10^3/uL (2.0-7.7); Basophil# 0.09 X10^3/uL; Basophil% 0.8 % (0-1); Eosinophil# 0.41 X10^3/uL; Eosinophils% 3.8 % (0-5); Hematocrit 29.7 % (40-54); Hemoglobin 9.7 g/dL (13.0-16.5); Lymphocyte # 1.65 X10^3/ul (0.83-4.51); Lymphocyte % 15.2 % (19-41); Mean Corp Hgb Conc 32.7 g/dL (32-36); Mean Corpuscular Hgb 31.9 pg (27.0-32.0); Mean Corpuscular Volume 97.7 fL (80-94); Mean Platelet Vol. 10.7 fl (6.2-12.0); Monocyte# 0.99 X10^3/uL; Monocyte% 9.1 % (0-10); NRBC Flagged by Analyzer 0 % (0-5); Neutrophil # 7.63 X10^3/uL (2.7-7.7); Neutrophil % 70.6 % (47-70); Platelet Count 250 K/mm3 (150-450); RBC Distribution Width CV 12.4 % (11.6-14.6); RBC Distribution Width SD 44.3 fl (35.1-43.9); Red Blood Count 3.04 M/mm3 (4.6-6.2); White Blood Count 10.8 K/mm3 (4.4-11.0)
[2022-11-14 06:41] LABS: Bedside Glucose 98 mg/dL (74-106)
[2022-11-14 07:15] LABS: Anion Gap 11 (5-15); BUN 48 mg/dL (7-18); BUN/Creat Ratio 3.8 RATIO (10-20); Calcium,Total 8.4 mg/dL (8.5-10.1); Chloride 100 mmol/L (98-107); EST Glomerular Filtration Rate 5 mL/min (>60); Est Glom Filt Rate - Afr Amer 6 mL/min (>60); Estimated Creatinine Clearance 7.72 ml/min; Glucose 98 mg/dL (74-106); Potassium 3.8 mmol/L (3.5-5.1); Sodium Level 140 mmol/L (136-145)
--- NOTE | 2022-11-14 08:00 | PCM.PROGNOTE ---
Subjective Subjective Patient still continues to have no abdominal pain, nausea and is able to eat. Objective Data Objective Data Vital Signs: Vital Signs Temp Pulse Resp BP Pulse Ox O2 Del Method O2 Flow Rate 98.0 F 77 16 134/69 H 97 Room Air 2 11/14/22 10:42 11/14/22 10:42 11/14/22 10:42 11/14/22 10:42 11/14/22 10:42 11/14/22 10:42 11/11/22 21:42 Oxygen Flow Rate (L/min) 2 Oxygen Delivery Method Room Air Weight: 175 lb 4.28 oz Body Mass Index (BMI) 25.1 Intake & Output: Intake and Output for Last 24 Hours 11/12/22 11/13/22 11/14/22 23:59 23:59 23:59 Intake Total 560 / 680 1329.5 / 1329.5 50 / 50 Output Total 456 / 456 250 / 250 471 / 471 Balance 104 / 224 1079.5 / 1079.5 -421 / -421 Lab / Micro Data Result Diagrams: 11/14/22 06:08 11/14/22 06:08 Labs: Laboratory Results - last 24 hr 11/13/22 20:35: ESR 26 H 11/13/22 20:35: Lactate Dehydrogenase 262 H, C-React Prot Ext Range < 2.90 11/13/22 22:09: POC Glucose 158 H 11/13/22 23:46: POC Glucose 183 H 11/14/22 06:01: POC Glucose 98 11/14/22 06:08: WBC 10.8, RBC 3.04 L, Hgb 9.7 L, Hct 29.7 L, MCV 97.7 H, MCH 31.9, MCHC 32.7, RDW Std Deviation 44.3 H, RDW Coeff of Rhys 12.4, Plt Count 250, MPV 10.7, Immature Gran % (Auto) 0.500, Neut % (Auto) 70.6 H, Lymph % (Auto) 15.2 L, [place] % (Auto) 9.1, Eos % (Auto) 3.8, Baso % (Auto) 0.8, Absolute Neuts (auto) 7.6, Absolute Lymphs (auto) 1.65, Nucleated RBC % 0 11/14/22 06:08: Sodium 140, Potassium 3.8, Chloride 100, Carbon Dioxide 29.0, Anion Gap 11, BUN 48 H, Creatinine 12.60 H*, Estim Creat Clear Calc 7.72, Est GFR (MDRD) Af Amer 6 L, Est GFR (MDRD) Non-Af 5 L, BUN/Creatinine Ratio 3.8 L, Glucose 98, Calcium 8.4 L Micro: Microbiology 11/14/22 03:27 Stool C. difficile GDH Antigen & Toxins - Final Toxigenic C. difficile 11/14/22 03:27 Stool C. difficile DNA Amplification - Final 11/12/22 08:48 Fluid - Peritoneal Gram Stain - Final 11/12/22 08:48 Fluid - Peritoneal Body Fluid Culture - Preliminary No growth-Final to follow 11/12/22 08:48 Fluid - Peritoneal Anaerobic Culture - Preliminary No growth in 48 hours. Physical Exam Narrative Patient states he is feeling very well and anxious to go home. He was diagnosed with C. difficile colitis and and a microbials were initiated on the day of discharge. He was tolerating a p.o. diet without difficulty. He states he is feeling much better. Const alert, oriented x3 and average body habitus; Negative for no apparent distress Constitutional Narrative: Middle-aged white male, appears older than stated age, sitting up in bed, watching television and awaiting his breakfast to arrive, appears comfortable and nontoxic General Appearance: cooperative, comfortable, well kempt and well developed Orientation / Consciousness: awake, oriented to person, oriented to place and oriented to time Exam Limitations: no limitations HEENT normocephalic, head/scalp atraumatic, hearing grossly normal bilaterally and moist oral mucous membranes HEENT Narrative: Mallampati 2, no thrush Eyes PERRL, EOMs intact bilaterally and conjunctivae normal Eyes Narrative: No scleral icterus Neck no lymphadenopathy and supple Neck Narrative: Trachea midline, no thyroid enlargement Resp normal respiratory effort, no retractions, no use of accessory muscles and clear to auscultation bilaterally Auscultation: Negative for rales, rhonchi or wheezes Cardio regular rate, regular rhythm, S1 normal heart sound, S2 normal heart sound, no murmurs, no rub, no gallops and no clicks GI normal to inspection, nondistended, normoactive bowel sounds, soft to palpation and non-tender GI Narrative: PD catheter in place-clean dry and intact Extremity no clubbing, cyanosis or edema Extremity Narrative: 2+ pedal pulses Skin no rashes or lesions noted, no wounds, skin turgor normal and no jaundice Skin Narrative: Pale Neuro oriented x3, CN's II-XII intact bilaterally, moves all extremities and no focal motor deficits Sensorium / Orientation: awake, alert, oriented to person, oriented to place and oriented to time Speech: speech normal Motor Exam: strength 5/5 throughout Psych affect normal Psych Narrative: Eye contact is good, mood is good Assessment & Plan Assessment/Plan (1) Abdominal pain: (2) Intractable nausea and vomiting: PLAN: Plan Gastrointestinal symptoms are common in patients with chronic renal failure .Especially, in patients having continuous ambulatory peritoneal dialysis . A variety of GI symptoms in CAPD patients have been reported, of which, gastroesophageal reflux symptoms, dyspepsia and eating dysfunction seem to be the most common one. Peritoneal dialysis (PD) patients frequently suffer from dyspeptic complaints such as nausea, vomiting, abdominal distension, early satiety, and anorexia. Gastroparesis might be, at least partially, a source of dyspeptic complaints in PD patients. Influence of dialysate on gastric emptying time in peritoneal dialysis patients Results:?Gastric emptying was impaired in PD patients, regardless of the composition of dialysate and even if tested with an empty peritoneal cavity. Gastric emptying was significantly slower when glucose-containing dialysate was compared to an empty peritoneal cavity, or when glucose-containing dialysate was compared to icodextrin dialysate. No difference in gastric emptying could be demonstrated between glucose-containing dialysate and dialysate containing a mixture of glycerol and amino acids as osmotic agent. Conclusions:?These findings suggest that the delay in gastric emptying demonstrated in the presence of peritoneal dialysate is not the consequence of a mere volume or pressure effect, but of the absorption of substrate substances with caloric and/or metabolic activity, such as glucose or glycerol and amino acids. Recommend gastric emptying study. He will need to be on scheduled erythromycin or azithromycin, PPI, metoclopramide at baseline. He will also likely need domperidone as he should not. Await gastric emptying study. 11/13/2022: Patient is not actually having any problems at this time and regarding his oral intake. His gastric emptying study did not show any signs of delayed gastric emptying with solid foods for a 1 hour gastric emptying study. His intermittent nausea and dry heaving with intermittent vomiting has unknown etiology at this time. I suspect he does have some motility disorder. I am not sure if it has to do with his diastole. He should be checked for autoimmune disease and other diseases that would cause his symptoms. I will send ANCA antibodies, JOHANNA, ESR, CRP, serum protein electrophoresis for analysis.
[2022-11-14] MEDS: SUCROFERRIC OXYHYDROXIDE 500 MG TAB.CHEW 1000 MG PO (08:20)
[2022-11-14] MEDS: amLODIPine 10 MG Tablet PO (08:22)
[2022-11-14] MEDS: Lisinopril 40 MG Tablet PO (08:24)
[2022-11-14] MEDS: Metoprolol(XL)Succ 100 MG Tablet PO (08:24)
--- NOTE | 2022-11-14 09:41 | DIALYSIS ---
pt had already unhooked self from PD cycler at approximately 0830 this morning. UF 471ml. Effluent clear/no fibrin noted. See Flowsheet for full tx details. report to Radha GREENWOOD
--- NOTE | 2022-11-14 10:21 | PCM.DC.SUM ---
Providers Date of Admission: 11/11/22 Date of Discharge: 11/14/22 Primary Care Physician: Manuela Primary Care Phys Consultations 11/11/22 04:11 Consult: Nephrology Routine Consulting Provider: Fabby Patel Reason for Consult: esrd on peritoneal dialysis EMERGENT Consult: No Notified: Yes Date Notified: 11/11/22 Time Notified: 06:20 Method of Notification: Text 11/12/22 09:44 Consult: Gastroenterology Routine Consulting Provider: Tasneem Gastroenterology Reason for Consult: Intractable N/V, Peritoneal dialysis EMERGENT Consult: No Notified: Yes Date Notified: 11/12/22 Time Notified: 09:49 Method of Notification: Text Reason For Visit: INTRACTABLE NAUSEA AND VOMITING Diagnosis Discharge Diagnosis (1) Abdominal pain: Status: Acute Code(s): R10.9 - Unspecified abdominal pain (2) Intractable nausea and vomiting: Status: Acute Code(s): R11.2 - Nausea with vomiting, unspecified (3) C. difficile colitis: Status: Acute Code(s): A04.72 - Enterocolitis due to Clostridium difficile, not specified as recurrent Medications at Discharge Home Medications lisinopril 40 mg tablet 40 mg PO DAILY blood pressure 01/08/22 omeprazole 40 mg capsule,delayed release 40 mg PO DAILY GERD 01/08/22 sucroferric oxyhydroxide 500 mg chewable tablet (Velphoro) 1,000 mg PO TIDCM renal disease 01/08/22 vitamin B complex-vitamin C-folic acid 0.8 mg tablet (Ifrah-Al) 1 tab PO DAILY supplement 01/08/22 insulin glargine 100 unit/mL (3 mL) subcutaneous pen (Basaglar KwikPen U-100 Insulin) 15 unit subcut QHS diabetes 03/24/22 ondansetron 4 mg disintegrating tablet 4 mg PO Q8H PRN PRN Nausea #10 tabs 10/04/22 metoclopramide HCl 5 mg tablet (Reglan) 5 mg PO Q6H PRN nausea and vomiting #16 tabs 10/08/22 amlodipine 10 mg tablet 10 mg PO DAILY #30 tabs 11/14/22 metoprolol succinate 100 mg tablet,extended release 24 hr 100 mg PO DAILY #30 tabs 11/14/22 vancomycin 25 mg/mL oral solution (Firvanq) 125 mg (5 mL) PO Q6 14 days #280 mL 11/14/22 Hospital Course Procedures - (The abdomen pelvis with IV contrast/CT abdomen and pelvis with p.o. contrast/gastric emptying study) Summary of Care Provided Minutes Spent on Discharge: 37 Hospital Course: Mr. Snyder is a 42-year-old white male with a complex past medical history who was admitted to the emergency department at [facility] on 11/11/2022 with abdominal pain, nausea, and vomiting. Symptoms have been intractable. He had a recent admission here for very similar symptoms on 10/05/2022 through 10/08/2072. At that time an extensive work-up with regards to infectious SBP related to his chronic peritoneal dialysis catheter was pursued and etiology for his nausea vomiting was never found however his peritoneal fluid was not positive for SBP and he was able to be discharged home in stable condition. He evidently has a long history of nausea and vomiting episodes. He states his abdominal pain was worse at this time. He has had no diarrhea. CT scan in the emergency department was overall unremarkable other than some mild gastritis changes related to the lower esophagus. That initial CT was done with IV contrast only. He was placed on IV fluids, continued on his peritoneal dialysis and Zosyn was started and concern again for SBP. Peritoneal fluid was obtained. His liaison inspection laboratory assistant was consulted to help manage his peritoneal dialysis. He did feel little bit better with IV fluids however still was having intractable nausea and vomiting so we did get gastroenterology to evaluate the patient. He was sent down for gastric emptying study which was unremarkable surprisingly. We obtained a CT of the abdomen pelvis with oral contrast once his nausea vomiting improved and this showed no remarkable abnormalities as well. He slowly got better with time and by the afternoon of 11/13/2022 he was tolerating regular food well without any nausea vomiting or abdominal pain. Patient denied any marijuana use. And overall the etiology of his presentation is still unclear. On the evening of 11/13/2022 through 11/14/2022 he developed diarrhea that was quite voluminous and watery. This was sent for C. difficile. It was found to be positive for PCR and toxin and oral vancomycin was started. I am unclear if this is actually the etiology of his abdominal pain nausea vomiting as he did not have diarrhea until that time, in fact he was constipated not having bowel movements at all however he does have risk factors with recent antibiotic use both at this admission and his previous admission. He continued to tolerate a p.o. diet well and was started on oral vancomycin. We discussed risk factors for recurrent C. difficile and precautions he should take at home with regards to toileting and relationship to the other family members in his house. He was also strongly encouraged to focus on frequent handwashing. He voiced understanding and pamphlets were given prior to discharge. His blood pressure was also quite high during his hospitalization despite reinitiating his home medications. He was maintained on his lisinopril 40 daily. His amlodipine was increased from 5 mg to 10 mg daily and metoprolol 100 mill grams daily was added which did dramatically improve his blood pressure, but he still will need outpatient follow-up for further titration depending on continued response. His diastole was changed as well to hopefully decrease his risk of dehydration as this seems to exacerbate things for him previously. I have strongly encouraged him to find a primary care physician to follow-up with. He is to follow-up with his liaison inspection laboratory assistant in the next month to reevaluate his blood pressure and with behavioral sciences instructor to follow-up with testing that he has done here and also in regards to his chronic nausea vomiting and abdominal pain issues that seem to be intermittent when reviewed on previous records as well. Patient was able to be discharged home in stable condition on 11/14/2022 with new prescriptions for his blood pressure medication and treatment for his C. difficile colitis. Discharge diagnoses: Intractable abdominal pain-resolved Intractable nausea and vomiting-resolved C. difficile colitis Acute dehydration-resolved Hypertension Severe malnutrition End-stage renal disease on PD DM-2 PVD History of diabetic foot wounds Physical Exam Narrative Patient states he is feeling very well and anxious to go home. He was diagnosed with C. difficile colitis and and a microbials were initiated on the day of discharge. He was tolerating a p.o. diet without difficulty. He states he is feeling much better. Const alert, oriented x3 and average body habitus; Negative for no apparent distress Constitutional Narrative: Middle-aged white male, appears older than stated age, sitting up in bed, watching television and awaiting his breakfast to arrive, appears comfortable and nontoxic General Appearance: cooperative, comfortable, well kempt and well developed Orientation / Consciousness: awake, oriented to person, oriented to place and oriented to time Exam Limitations: no limitations HEENT normocephalic, head/scalp atraumatic, hearing grossly normal bilaterally and moist oral mucous membranes HEENT Narrative: Mallampati 2, no thrush Eyes PERRL, EOMs intact bilaterally and conjunctivae normal Eyes Narrative: No scleral icterus Neck no lymphadenopathy and supple Neck Narrative: Trachea midline, no thyroid enlargement Resp normal respiratory effort, no retractions, no use of accessory muscles and clear to auscultation bilaterally Auscultation: Negative for rales, rhonchi or wheezes Cardio regular rate, regular rhythm, S1 normal heart sound, S2 normal heart sound, no murmurs, no rub, no gallops and no clicks GI normal to inspection, nondistended, normoactive bowel sounds, soft to palpation and non-tender GI Narrative: PD catheter in place-clean dry and intact Extremity no clubbing, cyanosis or edema Extremity Narrative: 2+ pedal pulses Skin no rashes or lesions noted, no wounds, skin turgor normal and no jaundice Skin Narrative: Pale Neuro oriented x3, CN's II-XII intact bilaterally, moves all extremities and no focal motor deficits Sensorium / Orientation: awake, alert, oriented to person, oriented to place and oriented to time Speech: speech normal Motor Exam: strength 5/5 throughout Psych affect normal Psych Narrative: Eye contact is good, mood is good Medical Records Data Medical Nutrition Assessment Dietitian: Malnutrition Criteria Met Start: 11/12/22 15:22 Freq: Status: Active Protocol: Document 11/12/22 15:22 (Rec: 11/12/22 15:22 [id number]) Nutrition Malnutrition Evidence of Malnutrition Exists Yes Malnutrition (severe): Acute Illness/Injury Evidenced By Suboptimal Energy Intake ( Severe),Weight Loss (Severe) Clinical Problem Acute Disease or Injury Related Malnutrition Etiology severe, acute malnutrition related to inadequate energy intake Signs/Symptoms as evidenced by unintentional wt loss of 6#/3.5% < 1 week; estimated PO intake meeting < 50% of estimated energy needs x 5 days Status Active Problem Recommendation Dietitian Recommendations/Changes recommend advance diet as tolerated to carbohydrate controlled, cardiac given evidence of acute malnutrition ; will await PO diet advancement as assess ONS need /acceptance Weight / BMI Weight Weight: 79.5 kg Body Mass Index (BMI) 25.1 ABG / Lab / Microbiology Data Result Diagrams: 11/14/22 06:08 11/14/22 06:08 Laboratory: Laboratory Results - last 24 hr 11/13/22 11:14: POC Glucose 146 H 11/13/22 18:11: POC Glucose 146 H 11/13/22 20:35: ESR 26 H 11/13/22 20:35: Lactate Dehydrogenase 262 H, C-React Prot Ext Range < 2.90 11/13/22 22:09: POC Glucose 158 H 11/13/22 23:46: POC Glucose 183 H 11/14/22 06:01: POC Glucose 98 11/14/22 06:08: WBC 10.8, RBC 3.04 L, Hgb 9.7 L, Hct 29.7 L, MCV 97.7 H, MCH 31.9, MCHC 32.7, RDW Std Deviation 44.3 H, RDW Coeff of Rhys 12.4, Plt Count 250, MPV 10.7, Immature Gran % (Auto) 0.500, Neut % (Auto) 70.6 H, Lymph % (Auto) 15.2 L, Gem % (Auto) 9.1, Eos % (Auto) 3.8, Baso % (Auto) 0.8, Absolute Neuts (auto) 7.6, Absolute Lymphs (auto) 1.65, Nucleated RBC % 0 11/14/22 06:08: Sodium 140, Potassium 3.8, Chloride 100, Carbon Dioxide 29.0, Anion Gap 11, BUN 48 H, Creatinine 12.60 H*, Estim Creat Clear Calc 7.72, Est GFR (MDRD) Af Amer 6 L, Est GFR (MDRD) Non-Af 5 L, BUN/Creatinine Ratio 3.8 L, Glucose 98, Calcium 8.4 L Microbiology: Microbiology 11/14/22 03:27 Stool C. difficile GDH Antigen & Toxins - Final 11/14/22 03:27 Stool C. difficile DNA Amplification - Final 11/12/22 08:48 Fluid - Peritoneal Gram Stain - Final 11/12/22 08:48 Fluid - Peritoneal Body Fluid Culture - Preliminary No growth-Final to follow 11/12/22 08:48 Fluid - Peritoneal Anaerobic Culture - Preliminary No growth in 48 hours. Radiography Diagnostic Testing: Radiology Impression Gastric Emptying Nuclear Medicine 11/13/22 08:00 IMPRESSION: 1. NORMAL 99m Tc sulfur colloid semi-solid phase (oatmeal) gastric emptying imaging examination. A. There is normal and preserved semi-solid phase gastric emptying compared to normal. (Adan et al, J Nucl Med Tech 38: 186, 2010). Electronically Signed: Odilon Sage, at 11:10 EDT , Abdomen CT 11/13/22 15:19 IMPRESSION: Small pneumoperitoneum may be related to peritoneal dialysis catheter. No other acute abnormal finding in the abdomen or pelvis. Electronically Signed: Stevie Obrien MD at 17:56 EDT , D/C Instructions Discharge Diet: 1800 Calorie Control Diet and Renal Diet Discharge Activity: Return to Normal Activity Meaningful Use Info Meaningful Use Diagnoses (Choose all that apply): None applicable Discharge Plan Admission Admit Date/Time: 11/11/22 03:39 Primary Reason for Your Visit: Intractable Nausea and Vomiting.Abdominal Pain Attending Provider: Katelyn Patel Primary Care Provider: Care Physician,No Primary Consulting Providers: Fabby Patel ; Antolin Monge Instructions Additional Instructions / Restrictions: 1. You were diagnosed with C. difficile colitis during her hospitalization. Please continue your vancomycin for the full course of treatment 2. Your blood pressure was quite high during her hospitalization and we added some medication and increased your amlodipine please take all of your antihypertensives as directed 3. I highly recommend you find a primary care physician and establish with them as soon as you can Discharge Orders/Prescriptions Prescriptions: New metoprolol succinate 100 mg Tablet Extended Release 24 Hr 100 mg PO DAILY Qty: 30 1RF amlodipine 10 mg Tablet 10 mg PO DAILY Qty: 30 1RF vancomycin [Firvanq] 25 mg/mL Recon Soln 125 mg PO Q6 14 Days Qty: 280 0RF Continued Velphoro 500 mg tablet,chewable 1,000 mg PO TIDCM Ifrah-Al 0.8 mg tablet 1 tab PO DAILY omeprazole 40 mg capsule,delayed release(DR/EC) 40 mg PO DAILY lisinopril 40 mg tablet 40 mg PO DAILY insulin glargine [Basaglar KwikPen U-100 Insulin] 100 unit/mL (3 mL) Insulin Pen 15 unit SUBCUT QHS ondansetron 4 mg tablet,disintegrating 4 mg PO Q8H PRN PRN (Reason: Nausea) Qty: 10 0RF metoclopramide HCl [Reglan] 5 mg tablet 5 mg PO Q6H PRN (Reason: nausea and vomiting) Qty: 16 0RF Discontinued amlodipine 5 mg tablet 5 mg PO DAILY Referrals / Follow Up: Fabby Patel DO [Med Staff - Consulting] - Within 1 Month (Call on Wednesday to set up an appointment) Todd Mcclellan DO [Med Staff - Active Staff] - Within 1 Month (Call On Wednesday to set up an appointment) Care Physician,No Primary [Primary Care Provider] - Disposition Disposition (needs filled in before D/C Order can be placed): Home, Self Care Charges/Coding Visit Charges Inpatient E&M: 31850 Disch Hosp >30min
--- NOTE | 2022-11-14 11:14 | CASEMGMT ---
TC to [facility], they do not have the liquid vanco and pt insurance will not cover it. Pharmacist able to switch to capsules and insurance covered at 100%. Hospitalist updated and agreeable.
[2022-11-14] MEDS: Vancomycin 125 MG/5 ML Susp PO.SYRINGE PO (11:36)
[2022-11-17 14:09] LABS: Anti-Centromere B Ab <0.2 AI (0.0-0.9); Anti-Chromatin <0.2 AI (0.0-0.9); Anti-Jo <0.2 AI (0.0-0.9); Anti-Scleroderma-70 AB <0.2 AI (0.0-0.9); Anti-dsDNA Ab <1 IU/mL (0-9); RNP Ab 0.3 AI (0.0-0.9); SJOGREN'S Anti-SS-A test < 0.2 AI (0.0-0.9); SJOGREN'S Anti-SS-B test < 0.2 AI (0.0-0.9); Smith Ab <0.2 AI (0.0-0.9)
[2022-11-18 15:08] LABS: Albumin 3.4 g/dL (2.9-4.4); Alpha-1-Globulins 0.2 g/dL (0.0-0.4); Alpha-2-Globulins 1.1 g/dL (0.4-1.0); Cytoplasmic Ab (C-ANCA) <1:20 titer (Neg:<1:20); Gamma Globulin 0.6 g/dL (0.4-1.8); Immunoglobulin A 338 mg/dL (90-386); Immunoglobulin G 724 mg/dL (603-1613); Immunoglobulin M 50 mg/dL (20-172); PROEL- TOTAL PROTEIN 6.2 g/dL (6.0-8.5); Perinuclear Ab (P-ANCA) <1:20 titer (Neg:<1:20)
== END 2022-11-14 12:36 | disposition home or self-care (01) | DRG 371 ==
LOC: ED 11-11 03:06 → PCU 11-11 04:30
PROVIDERS: Internal Medicine Gastroenterology; Admitting Provider Hospitalist; Emergency Provider Emergency Medicine; Visit Provider Internal Medicine
DX: A04.72 Enterocolitis due to Clostridium difficile, not specified as recurrent (principal); N18.6 End stage renal disease; E43 Unspecified severe protein-calorie malnutrition; I12.0 Hypertensive chronic kidney disease with stage 5 chronic kidney disease or end stage renal disease; L97.509 Non-pressure chronic ulcer of other part of unspecified foot with unspecified severity; E11.22 Type 2 diabetes mellitus with diabetic chronic kidney disease; E86.0 Dehydration; E11.42 Type 2 diabetes mellitus with diabetic polyneuropathy; E11.621 Type 2 diabetes mellitus with foot ulcer; E11.65 Type 2 diabetes mellitus with hyperglycemia; Z79.4 Long term (current) use of insulin; E11.43 Type 2 diabetes mellitus with diabetic autonomic (poly)neuropathy; E11.51 Type 2 diabetes mellitus with diabetic peripheral angiopathy without gangrene; Z99.2 Dependence on renal dialysis; K29.70 Gastritis, unspecified, without bleeding; E83.52 Hypercalcemia; K21.00 Gastro-esophageal reflux disease with esophagitis, without bleeding; K80.20 Calculus of gallbladder without cholecystitis without obstruction; K57.30 Diverticulosis of large intestine without perforation or abscess without bleeding; K44.9 Diaphragmatic hernia without obstruction or gangrene; K31.84 Gastroparesis; Z79.891 Long term (current) use of opiate analgesic; Z79.01 Long term (current) use of anticoagulants; Z66 Do not resuscitate; F32.A Depression, unspecified; Z68.23 Body mass index [BMI] 23.0-23.9, adult
CPT/HCPCS: 36415; 74176; 74177; 78264; 80048; 80053; 80061; 81001; 82150; 82784; 82962; 83036; 83615; 83690; 84165; 85025; 85652; 86140; 86225; 86235; 86256; 86334; 87070; 87075; 87205; 87493; 90947; 99282; A9541; J7030; J7050; J7120; Q9967; A4216; G0257; J2405

== ENCOUNTER 2022-11-24 18:47 | Emergency (ER) | payer OTHER, SELFPAY ==
[2022-11-24 18:49] VITALS: BP 99/77; PULSE 95; RESP 15; TEMP 35.8; O2SAT 100
[2022-11-24 19:42] LABS: Absolute Neutrophil Count 10.3 X10^3/uL (2.0-7.7); Basophil% 0.7 % (0-1); Eosinophil# 0.11 X10^3/uL; Eosinophils% 0.8 % (0-5); Hematocrit 39.5 % (40-54); Hemoglobin 12.6 g/dL (13.0-16.5); Lymphocyte % 13.5 % (19-41); Mean Corp Hgb Conc 31.9 g/dL (32-36); Mean Corpuscular Hgb 31.3 pg (27.0-32.0); Mean Platelet Vol. 10.8 fl (6.2-12.0); Monocyte# 0.97 X10^3/uL; Monocyte% 7.3 % (0-10); NRBC Flagged by Analyzer 0 % (0-5); Platelet Count 377 K/mm3 (150-450); RBC Distribution Width CV 12.5 % (11.6-14.6); RBC Distribution Width SD 44.9 fl (35.1-43.9); Red Blood Count 4.03 M/mm3 (4.6-6.2); White Blood Count 13.4 K/mm3 (4.4-11.0)
[2022-11-24 20:19] LABS: ALB/GLOB Ratio 0.7 RATIO (0.9-2.4); AST(SGOT) 12 U/L (15-37); Alanine Aminotransfer ALT/SGPT 27 U/L (16-61); Albumin, Serum 3.2 g/dL (3.2-5.0); Alkaline Phosphatase 76 U/L (45-117); Anion Gap 12 (5-15); BUN 50 mg/dL (7-18); BUN/Creat Ratio 3.2 RATIO (10-20); Calcium,Total 9.8 mg/dL (8.5-10.1); Chloride 97 mmol/L (98-107); EST Glomerular Filtration Rate 4 mL/min (>60); Est Glom Filt Rate - Afr Amer 4 mL/min (>60); Globulin 4.4 g/dL (2.2-4.2); Glucose 157 mg/dL (74-106); Protein, Total 7.6 g/dL (6.4-8.2); Sodium Level 140 mmol/L (136-145)
--- NOTE | 2022-11-24 20:20 | ED.RN ---
LAB CALLED CRITICAL OF CREATININE OF 15.4. PT DIALYSIS PT. PT REMAINS IN WAITING ROOM AT THIS TIME
[2022-11-24 21:34] LABS: Lipase 52 U/L (13-75)
[2022-11-24 21:36] VITALS: BMI 23.0
[2022-11-24 21:37] VITALS: BP 145/77; RESP 18
[2022-11-24] MEDS: Metoclopramide 10 MG/2 ML Vial IV (22:39)
--- NOTE | 2022-11-24 22:41 | EDS_ITS ---
HPI HPI - GI History of Present Illness Chief Complaint: Abd Pain Narrative Narrative: 42-year-old male with nausea/vomiting/abdominal pain. He states the abdominal pain is not very severe and he was recently diagnosed with C. difficile colitis. He has been taking oral vancomycin. He states he has a lot of trouble holding down food and fluids. His diarrhea has improved. No black or bloody stools. Patient with history of peritoneal dialysis. Patient states he was discharged home with Zofran and its not helping his nausea anymore. He notes that he wakes up in the middle of the night with acid reflux symptoms as well. [facility] Medical History (Updated 11/25/22 @ 00:[address] Masood Carnes, DO) Anemia Anxiety CKD (chronic kidney disease) stage 5, GFR less than 15 ml/min CPAP (continuous positive airway pressure) dependence Depression Diabetes Diabetes mellitus type 2 with complications Diabetic foot ulcer Dialysis patient End stage chronic kidney disease End stage renal disease ESRD (end stage renal disease) on dialysis ESRD on peritoneal dialysis ESRD on peritoneal dialysis Glaucoma History of diabetes mellitus Hypertension Hypertension IBS (irritable bowel syndrome) Kidney disease Sleep apnea Type 2 diabetes mellitus with diabetic polyneuropathy Type 2 diabetes mellitus with unspecified complications Home Medications lisinopril 40 mg tablet 40 mg PO DAILY blood pressure 01/08/22 [History Last Taken Unknown] omeprazole 40 mg capsule,delayed release 40 mg PO DAILY GERD 01/08/22 [History Last Taken Unknown] sucroferric oxyhydroxide 500 mg chewable tablet (Velphoro) 1,000 mg PO TIDCM renal disease 01/08/22 [History Last Taken Unknown] vitamin B complex-vitamin C-folic acid 0.8 mg tablet (Ifrah-Al) 1 tab PO DAILY supplement 01/08/22 [History Last Taken Unknown] insulin glargine 100 unit/mL (3 mL) subcutaneous pen (Basaglar KwikPen U-100 Insulin) 15 unit subcut QHS diabetes 03/24/22 [History Last Taken Unknown] ondansetron 4 mg disintegrating tablet 4 mg PO Q8H PRN PRN Nausea #10 tabs 10/04/22 [Rx Last Taken Unknown] metoclopramide HCl 5 mg tablet (Reglan) 5 mg PO Q6H PRN nausea and vomiting #16 tabs 10/08/22 [Rx Last Taken Unknown] amlodipine 10 mg tablet 10 mg PO DAILY #30 tabs 11/14/22 [Rx Last Taken Unknown] metoprolol succinate 100 mg tablet,extended release 24 hr 100 mg PO DAILY #30 tabs 11/14/22 [Rx Last Taken Unknown] vancomycin 25 mg/mL oral solution (Firvanq) 125 mg (5 mL) PO Q6 14 days #280 mL 11/14/22 [Rx Last Taken Unknown] metoclopramide HCl 10 mg tablet (Reglan) 10 mg PO Q6H PRN nausea and vomiting #20 tabs 11/25/22 [Rx Last Taken Unknown] Allergy/AdvReac Type Severity Reaction Status Date / Time tramadol AdvReac Intermediate Vomiting Verified 11/24/22 18:53 Family History Mother Diabetes Hypertension Brother Diabetes Surgical History H/O vascular surgery Social History housing: house Smoking Status: Never smoker alcohol intake: never substance use type: does not use well-balanced diet: daily or most days caffeine: No eating out: 4 or more times/week during the past year weight has: remained stable what type of physical activity do you participate in: none EXAM Physical Exam Const Vital Signs: 11/24/22 18:49 11/24/22 21:37 Temperature 96.5 F L Temperature Source Temporal Pulse Rate 95 Respiratory Rate 15 18 Blood Pressure 99/77 145/77 H Blood Pressure Mean 84 99 Pulse Ox 100 Oxygen Delivery Method Room Air Room Air MDM MDM MDM Narrative Medical decision making narrative: Patient presenting with nausea/vomiting. He had trouble holding food and fluids. He states that he has had some Zofran that has not helped. He is given Reglan, IV fluids. CBC was obtained and shows a slight leukocytosis at 13.4. Creatinine is elevated today. Electrolytes are unremarkable. LFTs are normal. Lipase normal. CT of the abdomen pelvis shows nothing acute. Evaluation the patient's nausea is improved with Reglan. He has declined pain medicine. Since he is feeling better we will put him on Reglan for home. We will have his medicines filled here tonight and he will be discharged with them. Return precautions discussed. Impression: 1. Dehydration 2. Nausea/vomiting Lab Data Labs: Laboratory Results - last 24 hr 11/24/22 11/24/22 11/24/22 19:35 19:35 19:35 WBC 13.4 H RBC 4.03 L Hgb 12.6 L Hct 39.5 L MCV 98.0 H MCH 31.3 MCHC 31.9 L RDW Std Deviation 44.9 H RDW Coeff of Rhys 12.5 Plt Count 377 MPV 10.8 Immature Gran % (Auto) 0.700 Neut % (Auto) 77.0 H Lymph % (Auto) 13.5 L [place] % (Auto) 7.3 Eos % (Auto) 0.8 Baso % (Auto) 0.7 Absolute Neuts (auto) 10.3 H Absolute Lymphs (auto) 1.80 Nucleated RBC % 0 Sodium 140 Potassium 4.0 Chloride 97 L Carbon Dioxide 31.0 Anion Gap 12 BUN 50 H Creatinine 15.40 H* Est GFR (MDRD) Af Amer 4 L Est GFR (MDRD) Non-Af 4 L BUN/Creatinine Ratio 3.2 L Glucose 157 H Calcium 9.8 Total Bilirubin 0.30 AST 12 L ALT 27 Alkaline Phosphatase 76 Total Protein 7.6 Albumin 3.2 Globulin 4.4 H Albumin/Globulin Ratio 0.7 L Lipase 52 Radiography Diagnostic Testing: Clinical Impression(s) from Imaging Studies Abdomen/Pelvis CT 11/24/22 22:42 IMPRESSION: 1. A small amount of free air in the upper abdomen possibly due to patient''s peritoneal dialysis catheter. This is not significantly changed from the reference exam. 2. Extensive atherosclerotic calcifications. No acute abnormalities are identified. There has been no significant change from the reference exam. Electronically Signed: Tao Kee MD at 23:20 EDT , Discharge Plan Triage Chief Complaint: Abd Pain ED Provider: Masood Carnes Dx/Rx/DC Orders Clinical Impression: C. difficile colitis Instructions: Clostridium Difficile Infection, ED Vomiting (Adult) Prescriptions: New metoclopramide HCl [Reglan] 10 mg tablet 10 mg PO Q6H PRN (Reason: nausea and vomiting) Qty: 20 0RF No Action Velphoro 500 mg tablet,chewable 1,000 mg PO TIDCM Ifrah-Al 0.8 mg tablet 1 tab PO DAILY omeprazole 40 mg capsule,delayed release(DR/EC) 40 mg PO DAILY lisinopril 40 mg tablet 40 mg PO DAILY insulin glargine [Basaglar KwikPen U-100 Insulin] 100 unit/mL (3 mL) Insulin Pen 15 unit SUBCUT QHS ondansetron 4 mg tablet,disintegrating 4 mg PO Q8H PRN PRN (Reason: Nausea) Qty: 10 0RF metoclopramide HCl [Reglan] 5 mg tablet 5 mg PO Q6H PRN (Reason: nausea and vomiting) Qty: 16 0RF metoprolol succinate 100 mg Tablet Extended Release 24 Hr 100 mg PO DAILY Qty: 30 1RF amlodipine 10 mg Tablet 10 mg PO DAILY Qty: 30 1RF vancomycin [Firvanq] 25 mg/mL Recon Soln 125 mg PO Q6 14 Days Qty: 280 0RF Primary Care Provider: BEL ARTHUR Referrals: BEL ARTHUR [Other] Disposition Disposition: Home, Self Care
--- NOTE | 2022-11-24 22:42 | CT_ITS ---
EXAM: CT ABDOMEN AND PELVIS WITHOUT INTRAVENOUS CONTRAST CLINICAL INDICATION: abdominal pain TECHNIQUE: Helically acquired images were obtained of the abdomen and pelvis without intravenous contrast. This CT exam was performed using one or more of the following dose reduction techniques: automated exposure control, adjustment of the mA and/or kV according to patient size, and/or use of iterative reconstruction technique. COMPARISON: 11/13/2022 FINDINGS: LOWER THORAX: Unremarkable. Lung bases are clear. No cardiomegaly. No significant pericardial effusion. ABDOMEN: LIVER: Unremarkable. Homogeneous. GALLBLADDER AND BILE DUCTS: Unremarkable. No calcified gallstones. No gallbladder distention or wall edema. No intra- or extrahepatic biliary ductal dilation. PANCREAS: Unremarkable. No focal cystic mass. SPLEEN: Unremarkable. Normal size without focal cystic or solid mass. ADRENALS: Unremarkable. No nodules. KIDNEYS AND URETERS: Unremarkable. Normal renal size and position. No hydronephrosis. STOMACH AND BOWEL: Unremarkable. No stomach or bowel distention. No focal inflammatory change. PELVIS: APPENDIX: No evidence of acute appendicitis. BLADDER: Unremarkable. REPRODUCTIVE: Unremarkable as visualized. No mass. ABDOMEN and PELVIS: INTRAPERITONEAL SPACE: There were small collections of free air is seen within the upper abdomen. This was present on the previous exam. No ascites or other fluid collection. BONES/JOINTS: Unremarkable. No suspicious lytic or blastic abnormality. SOFT TISSUES: Unremarkable. No discrete abdominal or pelvic wall hernia. VASCULATURE: There are extensive vascular calcifications present. Abdominal aorta is non-dilated. LYMPH NODES: Unremarkable. No enlarged lymph nodes. TUBES, LINES AND DEVICES: There is a peritoneal dialysis catheter coiled within the pelvis. CT/Abdomen/Pelvis without Cont IMPRESSION: 1. A small amount of free air in the upper abdomen possibly due to patient''s peritoneal dialysis catheter. This is not significantly changed from the reference exam. 2. Extensive atherosclerotic calcifications. No acute abnormalities are identified. There has been no significant change from the reference exam. Electronically Signed: Tao Kee MD at 23:20 EDT ,
[2022-11-25 00:49] VITALS: BP 115/53
[2022-11-25 01:36] VITALS: BP 115/53; PULSE 95; RESP 15; O2SAT 100
== END 2022-11-25 01:38 | disposition home or self-care (01) ==
PROVIDERS: Emergency Provider Student in an Organized Health Care Education/Training Program; Visit Provider Student in an Organized Health Care Education/Training Program
DX: R11.2 Nausea with vomiting, unspecified (principal); E11.42 Type 2 diabetes mellitus with diabetic polyneuropathy; E11.22 Type 2 diabetes mellitus with diabetic chronic kidney disease; N18.6 End stage renal disease; I12.0 Hypertensive chronic kidney disease with stage 5 chronic kidney disease or end stage renal disease; Z79.4 Long term (current) use of insulin; E86.0 Dehydration; A04.72 Enterocolitis due to Clostridium difficile, not specified as recurrent; Z79.899 Other long term (current) drug therapy
CPT/HCPCS: 74176; 80053; 83690; 85025; 96374; 99282; J7030; A4216

== ENCOUNTER 2022-11-28 13:30 | Observation (INO) | payer OTHER, SELFPAY ==
[2022-11-28 13:31] VITALS: BP 127/76; PULSE 96; RESP 14; TEMP 36.1; O2SAT 97
[2022-11-28 14:11] VITALS: BMI 22.6
--- NOTE | 2022-11-28 14:17 | EDS_ITS ---
HPI HPI - GI History of Present Illness Chief Complaint: Abd Pain Detail of Chief Complaint: Vomiting and abdominal pain Narrative Narrative: Patient presents to the emergency department complaint of vomiting and abdominal pain. Patient states that he was admitted 3 weeks ago and discharged 2 weeks ago for similar complaint. He had several visits to the ER since then for same complaint. He was seen here November 24 and had lab work-up including CT imaging and discharged home with [facility] medicine. Patient states he has episodes where he has heartburn-like sensation and then starts vomiting and feels like he cannot keep anything down has been thrown up about 2-3 times a day. He denies any diarrhea currently although he had recent C. difficile. Patient does do peritoneal dialysis at home. He has not noticed any cloudy fluid from his dialysis. He had no fevers. Patient has never had an upper or lower scope. [facility] Medical History (Updated 11/28/22 @ 16:[address] Franco Pinto, ) Anemia Anxiety CKD (chronic kidney disease) stage 5, GFR less than 15 ml/min CPAP (continuous positive airway pressure) dependence Depression Diabetes Diabetes mellitus type 2 with complications Diabetic foot ulcer Dialysis patient End stage chronic kidney disease End stage renal disease ESRD (end stage renal disease) on dialysis ESRD on peritoneal dialysis ESRD on peritoneal dialysis Glaucoma History of diabetes mellitus Hypertension Hypertension IBS (irritable bowel syndrome) Kidney disease Sleep apnea Type 2 diabetes mellitus with diabetic polyneuropathy Type 2 diabetes mellitus with unspecified complications Home Medications lisinopril 40 mg tablet 40 mg PO DAILY blood pressure 01/08/22 [History Last Taken Unknown] omeprazole 40 mg capsule,delayed release 40 mg PO DAILY GERD 01/08/22 [History Last Taken Unknown] sucroferric oxyhydroxide 500 mg chewable tablet (Velphoro) 1,000 mg PO TIDCM re nal disease 01/08/22 [History Last Taken Unknown] vitamin B complex-vitamin C-folic acid 0.8 mg tablet (Ifrah-Al) 1 tab PO DAILY supplement 01/08/22 [History Last Taken Unknown] insulin glargine 100 unit/mL (3 mL) subcutaneous pen (Basaglar KwikPen U-100 Insulin) 15 unit subcut QHS diabetes 03/24/22 [History Last Taken Unknown] ondansetron 4 mg disintegrating tablet 4 mg PO Q8H PRN PRN Nausea #10 tabs 10/04/22 [Rx Last Taken Unknown] amlodipine 10 mg tablet 10 mg PO DAILY #30 tabs 11/14/22 [Rx Last Taken Unknown] metoprolol succinate 100 mg tablet,extended release 24 hr 100 mg PO DAILY #30 ta bs 11/14/22 [Rx Last Taken Unknown] vancomycin 25 mg/mL oral solution (Firvanq) 125 mg (5 mL) PO Q6 14 days #280 mL 11/14/22 [Rx Last Taken Unknown] metoclopramide HCl 10 mg tablet (Reglan) 10 mg PO Q6H PRN nausea and vomiting #20 tabs 11/25/22 [Rx Last Taken Unknown] metoclopramide HCl 10 mg tablet (Reglan) 10 mg PO Q6H PRN nausea and vomiting #20 tabs 11/25/22 [Rx Last Taken Unknown] Allergy/AdvReac Type Severity Reaction Status Date / Time tramadol AdvReac Intermediate Vomiting Verified 11/28/22 14:13 Family History Mother Diabetes Hypertension Brother Diabetes Surgical History H/O vascular surgery Social History housing: house Smoking Status: Never smoker alcohol intake: never substance use type: does not use well-balanced diet: daily or most days caffeine: No eating out: 4 or more times/week during the past year weight has: remained stable what type of physical activity do you participate in: none ROS ROS ED Review of Systems ROS Unobtainable: other Constitutional Constitutional ED: Reports lethargy; Denies chills, fever(s), sweats or weight loss Eyes Eyes: Denies blurry vision, change in vision or diplopia ENT ENT ED: Denies rhinorrhea or sore throat Cardiovascular Cardiovascular: Denies chest pain, orthopnea or racing heartbeat Respiratory/Chest Respiratory/Chest: Denies cough, dyspnea, dyspnea on exertion, orthopnea or sputum Gastrointestinal Gastrointestinal: Reports abdominal pain, nausea and vomiting; Denies diarrhea Genitourinary Genitourinary ED: Denies dysuria, hematuria or urinary frequency Musculoskeletal Musculoskeletal: Denies arthralgias, back pain, myalgias or neck pain Integumentary Denies abscess, Abrasions or rash Neurologic Neurologic: Denies headache(s) or weakness Psychiatric Psychiatric: Denies anxiety, depression or suicidal thoughts Endocrine Endocrinology: Denies polydipsia, polyphagia or polyuria Hematologic/Lymphatic Hematologic/Lymphatic: Denies easy bleeding, easy bruising or lymphadenopathy Allergic/Immunologic Allergic/Immunologic ED: Denies mouth swelling, tongue swelling or urticaria EXAM Physical Exam Const Vital Signs: 11/28/22 13:31 Temperature 97 F L Temperature Source Temporal Pulse Rate 96 Respiratory Rate 14 Blood Pressure 127/76 H Blood Pressure Mean 93 Pulse Ox 97 Oxygen Delivery Method Room Air Positive well nourished and well developed General Appearance ED: well developed and NAD HEENT Reports TM's clear and moist mucous membranes normocephalic and atraumatic; Negative for trauma or tenderness Tympanic Membrane ED: Yes TM's clear Eyes PERRL and EOMs intact bilaterally General Eye ED: Negative for pale conjunctiva or scleral icterus Neck no lymphadenopathy, supple and no JVD General: Negative for tenderness Chest Wall inspection of chest normal and palpation of chest normal Chest: Negative for tenderness Resp normal respiratory effort and clear to auscultation bilaterally Effort and Inspection: Negative for respiratory distress or pain with movement Auscultation: Negative for rhonchi, wheezes or diminished lung sounds Cardio regular rate, regular rhythm, S1 normal heart sound, S2 normal heart sound and no murmurs Peripheral Pulses: pulses 2+ throughout GI normal to inspection, nondistended, normoactive bowel sounds, soft to palpation, non-distended and no masses GI Narrative: Abdomen is soft. Minimal diffuse tenderness. There is no rebound, rigidity, or peritoneal signs. No no masses palpated. Back/Spine no CVA tenderness and no thoracic nor lumbar tenderness Extremity normal to inspection General Extremety ED: Negative for edema General Extremity: Negative for edema Neuro oriented x3, CN's II-XII intact bilaterally, no sensory deficits noted and gait normal Sensorium / Orientation: awake, alert, oriented to person, oriented to place and oriented to time Motor Exam: strength 5/5 throughout and strength abnormal Psych mental status grossly normal Skin no rashes or lesions noted and no wounds MDM MDM MDM Narrative Medical decision making narrative: Patient presents with recurrent episodes of vomiting and abdominal pain. Was admitted in September for similar type presentation and ruled out for spontaneous bacterial peritonitis. Patient had gastric emptying studies that were negative at that time. Patient was found to be hypertensive at that time and was restarted on antihypertensives. Since last admission he is continue to have frequent episodes of vomiting and abdominal pain. Last visit to the emergency department was on 24 November. He had a CT scan of the abdomen pelvis that was unremarkable as well as lab work that was not concerning. Patient was given Protonix on arrival today and had an IV line established given liter mostly fluid bolus as well as Reglan 10 mg IV. Patient was given 4 mg of morphine IV. CBC with differential obtained showed a white count of 13 and hemoglobin 12.4. Platelet count 304. Chemistries unremarkable. BUN was 49 and creatinine 14.7. Lactate was normal at 1.6. LFTs were normal and lipase was normal. This point I did do not feel clinically he has spontaneous bacterial peritonitis. His abdomen appears benign. I do not feel further imaging is indicated as he just had a CAT scan 4 days ago. Patient does not feel like he can go home as he is still feeling quite nauseated still having pain. I did give him 5 mg of hydralazine IV for elevated blood pressures and the fact that he has not been able to take his blood pressure medicine for the last 2 or 3 days. Patient will be admitted for observation for fluids and symptom management. Patient may need to follow-up with GI for further evaluation. Lab Data Attestation: I reviewed the patient's lab results. Labs: Laboratory Results - last 24 hr 11/28/22 11/28/22 11/28/22 14:25 14:25 14:25 WBC 13.0 H RBC 3.92 L Hgb 12.4 L Hct 37.7 L MCV 96.2 H MCH 31.6 MCHC 32.9 RDW Std Deviation 43.1 RDW Coeff of Rhys 12.3 Plt Count 304 MPV 11.2 Immature Gran % (Auto) 0.800 Neut % (Auto) 77.9 H Lymph % (Auto) 12.5 L [place] % (Auto) 7.5 Eos % (Auto) 0.8 Baso % (Auto) 0.5 Absolute Neuts (auto) 10.1 H Absolute Lymphs (auto) 1.63 Nucleated RBC % 0 Sodium 138 Potassium 3.6 Chloride 97 L Carbon Dioxide 28.0 Anion Gap 13 BUN 49 H Creatinine 14.70 H* Estim Creat Clear Calc 6.49 Est GFR (MDRD) Af Amer 5 L Est GFR (MDRD) Non-Af 4 L BUN/Creatinine Ratio 3.3 L Glucose 169 H Lactic Acid 1.6 Calcium 9.0 Total Bilirubin 0.50 AST 13 L ALT 21 Alkaline Phosphatase 71 Total Protein 7.3 Albumin 3.1 L Globulin 4.2 Albumin/Globulin Ratio 0.7 L Lipase 38 Discharge Plan Triage Chief Complaint: Abd Pain ED Provider: Franco Pinto Dx/Rx/DC Orders Clinical Impression: Abdominal pain, Intractable vomiting with nausea, Chronic renal failure, Hypertension Prescriptions: No Action Velphoro 500 mg tablet,chewable 1,000 mg PO TIDCM Ifrah-Al 0.8 mg tablet 1 tab PO DAILY omeprazole 40 mg capsule,delayed release(DR/EC) 40 mg PO DAILY lisinopril 40 mg tablet 40 mg PO DAILY insulin glargine [Basaglar KwikPen U-100 Insulin] 100 unit/mL (3 mL) Insulin Pen 15 unit SUBCUT QHS ondansetron 4 mg tablet,disintegrating 4 mg PO Q8H PRN PRN (Reason: Nausea) Qty: 10 0RF metoprolol succinate 100 mg Tablet Extended Release 24 Hr 100 mg PO DAILY Qty: 30 1RF amlodipine 10 mg Tablet 10 mg PO DAILY Qty: 30 1RF vancomycin [Firvanq] 25 mg/mL Recon Soln 125 mg PO Q6 14 Days Qty: 280 0RF metoclopramide HCl [Reglan] 10 mg tablet 10 mg PO Q6H PRN (Reason: nausea and vomiting) Qty: 20 0RF metoclopramide HCl [Reglan] 10 mg tablet 10 mg PO Q6H PRN (Reason: nausea and vomiting) Qty: 20 0RF Primary Care Provider: BEL ARTHUR Referrals: BEL ARTHUR [Other] Disposition Disposition: Acute Care [facility]
[2022-11-28] MEDS: 0.9% Normal Saline 1,000 ML 1000 ML IV (14:32)
[2022-11-28] MEDS: Metoclopramide 10 MG/2 ML Vial IV (14:32)
[2022-11-28 14:43] LABS: Absolute Lymphocyte Count 1.63 X10^3/uL (0.83-4.51); Absolute Neutrophil Count 10.1 X10^3/uL (2.0-7.7); Basophil# 0.06 X10^3/uL; Basophil% 0.5 % (0-1); Eosinophil# 0.11 X10^3/uL; Eosinophils% 0.8 % (0-5); Hematocrit 37.7 % (40-54); Hemoglobin 12.4 g/dL (13.0-16.5); Lymphocyte # 1.63 X10^3/ul (0.83-4.51); Lymphocyte % 12.5 % (19-41); Mean Corp Hgb Conc 32.9 g/dL (32-36); Mean Corpuscular Hgb 31.6 pg (27.0-32.0); Mean Corpuscular Volume 96.2 fL (80-94); Mean Platelet Vol. 11.2 fl (6.2-12.0); Monocyte# 0.98 X10^3/uL; Monocyte% 7.5 % (0-10); NRBC Flagged by Analyzer 0 % (0-5); Neutrophil # 10.13 X10^3/uL (2.7-7.7); Neutrophil % 77.9 % (47-70); Platelet Count 304 K/mm3 (150-450); RBC Distribution Width CV 12.3 % (11.6-14.6); RBC Distribution Width SD 43.1 fl (35.1-43.9); Red Blood Count 3.92 M/mm3 (4.6-6.2)
[2022-11-28 15:00] LABS: ALB/GLOB Ratio 0.7 RATIO (0.9-2.4); AST(SGOT) 13 U/L (15-37); Alanine Aminotransfer ALT/SGPT 21 U/L (16-61); Albumin, Serum 3.1 g/dL (3.2-5.0); Alkaline Phosphatase 71 U/L (45-117); Anion Gap 13 (5-15); BUN 49 mg/dL (7-18); BUN/Creat Ratio 3.3 RATIO (10-20); Chloride 97 mmol/L (98-107); EST Glomerular Filtration Rate 4 mL/min (>60); Est Glom Filt Rate - Afr Amer 5 mL/min (>60); Estimated Creatinine Clearance 6.49 ml/min; Globulin 4.2 g/dL (2.2-4.2); Glucose 169 mg/dL (74-106); Lipase 38 U/L (13-75); Potassium 3.6 mmol/L (3.5-5.1); Protein, Total 7.3 g/dL (6.4-8.2); Sodium Level 138 mmol/L (136-145)
[2022-11-28 15:01] LABS: Lactic Acid 1.6 mmol/L (0.4-1.9)
[2022-11-28] MEDS: Morphine 4 MG/ML Syringe IV (15:18)
--- NOTE | 2022-11-28 15:53 | NURSING ---
DR HILARIO RATLIFF
[2022-11-28] MEDS: hydrALAZINE 20 MG/ML Vial 5 MG IV (15:56)
--- NOTE | 2022-11-28 16:03 | NURSING ---
MED SURG RICH INTRACTABLE NAUSEA, VOMITING, ABD PAIN, ESRD
[2022-11-28 16:08] VITALS: BP 162/88; PULSE 85; RESP 18; O2SAT 98
[2022-11-28 16:09] VITALS: BP 162/88; PULSE 84; RESP 18; TEMP 36.4; O2SAT 96
--- NOTE | 2022-11-28 16:10 | PCM.HP.STD ---
HPI - General General Date of Admission: 11/28/22 Date of Service: 11/28/22 Chief Complaint: Abd pain, intractable n/v HPI Narrative ABDIEL SY, is a 42 M with a history of C. difficile, type 2 diabetes mellitus, end-stage renal disease on peritoneal dialysis who presented to [facility] 11/28/2022 with intractable nausea and vomiting and abdominal pain. He has had this multiple times over the past several months and initially was worked up for SBP related to his peritoneal dialysis catheter but everything was negative. He later Re-presented in October with the same symptoms when GI evaluated and obtained gastric emptying study which was unremarkable. Repeat CT abdomen pelvis with oral contrast was unremarkable. He improved however did have some diarrhea 11/13 through 11/14 and was C. difficile positive. He was discharged home on oral vancomycin. He reports since that time he is continue to have very poor p.o. intake due to nausea and vomiting and feels like he has gastric reflux at times and last night this did not go away and not concerned him however at present he is not having the same complaint. He denies any recent diarrhea and reports his bowel movements are regular with most recent last night. Usually makes urine once a day but has not urinated the past 3 weeks which she attributes to not eating or drinking well. Denies any marijuana use. Denies any fevers or chills, denies any changes in the appearance of his peritoneal fluid. [facility] Medical History (Updated 11/28/22 @ 17:[address] Rupinder Calabrese MD) Anemia Anxiety C. difficile colitis CKD (chronic kidney disease) stage 5, GFR less than 15 ml/min CPAP (continuous positive airway pressure) dependence Depression Diabetes mellitus type 2 with complications Diabetic foot ulcer ESRD on peritoneal dialysis Glaucoma Hypertension IBS (irritable bowel syndrome) Sleep apnea Home Medications lisinopril 40 mg tablet 40 mg PO DAILY blood pressure 01/08/22 [History Last Taken Unknown] omeprazole 40 mg capsule,delayed release 40 mg PO DAILY GERD 01/08/22 [History Last Taken Unknown] sucroferric oxyhydroxide 500 mg chewable tablet (Velphoro) 1,000 mg PO TIDCM renal disease 01/08/22 [History Last Taken Unknown] vitamin B complex-vitamin C-folic acid 0.8 mg tablet (Ifrah-Al) 1 tab PO DAILY supplement 01/08/22 [History Last Taken Unknown] insulin glargine 100 unit/mL (3 mL) subcutaneous pen (Basaglar KwikPen U-100 Insulin) 15 unit subcut QHS diabetes 03/24/22 [History Last Taken Unknown] ondansetron 4 mg disintegrating tablet 4 mg PO Q8H PRN PRN Nausea #10 tabs 10/04/22 [Rx Last Taken Unknown] amlodipine 10 mg tablet 10 mg PO DAILY #30 tabs 11/14/22 [Rx Last Taken Unknown] metoprolol succinate 100 mg tablet,extended release 24 hr 100 mg PO DAILY #30 tabs 11/14/22 [Rx Last Taken Unknown] vancomycin 25 mg/mL oral solution (Firvanq) 125 mg (5 mL) PO Q6 14 days #280 mL 11/14/22 [Rx Last Taken Unknown] metoclopramide HCl 10 mg tablet (Reglan) 10 mg PO Q6H PRN nausea and vomiting #20 tabs 11/25/22 [Rx Last Taken Unknown] metoclopramide HCl 10 mg tablet (Reglan) 10 mg PO Q6H PRN nausea and vomiting #20 tabs 11/25/22 [Rx Last Taken Unknown] Allergy/AdvReac Type Severity Reaction Status Date / Time tramadol AdvReac Intermediate Vomiting Verified 11/28/22 14:13 Family History Mother Diabetes Hypertension Brother Diabetes Surgical History H/O vascular surgery Social History housing: house Smoking Status: Never smoker alcohol intake: never substance use type: does not use well-balanced diet: daily or most days caffeine: No eating out: 4 or more times/week during the past year weight has: remained stable what type of physical activity do you participate in: none ROS ROS Narrative General: Denies fever/chills HENT: Intermittent slight dull headache, denies stuffy nose, denies sore throat EYES: Denies changes in vision Resp: Denies cough, denies shortness of breath Cardiac: Denies chest pain GI: No diarrhea or constipation, does have some diffuse abdominal pain but more so towards the bottom, has had nausea and vomiting : Denies urinating in 3 weeks Extremity: Denies swelling MSK: Denies weakness Neuro: Denies any numbness/tingling Heme: Denies any bleeding or bruising Skin: Denies rashes Psychiatric: No complaints voiced Vital Signs Vital Signs Vital Signs: 11/28/22 13:31 11/28/22 16:08 11/28/22 16:09 Temperature 97 F L 97.5 F L Temperature Source Temporal Temporal Pulse Rate 96 85 84 Respiratory Rate 14 18 18 Blood Pressure 127/76 H 162/88 H 162/88 H Blood Pressure Mean 93 112 112 Pulse Ox 97 98 96 Oxygen Delivery Method Room Air Room Air Room Air Weight Weight: 71.6 kg Body Mass Index (BMI) 22.6 Physical Exam Narrative General: Alert, oriented, no apparent distress HEENT: Atraumatic, normocephalic Eyes: Anicteric, normal conjunctiva, extraocular movements grossly intact Neck: Supple Respiratory: Clear to auscultation bilaterally, normal respiratory effort Cardiovascular: Regular rate and rhythm GI: Soft, nondistended, mildly tender more so lower than upper quadrants, no rebound, guarding, rigidity Extremities: No edema Musculoskeletal: Moving all extremities Neuro: No overt focal neurological deficits Skin: No rashes appreciated Psych: Cooperative Results Lab / Micro Data Result Diagrams: 11/28/22 14:25 11/28/22 14:25 Labs: Laboratory Results - last 24 hr 11/28/22 14:25: WBC 13.0 H, RBC 3.92 L, Hgb 12.4 L, Hct 37.7 L, MCV 96.2 H, MCH 31.6, MCHC 32.9, RDW Std Deviation 43.1, RDW Coeff of Rhys 12.3, Plt Count 304, MPV 11.2, Immature Gran % (Auto) 0.800, Neut % (Auto) 77.9 H, Lymph % (Auto) 12.5 L, [place] % (Auto) 7.5, Eos % (Auto) 0.8, Baso % (Auto) 0.5, Absolute Neuts (auto) 10.1 H, Absolute Lymphs (auto) 1.63, Nucleated RBC % 0 11/28/22 14:25: Sodium 138, Potassium 3.6, Chloride 97 L, Carbon Dioxide 28.0, Anion Gap 13, BUN 49 H, Creatinine 14.70 H*, Estim Creat Clear Calc 6.49, Est GFR (MDRD) Af Amer 5 L, Est GFR (MDRD) Non-Af 4 L, BUN/Creatinine Ratio 3.3 L, Glucose 169 H, Calcium 9.0, Total Bilirubin 0.50, AST 13 L, ALT 21, Alkaline Phosphatase 71, Total Protein 7.3, Albumin 3.1 L, Globulin 4.2, Albumin/Globulin Ratio 0.7 L, Lipase 38 11/28/22 14:25: Lactic Acid 1.6 Assessment & Plan Assessment/Plan (1) Intractable vomiting with nausea: (2) Abdominal pain: (3) Hypertension: (4) History of peritoneal dialysis: PLAN: Plan #n/v/abd pain -Recent CT unrevealing, patient presented with the same symptoms so repeat imaging not obtained -Had recent gastric emptying study which was unrevealing -Denies any diarrhea, status post treatment for C. difficile -Abdominal exam with some mild tenderness more so in lower quadrants without rebound, guarding, rigidity, patient afebrile. Also symptoms were present during 2 recent hospitalizations and work-up for SBP was negative -We will send peritoneal studies for work-up for SBP and obtain blood cultures still as this could have high morbidity mortality, will start on empiric Zosyn and DC if cultures negative -Clear liquid diet and will advance as tolerated -Zofran with Compazine as needed and pain control -Patient has not urinated in 3 weeks, on scan from several days ago he did urine in his bladder, suspect he may have a neurogenic bladder and increasing bladder distention may be a cause/contributing factor given it was even fallen off it was becoming deformed on CT -We will straight cath x1 to assess if that is helpful -We will send UA and UDS on urine specimen -Did have diffuse calcifications but lactic acid normal and not necessarily associated with feedings do not think he has chronic ischemia -Lipase negative #ESRD on PD -Nephrology consulted #Type 2 diabetes mellitus -Glucose checks and sliding scale insulin -Given poor p.o. will decrease home long-acting #HTN -Home medications #DVT ppx: SCDs Rupinder Calabrese MD Time spent in the patient's overall evaluation,decision-making process, review of diagnostic data, adjustment of management, discussion with other providers, nursing nursing and ancillary staff involved in patient's care documentation, 60 Minutes Charges/Coding Visit Charges Inpatient E&M: 73452 Init Hosp L2
[2022-11-28 16:38] VITALS: BP 172/79; PULSE 78; RESP 18; O2SAT 98
[2022-11-28 16:56] VITALS: BMI 22.9
[2022-11-28 17:20] VITALS: BP 160/83; PULSE 86; RESP 18; TEMP 36.6; O2SAT 99
[2022-11-28 18:45] LABS: Bacteria 0 SEEN /hpf (None Seen); Mucous, Urine 0 SEEN /hpf (<or=2+); Squamous Epithelial Cells - UA 0 SEEN /hpf (0-5)
[2022-11-28 18:50] LABS: Color, Urine Yellow (Yellow); Glucose, Dipstick 100 mg/dl (Normal); Ketone-Dipstick 5 mg/dl (Negative); Leukocyte Esterase-Dipstick 100 /ul (Negative); Nitrite-Dipstick Negative (Negative); Occult Blood-Urine 25 /ul (Negative); Protein-Dipstick 500 mg/dl (Negative); Urine Clarity Sl. Cloudy (Clear); Urine Urobilinogen Normal (Normal)
[2022-11-28 18:55] LABS: Urine Bilirubin Dipstick 1 mg/dL (Negative)
[2022-11-28 18:56] LABS: Red Blood Cells-Urine 0-5 SEEN /hpf (0-5); White Blood Cells 10-25 SEEN /hpf (0-5)
[2022-11-28] MEDS: amLODIPine 10 MG Tablet PO (19:01)
[2022-11-28 19:05] LABS: Amphetamine Urine VISTA NEGATIVE (<1000 ng/mL); Barbiturate Urine VISTA NEGATIVE (< 200 ng/mL); Benzodiazepine Urine VISTA NEGATIVE (< 200 ng/mL); Cocaine Urine VISTA NEGATIVE (< 300 ng/mL); Ecstacy Urine VISTA NEGATIVE (< 500 ng/mL); Methadone Urine VISTA NEGATIVE (< 300 ng/mL); PCP Urine VISTA NEGATIVE (< 25 ng/mL); THC Urine VISTA NEGATIVE (< 50 ng/mL); Vista UDS pH Range 5
[2022-11-28 22:29] LABS: Bedside Glucose 125 mg/dL (74-106)
[2022-11-28 23:25] VITALS: BP 131/66; PULSE 87; RESP 16; TEMP 36.7; O2SAT 96
[2022-11-29] VITALS (8 sets, daily range): BP systolic 110–135; BP diastolic 63–70; PULSE 78–85; RESP 16–18; TEMP 36.4–36.9; O2SAT 96–98
[2022-11-29] MEDS: Ondansetron 4 MG/2 ML Vial IV (01:19)
[2022-11-29] MEDS: 0.9% Saline Lock 10 ML Syringe IV ×2 (01:20→21:48)
[2022-11-29] MEDS: Morphine 2 MG/ML Syringe IV (01:21)
[2022-11-29 06:01] LABS: Absolute Lymphocyte Count 2.25 X10^3/uL (0.83-4.51); Absolute Neutrophil Count 8.2 X10^3/uL (2.0-7.7); Basophil# 0.09 X10^3/uL; Basophil% 0.8 % (0-1); Eosinophil# 0.19 X10^3/uL; Eosinophils% 1.6 % (0-5); Hematocrit 30.3 % (40-54); Hemoglobin 9.8 g/dL (13.0-16.5); Lymphocyte # 2.25 X10^3/ul (0.83-4.51); Lymphocyte % 19.1 % (19-41); Mean Corp Hgb Conc 32.3 g/dL (32-36); Mean Corpuscular Hgb 31.8 pg (27.0-32.0); Mean Corpuscular Volume 98.4 fL (80-94); Mean Platelet Vol. 11.3 fl (6.2-12.0); Monocyte# 0.94 X10^3/uL; NRBC Flagged by Analyzer 0 % (0-5); Neutrophil # 8.22 X10^3/uL (2.7-7.7); Neutrophil % 69.7 % (47-70); Platelet Count 252 K/mm3 (150-450); RBC Distribution Width CV 12.4 % (11.6-14.6); RBC Distribution Width SD 44.5 fl (35.1-43.9); Red Blood Count 3.08 M/mm3 (4.6-6.2); White Blood Count 11.8 K/mm3 (4.4-11.0)
[2022-11-29 06:41] LABS: ALB/GLOB Ratio 0.8 RATIO (0.9-2.4); AST(SGOT) 11 U/L (15-37); Alanine Aminotransfer ALT/SGPT 14 U/L (16-61); Albumin, Serum 2.5 g/dL (3.2-5.0); Alkaline Phosphatase 56 U/L (45-117); Anion Gap 11 (5-15); BUN 52 mg/dL (7-18); BUN/Creat Ratio 3.4 RATIO (10-20); Calcium,Total 8.2 mg/dL (8.5-10.1); Chloride 102 mmol/L (98-107); EST Glomerular Filtration Rate 4 mL/min (>60); Est Glom Filt Rate - Afr Amer 5 mL/min (>60); Estimated Creatinine Clearance 6.36 ml/min; Glucose 102 mg/dL (74-106); Potassium 3.6 mmol/L (3.5-5.1); Protein, Total 5.5 g/dL (6.4-8.2); Sodium Level 140 mmol/L (136-145)
[2022-11-29 07:04] LABS: Bedside Glucose 98 mg/dL (74-106)
[2022-11-29] MEDS: amLODIPine 10 MG Tablet PO (09:17)
[2022-11-29] MEDS: Pantoprazole Sodium 40 MG Tablet PO (09:17)
[2022-11-29] MEDS: Lisinopril 40 MG Tablet PO (09:17)
[2022-11-29] MEDS: Metoprolol(XL)Succ 50 MG Tablet PO (09:17)
--- NOTE | 2022-11-29 11:01 | PN.HOSP_ITS ---
Reason for Visit Reason for Visit: Diagnoses Essential (primary) hypertension (11/28/22) Unspecified abdominal pain (11/28/22) Nausea with vomiting, unspecified (11/28/22) Other specified postprocedural states (11/28/22) Subjective Subjective Abdominal pain feeling somewhat better but still reports overnight he had that burning in his chest significant nausea and vomiting overnight. He reports that typically it is like he is regurgitating food that he has had such poor intake that it is difficult to tell if is digested or not but does not feel food sticks and denies problem with swallowing. Does not report the burning and nausea during the day and it is not associated with exertion or rest denies any family history of heart problems Objective Data Objective Data Vital Signs: Vital Signs Temp Pulse Resp BP Pulse Ox O2 Del Method 98 F 85 18 116/65 98 Room Air 11/29/22 09:10 11/29/22 09:17 11/29/22 09:10 11/29/22 09:17 11/29/22 09:10 11/29/22 09:10 Oxygen Delivery Method Room Air Weight: 72.529 kg Body Mass Index (BMI) 22.9 Intake & Output: Intake and Output for Last 24 Hours 11/27/22 11/28/22 11/29/22 23:59 23:59 23:59 Intake Total 1470 / 1470 170 / 170 Output Total 320 / 320 Balance 1150 / 1150 170 / 170 Lab / Micro Data Result Diagrams: 11/29/22 05:18 11/29/22 05:18 Labs: Laboratory Results - last 24 hr 11/28/22 14:25: WBC 13.0 H, RBC 3.92 L, Hgb 12.4 L, Hct 37.7 L, MCV 96.2 H, MCH 31.6, MCHC 32.9, RDW Std Deviation 43.1, RDW Coeff of Rhys 12.3, Plt Count 304, MPV 11.2, Immature Gran % (Auto) 0.800, Neut % (Auto) 77.9 H, Lymph % (Auto) 12.5 L, [place] % (Auto) 7.5, Eos % (Auto) 0.8, Baso % (Auto) 0.5, Absolute Neuts (auto) 10.1 H, Absolute Lymphs (auto) 1.63, Nucleated RBC % 0 11/28/22 14:25: Sodium 138, Potassium 3.6, Chloride 97 L, Carbon Dioxide 28.0, Anion Gap 13, BUN 49 H, Creatinine 14.70 H*, Estim Creat Clear Calc 6.49, Est GFR (MDRD) Af Amer 5 L, Est GFR (MDRD) Non-Af 4 L, BUN/Creatinine Ratio 3.3 L, Glucose 169 H, Calcium 9.0, Total Bilirubin 0.50, AST 13 L, ALT 21, Alkaline Phosphatase 71, Total Protein 7.3, Albumin 3.1 L, Globulin 4.2, Albumin/Globulin Ratio 0.7 L, Lipase 38 11/28/22 14:25: Lactic Acid 1.6 11/28/22 18:30: Urine Opiates Screen NEGATIVE, Urine Methadone Screen NEGATIVE, Ur Barbiturates Screen NEGATIVE, Ur Phencyclidine Scrn NEGATIVE, Ur Amphetamines Screen NEGATIVE, MDMA (Ecstasy) Screen NEGATIVE, U Benzodiazepines Scrn NEGATIVE, Urine Cocaine Screen NEGATIVE, U Cannabinoids Screen NEGATIVE, Ur Drug Screen Comment 11/28/22 18:30: Urine Color Yellow, Urine Clarity Sl. Cloudy, Urine pH 6.0, Ur Specific [place] 1.020, Urine Protein 500 H, Urine Glucose (UA) 100 H, Urine Ketones 5 H, Urine Occult Blood 25 H, Urine Nitrite Negative, Urine Bilirubin 1 H, Urine Urobilinogen Normal, Ur Leukocyte Esterase 100 H, Urine RBC 0-5 SEEN, Urine WBC 10-25 SEEN, Ur Squamous Epith Cells 0 SEEN, Urine Bacteria 0 SEEN, Urine Mucus 0 SEEN 11/28/22 21:22: POC Glucose 125 H 11/29/22 05:18: WBC 11.8 H, RBC 3.08 L, Hgb 9.8 L, Hct 30.3 L, MCV 98.4 H, MCH 31.8, MCHC 32.3, RDW Std Deviation 44.5 H, RDW Coeff of Rhys 12.4, Plt Count 252, MPV 11.3, Immature Gran % (Auto) 0.800, Neut % (Auto) 69.7, Lymph % (Auto) 19.1, [place] % (Auto) 8.0, Eos % (Auto) 1.6, Baso % (Auto) 0.8, Absolute Neuts (auto) 8.2 H, Absolute Lymphs (auto) 2.25, Nucleated RBC % 0 11/29/22 05:18: Sodium 140, Potassium 3.6, Chloride 102, Carbon Dioxide 27.0, Anion Gap 11, BUN 52 H, Creatinine 15.20 H*, Estim Creat Clear Calc 6.36, Est GFR (MDRD) Af Amer 5 L, Est GFR (MDRD) Non-Af 4 L, BUN/Creatinine Ratio 3.4 L, Glucose 102, Calcium 8.2 L, Magnesium 2.0, Total Bilirubin 0.50, AST 11 L, ALT 14 L, Alkaline Phosphatase 56, Total Protein 5.5 L, Albumin 2.5 L, Globulin 3.0, Albumin/Globulin Ratio 0.8 L 11/29/22 06:26: POC Glucose 98 Micro: Microbiology 11/28/22 18:30 Urine, Catheterized Urine Culture - Preliminary Culture exhibits no growth. Physical Exam Narrative General: Alert, oriented, no apparent distress, sitting up in bed HEENT: Atraumatic, normocephalic Eyes: Anicteric, normal conjunctiva, extraocular movements grossly intact Neck: Supple Respiratory: Clear to auscultation bilaterally, normal respiratory effort Cardiovascular: Regular rate and rhythm GI: Soft, not overtly tender,, nondistended Extremities: No edema Musculoskeletal: Moving all extremities Neuro: No overt focal neurological deficits Skin: No rashes appreciated Psych: Cooperative Assessment & Plan Assessment/Plan (1) Intractable vomiting with nausea: (2) Abdominal pain: (3) Hypertension: (4) History of peritoneal dialysis: PLAN: Plan #n/v/abd pain -Recent CT unrevealing, patient presented with the same symptoms so repeat imaging not obtained -Had recent gastric emptying study which was unrevealing -Denies any diarrhea, status post treatment for C. difficile -Abdominal exam with some mild tenderness more so in lower quadrants without rebound, guarding, rigidity, patient afebrile. Also symptoms were present during 2 recent hospitalizations and work-up for SBP was negative -We will send peritoneal studies for work-up for SBP and obtain blood cultures still as this could have high morbidity mortality, will start on empiric Zosyn and DC if cultures negative -Clear liquid diet and will advance as tolerated -Zofran with Compazine as needed and pain control -Patient has not urinated in 3 weeks, on scan from several days ago he did urine in his bladder, suspect he may have a neurogenic bladder and increasing bladder distention may be a cause/contributing factor given it was even fallen off it was becoming deformed on CT -We will straight cath x1 to assess if that is helpful -We will send UA and UDS on urine specimen -Did have diffuse calcifications but lactic acid normal and not necessarily associated with feedings do not think he has chronic ischemia -Lipase negative -11/29: Abdominal pain better this morning reports his main complaint really has been the nausea and burning at bedtime and the inability to keep food down. He denied any association throughout the day with exertion or rest and denied family history of heart problems as given his multiple medical problems wanted to assess for coronary artery disease but does not seem to be cardiac in nature. Given symptoms, PPI twice daily, will consult GI for tomorrow to assess if he may need any kind of endoscopy or other work-up, did have a negative gastric emptying study recently, has remained on empiric antibiotics but they had been unable to get peritoneal cultures or fluid prior to the antibiotics low suspicion still somewhat lower for SBP especially given the burning at night with nausea and regurgitation and the symptoms did not improve with antibiotics however given slight elevation in white count with left shift and improvement in that today we will continue antibiotics today #ESRD on PD -Nephrology consulted -11/29: Patient to have someone bring in PD equipment from home #Type 2 diabetes mellitus -Glucose checks and sliding scale insulin -Given poor p.o. will decrease home long-acting #HTN -Home medications #DVT ppx: JOYCELYNs Rupinder Calabrese MD Time spent in the patient's overall evaluation,decision-making process, review of diagnostic data, adjustment of management, discussion with other providers, nursing nursing and ancillary staff involved in patient's care documentation, 37 minutes Charges/Coding Visit Charges Inpatient E&M: 73028 Subs Hosp L3
[2022-11-29 12:21] LABS: Bedside Glucose 120 mg/dL (74-106)
[2022-11-29] MEDS: Insulin Lispro 100 UNIT/ML INSULN.PEN SC ×2 (16:50→21:52)
[2022-11-29] MEDS: SUCROFERRIC OXYHYDROXIDE 500 MG TAB.CHEW 1000 MG PO (16:52)
[2022-11-29 17:18] LABS: Bedside Glucose 172 mg/dL (74-106)
--- NOTE | 2022-11-29 18:52 | DIALYSIS ---
Pt brought in home machine/stand and supplies. pt has 6l bags and had decreased his fill to 2250ml on wed to avoid using a small amount of a 3rd bag of solution. Called Dr Patel to clarify orders. wants 2500ml x 5 fills, solution had to be ordered from pharmacy. Pt's home machine was used, hospital supplied solution, [facility] supplies used. Not enough effluent to collect sample tonight, initial drain phase required bypass which is routine for pt who does not have a last fill. What small amount did drain appeared clear. 1st fill completed. pt in dwell. denies other needs. report to Willian
[2022-11-29] MEDS: Mirtazapine 15 MG Tablet 7.5 MG PO (21:51)
[2022-11-29] MEDS: Insulin Glargine-YFGN 100 UNIT/ML Pen SC (21:52)
[2022-11-29 22:31] LABS: Bedside Glucose 189 mg/dL (74-106)
--- NOTE | 2022-11-30 | FLU_PTH ---
PATIENT: ABDIEL SY LOC: [facility] U#:[id number] AGE/SX: 42/M ROOM: [facility] RE11/28/[address]: Dr. Wayne España DO : 1980 BED: 1 DIS: 11/30/2022 SPEC #: [id number] RECD: 11/30/22 09:33 STATUS: MATEUS REFide #: [id number] ZULEMA: 11/30/22 00:[address]: Rupinder Calabrese DEPT: CYTOLOGY RECD BY: Sunita Valle ENTERED: 11/30/22 09:35 SP TYPE: Fluid OTHR DR: DO Dr. Wayne Bartlett DO Dr. Remus Ungur, DO Tissues: Peritoneal fluid Procedures: Special Stain Group II Surgery Specimen Level IV Cytospin Fluid HEADER OPERATION: Not noted PRE-OP DIAGNOSIS: Intractable nausea and vomiting TISSUE SUBMITTED: Peritoneal fluid for cytology DIAGNOSIS CYTOLOGY Peritoneal fluid for cytology (cytospin and cell block): Negative for malignant cells. Paucicellular specimen. See comment. KAIT:david 12/01/2022 COMMENT Correlation with clinical findings and appropriate follow up are necessary. CYTOLOGY STUDY Slides are reviewed. CYTOLOGY GROSS Received is 116 ml of clear colorless fluid labeled with the patient's name and and designated per the requisition as peritoneal. Submitted for cytology preparation including cell block. / david 11/30/2022 TC:5 CPT: 95074, 95557
[2022-11-30 01:19] VITALS: BP 136/68; PULSE 77; RESP 18; TEMP 36.3; O2SAT 96
[2022-11-30 05:56] LABS: Absolute Lymphocyte Count 3.27 X10^3/uL (0.83-4.51); Absolute Neutrophil Count 7.6 X10^3/uL (2.0-7.7); Basophil# 0.11 X10^3/uL; Basophil% 0.9 % (0-1); Eosinophil# 0.38 X10^3/uL; Hematocrit 29.9 % (40-54); Hemoglobin 9.6 g/dL (13.0-16.5); Lymphocyte # 3.27 X10^3/ul (0.83-4.51); Lymphocyte % 25.9 % (19-41); Mean Corp Hgb Conc 32.1 g/dL (32-36); Mean Corpuscular Hgb 31.3 pg (27.0-32.0); Mean Corpuscular Volume 97.4 fL (80-94); Mean Platelet Vol. 11.3 fl (6.2-12.0); Monocyte# 1.21 X10^3/uL; Monocyte% 9.6 % (0-10); NRBC Flagged by Analyzer 0 % (0-5); Neutrophil # 7.56 X10^3/uL (2.7-7.7); Neutrophil % 59.9 % (47-70); Platelet Count 229 K/mm3 (150-450); RBC Distribution Width CV 12.5 % (11.6-14.6); RBC Distribution Width SD 44.1 fl (35.1-43.9); Red Blood Count 3.07 M/mm3 (4.6-6.2); White Blood Count 12.6 K/mm3 (4.4-11.0)
[2022-11-30 06:39] LABS: ALB/GLOB Ratio 0.8 RATIO (0.9-2.4); AST(SGOT) 8 U/L (15-37); Alanine Aminotransfer ALT/SGPT 13 U/L (16-61); Albumin, Serum 2.4 g/dL (3.2-5.0); Alkaline Phosphatase 56 U/L (45-117); Anion Gap 11 (5-15); BUN 47 mg/dL (7-18); BUN/Creat Ratio 3.4 RATIO (10-20); Calcium,Total 7.8 mg/dL (8.5-10.1); Chloride 99 mmol/L (98-107); EST Glomerular Filtration Rate 4 mL/min (>60); Est Glom Filt Rate - Afr Amer 5 mL/min (>60); Estimated Creatinine Clearance 7.01 ml/min; Globulin 3.1 g/dL (2.2-4.2); Glucose 166 mg/dL (74-106); Magnesium 2.2 mg/dL (1.6-2.6); Potassium 3.2 mmol/L (3.5-5.1); Protein, Total 5.5 g/dL (6.4-8.2); Sodium Level 137 mmol/L (136-145)
[2022-11-30 06:44] VITALS: BP 153/79; PULSE 78; PULSE 79; RESP 16; TEMP 36.6; O2SAT 99
[2022-11-30 07:31] LABS: Bedside Glucose 124 mg/dL (74-106)
[2022-11-30 07:48] LABS: Cytology, Body Fluid / CSF SEE PATHOLOGY REPORT
--- NOTE | 2022-11-30 08:10 | DIALYSIS ---
TX terminated in usual aseptic fashion. Patient denies abdominal tenderness at this time. Effluent is light yellow, clear no fibrin noted. Patient is alert and stable. UF 577.
[2022-11-30 08:33] LABS: Body Fluid Mononuclear WBC # 0.004 10^3/uL; Body Fluid Total Cells Counted 0.005 10^3/ul; White Blood Count/Body Fluid 0.004 10^3/uL
[2022-11-30] MEDS: Aspirin 81 MG TAB.CHEW PO (08:47)
[2022-11-30 08:48] VITALS: BP 143/70; PULSE 76
[2022-11-30] MEDS: Metoprolol(XL)Succ 50 MG Tablet PO (08:48)
[2022-11-30] MEDS: amLODIPine 10 MG Tablet PO (08:48)
[2022-11-30] MEDS: Lisinopril 40 MG Tablet PO (08:48)
[2022-11-30] MEDS: 0.9% Saline Lock 10 ML Syringe IV (08:52)
[2022-11-30 09:41] LABS: Appearance/Body Fluid CLEAR; Auto B Fluid Analyzer BKGD Ct COUNTS W/IN LIMITS (W/IN LIMITS); Color/Body Fluid COLORLESS; Source- Body Fluid PERITONEAL FLUID
--- NOTE | 2022-11-30 09:45 | PN.HOSP_ITS ---
Reason for Visit Reason for Visit: Diagnoses Essential (primary) hypertension (11/28/22) Unspecified abdominal pain (11/28/22) Nausea with vomiting, unspecified (11/28/22) Other specified postprocedural states (11/28/22) Subjective Subjective was able to take oral today. Pt has been having vomiting almost daily, but some spells persists. Objective Data Objective Data Vital Signs: Vital Signs Temp Pulse Resp BP Pulse Ox O2 Del Method 36.6 C 76 16 143/70 H 99 Room Air 11/30/22 06:44 11/30/22 08:48 11/30/22 06:44 11/30/22 08:48 11/30/22 06:44 11/30/22 08:40 Oxygen Delivery Method Room Air Weight: 72.529 kg Body Mass Index (BMI) 22.9 Intake & Output: Intake and Output for Last 24 Hours 11/28/22 11/29/22 11/30/22 23:59 23:59 23:59 Intake Total 1470 / 1470 1170 / 1170 160 / 160 Output Total 320 / 320 Balance 1150 / 1150 1170 / 1170 160 / 160 Medical Nutrition Assessment Dietitian: Malnutrition Criteria Met Start: 11/29/22 12:13 Freq: Status: Active Protocol: Document 11/29/22 12:13 AG (Rec: 11/29/22 12:13 AG [id number]) Nutrition Malnutrition Evidence of Malnutrition Exists Yes Malnutrition (severe): Acute Illness/Injury Evidenced By Suboptimal Energy Intake ( Severe),Weight Loss (Severe) Clinical Problem Acute Disease or Injury Related Malnutrition Etiology severe acute malnutrition related to GI dysfunction Signs/Symptoms as evidenced by estimated PO intake meeting <50% of estimated energy needs > 5 days; unintentional 10.1#/6% wt loss Status Active Problem Recommendation Dietitian Recommendations/Changes recommend advance diet as tolerated to regular until adequate tolerance/PO intake is established; will monitor PO intake, labs, and wt and adjust diet/add ONS as indicated. Lab / Micro Data Result Diagrams: 11/30/22 05:15 11/30/22 05:15 Labs: Laboratory Results - last 24 hr 11/29/22 11:58: POC Glucose 120 H 11/29/22 16:46: POC Glucose 172 H 11/29/22 21:45: POC Glucose 189 H 11/30/22 05:15: WBC 12.6 H, RBC 3.07 L, Hgb 9.6 L, Hct 29.9 L, MCV 97.4 H, MCH 31.3, MCHC 32.1, RDW Std Deviation 44.1 H, RDW Coeff of Rhys 12.5, Plt Count 229, MPV 11.3, Immature Gran % (Auto) 0.700, Neut % (Auto) 59.9, Lymph % (Auto) 25.9, [place] % (Auto) 9.6, Eos % (Auto) 3.0, Baso % (Auto) 0.9, Absolute Neuts (auto) 7.6, Absolute Lymphs (auto) 3.27, Nucleated RBC % 0 11/30/22 05:15: Sodium 137, Potassium 3.2 L, Chloride 99, Carbon Dioxide 27.0, Anion Gap 11, BUN 47 H, Creatinine 13.80 H*, Estim Creat Clear Calc 7.01, Est GFR (MDRD) Af Amer 5 L, Est GFR (MDRD) Non-Af 4 L, BUN/Creatinine Ratio 3.4 L, Glucose 166 H, Calcium 7.8 L, Magnesium 2.2, Total Bilirubin 0.40, AST 8 L, ALT 13 L, Alkaline Phosphatase 56, Total Protein 5.5 L, Albumin 2.4 L, Globulin 3.1, Albumin/Globulin Ratio 0.8 L 11/30/22 06:48: POC Glucose 124 H 11/30/22 07:35: Fluid WBC 0.004, Fluid Tot Cell Count 0.005, Fld Polynuclear WBCs # 0.000, Fld Polynuclear WBCs % 0.0, Fluid Mononuclear WBCs 0.004, Fld Mononuclear WBCs % 100.0 Micro: Microbiology 11/28/22 18:30 Urine, Catheterized Urine Culture - Preliminary Culture exhibits no growth. Physical Exam Const alert and no apparent distress HEENT head/scalp atraumatic and moist oral mucous membranes Resp normal respiratory effort, no retractions, no use of accessory muscles and clear to auscultation bilaterally Cardio regular rate, regular rhythm, S1 normal heart sound and S2 normal heart sound GI normal to inspection, nondistended, normoactive bowel sounds, soft to palpation, non-tender and non-distended Extremity normal to inspection Assessment & Plan Assessment/Plan (1) Intractable vomiting with nausea: PLAN: Suspect d/t gastroparesis In type 2 diabetic on PD GES on 11/[address] 11/24: showed no acute process Recently had C.diff on 11/14 UDS on 11/29 negative thus far tolerating diet. consider resuming metoclopramide. DW pt risks of tardive dyskinesia. (2) History of peritoneal dialysis: PLAN: #ESRD on PD -Nephrology consulted -11/29: Patient to have someone bring in PD equipment from home PLAN: Plan Chronic conditions: * Type 2 diabetes mellitus-Glucose checks and sliding scale insulin-Given poor p.o. will decrease home long-acting * HTN-Home medications DVT ppx: SCDs Charges/Coding Visit Charges Inpatient E&M: 18797 Subs Hosp L2
[2022-11-30 09:48] LABS: Red Cell Count/Body Fluid < 0 /mm3
[2022-11-30 09:49] LABS: Body Fluid QC Type(s) BF1Q; Lymphocytes 100 %
--- NOTE | 2022-11-30 10:39 | WOUNDNOTE ---
wound photo: right lateral foot
--- NOTE | 2022-11-30 10:40 | WOUNDNOTE ---
wound photo: right foot
[2022-11-30 11:40] VITALS: BP 129/65; PULSE 81; RESP 16; TEMP 36.6; O2SAT 97
[2022-11-30] MEDS: SUCROFERRIC OXYHYDROXIDE 500 MG TAB.CHEW 1000 MG PO (11:42)
[2022-11-30 12:21] LABS: Bedside Glucose 97 mg/dL (74-106)
--- NOTE | 2022-11-30 15:32 | DCINST_ITS ---
Discharge Instructions Diet Discharge Diet: 2000 Calorie Control Diet (bland diet, advance as tolerated. ) Dressing / Incision Call your doctor if you observe: - (intractable nausea and vomiting. ) Follow Up Care Test Results: Test results from this visit will be discussed in further detail at your follow- up appointment, if applicable. Discharge Plan Admission Admit Date/Time: 11/28/22 16:10 Primary Reason for Your Visit: intractable nausea vomiting. Attending Provider: Wayne España Primary Care Provider: BEL ARTHUR Consulting Providers: Fabby Patel ; Rupinder Calabrese Discharge Orders/Prescriptions Prescriptions: Continued Velphoro 500 mg tablet,chewable 1,000 mg PO TIDCM Ifrah-Al 0.8 mg tablet 1 tab PO DAILY omeprazole 40 mg capsule,delayed release(DR/EC) 40 mg PO DAILY lisinopril 40 mg tablet 40 mg PO DAILY insulin glargine [Basaglar KwikPen U-100 Insulin] 100 unit/mL (3 mL) Insulin Pen 15 unit SUBCUT QHS ondansetron 4 mg tablet,disintegrating 4 mg PO Q8H PRN PRN (Reason: Nausea) Qty: 10 0RF metoprolol succinate 100 mg Tablet Extended Release 24 Hr 100 mg PO DAILY Qty: 30 1RF amlodipine 10 mg Tablet 10 mg PO DAILY Qty: 30 1RF metoclopramide HCl [Reglan] 10 mg tablet 10 mg PO Q6H PRN (Reason: nausea and vomiting) Qty: 20 0RF atorvastatin 10 mg tablet 10 mg PO DAILY Rx Instructions: HS aspirin 81 mg Tablet 81 mg PO DAILY calcitriol 0.25 mcg capsule 0.25 mcg PO DAILY Label Comments: TAKE 1 CAPSULE BY MOUTH ONCE DAILY mirtazapine 7.5 mg tablet 7.5 mg PO DAILY cholecalciferol (vitamin D3) 1,250 mcg (50,000 unit) capsule 50 mcg PO DAILY Referrals / Follow Up: BEL ARTHUR [Other] BEL ARTHUR [Other] - Within 2 Weeks [facility] [Provider Group] - 12/03/22 10:00 am Fabby Patel DO [Med Staff - Consulting] - (next routine follow up) Disposition Disposition (needs filled in before D/C Order can be placed): Home, Self Care
--- NOTE | 2022-11-30 15:37 | DS.PCM_ITS ---
Providers Date of Admission: 11/28/22 Primary Care Physician: BEL ARTHUR Consultations 11/28/22 16:46 Consult: Nephrology Routine Consulting Provider: Fabby Patel Reason for Consult: esrd on PD EMERGENT Consult: No MD Notified: Yes Date Notified: 11/28/22 Time Notified: 16:52 Method of Notification: Text 11/30/22 05:55 Consult: Gastroenterology AM (NON MEDS) Consulting Provider: [facility] Reason for Consult: intractable nausea and food regurgitation EMERGENT Consult: No MD Notified: Yes Date Notified: 11/29/22 Time Notified: 08:36 Method of Notification: Answering Service 11/30/22 08:44 Consult: Onc/Wound/internal audit director Routine Comment: Reason for Consult:: Rt foot wound Reason For Visit: INTRACTABLE NAUSEA AND VOMITING Diagnosis Discharge Diagnosis (1) Intractable vomiting with nausea: Status: Acute Code(s): R11.2 - Nausea with vomiting, unspecified Plan: Suspect d/t gastroparesis In type 2 diabetic on PD GES on 11/[address] 11/24: showed no acute process Recently had C.diff on 11/14 UDS on 11/29 negative thus far tolerating diet. consider resuming metoclopramide. DW pt risks of tardive dyskinesia. (2) History of peritoneal dialysis: Status: Acute Code(s): Z98.890 - Other specified postprocedural states Plan: #ESRD on PD -Nephrology consulted -11/29: Patient to have someone bring in PD equipment from home Plan Chronic conditions: * Type 2 diabetes mellitus-Glucose checks and sliding scale insulin-Given poor p.o. will decrease home long-acting * HTN-Home medications DVT ppx: SCDs Medications at Discharge Home Medications lisinopril 40 mg tablet 40 mg PO DAILY blood pressure 01/08/22 omeprazole 40 mg capsule,delayed release 40 mg PO DAILY GERD 01/08/22 sucroferric oxyhydroxide 500 mg chewable tablet (Velphoro) 1,000 mg PO TIDCM renal disease 01/08/22 vitamin B complex-vitamin C-folic acid 0.8 mg tablet (Ifrah-Al) 1 tab PO DAILY supplement 01/08/22 insulin glargine 100 unit/mL (3 mL) subcutaneous pen (Basaglar KwikPen U-100 Insulin) 15 unit subcut QHS diabetes 03/24/22 ondansetron 4 mg disintegrating tablet 4 mg PO Q8H PRN PRN Nausea #10 tabs 10/04/22 amlodipine 10 mg tablet 10 mg PO DAILY #30 tabs 11/14/22 metoprolol succinate 100 mg tablet,extended release 24 hr 100 mg PO DAILY #30 tabs 11/14/22 metoclopramide HCl 10 mg tablet (Reglan) 10 mg PO Q6H PRN nausea and vomiting #20 tabs 11/25/22 aspirin 81 mg tablet 81 mg PO DAILY health maintenance 11/29/22 atorvastatin 10 mg tablet 10 mg PO DAILY 11/29/22 calcitriol 0.25 mcg capsule 0.25 mcg PO DAILY health maintenance 11/29/22 cholecalciferol (vitamin D3) 1,250 mcg (50,000 unit) capsule 50 mcg PO DAILY 11/29/22 mirtazapine 7.5 mg tablet 7.5 mg PO DAILY anxiety 11/29/22 Hospital Course Operations None Procedures None Summary of Care Provided Minutes Spent on Discharge: 32 Hospital Course: 42-year-old male presents with recurrent nausea and vomiting. This has been his third admission since September for the same. Has been ongoing for the past few months. Patient is a diabetic and also on peritoneal dialysis though he has been on peritoneal dialysis for about a year and a half. Patient has had a gastric emptying study which has been negative, he has been evaluated for spon taneous bacterial peritonitis which has been negative x2 including this admission. Is still concerning that this may be gastroparesis but thus far his work-up has been unremarkable. Though patient did have C. difficile back in October and did complete treatment for that. Patient will be following up with gastroenterology later this week and they will address any further management in regards to his intractable nausea and vomiting. Does not seem to be diet related because many of his symptoms began in the middle of the night, well after he has eaten anything. Though that does not rule out any dietary etiologies it makes it less likely. Patient was able to eat today and keep that down and states that his appetite is come back, at least for the time being. May need to consider scheduled Reglan despite the risk of tardive dyskinesia if this does not continue to be recurrent process for him. Medical Records Data Medical Nutrition Assessment Dietitian: Malnutrition Criteria Met Start: 11/29/22 12: 13 Freq: Status: Active Protocol: Document 11/29/22 12:13 (Rec: 11/29/22 12:13 AG [id number]) Nutrition Malnutrition Evidence of Malnutrition Exists Yes Malnutrition (severe): Acute Illness/Injury Evidenced By Suboptimal Energy Intake ( Severe),Weight Loss (Severe) Clinical Problem Acute Disease or Injury Related Malnutrition Etiology severe acute malnutrition related to GI dysfunction Signs/Symptoms as evidenced by estimated PO intake meeting <50% of estimated energy needs > 5 days; unintentional 10.1#/6% wt loss Status Active Problem Recommendation Dietitian Recommendations/Changes recommend advance diet as tolerated to regular until adequate tolerance/PO intake is established; will monitor PO intake, labs, and wt and adjust diet/add ONS as indicated. Weight / BMI Weight Weight: 72.529 kg Body Mass Index (BMI) 22.9 ABG / Lab / Microbiology Data Result Diagrams: 11/30/22 05:15 11/30/22 05:15 Laboratory: Laboratory Results - last 24 hr 11/29/22 16:46: POC Glucose 172 H 11/29/22 21:45: POC Glucose 189 H 11/30/22 05:15: WBC 12.6 H, RBC 3.07 L, Hgb 9.6 L, Hct 29.9 L, MCV 97.4 H, MCH 31.3, MCHC 32.1, RDW Std Deviation 44.1 H, RDW Coeff of Rhys 12.5, Plt Count 229, MPV 11.3, Immature Gran % (Auto) 0.700, Neut % (Auto) 59.9, Lymph % (Auto) 25.9, [place] % (Auto) 9.6, Eos % (Auto) 3.0, Baso % (Auto) 0.9, Absolute Neuts (auto) 7.6, Absolute Lymphs (auto) 3.27, Nucleated RBC % 0 11/30/22 05:15: Sodium 137, Potassium 3.2 L, Chloride 99, Carbon Dioxide 27.0, Anion Gap 11, BUN 47 H, Creatinine 13.80 H*, Estim Creat Clear Calc 7.01, Est GFR (MDRD) Af Amer 5 L, Est GFR (MDRD) Non-Af 4 L, BUN/Creatinine Ratio 3.4 L, Glucose 166 H, Calcium 7.8 L, Magnesium 2.2, Total Bilirubin 0.40, AST 8 L, ALT 13 L, Alkaline Phosphatase 56, Total Protein 5.5 L, Albumin 2.4 L, Globulin 3.1, Albumin/Globulin Ratio 0.8 L 11/30/22 06:48: POC Glucose 124 H 11/30/22 07:35: Fluid Source PERITONEAL FLUID, Fluid Color COLORLESS, Fluid Appearance CLEAR, Fluid WBC 0.004, Fluid RBC < 0, Fluid Tot Cell Count 0.005, F ld Polynuclear WBCs # 0.000, Fld Polynuclear WBCs % 0.0, Fluid Mononuclear WBCs 0.004, Fld Mononuclear WBCs % 100.0, Fluid Lymphocytes 100, Fl Pathologist Comment May follow, Fluid Comment 2 SEE COMMENT 11/30/22 11:39: POC Glucose 97 Microbiology: Microbiology 11/28/22 18:30 Urine, Catheterized Urine Culture - Final Culture exhibits no growth. 11/30/22 07:35 Fluid - Peritoneal Gram Stain - Final D/C Instructions Discharge Diet: 2000 Calorie Control Diet (bland diet, advance as tolerated. ) Call your doctor if you observe: - (intractable nausea and vomiting. ) Meaningful Use Info Meaningful Use Diagnoses (Choose all that apply): None applicable Discharge Plan Admission Admit Date/Time: 11/28/22 16:10 Primary Reason for Your Visit: intractable nausea vomiting. Attending Provider: Wayne España Primary Care Provider: BEL ARTHUR Consulting Providers: Fabby Patel ; Rupinder Calabrese Discharge Orders/Prescriptions Prescriptions: Continued Velphoro 500 mg tablet,chewable 1,000 mg PO TIDCM Ifrah-Al 0.8 mg tablet 1 tab PO DAILY omeprazole 40 mg capsule,delayed release(DR/EC) 40 mg PO DAILY lisinopril 40 mg tablet 40 mg PO DAILY insulin glargine [Basaglar KwikPen U-100 Insulin] 100 unit/mL (3 mL) Insulin Pen 15 unit SUBCUT QHS ondansetron 4 mg tablet,disintegrating 4 mg PO Q8H PRN PRN (Reason: Nausea) Qty: 10 0RF metoprolol succinate 100 mg Tablet Extended Release 24 Hr 100 mg PO DAILY Qty: 30 1RF amlodipine 10 mg Tablet 10 mg PO DAILY Qty: 30 1RF metoclopramide HCl [Reglan] 10 mg tablet 10 mg PO Q6H PRN (Reason: nausea and vomiting) Qty: 20 0RF atorvastatin 10 mg tablet 10 mg PO DAILY Rx Instructions: HS aspirin 81 mg Tablet 81 mg PO DAILY calcitriol 0.25 mcg capsule 0.25 mcg PO DAILY Label Comments: TAKE 1 CAPSULE BY MOUTH ONCE DAILY mirtazapine 7.5 mg tablet 7.5 mg PO DAILY cholecalciferol (vitamin D3) 1,250 mcg (50,000 unit) capsule 50 mcg PO DAILY Referrals / Follow Up: BEL ARTHUR [Other] BEL ARTHUR [Other] - Within 2 Weeks [facility] [Provider Group] - 12/03/22 10:00 am Fabby Patel DO [Med Staff - Consulting] - (next routine follow up) Disposition Disposition (needs filled in before D/C Order can be placed): Home, Self Care Charges/Coding Visit Charges Inpatient E&M: 86417 Disch Hosp >30min
--- NOTE | 2022-11-30 16:11 | PHA.DC.MR ---
Pharmacy Service has performed discharge medication reconciliation for this patient. The patient's discharge medication list was reviewed for discrepancies and discrepancies were resolved. Home Medications lisinopril 40 mg tablet 40 mg PO DAILY blood pressure 01/08/22 omeprazole 40 mg capsule,delayed release 40 mg PO DAILY GERD 01/08/22 sucroferric oxyhydroxide 500 mg chewable tablet (Velphoro) 1,000 mg PO TIDCM renal disease 01/08/22 vitamin B complex-vitamin C-folic acid 0.8 mg tablet (Ifrah-La) 1 tab PO DAILY supplement 01/08/22 insulin glargine 100 unit/mL (3 mL) subcutaneous pen (Estrogen Gene Testaglar KwikPen U-100 Insulin) 15 unit subcut QHS diabetes 03/24/22 ondansetron 4 mg disintegrating tablet 4 mg PO Q8H PRN PRN Nausea #10 tabs 10/04/22 amlodipine 10 mg tablet 10 mg PO DAILY #30 tabs 11/14/22 metoprolol succinate 100 mg tablet,extended release 24 hr 100 mg PO DAILY #30 tabs 11/14/22 metoclopramide HCl 10 mg tablet (Reglan) 10 mg PO Q6H PRN nausea and vomiting #20 tabs 11/25/22 aspirin 81 mg tablet 81 mg PO DAILY health maintenance 11/29/22 atorvastatin 10 mg tablet 10 mg PO DAILY 11/29/22 calcitriol 0.25 mcg capsule 0.25 mcg PO DAILY health maintenance 11/29/22 cholecalciferol (vitamin D3) 1,250 mcg (50,000 unit) capsule 50 mcg PO DAILY 11/29/22 mirtazapine 7.5 mg tablet 7.5 mg PO DAILY anxiety 11/29/22
[2022-11-30 16:25] VITALS: BP 137/83; PULSE 71; RESP 16; TEMP 36.4; O2SAT 97
--- NOTE | 2022-12-01 09:11 | PCM.CONS.R ---
Assessment & Plan Assessment/Plan (1) ESRD on peritoneal dialysis: PLAN: continue with 1.5% dianeal 2.5L fill volumes x5 exchanges. (2) Diabetes mellitus type 2 with complications: PLAN: stable (3) Abdominal pain: PLAN: stable (4) Intractable vomiting with nausea: PLAN: etiology unclear, CT unremarkable. No peritonitis (5) Hypertension: PLAN: stable (6) C. difficile colitis: PLAN: oral vanco HPI Consult Data Date of Consult: 12/01/22 HPI Narrative HPI Narrative: ABDIEL SY, is a 42 M who presents with persistent nausea vomiting past week, unresolved since last admission for same reason. CT abdomen unremarkable. PD fluid clear. Remains on oral vanco for cdiff colitis. Denied diarrhea. No fever, chills. Heart cath for transplant workup still pending. Canceled due to recent cdiff infection. Feeling better today, tolerating diet. [facility] Medical History (Updated 12/01/22 @ 16:[address] Fabby Patel, ) Anemia Anxiety C. difficile colitis CKD (chronic kidney disease) stage 5, GFR less than 15 ml/min CPAP (continuous positive airway pressure) dependence Depression Diabetes mellitus type 2 with complications Diabetic foot ulcer ESRD on peritoneal dialysis Glaucoma Hypertension IBS (irritable bowel syndrome) Sleep apnea Home Medications lisinopril 40 mg tablet 40 mg PO DAILY blood pressure 01/08/22 [History Last Taken Unknown] omeprazole 40 mg capsule,delayed release 40 mg PO DAILY GERD 01/08/22 [History Last Taken Unknown] sucroferric oxyhydroxide 500 mg chewable tablet (Velphoro) 1,000 mg PO TIDCM renal disease 01/08/22 [History Last Taken Unknown] vitamin B complex-vitamin C-folic acid 0.8 mg tablet (Ifrah-Al) 1 tab PO DAILY supplement 01/08/22 [History Last Taken Unknown] insulin glargine 100 unit/mL (3 mL) subcutaneous pen (Basaglar KwikPen U-100 Insulin) 15 unit subcut QHS diabetes 03/24/22 [History Last Taken Unknown] ondansetron 4 mg disintegrating tablet 4 mg PO Q8H PRN PRN Nausea #10 tabs 10/04/22 [Rx Last Taken Unknown] amlodipine 10 mg tablet 10 mg PO DAILY #30 tabs 11/14/22 [Rx Last Taken Unknown] metoprolol succinate 100 mg tablet,extended release 24 hr 100 mg PO DAILY #30 tabs 11/14/22 [Rx Last Taken Unknown] metoclopramide HCl 10 mg tablet (Reglan) 10 mg PO Q6H PRN nausea and vomiting #20 tabs 11/25/22 [Rx Last Taken Unknown] aspirin 81 mg tablet 81 mg PO DAILY health maintenance 11/29/22 [History Last Taken Unknown] atorvastatin 10 mg tablet 10 mg PO DAILY 11/29/22 [History Last Taken Unknown] calcitriol 0.25 mcg capsule 0.25 mcg PO DAILY health maintenance 11/29/22 [History Last Taken Unknown] cholecalciferol (vitamin D3) 1,250 mcg (50,000 unit) capsule 50 mcg PO DAILY 11/29/22 [History Last Taken Unknown] mirtazapine 7.5 mg tablet 7.5 mg PO DAILY anxiety 11/29/22 [History Last Taken Unknown] Allergy/AdvReac Type Severity Reaction Status Date / Time tramadol AdvReac Intermediate Vomiting Verified 11/28/22 14:13 Family History Mother Diabetes Hypertension Brother Diabetes Surgical History H/O vascular surgery Social History housing: house Smoking Status: Never smoker alcohol intake: never substance use type: does not use well-balanced diet: daily or most days caffeine: No eating out: 4 or more times/week during the past year weight has: remained stable what type of physical activity do you participate in: none ROS Constitutional Constitutional: Reports weakness and weight loss; Denies chills or fever(s) ENT HEENT: Denies nasal congestion Cardiovascular Cardiovascular: Denies chest pain Respiratory/Chest Respiratory/Chest: Denies dry cough or dyspnea on exertion Gastrointestinal Gastrointestinal: Reports abdominal pain, anorexia, dry heaves, nausea and vomiting; Denies diarrhea Genitourinary Genitourinary: Reports oliguria Integumentary Integumentary: Denies rash Neurologic Neurologic: Denies confusion Psychiatric Psychiatric: Reports depression; Denies anxiety or confusion Endocrine Endocrinology: Reports fatigue Physical Exam Const alert and oriented x3 General Appearance: well developed Resp clear to auscultation bilaterally GI non-tender and non-distended Auscultation: normoactive bowel sounds Palpation: soft Extremity no clubbing, cyanosis or edema Neuro CN's II-XII intact bilaterally Sensorium / Orientation: awake and alert Psych Mood & Affect: depressed Lab / Micro Data Result Diagrams: 11/30/22 05:15 11/30/22 05:15 Labs: Laboratory Results - last 24 hr 11/30/22 07:35: Fluid Source PERITONEAL FLUID, Fluid Color COLORLESS, Fluid Appearance CLEAR, Fluid WBC 0.004, Fluid RBC < 0, Fluid Tot Cell Count 0.005, Fld Polynuclear WBCs # 0.000, Fld Polynuclear WBCs % 0.0, Fluid Mononuclear WBCs 0.004, Fld Mononuclear WBCs % 100.0, Fluid Lymphocytes 100, Fl Pathologist Comment May follow, Fluid Comment 2 SEE COMMENT 11/30/22 11:39: POC Glucose 97 Micro: Microbiology 11/28/22 18:05 Blood Culture (Wb) - Anticubital Left Blood Culture - Preliminary No growth in 48 hours. 11/28/22 17:50 Blood Culture (Wb) - Anticubital Left Blood Culture - Preliminary No growth in 48 hours. 11/28/22 18:30 Urine, Catheterized Urine Culture - Final Culture exhibits no growth. 11/30/22 07:35 Fluid - Peritoneal Gram Stain - Final
[2022-12-01 14:55] LABS: Pathologist Comment/Body Fluid Reviewed
== END 2022-11-30 15:37 | disposition home or self-care (01) ==
LOC: ED 16:01 → PCU 16:40
PROVIDERS: Admitting Provider Internal Medicine; Emergency Provider Emergency Medicine; Referring Provider Emergency Medicine
DX: R11.2 Nausea with vomiting, unspecified (principal); Z99.2 Dependence on renal dialysis; E11.22 Type 2 diabetes mellitus with diabetic chronic kidney disease; E11.42 Type 2 diabetes mellitus with diabetic polyneuropathy; N18.6 End stage renal disease; I12.0 Hypertensive chronic kidney disease with stage 5 chronic kidney disease or end stage renal disease; Z79.4 Long term (current) use of insulin; Z79.82 Long term (current) use of aspirin; Z79.899 Other long term (current) drug therapy; F41.9 Anxiety disorder, unspecified; G47.30 Sleep apnea, unspecified
CPT/HCPCS: 99284; 36415; 80053; 80307; 81001; 82962; 83605; 83690; 83735; 85025; 87040; 87070; 87075; 87086; 87205; 88108; 88305; 88313; 89050; 90947; 96365; 96366; 96367; 96375; 96376; 97802; 99221; J7030; J7040; J7050; A4216; G0257; G0378; J2405